=== PATIENT | male | born 1990 | race Caucasian/White ===

== ENCOUNTER 2024-07-28 18:49 | Inpatient (IN) | payer MEDICARE, MEDICAID, SELFPAY ==
--- NOTE | ~2024-07-28 | CT_ITS ---
EXAMINATION: CT HEAD WITHOUT IV CONTRAST HISTORY: AMS. TECHNIQUE: Unenhanced helical CT of the head was performed per standard departmental protocol. Coronal and sagittal reformats of the head were also evaluated. One or more of the following techniques was used for dose reduction: Automated exposure control, adjustment of the mA and/or kV according to patient size, use of iterative reconstruction technique. DLP: 1436 mGy-cm COMPARISON: There are no prior studies for comparison. FINDINGS: BRAIN: The brain parenchyma is unremarkable. There is normal méndez/white differentiation. The ventricular system is normal in size and configuration. There is no mass effect or midline shift. No intra- or extra-axial fluid collections are identified. SINUSES: There are polyps versus mucous retention cysts in the left sphenoid and ethmoid sinuses. The mastoid air cells and middle ear cavities are well pneumatized. ORBITS: The visualized orbits are unremarkable. BONES/SOFT TISSUES: The extracranial soft tissues are unremarkable. The calvarium is intact. No suspicious lytic or sclerotic lesions. CT/CT head/brain wo IV con IMPRESSION: Unremarkable unenhanced head CT. Electronically signed by: Davide Chen MD 09/01/2024 03:41 PM [facility]
[2024-07-28 19:40] VITALS: BMI 33.0
--- NOTE | 2024-07-28 19:59 | PC.ADMIT ---
Joel arrived on M5 via stretcher from [facility]. He arrived on a 12b after going through [facility] ED. He was brought immediately to his room. He was cooperative with skin/safety check. He required assistance with change control analyst. Skin assessment significant only for abraded side of bridge of nose from eyeglass pad on left and from the lack of eyeglass pad on right. He also has many flakes on his face and alot of dryness around his mouth. He was oriented to his room, introduced to staff and given food/water. He is visibly anxious and required much reassurance that he is safe and is doing good . Report given to Antony Ordaz RN.
[2024-07-28] MEDS: clonazePAM 0.5 MG TABLET PO (22:52)
[2024-07-28] MEDS: Docusate Sodium 100 MG CAPSULE PO (22:53)
[2024-07-28] MEDS: OLANZapine 10 MG TABLET PO (22:53)
[2024-07-29] MEDS: hydrOXYzine HCL 25 MG TABLET PO (00:28)
[2024-07-29] MEDS: traZODone HCL 50 MG TABLET PO ×3 (00:28→23:17)
--- NOTE | 2024-07-29 01:03 | PC.ADMIT ---
Patient admitted to at 1905 with diagnosis of Schizoaffective Disorder, Autism Spectrum Disorder and Moderate Intellectual Disabilities. Patient transferred to [facility] from [facility] ED. He resides at a [facility] residential facility. division operations manager of residential facility reported patient had been decompensating following discharge from [facility] 3-4 weeks ago exhibiting increase in anxiety, paranoia and visual hallucinations. Patient also had exhibited aggession reported to be related to increase in paranoia and hallucinations resulting in physical restraint. Joel is seen by outpatient psychiatrist bi-weekly. His parents are legal guardians. Joel is calm and cooperative with flat affect. He is able to answer simple, direct questions.He denies suicidal or homicidal ideation as well as thoughts of self harm. Patient states he feels safe on unit. Following arrival to unit Joel requested and was given snack of sandwich, chips and ice cream all of which he finished. He was observed in the kitchen briefly where he waited for administration of clonazepam which was administered upon completion of med rec. Patient has been unable to sleep and is observed sitting in kitchen at this time. [facility] is unverified. No acute medical issues at this time.
[2024-07-29] MEDS: Lurasidone HCl 40 MG TABLET PO (09:03)
[2024-07-29] MEDS: Cariprazine HCl 3 MG CAPSULE PO (09:03)
[2024-07-29] MEDS: Ezetimibe 10 MG TABLET PO (09:03)
[2024-07-29] MEDS: Escitalopram Oxalate 10 MG TABLET PO (09:03)
[2024-07-29] MEDS: gemfibroziL 600 MG TABLET PO ×2 (09:03→20:52)
[2024-07-29] MEDS: Loratadine 10 MG TABLET PO (09:04)
[2024-07-29] MEDS: Sennosides 8.6 MG TABLET PO (09:04)
[2024-07-29] MEDS: carBAMazepine ER 200 MG TAB.ER.12H 400 MG PO ×2 (09:04→20:52)
[2024-07-29] MEDS: Docusate Sodium 100 MG CAPSULE PO ×2 (09:04→20:53)
[2024-07-29] MEDS: clonazePAM 0.5 MG TABLET PO ×3 (11:02→20:53)
--- NOTE | 2024-07-29 11:34 | HO.PSYADMNOT ---
HPI Date of Service: 07/29/24 Chief Complaint: Schioafective disorder bipolar type Sources of Information: patient interviewed, chart reviewed and crisis/core team assessment reviewed HPI Subjective Notes: Amor Warning and Conditional Voluntary Narrative: Patient is a 34-year-old male with severe ASD, intellectual disability, schizoaffective disorder with, history of behavioral outbursts, who resides at a [facility] residential facility and who presents from external ED for what numerical control programmer reports is decompensation following discharge from [facility] admission about 4 weeks ago. specification manager reports patient has increased anxiety, paranoia and visual hallucinations as well as increased agitation related to AVH, which has resulted in the need for physical restraints. Patient with limited ability to participate in interview. Patient cooperative and calm. He says he misses his mother. He said I am feeling better... And then that he was going to lay down. He said he wanted to be in the hospital until he feels better... But could not discuss his feelings or what that would mean. Denies any SI or HI and says he is feeling safe. Patient does endorse auditory hallucinations which he he says bothers him, however when asked to discuss them further or what they say, he says I do not know and regarding medication that there is nothing to help... For the remainder of the day, patient sometimes in his room, sometimes in the hallway saying he wanted to call his mother or father, saying he misses them and wants to go home. Past Psychiatric History: Recent psychiatric admissions for decompensation Lives in [facility] detention facility outpatient psychiatrist bi-weekly. His parents are legal guardians. Possible community [facility] but this is not verified Medical Evaluation Reviewed: Hospitalist Conchita Pending [facility] Medical History (Updated 07/30/24 @ 13:03 by Mannie Vidal MD) Intellectual disability Autism spectrum disorder Schizoaffective disorder Family History: Deferred at this time Social History: Lives in [facility] detention facility His parents are legal guardians. Substance History: Deferred Trauma History: Deferred Diagnostics Vital Signs (24Hr): BMI result Body Mass Index 33.0 Meds/Allergies Meds Home Medications ?Medication ?Instructions ?Recorded ?Confirmed ?Type atenolol 25 mg tablet 25 mg PO DAILY 07/28/24 07/28/24 History carbamazepine 400 mg 400 mg PO BID 07/28/24 07/28/24 History tablet,extended release,12 hr cariprazine 3 mg capsule (Vraylar) 3 mg PO DAILY 07/28/24 07/28/24 History citalopram 20 mg tablet 20 mg PO DAILY 07/28/24 07/28/24 History clonazepam 0.5 mg tablet 0.5 mg PO TID PRN anxiety 07/28/24 07/28/24 History docusate sodium 100 mg capsule 100 mg PO TID 07/28/24 07/28/24 History (Colace) ezetimibe 10 mg tablet 10 mg PO DAILY 07/28/24 07/28/24 History fluticasone propionate 50 1 spray intranasal DAILY 07/28/24 07/28/24 History mcg/actuation nasal spray,suspension gemfibrozil 600 mg tablet 600 mg PO BID 07/28/24 07/28/24 History loratadine 10 mg capsule 10 mg PO DAILY 07/28/24 07/28/24 History lurasidone 40 mg tablet 40 mg PO DAILY 07/28/24 07/28/24 History montelukast 10 mg tablet 10 mg PO DAILY 07/28/24 07/28/24 History olanzapine 10 mg tablet 10 mg PO BEDTIME 07/28/24 07/28/24 History omeprazole 40 mg capsule,delayed 40 mg PO DAILY 07/28/24 07/28/24 History release rosuvastatin 10 mg tablet 10 mg PO BEDTIME 07/28/24 07/28/24 History sennosides 8.6 mg capsule (senna) 8.6 mg PO BID 07/28/24 07/28/24 History Allergies Allergies Allergy/AdvReac Type Severity Reaction Status Date / Time ondansetron [From Zofran] Allergy Unknown Verified 07/28/24 22:30 Penicillins Allergy Unknown Verified 07/28/24 22:30 potassium Allergy Unknown Verified 07/28/24 22:30 prochlorperazine Allergy Unknown Verified 07/28/24 22:30 Mental Status Exam Mental Status Exam Narrative: Pt is alert and oriented; behavior is guarded, cautious but cooperative, calm, friendly; patient is not in distress; dressed in casual attire, unkempt, excessively dry skin on face, drooling, marginal hygiene; mood is described as better though affect anxious; eye contact appropriate; Speech is a little garbled but likely at baseline; normal rate, volume; uses few words; not pressured; no psychomotor agitation/retardation present; thought process is concrete, goal directed, asks for needs; Thought content is on AH, missing parents, tx; otherwise pertinent to relevant topics; no overt delusional content expressed; denies any SI/HI. +AH and internally preoccupied. Patients insight and judgment impaired. Assessment & Plan Assessment & Plan (1) Schizoaffective disorder: Status: Acute Code(s): F25.9 - Schizoaffective disorder, unspecified (2) Autism spectrum disorder: Status: Acute Code(s): F84.0 - Autistic disorder (3) Intellectual disability: Status: Acute Code(s): F79 - Unspecified intellectual disabilities Plan Patient is a 34-year-old male with severe ASD, intellectual disability, schizoaffective disorder with, history of behavioral outbursts, who resides at a [facility] residential facility and who presents from external ED for what numerical control programmer reports is decompensation following discharge from [facility] admission about 4 weeks ago. specification manager reports patient has increased anxiety, paranoia and visual hallucinations as well as increased agitation related to AVH, which has resulted in the need for physical restraints. Patient with limited ability to participate in interview. Patient cooperative and calm. He says he misses his mother. He said I am feeling better... And then that he was going to lay down. He said he wanted to be in the hospital until he feels better... But could not discuss his feelings or what that would mean. Denies any SI or HI and says he is feeling safe. Patient does endorse auditory hallucinations which he he says bothers him, however when asked to discuss them further or what they say, he says I do not know and regarding medication that there is nothing to help... For the remainder of the day, patient sometimes in his room, sometimes in the hallway saying he wanted to call his mother or father, saying he misses them and wants to go home. Formulation/clinical reasoning: hx of psychotic illness with mood component; difficult to assess due to patients baseline limitations. So far patient calm, mostly cooperative though also guarded and cautious. So far in good behavioral control. -Will need collateral -Guardian paperwork in chart; parents are guardians -No HCP - [place] PLAN: Section 12 B -patient said he would like to sign into the hospital to get better and understands criteria, but hesitant to sign Continue home medications for now Need collateral Patient educated on: diagnosis and medication risk/benefits Informed Consent: understands, does not understand and further education needed Reason for continued inpatient stay Substantial Risk for: rapid decompensation Statement Statement: I have reviewed the history and physical and performed a pertinent examination on my patient. No changes have occurred unless specified. If the History and Physical was not performed prior to admission, the Hospitalist's service will be consulted for completing the admission physical. Time Spent With Patient Time: Total time managing care of this patient today ____ minutes.
--- NOTE | 2024-07-29 15:28 | PM.EVENT ---
Event Note Date of Service: 07/29/24 Event Note: Pt refused to be seen. Time Spent With Patient Time: Total time managing care of this patient today ____ minutes.
[2024-07-29 19:59] VITALS: BP 142/81; PULSE 96; TEMP 37.2; O2SAT 104
[2024-07-29] MEDS: OLANZapine 10 MG TABLET PO (20:52)
[2024-07-29] MEDS: Atorvastatin Calcium 40 MG TABLET 10 MG PO (20:52)
[2024-07-30 08:00] VITALS: BP 145/85; PULSE 101; RESP 18; TEMP 36.9; O2SAT 98
[2024-07-30] MEDS: Cariprazine HCl 3 MG CAPSULE PO (08:38)
[2024-07-30] MEDS: Omeprazole 40 MG CAPSULE.DR PO (08:38)
[2024-07-30] MEDS: Escitalopram Oxalate 10 MG TABLET PO (08:38)
[2024-07-30] MEDS: carBAMazepine ER 200 MG TAB.ER.12H 400 MG PO (08:40)
[2024-07-30] MEDS: Fluticasone Propionate Nasal 16 GM SPRAY 1 SPRAY NOSTRIL-B (09:06)
[2024-07-30] MEDS: Lurasidone HCl 40 MG TABLET PO (09:07)
[2024-07-30] MEDS: clonazePAM 0.5 MG TABLET PO ×3 (09:29→23:43)
--- NOTE | 2024-07-30 12:19 | P.PNPSI_ITS ---
Subjective Subjective Date of Service: 07/30/24 Reason For Visit: Schioafective disorder bipolar type Interim History: Met with patient; discussed with team Patient remains fearful; can be friendly and cooperative but seems very anxious and cautious. Visual hallucinations patient saying he can see his mother in the room and talking to her Still not going into bathroom, with recent history of being afraid of bathroom; thus patient Incontinent of urine, sitting in wet clothes and refusing to change today, willing to sign CV reiterating he wants to be here for treatment ( to feel better ) left for outpatient provider Nat Lee to discuss tx hx Mental Status Exam Mental Status Exam Narrative: Pt is alert and oriented; behavior is guarded, cautious but cooperative, calm, can be friendly; patient is not in distress; dressed in casual attire, poor hygiene, urine soaked clothes, excessively dry skin on face, drooling; mood is described as better though affect anxious; eye contact appropriate; Speech is a little garbled but likely at baseline; normal rate, volume; uses few words; not pressured; no psychomotor agitation/retardation present; thought process is concrete, goal directed, asks for needs; Thought content is on AH, missing parents, tx; otherwise pertinent to relevant topics; no overt delusional content expressed; denies any SI/HI. +AH and internally preoccupied. Patients insight and judgment impaired. Diagnostics Vital Signs (24Hr): Vital Signs - 24 hr 07/29/24 19:59 07/30/24 08:00 Temperature 98.9 F 98.4 F Pulse Rate 96 101 H Respiratory Rate 18 Blood Pressure 142/81 H 145/85 H Pulse Oximetry 104 H 98 Oxygen Delivery Method Room Air Room Air BMI result Body Mass Index 33.0 Medications Medications Current Medications Acetaminophen (Acetaminophen 325 Mg Tablet) 650 mg PO Q6H PRN PRN Reason: Headache/Pain Mild Scale (1-3) Al Hydroxide/Mg Hydroxide (Magnesium Hydrox/Alum Hydrox 30 Ml Oral.Susp) 30 ml PO Q6H PRN PRN Reason: Heartburn/Nausea Atenolol (Atenolol 25 Mg Tablet) 25 mg PO DAILY ADRIANO; Protocol Last Admin: 07/30/24 09:17 Dose: Not Given Atorvastatin Calcium (Atorvastatin Calcium 40 Mg Tablet) 10 mg PO BEDTIME ADRIANO Last Admin: 07/29/24 20:52 Dose: 10 mg Carbamazepine (Carbamazepine Er 200 Mg Tab.Er.12h) 400 mg PO BID [facility] Last Admin: 07/30/24 08:40 Dose: 400 mg Cariprazine (Cariprazine Hcl 3 Mg Capsule) 3 mg PO DAILY [facility] Last Admin: 07/30/24 08:38 Dose: 3 mg Clonazepam (Clonazepam 0.5 Mg Tablet) 0.5 mg PO TID PRN PRN Reason: anxiety Last Admin: 07/30/24 09:29 Dose: 0.5 mg Docusate Sodium (Docusate Sodium 100 Mg Capsule) 100 mg PO TID [facility] Last Admin: 07/30/24 09:17 Dose: Not Given Ezetimibe (Ezetimibe 10 Mg Tablet) 10 mg PO DAILY [facility] Last Admin: 07/30/24 09:27 Dose: Not Given Escitalopram Oxalate (Escitalopram Oxalate 10 Mg Tablet) 10 mg PO DAILY [facility] Last Admin: 07/30/24 08:38 Dose: 10 mg Fluticasone Propionate (Fluticasone Propionate Nasal 16 Gm [place]) 1 spray NOSTRIL-B DAILY [facility] Last Admin: 07/30/24 09:06 Dose: 1 spray Gemfibrozil (Gemfibrozil 600 Mg Tablet) 600 mg PO BID [facility] Last Admin: 07/30/24 09:17 Dose: Not Given Hydroxyzine HCl (Hydroxyzine Hcl 25 Mg Tablet) 25 mg PO Q6H PRN PRN Reason: Anxiety Last Admin: 07/29/24 00:28 Dose: 25 mg Loratadine (Loratadine 10 Mg Tablet) 10 mg PO DAILY [facility] Last Admin: 07/30/24 09:35 Dose: Not Given Lurasidone HCl (Lurasidone Hcl 40 Mg Tablet) 40 mg PO DAILY [facility] Last Admin: 07/30/24 09:07 Dose: 40 mg Magnesium Hydroxide (Milk Of Magnesia 30 Ml Oral.Susp) 30 ml PO DAILY PRN PRN Reason: Constipation Nicotine Polacrilex (Nicotine Polacrilex 2 Mg Gum) 4 mg BUCCAL Q2H PRN PRN Reason: Nicotine Cravings Olanzapine (Olanzapine 10 Mg Tablet) 10 mg PO BEDTIME [facility] Last Admin: 07/29/24 20:52 Dose: 10 mg Omeprazole (Omeprazole 40 Mg Capsule.Dr) 40 mg PO DAILY@0630 [facility] Last Admin: 07/30/24 08:38 Dose: 40 mg Senna (Sennosides 8.6 Mg Tablet) 8.6 mg PO BID ADRIANO Last Admin: 07/30/24 08:40 Dose: Not Given Trazodone HCl (Trazodone Hcl 50 Mg Tablet) 50 mg PO BEDTIME MRX1 PRN PRN Reason: Insomnia Last Admin: 07/29/24 23:17 Dose: 50 mg Allergies Allergies Allergy/AdvReac Type Severity Reaction Status Date / Time ondansetron [From Zofran] Allergy Unknown Verified 07/28/24 22:30 Penicillins Allergy Unknown Verified 07/28/24 22:30 potassium Allergy Unknown Verified 07/28/24 22:30 prochlorperazine Allergy Unknown Verified 07/28/24 22:30 Assessment & Plan Assessment & Plan (1) Schizoaffective disorder, bipolar type: Status: Acute Code(s): F25.0 - Schizoaffective disorder, bipolar type (2) Autism spectrum disorder: Status: Acute Code(s): F84.0 - Autistic disorder (3) Intellectual disability: Status: Acute Code(s): F79 - Unspecified intellectual disabilities Plan Patient is a 34-year-old male with severe ASD, intellectual disability, schizoaffective disorder with, history of behavioral outbursts, who resides at a [facility] residential facility and who presents from external ED for what medical assisting program director reports is decompensation following discharge from [facility] admission about 4 weeks ago. customer services manager reports patient has increased anxiety, paranoia and visual hallucinations as well as increased agitation related to AVH, which has resulted in the need for physical restraints. Patient with limited ability to participate in interview. Patient cooperative and calm. He says he misses his mother. He said I am feeling better... And then that he was going to lay down. He said he wanted to be in the hospital until he feels better... But could not discuss his feelings or what that would mean. Denies any SI or HI and says he is feeling safe. Patient does endorse auditory hallucinations which he he says bothers him, how ever when asked to discuss them further or what they say, he says I do not know and regarding medication that there is nothing to help... For the remainder of the day, patient sometimes in his room, sometimes in the hallway saying he wanted to call his mother or father, saying he misses them and wants to go home. Formulation/clinical reasoning: hx of psychotic illness with mood component; difficult to assess due to patients baseline limitations. So far patient calm, mostly cooperative though also guarded and cautious. So far in good behavioral control. -Will need collateral -Guardian paperwork in chart; parents are guardians -No HCP - [facility] course: 07/30 Patient remains fearful; can be friendly and cooperative but seems very anxious and cautious. Visual hallucinations patient saying he can see his mother in the room and talking to her Still not going into bathroom, with recent history of being afraid of bathroom; thus patient Incontinent of urine, sitting in wet clothes and refusing to change today, willing to sign CV reiterating he wants to be here for treatment ( to feel better ) left VM for outpatient provider Nat Lee to discuss tx hx PLAN: CV q15 min checks -patient said he would like to sign into the hospital to get better and understands criteria, but hesitant to sign Continue home medications for now Need collateral Patient educated on: diagnosis and medication risk/benefits Informed Consent: understands, does not understand and further education needed Reason for continued inpatient stay Substantial Risk for: inability to function Time Spent With Patient Time: Total time managing care of this patient today ____ minutes.
[2024-07-30 20:00] VITALS: PULSE 86; TEMP 37.3; O2SAT 99
[2024-07-30] MEDS: OLANZapine 10 MG TABLET PO (20:44)
[2024-07-30] MEDS: Docusate Sodium 100 MG CAPSULE PO (20:45)
[2024-07-30] MEDS: Sennosides 8.6 MG TABLET PO (20:45)
--- NOTE | 2024-07-31 07:11 | PC.NURSE ---
Patient assisted to his bathroom at 0600. Staff kept reassuring patient You are safe . Patient declined to void and also declined a brief.
[2024-07-31 08:18] VITALS: BP 134/74; PULSE 89; TEMP 36.4; O2SAT 100
[2024-07-31] MEDS: clonazePAM 0.5 MG TABLET PO ×2 (10:08→17:39)
[2024-07-31] MEDS: Sennosides 8.6 MG TABLET PO (10:09)
[2024-07-31] MEDS: carBAMazepine ER 200 MG TAB.ER.12H 400 MG PO ×2 (10:09→21:54)
[2024-07-31] MEDS: Docusate Sodium 100 MG CAPSULE PO (10:10)
[2024-07-31] MEDS: Lurasidone HCl 40 MG TABLET PO (10:10)
[2024-07-31] MEDS: gemfibroziL 600 MG TABLET PO ×2 (10:10→21:54)
[2024-07-31] MEDS: Omeprazole 40 MG CAPSULE.DR PO (10:10)
[2024-07-31] MEDS: Ezetimibe 10 MG TABLET PO (10:10)
[2024-07-31 10:11] VITALS: BP 126/72; PULSE 88
[2024-07-31] MEDS: atenoloL 25 MG TABLET PO (10:11)
[2024-07-31] MEDS: Escitalopram Oxalate 10 MG TABLET PO (10:11)
[2024-07-31] MEDS: Cariprazine HCl 3 MG CAPSULE PO (10:12)
[2024-07-31] MEDS: Fluticasone Propionate Nasal 16 GM SPRAY 1 SPRAY NOSTRIL-B (10:14)
--- NOTE | 2024-07-31 19:07 | HO.PSYCHPN ---
Subjective Subjective Date of Service: 07/31/24 Reason For Visit: Schioafective disorder bipolar type Interim History: Met with patient; discussed with team patient remains cautious and intermittently fearful but is also warming up a bit to some staff, primarily female staff. He says he is feeling better but behaviors remain decompensated. Willing to change out of clothes today with staff encouragement and have them washed; also talked to his mother on the phone today which he said made him happy. Food Service Driver discussed case with patient's mother who reports that behaviors decompensated this April after he returned from vacation with his father. At that time he started packing up his stuff, saying he wanted to move out of the shelter; was taking lots of showers, self dialogue Ng, saying he could see his mother in the room, saying he thought his mother was and refusing to talk to her on the phone. For those reasons This past May he went to [facility] where he was started on Vraylar (and refused to take Latuda). He returned to the shelter but remained confused, disorganized, paranoid. At 1 point he would not leave the living room at all, incontinent, afraid to go into the bathroom or to shower which resulted in this hospitalization. Some history of aggression for which he was hospitalized a year ago; only mild aggression in shelter this time around. Mental Status Exam Mental Status Exam Narrative: Pt is alert and oriented; behavior is guarded, cautious but cooperative, calm, can be friendly; patient is not in distress; dressed in hospital attire, mildly improved hygiene, dry skin on face, drooling; mood is described as better though affect anxious; eye contact appropriate; Speech is a little garbled but likely at baseline; normal rate, volume; uses few words; not pressured; no psychomotor agitation/retardation present; thought process is concrete, goal directed, asks for needs; Thought content is on AH, missing parents, tx; otherwise pertinent to relevant topics; no overt delusional content expressed; denies any SI/HI. +AH and internally preoccupied. Patients insight and judgment impaired. Diagnostics Vital Signs (24Hr): Vital Signs - 24 hr 07/30/24 20:00 07/31/24 08:18 07/31/24 10:11 Temperature 99.1 F 97.5 F Pulse Rate 86 89 88 Blood Pressure 134/74 126/72 Pulse Oximetry 99 100 Oxygen Delivery Method Room Air Room Air BMI result Body Mass Index 33.0 Medications Medications Current Medications Acetaminophen (Acetaminophen 325 Mg Tablet) 650 mg PO Q6H PRN PRN Reason: Headache/Pain Mild Scale (1-3) Al Hydroxide/Mg Hydroxide (Magnesium Hydrox/Alum Hydrox 30 Ml Oral.Susp) 30 ml PO Q6H PRN PRN Reason: Heartburn/Nausea Atenolol (Atenolol 25 Mg Tablet) 25 mg PO DAILY [facility]; Protocol Last Admin: 07/31/24 10:11 Dose: 25 mg Atorvastatin Calcium (Atorvastatin Calcium 40 Mg Tablet) 10 mg PO BEDTIME [facility] Last Admin: 07/30/24 20:58 Dose: Not Given Carbamazepine (Carbamazepine Er 200 Mg Tab.Er.12h) 400 mg PO BID [facility] Last Admin: 07/31/24 10:09 Dose: 400 mg Cariprazine (Cariprazine Hcl 3 Mg Capsule) 3 mg PO DAILY [facility] Last Admin: 07/31/24 10:12 Dose: 3 mg Clonazepam (Clonazepam 0.5 Mg Tablet) 0.5 mg PO TID PRN PRN Reason: anxiety Last Admin: 07/31/24 17:39 Dose: 0.5 mg Docusate Sodium (Docusate Sodium 100 Mg Capsule) 100 mg PO TID [facility] Last Admin: 07/31/24 14:30 Dose: Not Given Ezetimibe (Ezetimibe 10 Mg Tablet) 10 mg PO DAILY [facility] Last Admin: 07/31/24 10:10 Dose: 10 mg Escitalopram Oxalate (Escitalopram Oxalate 10 Mg Tablet) 10 mg PO DAILY [facility] Last Admin: 07/31/24 10:11 Dose: 10 mg Fluticasone Propionate (Fluticasone Propionate Nasal 16 Gm Murphy) 1 spray NOSTRIL-B DAILY [facility] Last Admin: 07/31/24 10:14 Dose: 1 spray Gemfibrozil (Gemfibrozil 600 Mg Tablet) 600 mg PO BID [facility] Last Admin: 07/31/24 10:10 Dose: 600 mg Hydroxyzine HCl (Hydroxyzine Hcl 25 Mg Tablet) 25 mg PO Q6H PRN PRN Reason: Anxiety Last Admin: 07/29/24 00:28 Dose: 25 mg Loratadine (Loratadine 10 Mg Tablet) 10 mg PO DAILY [facility] Last Admin: 07/31/24 10:28 Dose: Not Given Lurasidone HCl (Lurasidone Hcl 40 Mg Tablet) 40 mg PO DAILY [facility] Last Admin: 07/31/24 10:10 Dose: 40 mg Magnesium Hydroxide (Milk Of Magnesia 30 Ml Oral.Susp) 30 ml PO DAILY PRN PRN Reason: Constipation Multi-Ingred Cream/Lotion/Oil/Oint (Mineral Oil/Petrolatum,White 106 Gm Tube) 1 appl TOPICAL TID PRN; Protocol PRN Reason: dry skin Nicotine Polacrilex (Nicotine Polacrilex 2 Mg Gum) 4 mg BUCCAL Q2H PRN PRN Reason: Nicotine Cravings Olanzapine (Olanzapine 10 Mg Tablet) 10 mg PO BEDTIME [facility] Last Admin: 07/30/24 20:44 Dose: 10 mg Omeprazole (Omeprazole 40 Mg Capsule.Dr) 40 mg PO DAILY@0630 [facility] Last Admin: 07/31/24 10:10 Dose: 40 mg Senna (Sennosides 8.6 Mg Tablet) 8.6 mg PO BID [facility] Last Admin: 07/31/24 10:09 Dose: 8.6 mg Trazodone HCl (Trazodone Hcl 50 Mg Tablet) 50 mg PO BEDTIME MRX1 PRN PRN Reason: Insomnia Last Admin: 07/29/24 23:17 Dose: 50 mg Allergies Allergies Allergy/AdvReac Type Severity Reaction Status Date / Time ondansetron [From Zofran] Allergy Unknown Verified 07/28/24 22:30 Penicillins Allergy Unknown Verified 07/28/24 22:30 potassium Allergy Unknown Verified 07/28/24 22:30 prochlorperazine Allergy Unknown Verified 07/28/24 22:30 Assessment & Plan Assessment & Plan (1) Schizoaffective disorder, bipolar type: Status: Acute Code(s): F25.0 - Schizoaffective disorder, bipolar type (2) Autism spectrum disorder: Status: Acute Code(s): F84.0 - Autistic disorder (3) Intellectual disability: Status: Acute Code(s): F79 - Unspecified intellectual disabilities Plan Patient is a 34-year-old male with severe ASD, intellectual disability, schizoaffective disorder with, history of behavioral outbursts, who resides at a [facility] residential facility and who presents from external ED for what community health program representative reports is decompensation following discharge from [facility] psych admission about 4 weeks ago. recreation facility manager reports patient has increased anxiety, paranoia and visual hallucinations as well as increased agitation related to AVH, which has resulted in the need for physical restraints. Patient with limited ability to participate in interview. Patient cooperative and calm. He says he misses his mother. He said I am feeling better... And then that he was going to lay down. He said he wanted to be in the hospital until he feels better... But could not discuss his feelings or what that would mean. Denies any SI or HI and says he is feeling safe. Patient does endorse auditory hallucinations which he he says bothers him, however when asked to discuss them further or what they say, he says I do not know and regarding medication that there is nothing to help... For the remainder of the day, patient sometimes in his room, sometimes in the hallway saying he wanted to call his mother or father, saying he misses them and wants to go home. Formulation/clinical reasoning: hx of psychotic illness with mood component; difficult to assess due to patients baseline limitations. So far patient calm, mostly cooperative though also guarded and cautious. So far in good behavioral control. -Will need collateral -Guardian paperwork in chart; parents are guardians -No HCP - [facility] course: 07/30 Patient remains fearful; can be friendly and cooperative but seems very anxious and cautious. Visual hallucinations patient saying he can see his mother in the room and talking to her Still not going into bathroom, with recent history of being afraid of bathroom; thus patient Incontinent of urine, sitting in wet clothes and refusing to change today, willing to sign CV reiterating he wants to be here for treatment ( to feel better ) -left for outpatient provider Nat Lee to discuss tx hx 07/31 patient remains cautious and intermittently fearful but is also warming up a bit to some staff, primarily female staff. He says he is feeling better but behaviors remain decompensated. Willing to change out of clothes today with staff encouragement and have them washed; also talked to his mother on the phone today which he said made him happy. Patient willing to use lotion for try facial skin Collateral:Food Service Driver discussed case with patient's mother who reports that behaviors decompensated this April after he returned from vacation with his father. At that time he started packing up his stuff, saying he wanted to move out of the shelter; was taking lots of showers, self dialogue Ng, saying he could see his mother in the room, saying he thought his mother was and refusing to talk to her on the phone. For those reasons This past May he went to [facility] where he was started on Vraylar (and refused to take Latuda). He returned to the shelter but remained confused, disorganized, paranoid. At 1 point he would not leave the living room at all, incontinent, afraid to go into the bathroom or to shower which resulted in this hospitalization. Some history of aggression for which he was hospitalized a year ago; only mild aggression in shelter this time around. -left another message with hospice patient care secretary for Nat Lee PLAN: CV q15 min checks -patient said he would like to sign into the hospital to get better and understands criteria, but hesitant to sign Continue home medications for now -need more history on medication trials before making adjustments Need collateral Patient educated on: diagnosis Informed Consent: understands, does not understand and further education needed Reason for continued inpatient stay Substantial Risk for: inability to function Time Spent With Patient Time: Total time managing care of this patient today ____ minutes.
[2024-07-31 20:00] VITALS: BP 190/83; PULSE 93; TEMP 36.9; O2SAT 100
[2024-07-31] MEDS: OLANZapine 10 MG TABLET PO (21:53)
[2024-08-01] MEDS: Omeprazole 40 MG CAPSULE.DR PO (07:09)
[2024-08-01 08:42] VITALS: BP 153/87; PULSE 89; RESP 18; TEMP 36.8; O2SAT 100
[2024-08-01] MEDS: Escitalopram Oxalate 10 MG TABLET PO (09:40)
[2024-08-01] MEDS: Loratadine 10 MG TABLET PO (09:40)
[2024-08-01] MEDS: carBAMazepine ER 200 MG TAB.ER.12H 400 MG PO ×2 (09:41→21:53)
[2024-08-01] MEDS: Docusate Sodium 100 MG CAPSULE PO ×3 (09:41→21:53)
[2024-08-01] MEDS: Cariprazine HCl 3 MG CAPSULE PO (09:41)
[2024-08-01] MEDS: Lurasidone HCl 40 MG TABLET PO (09:41)
[2024-08-01] MEDS: Fluticasone Propionate Nasal 16 GM SPRAY 1 SPRAY NOSTRIL-B (09:50)
[2024-08-01 09:51] VITALS: BP 115/60; PULSE 80
[2024-08-01] MEDS: Sennosides 8.6 MG TABLET PO ×2 (09:51→21:53)
[2024-08-01] MEDS: atenoloL 25 MG TABLET PO (09:51)
--- NOTE | 2024-08-01 09:54 | HO.PSYCHPN ---
Subjective Subjective Date of Service: 08/01/24 Reason For Visit: Schioafective disorder bipolar type Interim History: Met with patient; discussed with team Patient says I feel better... But then says the medications are not working because they are making him sleepy during the day. Patient tells screenplay writer that AH remain and are bothersome and he would like medications changed. Patient seems a little more comfortable with staff and is willing to address ADLs with staff's help. Still having visual hallucinations and today said he saw his mother in his room and wanted a picture taken with her. Did sleep last night Mental Status Exam Mental Status Exam Narrative: Pt is alert and oriented; behavior is guarded, cautious but cooperative, calm, can be friendly; patient is not in distress; dressed in hospital attire, mildly improved hygiene, dry skin on face, drooling; mood is described as i feel better though affect anxious; eye contact appropriate; Speech is a little garbled but likely at baseline; normal rate, volume; uses few words; not pressured; no psychomotor agitation/retardation present; thought process is concrete, goal directed, asks for needs; Thought content is on AH, missing parents, tx; otherwise pertinent to relevant topics; no overt delusional content expressed; denies any SI/HI. +AH and internally preoccupied. Patients insight and judgment impaired. Diagnostics Vital Signs (24Hr): Vital Signs - 24 hr 07/31/24 10:11 07/31/24 20:00 08/01/24 08:42 Temperature 98.5 F 98.3 F Pulse Rate 88 93 89 Respiratory Rate 18 Blood Pressure 126/72 190/83 H 153/87 H Pulse Oximetry 100 100 Oxygen Delivery Method Room Air Room Air 08/01/24 09:51 Temperature Pulse Rate 80 Respiratory Rate Blood Pressure 115/60 Pulse Oximetry Oxygen Delivery Method BMI result Body Mass Index 33.0 Medications Medications Current Medications Acetaminophen (Acetaminophen 325 Mg Tablet) 650 mg PO Q6H PRN PRN Reason: Headache/Pain Mild Scale (1-3) Al Hydroxide/Mg Hydroxide (Magnesium Hydrox/Alum Hydrox 30 Ml Oral.Susp) 30 ml PO Q6H PRN PRN Reason: Heartburn/Nausea Atenolol (Atenolol 25 Mg Tablet) 25 mg PO DAILY [facility]; Protocol Last Admin: 08/01/24 09:51 Dose: 25 mg Atorvastatin Calcium (Atorvastatin Calcium 40 Mg Tablet) 40 mg PO BEDTIME [facility] Carbamazepine (Carbamazepine Er 200 Mg Tab.Er.12h) 400 mg PO BID [facility] Last Admin: 08/01/24 09:41 Dose: 400 mg Cariprazine (Cariprazine Hcl 3 Mg Capsule) 3 mg PO DAILY [facility] Last Admin: 08/01/24 09:41 Dose: 3 mg Clonazepam (Clonazepam 0.5 Mg Tablet) 0.5 mg PO TID PRN PRN Reason: anxiety Last Admin: 07/31/24 17:39 Dose: 0.5 mg Docusate Sodium (Docusate Sodium 100 Mg Capsule) 100 mg PO TID [facility] Last Admin: 08/01/24 09:41 Dose: 100 mg Ezetimibe (Ezetimibe 10 Mg Tablet) 10 mg PO DAILY [facility] Last Admin: 08/01/24 09:47 Dose: Not Given Escitalopram Oxalate (Escitalopram Oxalate 10 Mg Tablet) 10 mg PO DAILY [facility] Last Admin: 08/01/24 09:40 Dose: 10 mg Fluticasone Propionate (Fluticasone Propionate Nasal 16 Gm Section) 1 spray NOSTRIL-B DAILY [facility] Last Admin: 08/01/24 09:50 Dose: 1 spray Gemfibrozil (Gemfibrozil 600 Mg Tablet) 600 mg PO BID [facility] Last Admin: 08/01/24 09:46 Dose: Not Given Hydroxyzine HCl (Hydroxyzine Hcl 25 Mg Tablet) 25 mg PO Q6H PRN PRN Reason: Anxiety Last Admin: 07/29/24 00:28 Dose: 25 mg Loratadine (Loratadine 10 Mg Tablet) 10 mg PO DAILY [facility] Last Admin: 08/01/24 09:40 Dose: 10 mg Lurasidone HCl (Lurasidone Hcl 40 Mg Tablet) 40 mg PO DAILY [facility] Last Admin: 08/01/24 09:41 Dose: 40 mg Magnesium Hydroxide (Milk Of Magnesia 30 Ml Oral.Susp) 30 ml PO DAILY PRN PRN Reason: Constipation Multi-Ingred Cream/Lotion/Oil/Oint (Mineral Oil/Petrolatum,White 106 Gm Tube) 1 appl TOPICAL TID PRN; Protocol PRN Reason: dry skin Nicotine Polacrilex (Nicotine Polacrilex 2 Mg Gum) 4 mg BUCCAL Q2H PRN PRN Reason: Nicotine Cravings Olanzapine (Olanzapine 10 Mg Tablet) 10 mg PO BEDTIME [facility] Last Admin: 07/31/24 21:53 Dose: 10 mg Omeprazole (Omeprazole 40 Mg Capsule.) 40 mg PO DAILY@0630 [facility] Last Admin: 08/01/24 07:09 Dose: 40 mg Senna (Sennosides 8.6 Mg Tablet) 8.6 mg PO BID [facility] Last Admin: 08/01/24 09:51 Dose: 8.6 mg Trazodone HCl (Trazodone Hcl 50 Mg Tablet) 50 mg PO BEDTIME MRX1 PRN PRN Reason: Insomnia Last Admin: 07/29/24 23:17 Dose: 50 mg Allergies Allergies Allergy/AdvReac Type Severity Reaction Status Date / Time ondansetron [From Zofran] Allergy Unknown Verified 07/28/24 22:30 Penicillins Allergy Unknown Verified 07/28/24 22:30 potassium Allergy Unknown Verified 07/28/24 22:30 prochlorperazine Allergy Unknown Verified 07/28/24 22:30 Assessment & Plan Assessment & Plan (1) Schizoaffective disorder, bipolar type: Status: Acute Code(s): F25.0 - Schizoaffective disorder, bipolar type (2) Autism spectrum disorder: Status: Acute Code(s): F84.0 - Autistic disorder (3) Intellectual disability: Status: Acute Code(s): F79 - Unspecified intellectual disabilities Plan Patient is a 34-year-old male with severe ASD, intellectual disability, schizoaffective disorder with, history of behavioral outbursts, who resides at a [facility] residential facility and who presents from external ED for what program manager transportation reports is decompensation following discharge from [facility] admission about 4 weeks ago. shopper marketing manager reports patient has increased anxiety, paranoia and visual hallucinations as well as increased agitation related to AVH, which has resulted in the need for physical restraints. Patient with limited ability to participate in interview. Patient cooperative and calm. He says he misses his mother. He said I am feeling better... And then that he was going to lay down. He said he wanted to be in the hospital until he feels better... But could not discuss his feelings or what that would mean. Denies any SI or HI and says he is feeling safe. Patient does endorse auditory hallucinations which he he says bothers him, however when asked to discuss them further or what they say, he says I do not know and regarding medication that there is nothing to help... For the remainder of the day, patient sometimes in his room, sometimes in the hallway saying he wanted to call his mother or father, saying he misses them and wants to go home. Formulation/clinical reasoning: hx of psychotic illness with mood component; difficult to assess due to patients baseline limitations. So far patient calm, mostly cooperative though also guarded and cautious. So far in good behavioral control. -Will need collateral -Guardian paperwork in chart; parents are guardians -No HCP - [facility] course: 07/30 Patient remains fearful; can be friendly and cooperative but seems very anxious and cautious. Visual hallucinations patient saying he can see his mother in the room and talking to her Still not going into bathroom, with recent history of being afraid of bathroom; thus patient Incontinent of urine, sitting in wet clothes and refusing to change today, willing to sign CV reiterating he wants to be here for treatment ( to feel better ) -left VM for outpatient provider Nat Lee to discuss tx hx 07/31 patient remains cautious and intermittently fearful but is also warming up a bit to some staff, primarily female staff. He says he is feeling better but behaviors remain decompensated. Willing to change out of clothes today with staff encouragement and have them washed; also talked to his mother on the phone today which he said made him happy. Patient willing to use lotion for try facial skin Collateral:Super[employer] discussed case with patient's mother who reports that behaviors decompensated this April after he returned from vacation with his father. At that time he started packing up his stuff, saying he wanted to move out of the [facility]pc; was taking lots of showers, self dialogue Ng, saying he could see his mother in the room, saying he thought his mother was and refusing to talk to her on the phone. For those reasons This past May he went to [facility] where he was started on Vraylar (and refused to take Latuda). He returned to the [facility] but remained confused, disorganized, paranoid. At 1 point he would not leave the living room at all, incontinent, afraid to go into the bathroom or to shower which resulted in this hospitalization. Some history of aggression for which he was hospitalized a year ago; only mild aggression in [facility]pc this time around. -left another message with litigation secretary for Nat Lee 08/01 mostly same presentation, continued AH which are bothersome; more comfortable with staff and allowing them to help him attending ADLs including bathing. -screenplay writer did get a call back from Nat Lee; screenplay writer return call and left message PLAN: CV q15 min checks -patient said he would like to sign into the hospital to get better and understands criteria, but hesitant to sign Continue home medications for now -need more history on medication trials before making adjustments Need collateral Patient educated on: diagnosis and medication risk/benefits Informed Consent: understands, does not understand and further education needed Reason for continued inpatient stay Substantial Risk for: inability to function and rapid decompensation Time Spent With Patient Time: Total time managing care of this patient today ____ minutes.
[2024-08-01] MEDS: hydrOXYzine HCL 25 MG TABLET PO (16:24)
[2024-08-01] MEDS: clonazePAM 0.5 MG TABLET PO (16:24)
[2024-08-01] MEDS: OLANZapine 10 MG TABLET PO (21:53)
[2024-08-01] MEDS: gemfibroziL 600 MG TABLET PO (21:53)
[2024-08-01] MEDS: Atorvastatin Calcium 40 MG TABLET PO (21:53)
[2024-08-02 04:30] VITALS: BP 100/60; PULSE 84; O2SAT 94
[2024-08-02] MEDS: Escitalopram Oxalate 10 MG TABLET PO (10:29)
[2024-08-02] MEDS: Ezetimibe 10 MG TABLET PO (10:29)
[2024-08-02] MEDS: carBAMazepine ER 200 MG TAB.ER.12H 400 MG PO ×2 (10:29→20:48)
[2024-08-02] MEDS: Omeprazole 40 MG CAPSULE.DR PO (10:29)
[2024-08-02] MEDS: Cariprazine HCl 3 MG CAPSULE PO (10:29)
[2024-08-02] MEDS: Docusate Sodium 100 MG CAPSULE PO ×2 (10:30→20:48)
[2024-08-02] MEDS: clonazePAM 0.5 MG TABLET PO ×3 (10:30→20:49)
[2024-08-02] MEDS: Sennosides 8.6 MG TABLET PO ×2 (10:30→20:48)
[2024-08-02] MEDS: Loratadine 10 MG TABLET PO (10:31)
[2024-08-02] MEDS: gemfibroziL 600 MG TABLET PO ×2 (10:31→20:48)
[2024-08-02 10:33] VITALS: BP 139/93; PULSE 80
[2024-08-02] MEDS: atenoloL 25 MG TABLET PO (10:33)
[2024-08-02] MEDS: Fluticasone Propionate Nasal 16 GM SPRAY 1 SPRAY NOSTRIL-B (10:33)
[2024-08-02 10:39] VITALS: BP 139/93; PULSE 77; RESP 20; TEMP 37.1; O2SAT 98
--- NOTE | 2024-08-02 10:42 | P.PNPSI_ITS ---
Subjective Subjective Date of Service: 08/02/24 Reason For Visit: Schioafective disorder bipolar type Interim History: Met with patient; discussed with team; discussed case with patient's mother Patient continues to say I am feeling much better however this does not seem to correlate with any improvement in symptoms as he continues to have AH, is afraid of his room, incontinent of urine because afraid of going to the bathroom and continually saying that he sees his mother in his room. Patient does not respond much to reality testing. He does say he would like other medications to help make the voices go away. Again discussed case with patient's mother. -She reports he was doing great this past summer; not sure what his medication regimen was at that time -says was on Tegretol for years; for some reason [facility] took him off of it (was restarted at this hospitalization) -says was on clomipramine for OCD since 7 years old and did well on it; not sure why he was taken off a year ago -to her knowledge Latuda was supposed to be discontinued since he was never really taking it; Vraylar was also started at [facility] which has not seemed to help. Has been on Zyprexa for a while -drools consistently at baseline; she said she has asked in the past for medication for this Diagnosis: -Says diagnosis is schizoaffective, bipolar type however she has no knowledge of any discrete manic episodes; he has some history of depressive episodes -Does not blink: Supposed to be on Restasis/cyclosporine ophthalmic; not sure dose; discussed with pharmacist who reports typically this is 0.05% solution 1 drop b.i.d. (other places say 0.1%) -Aarkskog syndrome -ASD -OCD -has chronic extremely dry skin (eczema?) for which he has some medicated cream; mother not sure the name Said there was a plan to get MRI of the brain since change seemed somewhat sudden Mental Status Exam Mental Status Exam Narrative: Pt is alert and oriented; behavior is guarded, cautious but cooperative, calm, can be friendly; patient is not in distress; dressed in hospital attire, mildly improved hygiene, dry skin on face, drooling; mood is described as i feel better though affect anxious; eye contact appropriate; Speech is a little garbled but likely at baseline; normal rate, volume; uses few words; not pressured; no psychomotor agitation/retardation present; thought process is concrete, goal directed, asks for needs; Thought content is on AH, missing parents, tx; otherwise pertinent to relevant topics; no overt delusional content expressed; denies any SI/HI. +AH and internally preoccupied. Patients insight and judgment impaired. Diagnostics Vital Signs (24Hr): Vital Signs - 24 hr 08/02/24 04:30 08/02/24 10:33 08/02/24 10:39 Temperature 98.8 F Pulse Rate 84 80 77 Respiratory Rate 20 Blood Pressure 100/60 139/93 H 139/93 H Pulse Oximetry 94 98 Oxygen Delivery Method Room Air Room Air BMI result Body Mass Index 33.0 Medications Medications Current Medications Acetaminophen (Acetaminophen 325 Mg Tablet) 650 mg PO Q6H PRN PRN Reason: Headache/Pain Mild Scale (1-3) Al Hydroxide/Mg Hydroxide (Magnesium Hydrox/Alum Hydrox 30 Ml Oral.Susp) 30 ml PO Q6H PRN PRN Reason: Heartburn/Nausea Atenolol (Atenolol 25 Mg Tablet) 25 mg PO DAILY [facility]; Protocol Last Admin: 08/02/24 10:33 Dose: 25 mg Atorvastatin Calcium (Atorvastatin Calcium 40 Mg Tablet) 40 mg PO BEDTIME [facility] Last Admin: 08/01/24 21:53 Dose: 40 mg Carbamazepine (Carbamazepine Er 200 Mg Tab.Er.12h) 400 mg PO BID [facility] Last Admin: 08/02/24 10:29 Dose: 400 mg Cariprazine (Cariprazine Hcl 3 Mg Capsule) 3 mg PO DAILY [facility] Last Admin: 08/02/24 10:29 Dose: 3 mg Clonazepam (Clonazepam 0.5 Mg Tablet) 0.5 mg PO TID PRN PRN Reason: anxiety Last Admin: 08/02/24 10:30 Dose: 0.5 mg Docusate Sodium (Docusate Sodium 100 Mg Capsule) 100 mg PO TID [facility] Last Admin: 08/02/24 10:30 Dose: 100 mg Ezetimibe (Ezetimibe 10 Mg Tablet) 10 mg PO DAILY [facility] Last Admin: 08/02/24 10:29 Dose: 10 mg Escitalopram Oxalate (Escitalopram Oxalate 10 Mg Tablet) 10 mg PO DAILY [facility] Last Admin: 08/02/24 10:29 Dose: 10 mg Fluticasone Propionate (Fluticasone Propionate Nasal 16 Gm [place]) 1 spray NOSTRIL-B DAILY [facility] Last Admin: 08/02/24 10:33 Dose: 1 spray Gemfibrozil (Gemfibrozil 600 Mg Tablet) 600 mg PO BID [facility] Last Admin: 08/02/24 10:31 Dose: 600 mg Hydroxyzine HCl (Hydroxyzine Hcl 25 Mg Tablet) 25 mg PO Q6H PRN PRN Reason: Anxiety Last Admin: 08/01/24 16:24 Dose: 25 mg Loratadine (Loratadine 10 Mg Tablet) 10 mg PO DAILY [facility] Last Admin: 08/02/24 10:31 Dose: 10 mg Lurasidone HCl (Lurasidone Hcl 40 Mg Tablet) 40 mg PO DAILY@1700 [facility] Magnesium Hydroxide (Milk Of Magnesia 30 Ml Oral.Susp) 30 ml PO DAILY PRN PRN Reason: Constipation Multi-Ingred Cream/Lotion/Oil/Oint (Mineral Oil/Petrolatum,White 106 Gm Tube) 1 appl TOPICAL TID PRN; Protocol PRN Reason: dry skin Nicotine Polacrilex (Nicotine Polacrilex 2 Mg Gum) 4 mg BUCCAL Q2H PRN PRN Reason: Nicotine Cravings Olanzapine (Olanzapine 10 Mg Tablet) 10 mg PO BEDTIME [facility] Last Admin: 08/01/24 21:53 Dose: 10 mg Omeprazole (Omeprazole 40 Mg Capsule.Dr) 40 mg PO DAILY@0630 [facility] Last Admin: 08/02/24 10:29 Dose: 40 mg Senna (Sennosides 8.6 Mg Tablet) 8.6 mg PO BID [facility] Last Admin: 08/02/24 10:30 Dose: 8.6 mg Trazodone HCl (Trazodone Hcl 50 Mg Tablet) 50 mg PO BEDTIME MRX1 PRN PRN Reason: Insomnia Last Admin: 07/29/24 23:17 Dose: 50 mg Allergies Allergies Allergy/AdvReac Type Severity Reaction Status Date / Time ondansetron [From Zofran] Allergy Unknown Verified 07/28/24 22:30 Penicillins Allergy Unknown Verified 07/28/24 22:30 potassium Allergy Unknown Verified 07/28/24 22:30 prochlorperazine Allergy Unknown Verified 07/28/24 22:30 Assessment & Plan Assessment & Plan (1) Schizoaffective disorder, bipolar type: Status: Acute Code(s): F25.0 - Schizoaffective disorder, bipolar type (2) Autism spectrum disorder: Status: Acute Code(s): F84.0 - Autistic disorder (3) Intellectual disability: Status: Acute Code(s): F79 - Unspecified intellectual disabilities (4) Aarskog syndrome: Status: Acute Code(s): Q87.19 - Other congenital malformation syndromes predominantly associated with short stature Plan Patient is a 34-year-old male with severe ASD, intellectual disability, schizoaffective disorder with, history of behavioral outbursts, who resides at a [facility] residential facility and who presents from external ED for what program arranger reports is decompensation following discharge from [facility] admission about 4 weeks ago. service delivery manager reports patient has increased anxiety, paranoia and visual hallucinations as well as increased agitation related to AVH, which has resulted in the need for physical restraints. Patient with limited ability to participate in interview. Patient cooperative and calm. He says he misses his mother. He said I am feeling better... And then that he was going to lay down. He said he wanted to be in the hospital until he feels better... But could not discuss his feelings or what that would mean. Denies any SI or HI and says he is feeling safe. Patient does endorse auditory hallucinations which he he says bothers him, however when asked to discuss them further or what they say, he says I do not know and regarding medication that there is nothing to help... For the remainder of the day, patient sometimes in his room, sometimes in the hallway saying he wanted to call his mother or father, saying he misses them and wants to go home. Formulation/clinical reasoning: hx of psychotic illness with mood component; difficult to assess due to patients baseline limitations. So far patient calm, mostly cooperative though also guarded and cautious. So far in good behavioral control. -Will need collateral -Guardian paperwork in chart; parents are guardians -No HCP - [facility] course: 07/30 Patient remains fearful; can be friendly and cooperative but seems very anxious and cautious. Visual hallucinations patient saying he can see his mother in the room and talking to her Still not going into bathroom, with recent history of being afraid of bathroom; thus patient Incontinent of urine, sitting in wet clothes and refusing to change today, willing to sign CV reiterating he wants to be here for treatment ( to feel better ) -left VM for outpatient provider [facility] to discuss tx hx 07/31 patient remains cautious and intermittently fearful but is also warming up a bit to some staff, primarily female staff. He says he is feeling better but behaviors remain decompensated. Willing to change out of clothes today with staff encouragement and have them washed; also talked to his mother on the phone today which he said made him happy. Patient willing to use lotion for try facial skin Collateral:Dry Can Tender discussed case with patient's mother who reports that behaviors decompensated this April after he returned from vacation with his father. At that time he started packing up his stuff, saying he wanted to move out of the skilled nursing; was taking lots of showers, self dialogue Ng, saying he could see his mother in the room, saying he thought his mother was and refusing to talk to her on the phone. For those reasons This past May he went to [facility] where he was started on Vraylar (and refused to take Latuda). He returned to the skilled nursing but remained confused, disorganized, paranoid. At 1 point he would not leave the living room at all, incontinent, afraid to go into the bathroom or to shower which resulted in this hospitalization. Some history of aggression for which he was hospitalized a year ago; only mild aggression in skilled nursing this time around. -left another message with dental secretary for Nat Lee 08/01 mostly same presentation, continued AH which are bothersome; more comfortable with staff and allowing them to help him attending ADLs including bathing. -sba underwriter did get a call back from Nat Lee; sba underwriter return call and left message 08/02 Patient continues to say I am feeling much better however this does not seem to correlate with any improvement in symptoms as he continues to have AH, is afraid of his room, incontinent of urine because afraid of going to the bathroom and continually saying that he sees his mother in his room. Patient does not respond much to reality testing. He does say he would like other medications to help make the voices go away. -given discussion below, will DC Vraylar since no clear indication of bipolar depression; already on 3 antipsychotics and does not seem effective. Instead will try Risperdal. -will start to try to eliminate pharmacy; need to find out what medication regimen patient was on this past summer during which time he was doing well Collateral: Again discussed case with patient's mother. -She reports he was doing great this past summer; not sure what his medication regimen was at that time -says was on Tegretol for years; for some reason [facility] took him off of it (was restarted at this hospitalization) -says was on clomipramine for OCD since 7 years old and did well on it; not sure why he was taken off a year ago -to her knowledge Latuda was supposed to be discontinued since he was never really taking it; Vraylar was also started at [facility] which has not seemed to help. -Has been on Zyprexa for a while; not sure efficacy --drools consistently at baseline; she said she has asked in the past for medication for this Diagnosis: -Says diagnosis is schizoaffective, bipolar type however she has no knowledge of any discrete manic episodes; he has some history of depressive episodes -Does not blink: Supposed to be on Restasis/cyclosporine ophthalmic; not sure dose; discussed with pharmacist who reports typically this is 0.05% solution 1 drop b.i.d. (other places say 0.1%) -Aarkskog syndrome -ASD -OCD -has chronic extremely dry skin (eczema?) for which he has some medicated cream; mother not sure the name -Said there was a plan to get MRI of the brain since change seemed somewhat sudden Impression: Patient has diagnosis of schizoaffective disorder, not sure if he actually has manic episodes. Mother says MRI was scheduled since change was somewhat sudden, the summer, however symptoms are congruent with diagnosis. Will continue to get collateral from skilled nursing ([facility]?) And outpatient provider. PLAN: CV q15 min checks -Start Risperdal 1 mg b.i.d. -Add Risperdal 0.5 mg t.i.d. p.r.n. for breakthrough AVH -DC Vraylar 3 mg; this was started it [facility]; does not seem to help much and no clear indication for bipolar depression (also patient already on 3 antipsychotics) -for now, Continue Zyprexa 10 mg at bedtime; however not sure how long he has been on this or how effective -for now, Continue Latuda 120 mg daily at dinnertime for now; will very likely taper and discontinue as this seems to have been started at [facility] and he did not take it there. -temporarily Start artificial tears -Will get prescription for Restasis/cyclosporin -strongly consider restarting clomipramine for OCD -consider glycopyrrolate for excessive drooling -will consider getting MRI, however patient's symptoms are congruent with diagnosis Patient educated on: diagnosis and medication risk/benefits Guardian/Caregiver educated on: diagnosis, medication risk/benefits, therapeutic strategies and medical condition Informed Consent: understands, does not understand and further education needed Reason for continued inpatient stay Substantial Risk for: inability to function Time Spent With Patient Time: Total time managing care of this patient today ____ minutes.
[2024-08-02] MEDS: hydrOXYzine HCL 25 MG TABLET PO (13:30)
[2024-08-02] MEDS: Lurasidone HCl 40 MG TABLET PO (16:08)
[2024-08-02] MEDS: risperiDONE 1 MG TABLET PO ×2 (16:08→20:48)
[2024-08-02] MEDS: Artificial Tears 15 ML DROPS 1 DROP EYE-BOTH (16:09)
[2024-08-02 19:35] VITALS: BP 150/67; PULSE 83; TEMP 36.8; O2SAT 99
[2024-08-02] MEDS: traZODone HCL 50 MG TABLET PO (20:47)
[2024-08-02] MEDS: OLANZapine 10 MG TABLET PO (20:48)
[2024-08-02] MEDS: Atorvastatin Calcium 40 MG TABLET PO (20:48)
[2024-08-03 08:00] VITALS: BP 122/60; PULSE 72; RESP 16; TEMP 36.3; O2SAT 97
[2024-08-03] MEDS: Fluticasone Propionate Nasal 16 GM SPRAY 1 SPRAY NOSTRIL-B (09:12)
[2024-08-03 09:14] VITALS: BP 122/60; PULSE 72
[2024-08-03] MEDS: atenoloL 25 MG TABLET PO (09:14)
--- NOTE | 2024-08-03 17:02 | HO.PSYCHPN ---
Subjective Subjective Date of Service: 08/03/24 Reason For Visit: Schioafective disorder bipolar type Interim History: Met with patient; discussed with team Patient reports that he is feeling a lot better which is what he says to repairer typewriter every day. He denies any AH. Also says he has not been seeing his mother. Difficult to tell if this is the case or not so will continue to monitor. Patient did ask for a stuffed animal or something about a stuffed animal but it was not clear. Patient's mother reported that he was on clomipramine 100 mg b.i.d. for OCD in the past around 2014; for some reason it was discontinued at some point restarted 2022 but not continued after that. Mental Status Exam Mental Status Exam Narrative: Pt is alert and oriented; behavior is guarded, cautious but cooperative, calm, can be friendly; patient is not in distress; dressed in hospital attire, mildly improved hygiene, dry skin on face, drooling; mood is described as i feel better though affect anxious; eye contact appropriate; Speech is a little garbled but likely at baseline; normal rate, volume; uses few words; not pressured; no psychomotor agitation/retardation present; thought process is concrete, goal directed, asks for needs; Thought content is on AH, missing parents, tx; otherwise pertinent to relevant topics; no overt delusional content expressed; denies any SI/HI. +AH and internally preoccupied. Patients insight and judgment impaired. Diagnostics Vital Signs (24Hr): Vital Signs - 24 hr 08/02/24 19:35 08/03/24 08:00 08/03/24 09:14 Temperature 98.2 F 97.4 F Pulse Rate 83 72 72 Respiratory Rate 16 Blood Pressure 150/67 H 122/60 122/60 Pulse Oximetry 99 97 Oxygen Delivery Method Room Air Room Air BMI result Body Mass Index 33.0 Medications Medications Current Medications Acetaminophen (Acetaminophen 325 Mg Tablet) 650 mg PO Q6H PRN PRN Reason: Headache/Pain Mild Scale (1-3) Al Hydroxide/Mg Hydroxide (Magnesium Hydrox/Alum Hydrox 30 Ml Oral.Susp) 30 ml PO Q6H PRN PRN Reason: Heartburn/Nausea Artificial Tears (Artificial Tears 15 Ml Drops) 1 drop EYE-BOTH TID ADRIANO Last Admin: 08/03/24 09:16 Dose: Not Given Artificial Tears (Artificial Tears 15 Ml Drops) 1 drop EYE-BOTH Q4H PRN PRN Reason: Dry Eyes Last Admin: 08/02/24 16:09 Dose: 1 drop Atenolol (Atenolol 25 Mg Tablet) 25 mg PO DAILY [facility]; Protocol Last Admin: 08/03/24 09:14 Dose: 25 mg Atorvastatin Calcium (Atorvastatin Calcium 40 Mg Tablet) 40 mg PO BEDTIME [facility] Last Admin: 08/02/24 20:48 Dose: 40 mg Carbamazepine (Carbamazepine Er 200 Mg Tab.Er.12h) 400 mg PO BID [facility] Last Admin: 08/03/24 09:16 Dose: Not Given Clonazepam (Clonazepam 0.5 Mg Tablet) 0.5 mg PO TID PRN PRN Reason: anxiety Last Admin: 08/02/24 20:49 Dose: 0.5 mg Docusate Sodium (Docusate Sodium 100 Mg Capsule) 100 mg PO TID [facility] Last Admin: 08/03/24 09:16 Dose: Not Given Ezetimibe (Ezetimibe 10 Mg Tablet) 10 mg PO DAILY [facility] Last Admin: 08/03/24 09:17 Dose: Not Given Escitalopram Oxalate (Escitalopram Oxalate 10 Mg Tablet) 10 mg PO DAILY [facility] Last Admin: 08/03/24 09:16 Dose: Not Given Fluticasone Propionate (Fluticasone Propionate Nasal 16 Gm [place]) 1 spray NOSTRIL-B DAILY [facility] Last Admin: 08/03/24 09:12 Dose: 1 spray Gemfibrozil (Gemfibrozil 600 Mg Tablet) 600 mg PO BID [facility] Last Admin: 08/03/24 09:17 Dose: Not Given Hydroxyzine HCl (Hydroxyzine Hcl 25 Mg Tablet) 25 mg PO Q6H PRN PRN Reason: Anxiety Last Admin: 08/02/24 13:30 Dose: 25 mg Loratadine (Loratadine 10 Mg Tablet) 10 mg PO DAILY [facility] Last Admin: 08/03/24 09:17 Dose: Not Given Lurasidone HCl (Lurasidone Hcl 40 Mg Tablet) 40 mg PO DAILY@1700 [facility] Last Admin: 08/02/24 16:08 Dose: 40 mg Magnesium Hydroxide (Milk Of Magnesia 30 Ml Oral.Susp) 30 ml PO DAILY PRN PRN Reason: Constipation Multi-Ingred Cream/Lotion/Oil/Oint (Mineral Oil/Petrolatum,White 106 Gm Tube) 1 appl TOPICAL TID PRN; Protocol PRN Reason: dry skin Nicotine Polacrilex (Nicotine Polacrilex 2 Mg Gum) 4 mg BUCCAL Q2H PRN PRN Reason: Nicotine Cravings Olanzapine (Olanzapine 10 Mg Tablet) 10 mg PO BEDTIME [facility] Last Admin: 08/02/24 20:48 Dose: 10 mg Omeprazole (Omeprazole 40 Mg Capsule.Dr) 40 mg PO DAILY@0630 [facility] Last Admin: 08/03/24 09:16 Dose: Not Given Risperidone (Risperidone 1 Mg Tablet) 1 mg PO BID [facility] Last Admin: 08/03/24 09:17 Dose: Not Given Risperidone (Risperidone 0.5 Mg Tablet) 0.5 mg PO TID PRN PRN Reason: Hallucinations Senna (Sennosides 8.6 Mg Tablet) 8.6 mg PO BID [facility] Last Admin: 08/03/24 09:17 Dose: Not Given Trazodone HCl (Trazodone Hcl 50 Mg Tablet) 50 mg PO BEDTIME [facility]X1 PRN PRN Reason: Insomnia Last Admin: 08/02/24 20:47 Dose: 50 mg Allergies Allergies Allergy/AdvReac Type Severity Reaction Status Date / Time ondansetron [From Zofran] Allergy Unknown Verified 07/28/24 22:30 Penicillins Allergy Unknown Verified 07/28/24 22:30 potassium Allergy Unknown Verified 07/28/24 22:30 prochlorperazine Allergy Unknown Verified 07/28/24 22:30 Assessment & Plan Assessment & Plan (1) Schizoaffective disorder, bipolar type: Status: Acute Code(s): F25.0 - Schizoaffective disorder, bipolar type (2) Autism spectrum disorder: Status: Acute Code(s): F84.0 - Autistic disorder (3) Intellectual disability: Status: Acute Code(s): F79 - Unspecified intellectual disabilities (4) Aarskog syndrome: Status: Acute Code(s): Q87.19 - Other congenital malformation syndromes predominantly associated with short stature Plan Patient is a 34-year-old male with severe ASD, intellectual disability, schizoaffective disorder with, history of behavioral outbursts, who resides at a [facility] residential facility and who presents from external ED for what software program manager reports is decompensation following discharge from [facility] admission about 4 weeks ago. therapeutic case manager reports patient has increased anxiety, paranoia and visual hallucinations as well as increased agitation related to AVH, which has resulted in the need for physical restraints. Patient with limited ability to participate in interview. Patient cooperative and calm. He says he misses his mother. He said I am feeling better... And then that he was going to lay down. He said he wanted to be in the hospital until he feels better... But could not discuss his feelings or what that would mean. Denies any SI or HI and says he is feeling safe. Patient does endorse auditory hallucinations which he he says bothers him, however when asked to discuss them further or what they say, he says I do not know and regarding medication that there is nothing to help... For the remainder of the day, patient sometimes in his room, sometimes in the hallway saying he wanted to call his mother or father, saying he misses them and wants to go home. Formulation/clinical reasoning: hx of psychotic illness with mood component; difficult to assess due to patients baseline limitations. So far patient calm, mostly cooperative though also guarded and cautious. So far in good behavioral control. -Will need collateral -Guardian paperwork in chart; parents are guardians -No HCP - [facility] course: 07/30 Patient remains fearful; can be friendly and cooperative but seems very anxious and cautious. Visual hallucinations patient saying he can see his mother in the room and talking to her Still not going into bathroom, with recent history of being afraid of bathroom; thus patient Incontinent of urine, sitting in wet clothes and refusing to change today, willing to sign CV reiterating he wants to be here for treatment ( to feel better ) -left for outpatient provider [facility] to discuss tx hx 07/31 patient remains cautious and intermittently fearful but is also warming up a bit to some staff, primarily female staff. He says he is feeling better but behaviors remain decompensated. Willing to change out of clothes today with staff encouragement and have them washed; also talked to his mother on the phone today which he said made him happy. Patient willing to use lotion for try facial skin Collateral:[employer] Worker discussed case with patient's mother who reports that behaviors decompensated this April after he returned from vacation with his father. At that time he started packing up his stuff, saying he wanted to move out of the residential; was taking lots of showers, self dialogue Ng, saying he could see his mother in the room, saying he thought his mother was and refusing to talk to her on the phone. For those reasons This past May he went to [facility] where he was started on Vraylar (and refused to take Latuda). He returned to the residential but remained confused, disorganized, paranoid. At 1 point he would not leave the living room at all, incontinent, afraid to go into the bathroom or to shower which resulted in this hospitalization. Some history of aggression for which he was hospitalized a year ago; only mild aggression in residential this time around. -left another message with technical sourcing recruiter for [facility] 08/01 mostly same presentation, continued AH which are bothersome; more comfortable with staff and allowing them to help him attending ADLs including bathing. -repairer typewriter did get a call back from [facility] Lee; repairer typewriter return call and left message 08/02 Patient continues to say I am feeling much better however this does not seem to correlate with any improvement in symptoms as he continues to have AH, is afraid of his room, incontinent of urine because afraid of going to the bathroom and continually saying that he sees his mother in his room. Patient does not respond much to reality testing. He does say he would like other medications to help make the voices go away. -given discussion below, will DC Vraylar since no clear indication of bipolar depression; already on 3 antipsychotics and does not seem effective. Instead will try Risperdal. -will start to try to eliminate pharmacy; need to find out what medication regimen patient was on this past summer during which time he was doing well Collateral: Again discussed case with patient's mother. -She reports he was doing great this past summer; not sure what his medication regimen was at that time -says was on Tegretol for years; for some reason [facility] took him off of it (was restarted at this hospitalization) -says was on clomipramine for OCD since 7 years old and did well on it; not sure why he was taken off a year ago -to her knowledge Latuda was supposed to be discontinued since he was never really taking it; Vraylar was also started at [facility] which has not seemed to help. -Has been on Zyprexa for a while; not sure efficacy --drools consistently at baseline; she said she has asked in the past for medication for this Diagnosis: -Says diagnosis is schizoaffective, bipolar type however she has no knowledge of any discrete manic episodes; he has some history of depressive episodes -Does not blink: Supposed to be on Restasis/cyclosporine ophthalmic; not sure dose; discussed with pharmacist who reports typically this is 0.05% solution 1 drop b.i.d. (other places say 0.1%) -Aarkskog syndrome -ASD -OCD -has chronic extremely dry skin (eczema?) for which he has some medicated cream; mother not sure the name -Said there was a plan to get MRI of the brain since change seemed somewhat sudden 08/03 Patient reports that he is feeling a lot better which is what he says to repairer typewriter every day. He denies any AH. Also says he has not been seeing his mother. Difficult to tell if this is the case or not so will continue to monitor. Patient did ask for a stuffed animal or something about a stuffed animal but it was not clear. -briefly spoke with outpatient provider Huma who said she was 1 who started him on Vraylar -continue with Risperdal; perhaps it is helping Impression: Patient has diagnosis of schizoaffective disorder, not sure if he actually has manic episodes. Mother says MRI was scheduled since change was somewhat sudden, the summer, however symptoms are congruent with diagnosis. Will continue to get collateral from residential ([facility]?) And outpatient provider. PLAN: CV q15 min checks -Started Risperdal 1 mg b.i.d. -Add Risperdal 0.5 mg t.i.d. p.r.n. for breakthrough AVH -DC Vraylar 3 mg; this was started by outpatient provider; does not seem to have helped much and no clear indication for bipolar depression (also patient already on 3 antipsychotics) -for now, Continue Zyprexa 10 mg at bedtime; however not sure how long he has been on this or how effective -for now, Continue Latuda 120 mg daily at dinnertime for now; patient had been on this for a while -temporarily Start artificial tears -Will get prescription for Restasis/cyclosporin -consider restarting clomipramine for OCD ( clomipramine 100 mg b.i.d. for OCD in the past around 2014; for some reason it was dc'd at some point; restarted 2022 but not continued after that). -consider glycopyrrolate for excessive drooling -will consider getting MRI, however patient's symptoms are congruent with diagnosis Patient educated on: diagnosis and medication risk/benefits Informed Consent: does not understand Reason for continued inpatient stay Substantial Risk for: inability to function Time Spent With Patient Time: Total time managing care of this patient today ____ minutes.
[2024-08-03 20:00] VITALS: BP 149/89; PULSE 96; RESP 18; TEMP 36.6; O2SAT 98
[2024-08-03] MEDS: Docusate Sodium 100 MG CAPSULE PO (21:20)
[2024-08-03] MEDS: clonazePAM 0.5 MG TABLET PO (23:48)
[2024-08-04 08:00] VITALS: BP 137/80; PULSE 100; RESP 18; TEMP 36.8; O2SAT 98
[2024-08-04] MEDS: Sennosides 8.6 MG TABLET PO ×2 (08:26→23:50)
[2024-08-04] MEDS: Escitalopram Oxalate 10 MG TABLET PO (08:26)
[2024-08-04] MEDS: Omeprazole 40 MG CAPSULE.DR PO (08:26)
[2024-08-04] MEDS: Ezetimibe 10 MG TABLET PO (08:26)
[2024-08-04] MEDS: Docusate Sodium 100 MG CAPSULE PO ×3 (08:26→23:50)
[2024-08-04] MEDS: Loratadine 10 MG TABLET PO (08:26)
[2024-08-04] MEDS: carBAMazepine ER 200 MG TAB.ER.12H 400 MG PO ×2 (08:26→23:49)
[2024-08-04] MEDS: gemfibroziL 600 MG TABLET PO ×2 (08:26→23:50)
[2024-08-04] MEDS: risperiDONE 1 MG TABLET PO (08:28)
[2024-08-04] MEDS: risperiDONE 0.5 MG TABLET PO (08:28)
[2024-08-04] MEDS: Fluticasone Propionate Nasal 16 GM SPRAY 1 SPRAY NOSTRIL-B (08:56)
--- OUTSIDE RECORDS SUMMARY | 2024-08-04 15:58 | XMS_ITS | Clinical Summary ---
Author Organization [facility] Address [address] [place] [address] Phone Care Team Providers Care Wind Up Operator Name Role Phone Subhash [facility], Lakshmi Rosa [phone] Conditions or Problems Problem Name Problem Code Onset Date Status Entry Date Provider Comment Standard Description Annotate INTERMITTEN T EXPLOSIVE DISORDER (A1) F63.81 (ICD-10-CM ) 09/05 Active 09/05 Lakshmi Tom Subhash [facility] Intermittent explosive disorder MAJOR DEPRESSIVE DISORDER, RECUR, PARTIAL REMIS (A1) F33.41 (ICD-10-CM ) 10/02 Active 10/02 Lakshmi Cullen [facility] Major depressive disorder, recurrent, in partial remission BMI >= 95 PERCENTILE E66.9 (ICD-10-CM ) 09/01 Active 09/01 Lakshmi Santos Subhash [facility] Obesity, unspecified DIABETES MELLITUS, TYPE II E10.9 (ICD-10-CM ) 09/05 Active 09/[address] [facility] Type 1 diabetes mellitus without complications AUTISM 988983616 (SNOMED CT) 09/05 Correction 09/06 Oliverio Zhou [facility]- Autistic disorder Question of AUTISTIC DISORDER (A1) F84.0 (ICD-10-CM ) 09/07 Active 09/07 Oliverio Zhou [facility]- Autistic disorder MILD MENTAL RETARDATION (A1) F70 (ICD-10-CM ) 09/05 Correction 09/06 Oliverio Zhou [facility]- Mild intellectual disabilities ANXIETY DISORDER DUE TO...(GENER AL MEDICAL COND) (A1) F06.8 (ICD-10-CM ) 09/05 Correction 09/05 Oliverio Zhou [facility] Other specified mental disorders due to known physiological condition Panic Disorder/ Agoraphobia , OCD, Rule out Bi-Polar with psychotic features DIAGNOSIS DEFERRED ON A2 (A2) R69 (ICD-10-CM ) 09/07 Active 09/07 Oliverio Zhou [facility]- Illness, unspecified AUTISM [id number] (SNOMED CT) 09/05 Removed 09/06 [facility] Autistic disorder GERD 428008363 (SNOMED CT) 09/05 Active 09/[address] 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 SAS ADMINISTRATOR Aarskog syndrome DIABETES MELLITUS, TYPE I 06087491 (SNOMED CT) 09/05 Correction 09/[address] [facility] SAS ADMINISTRATOR Type 1 diabetes mellitus PANIC DISORDER WITH AGORAPHOBIA (A1) F40.01 (ICD-10-CM ) 09/05 Active 09/06 [facility] ADMINISTR[facility] Agoraphobia with panic disorder OBSESSIVE-C OMPULSIVE DISORDER (A1) F42 (ICD-10-CM ) 09/05 Active 09/[address] [facility] [employer] ADMINISTRATOR Obsessive-comp ulsive disorder ANXIETY DISORDER NOS (A1) F41.9 (ICD-10-CM ) 09/05 Active 09/06 [facility] ADMINISTRATOR Anxiety disorder, unspecified MILD MENTAL RETARDATION (A1) F70 (ICD-10-CM ) 09/05 Removed 09/06 [facility] ADMINISTRATOR Mild intellectual disabilities MENTAL RETARDATION , MODERATE 32739665 (SNOMED CT) 09/05 Active 09/[address] [facility] [employer] ADMINISTRATOR Moderate intellectual disability IQ-46, High functioning autism ANXIETY DISORDER DUE TO...(GENER AL MEDICAL COND) (A1) F06.8 (ICD-10-CM ) 09/05 Removed 09/[address] [facility] [employer] ADMINISTRATOR Other specified mental disorders due to known physiological condition Panic Disorder/ Agoraphobia , OCD, Rule out Bi-Polar with psychotic features Medications Medication Instructions Start Date Stop Date Generic Name INC Provider ZYPREXA 2.5 MG TABS 1 po qam as directed OLANZAPINE [id number] Lakshmi Cullen [facility] ZYPREXA 2.5 MG TABS 1 po qam as directed with food OLANZAPINE [id number] Lakshmi Cullen [facility] FISH OIL CONCENTRATE 1000 MG CAPS 2 caps po BID OMEGA-3 FATTY ACIDS [id number] Lakshmi Cullen [facility] ANAFRANIL 50 MG CAPS 2 po BID am and hs CLOMIPRAMINE HCL [id number] Lakshmi Cullen [facility] CELEXA 20 MG TABS 1 po qday as directed in the AM CITALOPRAM HYDROBROMIDE [id number] Lakshmi Cullen [facility] CELEXA 10 MG TABS 1 po qday x 7 days then increase to 1.5 po qday x 10 days then increase to 2 po qday as tolerated/direc shavonne with food in the AM. CITALOPRAM HYDROBROMIDE [id number] Lakshmi Santos Subhash [facility] ATENOLOL 25 MG TABS 1 tab po qam ATENOLOL [id number] Lakshmi Cullen [facility] KLONOPIN 0.5 MG TABS Take 1 tab po TIQ 8am ,4pm and HS CLONAZEPAM [id number] Lakshmi Cullen [facility] TEGRETOL 200 MG TABS 1 marcos qam and 2 tabs po qhs CARBAMAZEPINE [id number] Lakshmi Cullen [facility] PROTONIX 40 MG TBEC 1 tab po qam PANTOPRAZOLE SODIUM 07241847287 Lakshmi Cullen [facility] ATENOLOL 25 MG TABS 1 tab po qam ATENOLOL [id number] Lakshmi Cullen [facility] ZYPREXA 2.5 MG TABS 1 po qam as directed with food OLANZAPINE [id number] Lakshmi Cullen [facility] ANAFRANIL 50 MG CAPS 2 po BID am and hs CLOMIPRAMINE HCL [id number] Lakshmi Cullen [facility] CLOMIPRAMINE HCL 50 MG CAPS 1 tab po q am and 2 tabs po q hs CLOMIPRAMINE HCL [id number] Lakshmi Cullen [facility] KLONOPIN 0.5 MG TABS Take 1 tab po TIQ 8am ,4pm and HS CLONAZEPAM [id number] Lakshmi Cullen [facility] TEGRETOL 200 MG TABS 2 po BID CARBAMAZEPINE [id number] Lakshmi Cullen [facility]N-[facility] TEGRETOL 200 MG TABS 1 marcos qam and 2 tabs po qhs CARBAMAZEPINE [id number] Lakshmi Cullen [facility] TEGRETOL 200 MG TABS 1.5 po qam and 2 po qhs x 2weeks then increase to 2 po BID as tolerated CARBAMAZEPINE [id number] Lakshmi Cullen APRN-[facility] TEGRETOL 200 MG TABS 2 tabspo qam and 2 tabs po qhs CARBAMAZEPINE [id number] Lakshmi Cullen APRN-[facility] CLOMIPRAMINE HCL 50 MG CAPS 1 tab po q am and 2 tabs po q hs CLOMIPRAMINE HCL 28796251846 Lakshmi Cullen APRN-[facility] ZYPREXA 7.5 MG TABS 1po qhs as directed OLANZAPINE [id number] Lakshmi Cullen APRN-[facility] TEGRETOL 200 MG TABS Take 1 tab po qam and 2 tabs po qhs CARBAMAZEPINE [id number] Lakshmi Cullen APRN-[facility] PROTONIX 40 MG TBEC 1 tab po qam PANTOPRAZOLE SODIUM [id number] Lakshmi Cullen [facility] ZYPREXA 5 MG TABS 1 tab po qhs OLANZAPINE [id number] Lakshmi Cullen [facility] CLOMIPRAMINE HCL 50 MG CAPS 1 tab po q am and 2 tabs po q hs CLOMIPRAMINE HCL [id number] Lakshmi Cullen [facility] ZYPREXA 2.5 MG TABS 1 po qam as directed with food OLANZAPINE [id number] Lakshmi Cullen [facility] ATENOLOL 25 MG TABS 1 tab po qam ATENOLOL 22888151882 Lakshmi Cullen [facility]- GLUCOPHAGE 500 MG ORAL TABLET 1 tab po at bedtime METFORMIN HCL 40592929153 Lakshmi Cullen [facility] TEGRETOL 200 MG TABS Take 1 tab po qam and 2 tabs po qhs CARBAMAZEPINE [id number] Lakshmi Cullen [facility]- TEGRETOL 200 MG TABS Take 1 tab po BID CARBAMAZEPINE [id number] Oliverio Zhou [facility] TEGRETOL 200 MG TABS Take 2 tabs po BID CARBAMAZEPINE [id number] Oliverio Zhou [facility] KLONOPIN 0.5 MG TABS Take 1 tab po BID CLONAZEPAM [id number] Lakshmi Cullen [facility] APLENZIN 174 MG [id number] BUPROPION HBR [id number] Oliverio Zhou [facility]-BC Medication excluded from report: FISH OIL CONCENTRATE 1000 MG CAPS 2 caps po BID OMEGA-3 FATTY ACIDS [id number] Lakshmi Cullen [facility] ATENOLOL 25 MG TABS 1 tab po qam ATENOLOL [id number] Oliverio Zhou [facility] PROTONIX 40 MG TBEC 1 tab po qam PANTOPRAZOLE SODIUM 16155421527 Lakshmi Cullen [facility] APLENZIN 174 MG [id number] BUPROPION HBR [id number] Nell Lane LPN GLUCOPHAGE 500 MG ORAL TABLET 1 tab po at bedtime METFORMIN HCL 03323586377 Oliverio Zhou [facility] ZYPREXA 5 MG TABS 1 tab po qhs OLANZAPINE [id number] Lakshmi Cullen [facility] KLONOPIN 1 MG TABS 1 tab po BID CLONAZEPAM [id number] Oliverio Zhou [facility]- CLOMIPRAMINE HCL 50 MG CAPS 1 tab po q am and 2 tabs po q hs CLOMIPRAMINE HCL [id number] Lakshmi Cullen [facility] TEGRETOL 200 MG TABS 1 tab po BID CARBAMAZEPINE [id number] Oliverio Zhou [facility]- Medications Administered No information available. Allergies, Adverse Reactions, Alerts Allergy Name Reaction Description Start Date Severity Statu s Provider PENICILLIN V POTASSIUM Critical Nell [facility] [employer] ADMINISTRATOR COMPAZINE Critical Nell L [facility] [employer] ADMINISTRATOR ZOFRAN Critical Nell L [facility] [employer] ADMINISTRATOR Results No information available. Plan of Care Type Date Detail Pending order CBC With Differe ntial Pending order Lipid Panel Pending order Hemoglobin A1C ( Glycohemoglobin) Pending order Hepatic Function Panel Pending order TSH (w/reflex) Pending order Free T4 Pending order Carbamazepine (T egretol ) Pending order Lipid Panel Pending order Free T3 Pending order Hemoglobin A1C ( Glycohemoglobin) Pending order Hepatic Function Panel Pending order TSH (w/reflex) Pending order CBC With Differe ntial Pending order Electrolyte Pane l Pending order COMPLETE BLOOD C OUNT WITH DIFF Pending order Carbamazepine (T egretol ) Pending order Lipid Panel Pending order Hemoglobin A1C ( Glycohemoglobin) Pending order Hepatic Function Panel Pending order COMPLETE BLOOD C OUNT WITH DIFF Pending order Carbamazepine (T egretol ) Pending order Lipid Panel Pending order Hemoglobin A1C ( Glycohemoglobin) Pending order Hepatic Function Panel Pending order TSH (w/reflex) Pending order Carbamazepine (T egretol ) Pending order Thyroxine, Free (T4) Pending order Carbamazepine (T egretol ) Pending order Lipid Panel Pending order Free T3 Pending order Hepatic Function Panel Pending order TSH (w/reflex) Pending order COMPLETE BLOOD C OUNT WITH DIFF Pending order HEMOGLOBIN A1c Pending order Complete Blood C ount (CBC) Pending order Carbamazepine (T egretol ) Pending order Lipid Panel Pending order Hepatic Function Panel Pending order HEMOGLOBIN A1c Pending order Glucose Pending order Carbamazepine (T egretol ) Pending order Lipid Panel Pending order Hepatic Function Panel Pending order Complete Blood C ount (CBC) Pending order Hepatic Function Panel Pending order Hemoglobin A1C ( Glycohemoglobin) Pending order Comprehensive Me tabolic Panel Pending order Comprehensive Me tabolic Panel Pending order Lipid Panel Pending order Carbamazepine (T egretol ) Pending order Carbamazepine (T egretol ) Procedures Code Procedure Name Date Entry Date [id number] Patient encounter procedure [facility] Hemoglobin A1C (Glycohemoglobin) CARB Carbamazepine (Tegretol ) 20 08/01/11 TSH TSH (w/reflex) LFT Hepatic Function Panel 01/03 LIPID Lipid Panel CBCD COMPLETE BLOOD COUNT WITH DIFF [id number] Patient encounter procedure [id number] Patient encounter procedure [id number] Patient encounter procedure CARB Carbamazepine (Tegretol ) 20 10/05/16 CBCD COMPLETE BLOOD COUNT WITH DIFF LAB-[facility] HEMOGLOBIN A1c LIPID Lipid Panel T4F Thyroxine, Free (T4) T3F Free T3 TSH TSH (w/reflex) CARB Carbamazepine (Tegretol ) 20 08/02/24 LFT Hepatic Function Panel 02/16 CBC Complete Blood Count (CBC) 2 LAB-[facility] HEMOGLOBIN A1c CARB Carbamazepine (Tegretol ) 20 10/10/03 LFT Hepatic Function Panel 09/29 LIPID Lipid Panel CBC Complete Blood Count (CBC) 2 CPT-61583 Glucose CARB Carbamazepine (Tegretol ) 20 08/06/15 LIPID Lipid Panel LFT Hepatic Function Panel 06/09 [id number] Psych Diagnostic Evaluation (medical) 201 11/27/01 COMMP Comprehensive Metabolic Panel CARB Carbamazepine (Tegretol ) 20 07/12/01 [facility] Hemoglobin A1C (Glycohemoglobin) CARB Carbamazepine (Tegretol ) 20 07/12/01 LIPID Lipid Panel LFT Hepatic Function Panel 11/25 COMMP Comprehensive Metabolic Panel [id number] Psych Diagnostic Evaluation (medical) 201 11/03/12 Vital Signs Date Name Value Unit Description BP Diastolic 80 mm[Hg] blood pressu re, diastolic BP Systolic 140 mm[Hg] blood pressur e, systolic Heart Rate 76 /min pulse rate Height 69 [in_us] height E&M Height 175.3 cm height in cent imeters E&M Weight Measured 214 [lb_av] weight E& M Weight Measured 97.27 kg weight in kilograms E&M BMI (Body Mass Index) 31.54 kg/m2 Bod y Mass Index (Ratio) BSA (Body Surface Area) 2.12 b vanessa surface area Immunizations No information available. Advance Directives No information available.
[2024-08-04] MEDS: Lurasidone HCl 40 MG TABLET PO (16:55)
--- NOTE | 2024-08-04 17:41 | P.PNPSI_ITS ---
Subjective Subjective Date of Service: 08/04/24 Reason For Visit: Schioafective disorder bipolar type Interim History: Met with patient; discussed with team No change in presentation; still disorganized, fearful, incontinent, hardly moving from room. Not sleeping at night but will tell chief writer I slept very good... . Continues to say the same refrain I feel a lot better... -explained medication and plan to increase Risperdal to which he is amenable Mental Status Exam Mental Status Exam Narrative: Pt is alert and oriented; behavior is guarded, cautious but cooperative, calm, can be friendly; patient is not in distress; dressed in hospital attire, mildly improved hygiene, dry skin on face, drooling; mood is described as i feel a lot better though affect anxious; eye contact appropriate; Speech is a little garbled but likely at baseline; normal rate, volume; uses few words; not pressured; no psychomotor agitation/retardation present; thought process is concrete, goal directed, asks for needs; Thought content is on AH, missing parents, tx; otherwise pertinent to relevant topics; no overt delusional content expressed; denies any SI/HI. +AH and internally preoccupied. Patients insight and judgment impaired. Diagnostics Vital Signs (24Hr): Vital Signs - 24 hr 08/03/24 20:00 08/04/24 08:00 Temperature 98 F 98.2 F Pulse Rate 96 100 Respiratory Rate 18 18 Blood Pressure 149/89 H 137/80 Pulse Oximetry 98 98 Oxygen Delivery Method Room Air Room Air BMI result Body Mass Index 33.0 Labs 08/13/24 08:17 08/13/24 08:17 Medications Medications Current Medications Acetaminophen (Acetaminophen 325 Mg Tablet) 650 mg PO Q6H PRN PRN Reason: Headache/Pain Mild Scale (1-3) Al Hydroxide/Mg Hydroxide (Magnesium Hydrox/Alum Hydrox 30 Ml Oral.Susp) 30 ml PO Q6H PRN PRN Reason: Heartburn/Nausea Artificial Tears (Artificial Tears 15 Ml Drops) 1 drop EYE-BOTH TID [facility] Last Admin: 08/04/24 15:43 Dose: Not Given Artificial Tears (Artificial Tears 15 Ml Drops) 1 drop EYE-BOTH Q4H PRN PRN Reason: Dry Eyes Last Admin: 08/02/24 16:09 Dose: 1 drop Atenolol (Atenolol 25 Mg Tablet) 25 mg PO DAILY [facility]; Protocol Last Admin: 08/04/24 10:12 Dose: Not Given Atorvastatin Calcium (Atorvastatin Calcium 40 Mg Tablet) 40 mg PO BEDTIME [facility] Last Admin: 08/03/24 21:33 Dose: Not Given Carbamazepine (Carbamazepine Er 200 Mg Tab.Er.12h) 400 mg PO BID [facility] Last Admin: 08/04/24 08:26 Dose: 400 mg Clonazepam (Clonazepam 0.5 Mg Tablet) 0.5 mg PO TID PRN PRN Reason: anxiety Last Admin: 08/03/24 23:48 Dose: 0.5 mg Docusate Sodium (Docusate Sodium 100 Mg Capsule) 100 mg PO TID [facility] Last Admin: 08/04/24 15:42 Dose: 100 mg Ezetimibe (Ezetimibe 10 Mg Tablet) 10 mg PO DAILY [facility] Last Admin: 08/04/24 08:26 Dose: 10 mg Escitalopram Oxalate (Escitalopram Oxalate 10 Mg Tablet) 10 mg PO DAILY [facility] Last Admin: 08/04/24 08:26 Dose: 10 mg Fluticasone Propionate (Fluticasone Propionate Nasal 16 Gm [place]) 1 spray NOSTRIL-B DAILY [facility] Last Admin: 08/04/24 08:56 Dose: 1 spray Gemfibrozil (Gemfibrozil 600 Mg Tablet) 600 mg PO BID [facility] Last Admin: 08/04/24 08:26 Dose: 600 mg Hydroxyzine HCl (Hydroxyzine Hcl 25 Mg Tablet) 25 mg PO Q6H PRN PRN Reason: Anxiety Last Admin: 08/02/24 13:30 Dose: 25 mg Loratadine (Loratadine 10 Mg Tablet) 10 mg PO DAILY [facility] Last Admin: 08/04/24 08:26 Dose: 10 mg Lurasidone HCl (Lurasidone Hcl 40 Mg Tablet) 40 mg PO DAILY@1700 [facility] Last Admin: 08/04/24 16:55 Dose: 40 mg Magnesium Hydroxide (Milk Of Magnesia 30 Ml Oral.Susp) 30 ml PO DAILY PRN PRN Reason: Constipation Multi-Ingred Cream/Lotion/Oil/Oint (Mineral Oil/Petrolatum,White 106 Gm Tube) 1 appl TOPICAL TID PRN; Protocol PRN Reason: dry skin Nicotine Polacrilex (Nicotine Polacrilex 2 Mg Gum) 4 mg BUCCAL Q2H PRN PRN Reason: Nicotine Cravings Olanzapine (Olanzapine 10 Mg Tablet) 10 mg PO BEDTIME [facility] Last Admin: 08/03/24 21:32 Dose: Not Given Omeprazole (Omeprazole 40 Mg Capsule.Dr) 40 mg PO DAILY@0630 [facility] Last Admin: 08/04/24 08:26 Dose: 40 mg Risperidone (Risperidone 0.5 Mg Tablet) 0.5 mg PO TID PRN PRN Reason: Hallucinations Last Admin: 08/04/24 08:28 Dose: 0.5 mg Risperidone (Risperidone 2 Mg Tablet) 2 mg PO BID [facility] Senna (Sennosides 8.6 Mg Tablet) 8.6 mg PO BID [facility] Last Admin: 08/04/24 08:26 Dose: 8.6 mg Trazodone HCl (Trazodone Hcl 50 Mg Tablet) 50 mg PO BEDTIME [facility]X1 PRN PRN Reason: Insomnia Last Admin: 08/02/24 20:47 Dose: 50 mg Allergies Allergies Allergy/AdvReac Type Severity Reaction Status Date / Time ondansetron [From Zofran] Allergy Unknown Verified 07/28/24 22:30 Penicillins Allergy Unknown Verified 07/28/24 22:30 potassium Allergy Unknown Verified 07/28/24 22:30 prochlorperazine Allergy Unknown Verified 07/28/24 22:30 Assessment & Plan Assessment & Plan (1) Schizoaffective disorder, bipolar type: Status: Acute Code(s): F25.0 - Schizoaffective disorder, bipolar type (2) Autism spectrum disorder: Status: Acute Code(s): F84.0 - Autistic disorder (3) Intellectual disability: Status: Acute Code(s): F79 - Unspecified intellectual disabilities (4) Aarskog syndrome: Status: Acute Code(s): Q87.19 - Other congenital malformation syndromes predominantly associated with short stature Plan Patient is a 34-year-old male with severe ASD, intellectual disability, schizoaffective disorder with, history of behavioral outbursts, who resides at a [facility] residential facility and who presents from external ED for what group work program director reports is decompensation following discharge from [facility] admission about 4 weeks ago. investor relations manager reports patient has increased anxiety, paranoia and visual hallucinations as well as increased agitation related to AVH, which has resulted in the need for physical restraints. Patient with limited ability to participate in interview. Patient cooperative and calm. He says he misses his mother. He said I am feeling better... And then that he was going to lay down. He said he wanted to be in the hospital until he feels better... But could not discuss his feelings or what that would mean. Denies any SI or HI and says he is feeling safe. Patient does endorse auditory hallucinations which he he says bothers him, however when asked to discuss them further or what they say, he says I do not know and regarding medication that there is nothing to help... For the remainder of the day, patient sometimes in his room, sometimes in the hallway saying he wanted to call his mother or father, saying he misses them and wants to go home. Formulation/clinical reasoning: hx of psychotic illness with mood component; difficult to assess due to patients baseline limitations. So far patient calm, mostly cooperative though also guarded and cautious. So far in good behavioral control. -Will need collateral -Guardian paperwork in chart; parents are guardians -No HCP - [facility] course: 07/30 Patient remains fearful; can be friendly and cooperative but seems very anxious and cautious. Visual hallucinations patient saying he can see his mother in the room and talking to her Still not going into bathroom, with recent history of being afraid of bathroom; thus patient Incontinent of urine, sitting in wet clothes and refusing to change today, willing to sign CV reiterating he wants to be here for treatment ( to feel better ) -left for outpatient provider Nat Lee to discuss tx hx 07/31 patient remains cautious and intermittently fearful but is also warming up a bit to some staff, primarily female staff. He says he is feeling better but behaviors remain decompensated. Willing to change out of clothes today with staff encouragement and have them washed; also talked to his mother on the phone today which he said made him happy. Patient willing to use lotion for try facial skin Collateral:Denitrator Operator discussed case with patient's mother who reports that behaviors decompensated this April after he returned from vacation with his father. At that time he started packing up his stuff, saying he wanted to move out of the [facility]; was taking lots of showers, self dialogue Ng, saying he could see his mother in the room, saying he thought his mother was and refusing to talk to her on the phone. For those reasons This past May he went to [facility] where he was started on Vraylar (and refused to take Latuda). He returned to the [facility] but remained confused, disorganized, paranoid. At 1 point he would not leave the living room at all, incontinent, afraid to go into the bathroom or to shower which resulted in this hospitalization. Some history of aggression for which he was hospitalized a year ago; only mild aggression in [facility]dc this time around. -left another message with credit compliance officer for Nat Lee 08/01 mostly same presentation, continued AH which are bothersome; more comfortable with staff and allowing them to help him attending ADLs including bathing. -chief writer did get a call back from Nat Lee; chief writer return call and left message 08/02 Patient continues to say I am feeling much better however this does not seem to correlate with any improvement in symptoms as he continues to have AH, is afraid of his room, incontinent of urine because afraid of going to the bathroom and continually saying that he sees his mother in his room. Patient does not respond much to reality testing. He does say he would like other medications to help make the voices go away. -given discussion below, will DC Vraylar since no clear indication of bipolar depression; already on 3 antipsychotics and does not seem effective. Instead will try Risperdal. -will start to try to eliminate pharmacy; need to find out what medication regimen patient was on this past summer during which time he was doing well Collateral: Again discussed case with patient's mother. -She reports he was doing great this past summer; not sure what his medication regimen was at that time -says was on Tegretol for years; for some reason [facility] took him off of it (was restarted at this hospitalization) -says was on clomipramine for OCD since 7 years old and did well on it; not sure why he was taken off a year ago -to her knowledge Latuda was supposed to be discontinued since he was never really taking it; Vraylar was also started at [facility] which has not seemed to help. -Has been on Zyprexa for a while; not sure efficacy --drools consistently at baseline; she said she has asked in the past for medication for this Diagnosis: -Says diagnosis is schizoaffective, bipolar type however she has no knowledge of any discrete manic episodes; he has some history of depressive episodes -Does not blink: Supposed to be on Restasis/cyclosporine ophthalmic; not sure dose; discussed with pharmacist who reports typically this is 0.05% solution 1 drop b.i.d. (other places say 0.1%) -Aarkskog syndrome -ASD -OCD -has chronic extremely dry skin (eczema?) for which he has some medicated cream; mother not sure the name -Said there was a plan to get MRI of the brain since change seemed somewhat sudden 08/03 Patient reports that he is feeling a lot better which is what he says to chief writer every day. He denies any AH. Also says he has not been seeing his mother. Difficult to tell if this is the case or not so will continue to monitor. Patient did ask for a stuffed animal or something about a stuffed animal but it was not clear. -briefly spoke with outpatient provider Huma who said she was 1 who started him on Vraylar -continue with Risperdal; perhaps it is helping 08/04 No change in presentation; still disorganized, fearful, incontinent, hardly moving from room. Not sleeping at night but will tell chief writer I slept very good... . Continues to say the same refrain I feel a lot better... -explained medication and plan to increase Risperdal to which he is amenable Impression: Patient has diagnosis of schizoaffective disorder, not sure if he actually has manic episodes. Mother says MRI was scheduled since change was somewhat sudden, the summer, however symptoms are congruent with diagnosis. Will continue to get collateral from [facility] ([facility]?) And outpatient provider. PLAN: CV q15 min checks -Increase Risperdal -Add Risperdal 0.5 mg t.i.d. p.r.n. for breakthrough AVH -DC Vraylar 3 mg; this was started by outpatient provider; does not seem to have helped much and no clear indication for bipolar depression (also patient already on 3 antipsychotics) -for now, Continue Zyprexa 10 mg at bedtime; however not sure how long he has been on this or how effective -for now, Continue Latuda 120 mg daily at dinnertime for now; patient had been on this for a while -temporarily Start artificial tears -Will get prescription for Restasis/cyclosporin -consider restarting clomipramine for OCD ( clomipramine 100 mg b.i.d. for OCD in the past around 2014; for some reason it was dc'd at some point; restarted 2022 but not continued after that). -consider glycopyrrolate for excessive drooling -will consider getting MRI, however patient's symptoms are congruent with diagnosis Patient educated on: diagnosis and medication risk/benefits Informed Consent: does not understand Reason for continued inpatient stay Substantial Risk for: inability to function Time Spent With Patient Time: Total time managing care of this patient today ____ minutes.
[2024-08-04] MEDS: clonazePAM 0.5 MG TABLET PO (18:55)
[2024-08-04 20:00] VITALS: BP 130/79; PULSE 102; TEMP 36.6; O2SAT 96
[2024-08-04] MEDS: OLANZapine 10 MG TABLET PO (23:50)
[2024-08-04] MEDS: risperiDONE 2 MG TABLET PO (23:50)
[2024-08-04] MEDS: Atorvastatin Calcium 40 MG TABLET PO (23:50)
[2024-08-04] MEDS: traZODone HCL 50 MG TABLET PO (23:50)
[2024-08-05] MEDS: clonazePAM 0.5 MG TABLET PO (02:38)
[2024-08-05] MEDS: Fluticasone Propionate Nasal 16 GM SPRAY 1 SPRAY NOSTRIL-B (09:22)
[2024-08-05] MEDS: Docusate Sodium 100 MG CAPSULE PO ×2 (09:23→21:53)
[2024-08-05] MEDS: Sennosides 8.6 MG TABLET PO (09:24)
[2024-08-05] MEDS: Loratadine 10 MG TABLET PO (09:24)
[2024-08-05 20:00] VITALS: BP 155/84; PULSE 104; TEMP 36.9; O2SAT 96
--- NOTE | 2024-08-05 22:08 | PC.NURSE ---
Patient declined all his nighttime medications except for his colace. This procedure writer will reattempt later this evening.
--- NOTE | 2024-08-06 00:13 | HO.PSYCHPN ---
Subjective Subjective Date of Service: 08/05/24 Reason For Visit: Schioafective disorder bipolar type Interim History: late entry note for pt seen 08/05 Patient with same presentation and hardly slept. Reviewed med list from. Meeting with outpatient team and again got history History that patient was stable on Tegretol and Latuda for at least a year; Latuda was lowered in the springtime to 40 mg, down from 60 since patient said was making him tired. He remained stable until this fall when he suddenly decompensated, unable to accept reality, incontinent, afraid of multiple things, thinking his mom's , forgetting people are Mental Status Exam Mental Status Exam Narrative: Pt is alert and oriented; behavior is guarded, cautious but cooperative, calm, can be friendly; patient is not in distress; dressed in hospital attire, mildly improved hygiene, dry skin on face, drooling; mood is described as i feel a lot better though affect anxious; eye contact appropriate; Speech is a little garbled but likely at baseline; normal rate, volume; uses few words; not pressured; no psychomotor agitation/retardation present; thought process is concrete, goal directed, asks for needs; Thought content is on AH, missing parents, tx; otherwise pertinent to relevant topics; no overt delusional content expressed; denies any SI/HI. +AH and internally preoccupied. Patients insight and judgment impaired. Diagnostics Vital Signs (24Hr): Vital Signs - 24 hr 08/05/24 20:00 Temperature 98.4 F Pulse Rate 104 H Blood Pressure 155/84 H Pulse Oximetry 96 Oxygen Delivery Method Room Air BMI result Body Mass Index 33.0 Labs 08/13/24 08:17 08/13/24 08:17 Medications Medications Current Medications Acetaminophen (Acetaminophen 325 Mg Tablet) 650 mg PO Q6H PRN PRN Reason: Headache/Pain Mild Scale (1-3) Al Hydroxide/Mg Hydroxide (Magnesium Hydrox/Alum Hydrox 30 Ml Oral.Susp) 30 ml PO Q6H PRN PRN Reason: Heartburn/Nausea Artificial Tears (Artificial Tears 15 Ml Drops) 1 drop EYE-BOTH TID ADRIANO Last Admin: 08/05/24 19:09 Dose: Not Given Artificial Tears (Artificial Tears 15 Ml Drops) 1 drop EYE-BOTH Q4H PRN PRN Reason: Dry Eyes Last Admin: 12/08/24 16:09 Dose: 1 drop Atenolol (Atenolol 25 Mg Tablet) 25 mg PO DAILY [facility]; Protocol Last Admin: 08/05/24 09:31 Dose: Not Given Atorvastatin Calcium (Atorvastatin Calcium 40 Mg Tablet) 40 mg PO BEDTIME [facility] Last Admin: 08/04/24 23:50 Dose: 40 mg Carbamazepine (Carbamazepine Er 200 Mg Tab.Er.12h) 400 mg PO BID [facility] Last Admin: 08/05/24 09:31 Dose: Not Given Clonazepam (Clonazepam 0.5 Mg Tablet) 0.5 mg PO TID PRN PRN Reason: anxiety Last Admin: 08/05/24 02:38 Dose: 0.5 mg Docusate Sodium (Docusate Sodium 100 Mg Capsule) 100 mg PO TID [facility] Last Admin: 08/05/24 21:53 Dose: 100 mg Ezetimibe (Ezetimibe 10 Mg Tablet) 10 mg PO DAILY [facility] Last Admin: 08/05/24 09:32 Dose: Not Given Escitalopram Oxalate (Escitalopram Oxalate 10 Mg Tablet) 10 mg PO DAILY [facility] Last Admin: 08/05/24 10:32 Dose: Not Given Fluticasone Propionate (Fluticasone Propionate Nasal 16 Gm [place]) 1 spray NOSTRIL-B DAILY [facility] Last Admin: 08/05/24 09:22 Dose: 1 spray Gemfibrozil (Gemfibrozil 600 Mg Tablet) 600 mg PO BID [facility] Last Admin: 08/05/24 09:32 Dose: Not Given Hydroxyzine HCl (Hydroxyzine Hcl 25 Mg Tablet) 25 mg PO Q6H PRN PRN Reason: Anxiety Last Admin: 08/02/24 13:30 Dose: 25 mg Loratadine (Loratadine 10 Mg Tablet) 10 mg PO DAILY [facility] Last Admin: 08/05/24 09:24 Dose: 10 mg Lurasidone HCl (Lurasidone Hcl 40 Mg Tablet) 40 mg PO DAILY@1700 [facility] Last Admin: 08/05/24 09:32 Dose: Not Given Magnesium Hydroxide (Milk Of Magnesia 30 Ml Oral.Susp) 30 ml PO DAILY PRN PRN Reason: Constipation Multi-Ingred Cream/Lotion/Oil/Oint (Mineral Oil/Petrolatum,White 106 Gm Tube) 1 appl TOPICAL TID PRN; Protocol PRN Reason: dry skin Neomycin/Polymyxin/Bacitracin (Neomy/Polymyx/Bacit/Ointment 14 Gm Tube) 1 gm TOPICAL TID [facility]; Protocol Last Admin: 08/05/24 19:09 Dose: Not Given Nicotine Polacrilex (Nicotine Polacrilex 2 Mg Gum) 4 mg BUCCAL Q2H PRN PRN Reason: Nicotine Cravings Omeprazole (Omeprazole 40 Mg Capsule.Dr) 40 mg PO DAILY@0630 [facility] Last Admin: 08/05/24 09:31 Dose: Not Given Risperidone (Risperidone 0.5 Mg Tablet) 0.5 mg PO TID PRN PRN Reason: Hallucinations Last Admin: 08/04/24 08:28 Dose: 0.5 mg Risperidone (Risperidone 2 Mg Tablet) 2 mg PO BID [facility] Last Admin: 08/05/24 09:32 Dose: Not Given Senna (Sennosides 8.6 Mg Tablet) 8.6 mg PO BID [facility] Last Admin: 08/05/24 09:24 Dose: 8.6 mg Trazodone HCl (Trazodone Hcl 50 Mg Tablet) 50 mg PO BEDTIME MRX1 PRN PRN Reason: Insomnia Last Admin: 08/04/24 23:50 Dose: 50 mg Trazodone HCl (Trazodone Hcl 100 Mg Tablet) 100 mg PO BEDTIME [facility] Allergies Allergies Allergy/AdvReac Type Severity Reaction Status Date / Time ondansetron [From Zofran] Allergy Unknown Verified 07/28/24 22:30 Penicillins Allergy Unknown Verified 07/28/24 22:30 potassium Allergy Unknown Verified 07/28/24 22:30 prochlorperazine Allergy Unknown Verified 07/28/24 22:30 Assessment & Plan Assessment & Plan (1) Schizoaffective disorder, bipolar type: Status: Acute Code(s): F25.0 - Schizoaffective disorder, bipolar type (2) Autism spectrum disorder: Status: Acute Code(s): F84.0 - Autistic disorder (3) Intellectual disability: Status: Acute Code(s): F79 - Unspecified intellectual disabilities (4) Aarskog syndrome: Status: Acute Code(s): Q87.19 - Other congenital malformation syndromes predominantly associated with short stature Plan Patient is a 34-year-old male with severe ASD, intellectual disability, schizoaffective disorder with, history of behavioral outbursts, who resides at a [facility] residential facility and who presents from external ED for what program schedule clerk reports is decompensation following discharge from [facility] admission about 4 weeks ago. clinical statistics manager reports patient has increased anxiety, paranoia and visual hallucinations as well as increased agitation related to AVH, which has resulted in the need for physical restraints. Patient with limited ability to participate in interview. Patient cooperative and calm. He says he misses his mother. He said I am feeling better... And then that he was going to lay down. He said he wanted to be in the hospital until he feels better... But could not discuss his feelings or what that would mean. Denies any SI or HI and says he is feeling safe. Patient does endorse auditory hallucinations which he he says bothers him, however when asked to discuss them further or what they say, he says I do not know and regarding medication that there is nothing to help... For the remainder of the day, patient sometimes in his room, sometimes in the hallway saying he wanted to call his mother or father, saying he misses them and wants to go home. Formulation/clinical reasoning: hx of psychotic illness with mood component; difficult to assess due to patients baseline limitations. So far patient calm, mostly cooperative though also guarded and cautious. So far in good behavioral control. -Will need collateral -Guardian paperwork in chart; parents are guardians -No HCP - [facility] course: 07/30 Patient remains fearful; can be friendly and cooperative but seems very anxious and cautious. Visual hallucinations patient saying he can see his mother in the room and talking to her Still not going into bathroom, with recent history of being afraid of bathroom; thus patient Incontinent of urine, sitting in wet clothes and refusing to change today, willing to sign CV reiterating he wants to be here for treatment ( to feel better ) -left VM for outpatient provider Nat Lee to discuss tx hx 07/31 patient remains cautious and intermittently fearful but is also warming up a bit to some staff, primarily female staff. He says he is feeling better but behaviors remain decompensated. Willing to change out of clothes today with staff encouragement and have them washed; also talked to his mother on the phone today which he said made him happy. Patient willing to use lotion for try facial skin Collateral:Manager Utilization discussed case with patient's mother who reports that behaviors decompensated this April after he returned from vacation with his father. At that time he started packing up his stuff, saying he wanted to move out of the senior living; was taking lots of showers, self dialogue Ng, saying he could see his mother in the room, saying he thought his mother was and refusing to talk to her on the phone. For those reasons This past May he went to [facility] where he was started on Vraylar (and refused to take Latuda). He returned to the senior living but remained confused, disorganized, paranoid. At 1 point he would not leave the living room at all, incontinent, afraid to go into the bathroom or to shower which resulted in this hospitalization. Some history of aggression for which he was hospitalized a year ago; only mild aggression in senior living this time around. -left another message with secretary of police for Nat Lee 08/01 mostly same presentation, continued AH which are bothersome; more comfortable with staff and allowing them to help him attending ADLs including bathing. -commercial real estate underwriter did get a call back from Nat Lee; commercial real estate underwriter return call and left message 08/02 Patient continues to say I am feeling much better however this does not seem to correlate with any improvement in symptoms as he continues to have AH, is afraid of his room, incontinent of urine because afraid of going to the bathroom and continually saying that he sees his mother in his room. Patient does not respond much to reality testing. He does say he would like other medications to help make the voices go away. -given discussion below, will DC Vraylar since no clear indication of bipolar depression; already on 3 antipsychotics and does not seem effective. Instead will try Risperdal. -will start to try to eliminate pharmacy; need to find out what medication regimen patient was on this past summer during which time he was doing well Collateral: Again discussed case with patient's mother. -She reports he was doing great this past summer; not sure what his medication regimen was at that time -says was on Tegretol for years; for some reason [facility] took him off of it (was restarted at this hospitalization) -says was on clomipramine for OCD since 7 years old and did well on it; not sure why he was taken off a year ago -to her knowledge Latuda was supposed to be discontinued since he was never really taking it; Vraylar was also started at [facility] which has not seemed to help. -Has been on Zyprexa for a while; not sure efficacy --drools consistently at baseline; she said she has asked in the past for medication for this Diagnosis: -Says diagnosis is schizoaffective, bipolar type however she has no knowledge of any discrete manic episodes; he has some history of depressive episodes -Does not blink: Supposed to be on Restasis/cyclosporine ophthalmic; not sure dose; discussed with pharmacist who reports typically this is 0.05% solution 1 drop b.i.d. (other places say 0.1%) -Aarkskog syndrome -ASD -OCD -has chronic extremely dry skin (eczema?) for which he has some medicated cream; mother not sure the name -Said there was a plan to get MRI of the brain since change seemed somewhat sudden 08/03 Patient reports that he is feeling a lot better which is what he says to commercial real estate underwriter every day. He denies any AH. Also says he has not been seeing his mother. Difficult to tell if this is the case or not so will continue to monitor. Patient did ask for a stuffed animal or something about a stuffed animal but it was not clear. -briefly spoke with outpatient provider Huma who said she was 1 who started him on Vraylar -continue with Risperdal; perhaps it is helping 08/04 No change in presentation; still disorganized, fearful, incontinent, hardly moving from room. Not sleeping at night but will tell commercial real estate underwriter I slept very good... . Continues to say the same refrain I feel a lot better... -explained medication and plan to increase Risperdal to which he is amenable 08/05 Patient with same presentation and hardly slept. Reviewed med list from. Meeting with outpatient team and again got history: History that patient was stable on Tegretol and Latuda for at least a year; Latuda was lowered in the springtime to 40 mg, down from 60 since patient said was making him tired. He remained stable until this fall when he suddenly decompensated, unable to accept reality, incontinent, afraid of multiple things, thinking his mom's , forgetting people are Impression: Patient has diagnosis of schizoaffective disorder, not sure if he actually has manic episodes. Mother says MRI was scheduled since change was somewhat sudden, the summer, however symptoms are congruent with diagnosis. Will continue to get collateral from senior living ([facility]?) And outpatient provider. PLAN: CV q15 min checks -Started Risperdal 1 mg b.i.d. -Add Risperdal 0.5 mg t.i.d. p.r.n. for breakthrough AVH -DC Vraylar 3 mg; this was started by outpatient provider; does not seem to have helped much and no clear indication for bipolar depression (also patient already on 3 antipsychotics) -for now, Continue Zyprexa 10 mg at bedtime; however not sure how long he has been on this or how effective -for now, Continue Latuda 120 mg daily at dinnertime for now; patient had been on this for a while -temporarily Start artificial tears -Will get prescription for Restasis/cyclosporin -consider restarting clomipramine for OCD ( clomipramine 100 mg b.i.d. for OCD in the past around 2014; for some reason it was dc'd at some point; restarted 2022 but not continued after that). -consider glycopyrrolate for excessive drooling -will consider getting MRI, however patient's symptoms are congruent with diagnosis Patient educated on: diagnosis and medication risk/benefits Informed Consent: does not understand Reason for continued inpatient stay Substantial Risk for: inability to function Time Spent With Patient Time: Total time managing care of this patient today ____ minutes.
[2024-08-06] MEDS: Escitalopram Oxalate 10 MG TABLET PO (08:55)
[2024-08-06] MEDS: carBAMazepine ER 200 MG TAB.ER.12H 400 MG PO ×2 (08:55→21:03)
[2024-08-06] MEDS: clonazePAM 0.5 MG TABLET PO ×2 (08:56→15:23)
[2024-08-06] MEDS: Docusate Sodium 100 MG CAPSULE PO (08:56)
[2024-08-06] MEDS: Loratadine 10 MG TABLET PO (08:56)
[2024-08-06] MEDS: gemfibroziL 600 MG TABLET PO ×2 (08:57→21:02)
[2024-08-06] MEDS: Sennosides 8.6 MG TABLET PO ×2 (08:57→21:04)
[2024-08-06] MEDS: risperiDONE 2 MG TABLET PO (08:57)
[2024-08-06] MEDS: Ezetimibe 10 MG TABLET PO (08:57)
[2024-08-06] MEDS: Fluticasone Propionate Nasal 16 GM SPRAY 1 SPRAY NOSTRIL-B (08:59)
[2024-08-06] MEDS: Omeprazole 40 MG CAPSULE.DR PO (09:02)
[2024-08-06] MEDS: NeoMY/Polymyx/Bacit/Ointment 14 GM Tube TOPICAL (15:22)
[2024-08-06] MEDS: Lurasidone HCl 40 MG TABLET PO (16:30)
[2024-08-06 20:00] VITALS: BP 144/74; PULSE 91; TEMP 36.7; O2SAT 97
--- NOTE | 2024-08-06 20:35 | P.EN_ITS ---
Event Note Date of Service: 08/06/24 Event Note: Patient is a 34-year-old male with a [facility] significant Aarskog syndrome, autism spectrum disorder and schizoaffective bipolar type who was [facility] with hospitalist consult bilateral feet swelling. Patient seen and evaluated with his nurse, as patient is often reluctant to interact with unknown people. Pt does have non-pitting bilateral lower leg and feet swelling, though pt is unable to state how long this has occurred or if this is new or different than baseline. Nurse is also unable to state whether swelling is worse than at time of admission. Pt himself offers no acute complaints about his legs or feet other than socks irritate his feet. Is noted to be barefoot and refusing to wear socks or footwear. Denies foot or leg pain. Plan: Suggestion would be for conservative treatment: have patient wear compression stockings and elevate legs while sitting or laying in bed. However, given pt's adversion to footwear, it is true pt will likely be non-compliant with treatment. If swelling becomes worse and/or bothersome to pt, can trial a 3-5 day course of Lasix 20mg p.o. Time Spent With Patient Time: Total time managing care of this patient today ____ minutes.
[2024-08-06] MEDS: risperiDONE 2 MG TABLET 4 MG PO (21:02)
[2024-08-06] MEDS: traZODone HCL 100 MG TABLET PO (21:03)
[2024-08-06] MEDS: Atorvastatin Calcium 40 MG TABLET PO (21:04)
--- NOTE | 2024-08-06 23:05 | HO.PSYCHPN ---
Subjective Subjective Date of Service: 08/06/24 Reason For Visit: Schioafective disorder bipolar type Interim History: met with pt; discussed with team no change in presentation and pt remains disorganized, sitting in own defecate; has AH. Hardly sleeping at night. sitting in one spot for most of the day. Mental Status Exam Mental Status Exam Narrative: Pt is alert and oriented; behavior is guarded, cautious but cooperative, calm, can be friendly; patient is not in distress; dressed in hospital attire, mildly improved hygiene, dry skin on face, drooling; mood is described as i feel better though affect anxious; eye contact appropriate; Speech is a little garbled but likely at baseline; normal rate, volume; uses few words; not pressured; no psychomotor agitation/retardation present; thought process is concrete, goal directed, asks for needs; Thought content is on AH, missing parents, tx; otherwise pertinent to relevant topics; no overt delusional content expressed; denies any SI/HI. +AH and internally preoccupied. Patients insight and judgment impaired. Diagnostics Vital Signs (24Hr): Vital Signs - 24 hr 08/06/24 20:00 Temperature 98.1 F Pulse Rate 91 Blood Pressure 144/74 H Pulse Oximetry 97 Oxygen Delivery Method Room Air BMI result Body Mass Index 33.0 Medications Medications Current Medications Acetaminophen (Acetaminophen 325 Mg Tablet) 650 mg PO Q6H PRN PRN Reason: Headache/Pain Mild Scale (1-3) Al Hydroxide/Mg Hydroxide (Magnesium Hydrox/Alum Hydrox 30 Ml Oral.Susp) 30 ml PO Q6H PRN PRN Reason: Heartburn/Nausea Artificial Tears (Artificial Tears 15 Ml Drops) 1 drop EYE-BOTH TID ON LICENSE OF [facility] Last Admin: 08/06/24 21:29 Dose: Not Given Artificial Tears (Artificial Tears 15 Ml Drops) 1 drop EYE-BOTH Q4H PRN PRN Reason: Dry Eyes Last Admin: 08/02/24 16:09 Dose: 1 drop Atenolol (Atenolol 25 Mg Tablet) 25 mg PO DAILY ON LICENSE OF [facility]; Protocol Last Admin: 08/06/24 11:24 Dose: Not Given Atorvastatin Calcium (Atorvastatin Calcium 40 Mg Tablet) 40 mg PO BEDTIME ON LICENSE OF [facility] Last Admin: 08/06/24 21:04 Dose: 40 mg Carbamazepine (Carbamazepine Er 200 Mg Tab.Er.12h) 400 mg PO BID ON LICENSE OF [facility] Last Admin: 08/06/24 21:03 Dose: 400 mg Clonazepam (Clonazepam 0.5 Mg Tablet) 0.5 mg PO TID PRN PRN Reason: anxiety Last Admin: 08/06/24 15:23 Dose: 0.5 mg Docusate Sodium (Docusate Sodium 100 Mg Capsule) 100 mg PO TID ON LICENSE OF [facility] Last Admin: 08/06/24 21:29 Dose: Not Given Ezetimibe (Ezetimibe 10 Mg Tablet) 10 mg PO DAILY ON LICENSE OF [facility] Last Admin: 08/06/24 08:57 Dose: 10 mg Escitalopram Oxalate (Escitalopram Oxalate 10 Mg Tablet) 10 mg PO DAILY ON LICENSE OF [facility] Last Admin: 08/06/24 08:55 Dose: 10 mg Fluticasone Propionate (Fluticasone Propionate Nasal 16 Gm [place]) 1 spray NOSTRIL-B DAILY ON LICENSE OF [facility] Last Admin: 08/06/24 08:59 Dose: 1 spray Gemfibrozil (Gemfibrozil 600 Mg Tablet) 600 mg PO BID ON LICENSE OF [facility] Last Admin: 08/06/24 21:02 Dose: 600 mg Hydroxyzine HCl (Hydroxyzine Hcl 25 Mg Tablet) 25 mg PO Q6H PRN PRN Reason: Anxiety Last Admin: 08/02/24 13:30 Dose: 25 mg Loratadine (Loratadine 10 Mg Tablet) 10 mg PO DAILY ON LICENSE OF [facility] Last Admin: 08/06/24 08:56 Dose: 10 mg Lurasidone HCl (Lurasidone Hcl 40 Mg Tablet) 40 mg PO DAILY@1700 ON LICENSE OF [facility] Last Admin: 08/06/24 16:30 Dose: 40 mg Magnesium Hydroxide (Milk Of Magnesia 30 Ml Oral.Susp) 30 ml PO DAILY PRN PRN Reason: Constipation Multi-Ingred Cream/Lotion/Oil/Oint (Mineral Oil/Petrolatum,White 106 Gm Tube) 1 appl TOPICAL TID PRN; Protocol PRN Reason: dry skin Neomycin/Polymyxin/Bacitracin (Neomy/Polymyx/Bacit/Ointment 14 Gm Tube) 1 gm TOPICAL TID ON LICENSE OF [facility]; Protocol Last Admin: 08/06/24 21:30 Dose: Not Given Nicotine Polacrilex (Nicotine Polacrilex 2 Mg Gum) 4 mg BUCCAL Q2H PRN PRN Reason: Nicotine Cravings Omeprazole (Omeprazole 40 Mg Capsule.Dr) 40 mg PO DAILY@0630 ON LICENSE OF [facility] Last Admin: 08/06/24 09:02 Dose: 40 mg Risperidone (Risperidone 0.5 Mg Tablet) 0.5 mg PO TID PRN PRN Reason: Hallucinations Last Admin: 08/04/24 08:28 Dose: 0.5 mg Risperidone (Risperidone 2 Mg Tablet) 4 mg PO BEDTIME ADRIANO Last Admin: 08/06/24 21:02 Dose: 4 mg Senna (Sennosides 8.6 Mg Tablet) 8.6 mg PO BID ADRIANO Last Admin: 08/06/24 21:04 Dose: 8.6 mg Trazodone HCl (Trazodone Hcl 50 Mg Tablet) 50 mg PO BEDTIME MRX1 PRN PRN Reason: Insomnia Last Admin: 08/04/24 23:50 Dose: 50 mg Trazodone HCl (Trazodone Hcl 100 Mg Tablet) 100 mg PO BEDTIME ADRIANO Last Admin: 08/06/24 21:03 Dose: 100 mg Allergies Allergies Allergy/AdvReac Type Severity Reaction Status Date / Time ondansetron [From Zofran] Allergy Unknown Verified 07/28/24 22:30 Penicillins Allergy Unknown Verified 07/28/24 22:30 potassium Allergy Unknown Verified 07/28/24 22:30 prochlorperazine Allergy Unknown Verified 07/28/24 22:30 Assessment & Plan Assessment & Plan (1) Schizoaffective disorder, bipolar type: Status: Acute Code(s): F25.0 - Schizoaffective disorder, bipolar type (2) Autism spectrum disorder: Status: Acute Code(s): F84.0 - Autistic disorder (3) Intellectual disability: Status: Acute Code(s): F79 - Unspecified intellectual disabilities (4) Aarskog syndrome: Status: Acute Code(s): 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 community manager reports patient has increased anxiety, paranoia and visual hallucinations as well as increased agitation related to AVH, which has resulted in the need for physical restraints. Patient with limited ability to participate in interview. Patient cooperative and calm. He says he misses his mother. He said I am feeling better... And then that he was going to lay down. He said he wanted to be in the hospital until he feels better... But could not discuss his feelings or what that would mean. Denies any SI or HI and says he is feeling safe. Patient does endorse auditory hallucinations which he he says bothers him, however when asked to discuss them further or what they say, he says I do not know and regarding medication that there is nothing to help... For the remainder of the day, patient sometimes in his room, sometimes in the hallway saying he wanted to call his mother or father, saying he misses them and wants to go home. Formulation/clinical reasoning: hx of psychotic illness with mood component; difficult to assess due to patients baseline limitations. So far patient calm, mostly cooperative though also guarded and cautious. So far in good behavioral control. -Will need collateral -Guardian paperwork in chart; parents are guardians -No HCP - [facility] course: 07/30 Patient remains fearful; can be friendly and cooperative but seems very anxious and cautious. Visual hallucinations patient saying he can see his mother in the room and talking to her Still not going into bathroom, with recent history of being afraid of bathroom; thus patient Incontinent of urine, sitting in wet clothes and refusing to change today, willing to sign CV reiterating he wants to be here for treatment ( to feel better ) -left for outpatient provider Nat Lee to discuss tx hx 07/31 patient remains cautious and intermittently fearful but is also warming up a bit to some staff, primarily female staff. He says he is feeling better but behaviors remain decompensated. Willing to change out of clothes today with staff encouragement and have them washed; also talked to his mother on the phone today which he said made him happy. Patient willing to use lotion for try facial skin Collateral:Boat Dispatcher discussed case with patient's mother who reports that behaviors decompensated this April after he returned from vacation with his father. At that time he started packing up his stuff, saying he wanted to move out of the [facility]; was taking lots of showers, self dialogue Ng, saying he could see his mother in the room, saying he thought his mother was and refusing to talk to her on the phone. For those reasons This past May he went to [facility] where he was started on Vraylar (and refused to take Latuda). He returned to the [facility] but remained confused, disorganized, paranoid. At 1 point he would not leave the living room at all, incontinent, afraid to go into the bathroom or to shower which resulted in this hospitalization. Some history of aggression for which he was hospitalized a year ago; only mild aggression in [facility] this time around. -left another message with corporation secretary for [facility] 08/01 mostly same presentation, continued AH which are bothersome; more comfortable with staff and allowing them to help him attending ADLs including bathing. -com writer did get a call back from Nat Lee; com writer return call and left message 08/02 Patient continues to say I am feeling much better however this does not seem to correlate with any improvement in symptoms as he continues to have AH, is afraid of his room, incontinent of urine because afraid of going to the bathroom and continually saying that he sees his mother in his room. Patient does not respond much to reality testing. He does say he would like other medications to help make the voices go away. -given discussion below, will DC Vraylar since no clear indication of bipolar depression; already on 3 antipsychotics and does not seem effective. Instead will try Risperdal. -will start to try to eliminate pharmacy; need to find out what medication regimen patient was on this past summer during which time he was doing well Collateral: Again discussed case with patient's mother. -She reports he was doing great this past summer; not sure what his medication regimen was at that time -says was on Tegretol for years; for some reason [facility] took him off of it (was restarted at this hospitalization) -says was on clomipramine for OCD since 7 years old and did well on it; not sure why he was taken off a year ago -to her knowledge Latuda was supposed to be discontinued since he was never really taking it; Vraylar was also started at [facility] which has not seemed to help. -Has been on Zyprexa for a while; not sure efficacy --drools consistently at baseline; she said she has asked in the past for medication for this Diagnosis: -Says diagnosis is schizoaffective, bipolar type however she has no knowledge of any discrete manic episodes; he has some history of depressive episodes -Does not blink: Supposed to be on Restasis/cyclosporine ophthalmic; not sure dose; discussed with pharmacist who reports typically this is 0.05% solution 1 drop b.i.d. (other places say 0.1%) -Aarkskog syndrome -ASD -OCD -has chronic extremely dry skin (eczema?) for which he has some medicated cream; mother not sure the name -Said there was a plan to get MRI of the brain since change seemed somewhat sudden 08/03 Patient reports that he is feeling a lot better which is what he says to com writer every day. He denies any AH. Also says he has not been seeing his mother. Difficult to tell if this is the case or not so will continue to monitor. Patient did ask for a stuffed animal or something about a stuffed animal but it was not clear. -briefly spoke with outpatient provider Huma who said she was 1 who started him on Vraylar -continue with Risperdal 08/05 meeting with outpt team stable on Tegretol and latuda for years until sudden decompensation this fall at which time pt presented with same symptoms he has currently. Prior to this stable and functional in many ways, all ADL's, organized and quite capable; no psychosis; read/write/send emails 08/06 no change in presentation and pt remains disorganized, sitting in own defecate; has AH. Hardly sleeping at night. sitting in one spot for most of the day. -intermittently refusing medications -pt refusing labs -feet are both swollen; hospitalist examined -infection on both side of bridge of nose where glasses sit on nose; pt allowed antibiotic ointment to be applied *guardians have rights to authorize any/all medical treatments even if against patients will Medication: pt was stable on Tegretol and Latuda for years until this fall -for now, will continue on Tegretol and Latuda -dc'd vraylar -started risperdal and increased to 4mg, scheduled it at bedtime to help w/ sleep consider CT scan brain given sudden onset of symptoms Impression: Patient has diagnosis of schizoaffective disorder, not sure if he actually has manic episodes. Mother says MRI was scheduled since change was somewhat sudden, the summer, however symptoms are congruent with diagnosis. Will continue to get collateral from [facility] ([facility]?) And outpatient provider. PLAN: CV q15 min checks -Risperdal 4 mg qhs -Add Risperdal 0.5 mg t.i.d. p.r.n. for breakthrough AVH -for now, Continue Latuda 40 mg daily at dinnertime (used to be on 60mg) -Continue Tegretol 400mg BID (was stable on this in past) -DC Vraylar 3 mg; this was started by outpatient provider; does not seem to have helped much and no clear indication for bipolar depression (also patient already on 3 antipsychotics) -DC'd Zyprexa: has caused DM/elevated Cholesterol/wt gain -temporarily Start artificial tears -Will get prescription for Restasis/cyclosporin -consider restarting clomipramine for OCD ( clomipramine 100 mg b.i.d. for OCD in the past around 2014; for some reason it was dc'd at some point; restarted 2022 but not continued after that). -consider glycopyrrolate for excessive drooling -will consider getting MRI, however patient's symptoms are congruent with diagnosis Patient educated on: diagnosis and medication risk/benefits Informed Consent: does not understand Reason for continued inpatient stay Substantial Risk for: inability to function Time Spent With Patient Time: Total time managing care of this patient today ____ minutes.
[2024-08-07 08:33] VITALS: BP 180/95; PULSE 90; RESP 18; TEMP 36.5; O2SAT 100
[2024-08-07] MEDS: carBAMazepine ER 200 MG TAB.ER.12H 400 MG PO (08:37)
[2024-08-07] MEDS: gemfibroziL 600 MG TABLET PO (08:37)
[2024-08-07] MEDS: Ezetimibe 10 MG TABLET PO (08:37)
[2024-08-07] MEDS: Omeprazole 40 MG CAPSULE.DR PO (08:37)
[2024-08-07] MEDS: Escitalopram Oxalate 10 MG TABLET PO (08:38)
[2024-08-07] MEDS: Loratadine 10 MG TABLET PO (08:38)
[2024-08-07] MEDS: Fluticasone Propionate Nasal 16 GM SPRAY 1 SPRAY NOSTRIL-B (09:25)
--- NOTE | 2024-08-07 14:47 | P.PNPSI_ITS ---
Subjective Subjective Date of Service: 08/07/24 Reason For Visit: Schioafective disorder bipolar type Interim History: Sitting in chair in room. pt declining to change despite being incontinent of feces; encouraged to shower and change clothing. Patient reports he is having a good day but declined to elaborate. Medication Compliance: Yes Attending Groups: No Mental Status Exam Mental Status Exam Narrative: Pt behavior is guarded, calm; dressed in hospital attire, drooling, malodorous, sitting in feces, declining to change despite encouragement; mood is described as good ; eye contact appropriate; Speech is a garbled; normal rate, volume; thought process is concrete; no overt delusional content expressed; did not express any SI/HI/VH/AH Diagnostics Vital Signs (24Hr): Vital Signs - 24 hr 08/06/24 20:00 08/07/24 08:33 Temperature 98.1 F 97.7 F Pulse Rate 91 90 Respiratory Rate 18 Blood Pressure 144/74 H 180/95 H Pulse Oximetry 97 100 Oxygen Delivery Method Room Air Room Air BMI result Body Mass Index 33.0 Medications Medications Current Medications Acetaminophen (Acetaminophen 325 Mg Tablet) 650 mg PO Q6H PRN PRN Reason: Headache/Pain Mild Scale (1-3) Al Hydroxide/Mg Hydroxide (Magnesium Hydrox/Alum Hydrox 30 Ml Oral.Susp) 30 ml PO Q6H PRN PRN Reason: Heartburn/Nausea Artificial Tears (Artificial Tears 15 Ml Drops) 1 drop EYE-BOTH TID [facility] Last Admin: 08/07/24 14:35 Dose: Not Given Artificial Tears (Artificial Tears 15 Ml Drops) 1 drop EYE-BOTH Q4H PRN PRN Reason: Dry Eyes Last Admin: 08/02/24 16:09 Dose: 1 drop Atenolol (Atenolol 25 Mg Tablet) 25 mg PO DAILY [facility]; Protocol Last Admin: 08/07/24 08:38 Dose: 25 mg Atorvastatin Calcium (Atorvastatin Calcium 40 Mg Tablet) 40 mg PO BEDTIME [facility] Last Admin: 08/06/24 21:04 Dose: 40 mg Carbamazepine (Carbamazepine Er 200 Mg Tab.Er.12h) 400 mg PO BID [facility] Last Admin: 08/07/24 08:37 Dose: 400 mg Clonazepam (Clonazepam 0.5 Mg Tablet) 0.5 mg PO TID PRN PRN Reason: anxiety Last Admin: 08/06/24 15:23 Dose: 0.5 mg Docusate Sodium (Docusate Sodium 100 Mg Capsule) 100 mg PO TID [facility] Last Admin: 08/07/24 14:35 Dose: Not Given Ezetimibe (Ezetimibe 10 Mg Tablet) 10 mg PO DAILY [facility] Last Admin: 08/07/24 08:37 Dose: 10 mg Escitalopram Oxalate (Escitalopram Oxalate 10 Mg Tablet) 10 mg PO DAILY [facility] Last Admin: 08/07/24 08:38 Dose: 10 mg Fluticasone Propionate (Fluticasone Propionate Nasal 16 Gm [place]) 1 spray NOSTRIL-B DAILY [facility] Last Admin: 08/07/24 09:25 Dose: 1 spray Gemfibrozil (Gemfibrozil 600 Mg Tablet) 600 mg PO BID [facility] Last Admin: 08/07/24 08:37 Dose: 600 mg Hydroxyzine HCl (Hydroxyzine Hcl 25 Mg Tablet) 25 mg PO Q6H PRN PRN Reason: Anxiety Last Admin: 08/02/24 13:30 Dose: 25 mg Loratadine (Loratadine 10 Mg Tablet) 10 mg PO DAILY [facility] Last Admin: 08/07/24 08:38 Dose: 10 mg Lurasidone HCl (Lurasidone Hcl 40 Mg Tablet) 40 mg PO DAILY@1700 [facility] Last Admin: 08/06/24 16:30 Dose: 40 mg Magnesium Hydroxide (Milk Of Magnesia 30 Ml Oral.Susp) 30 ml PO DAILY PRN PRN Reason: Constipation Multi-Ingred Cream/Lotion/Oil/Oint (Mineral Oil/Petrolatum,White 106 Gm Tube) 1 appl TOPICAL TID PRN; Protocol PRN Reason: dry skin Neomycin/Polymyxin/Bacitracin (Neomy/Polymyx/Bacit/Ointment 14 Gm Tube) 1 gm TOPICAL TID [facility]; Protocol Last Admin: 08/07/24 14:35 Dose: Not Given Nicotine Polacrilex (Nicotine Polacrilex 2 Mg Gum) 4 mg BUCCAL Q2H PRN PRN Reason: Nicotine Cravings Omeprazole (Omeprazole 40 Mg Capsule.Dr) 40 mg PO DAILY@0630 [facility] Last Admin: 08/07/24 08:37 Dose: 40 mg Risperidone (Risperidone 0.5 Mg Tablet) 0.5 mg PO TID PRN PRN Reason: Hallucinations Last Admin: 08/04/24 08:28 Dose: 0.5 mg Risperidone (Risperidone 2 Mg Tablet) 4 mg PO BEDTIME [facility] Last Admin: 08/06/24 21:02 Dose: 4 mg Senna (Sennosides 8.6 Mg Tablet) 8.6 mg PO BID [facility] Last Admin: 08/07/24 08:41 Dose: Not Given Trazodone HCl (Trazodone Hcl 50 Mg Tablet) 50 mg PO BEDTIME MRX1 PRN PRN Reason: Insomnia Last Admin: 08/04/24 23:50 Dose: 50 mg Trazodone HCl (Trazodone Hcl 100 Mg Tablet) 100 mg PO BEDTIME [facility] Last Admin: 08/06/24 21:03 Dose: 100 mg Allergies Allergies Allergy/AdvReac Type Severity Reaction Status Date / Time ondansetron [From Zofran] Allergy Unknown Verified 07/28/24 22:30 Penicillins Allergy Unknown Verified 07/28/24 22:30 potassium Allergy Unknown Verified 07/28/24 22:30 prochlorperazine Allergy Unknown Verified 07/28/24 22:30 Assessment & Plan Assessment & Plan (1) Schizoaffective disorder, bipolar type: Status: Acute Code(s): F25.0 - Schizoaffective disorder, bipolar type (2) Autism spectrum disorder: Status: Acute Code(s): F84.0 - Autistic disorder (3) Intellectual disability: Status: Acute Code(s): F79 - Unspecified intellectual disabilities (4) Aarskog syndrome: Status: Acute Code(s): Q87.19 - Other congenital malformation syndromes predominantly associated with short stature Plan Patient is a 34-year-old male with severe ASD, intellectual disability, schizoaffective disorder with, history of behavioral outbursts, who resides at a S residential facility and who presents from external ED for what family program specialist reports is decompensation following discharge from [facility] admission about 4 weeks ago. relationship manager reports patient has increased anxiety, paranoia and visual hallucinations as well as increased agitation related to AVH, which has resulted in the need for physical restraints. Patient with limited ability to participate in interview. Patient cooperative and calm. He says he misses his mother. He said I am feeling better... And then that he was going to lay down. He said he wanted to be in the hospital until he feels better... But could not discuss his feelings or what that would mean. Denies any SI or HI and says he is feeling safe. Patient does endorse auditory hallucinations which he he says bothers him, however when asked to discuss them further or what they say, he says I do not know and regarding medication that there is nothing to help... For the remainder of the day, patient sometimes in his room, sometimes in the hallway saying he wanted to call his mother or father, saying he misses them and wants to go home. Formulation/clinical reasoning: hx of psychotic illness with mood component; difficult to assess due to patients baseline limitations. So far patient calm, mostly cooperative though also guarded and cautious. So far in good behavioral control. -Will need collateral -Guardian paperwork in chart; parents are guardians -No HCP - [facility] course: 07/30 Patient remains fearful; can be friendly and cooperative but seems very anxious and cautious. Visual hallucinations patient saying he can see his mother in the room and talking to her Still not going into bathroom, with recent history of being afraid of bathroom; thus patient Incontinent of urine, sitting in wet clothes and refusing to change today, willing to sign CV reiterating he wants to be here for treatment ( to feel better ) -left VM for outpatient provider [facility] to discuss tx hx 07/31 patient remains cautious and intermittently fearful but is also warming up a bit to some staff, primarily female staff. He says he is feeling better but behaviors remain decompensated. Willing to change out of clothes today with staff encouragement and have them washed; also talked to his mother on the phone today which he said made him happy. Patient willing to use lotion for try facial skin Collateral:Regional Branch Manager discussed case with patient's mother who reports that behaviors decompensated this April after he returned from vacation with his father. At that time he started packing up his stuff, saying he wanted to move out of the halfway; was taking lots of showers, self dialogue Ng, saying he could see his mother in the room, saying he thought his mother was and refusing to talk to her on the phone. For those reasons This past May he went to [facility] where he was started on Vraylar (and refused to take Latuda). He returned to the halfway but remained confused, disorganized, paranoid. At 1 point he would not leave the living room at all, incontinent, afraid to go into the bathroom or to shower which resulted in this hospitalization. Some history of aggression for which he was hospitalized a year ago; only mild aggression in halfway this time around. -left another message with special education secretary for [facility] Lee 08/01 mostly same presentation, continued AH which are bothersome; more comfortable with staff and allowing them to help him attending ADLs including bathing. -check writer did get a call back from Nat Lee; check writer return call and left message 08/02 Patient continues to say I am feeling much better however this does not seem to correlate with any improvement in symptoms as he continues to have AH, is afraid of his room, incontinent of urine because afraid of going to the bathroom and continually saying that he sees his mother in his room. Patient does not respond much to reality testing. He does say he would like other medications to help make the voices go away. -given discussion below, will DC Vraylar since no clear indication of bipolar depression; already on 3 antipsychotics and does not seem effective. Instead will try Risperdal. -will start to try to eliminate pharmacy; need to find out what medication regimen patient was on this past summer during which time he was doing well Collateral: Again discussed case with patient's mother. -She reports he was doing great this past summer; not sure what his medication regimen was at that time -says was on Tegretol for years; for some reason [facility] took him off of it (was restarted at this hospitalization) -says was on clomipramine for OCD since 7 years old and did well on it; not sure why he was taken off a year ago -to her knowledge Latuda was supposed to be discontinued since he was never really taking it; Vraylar was also started at [facility] which has not seemed to help. -Has been on Zyprexa for a while; not sure efficacy --drools consistently at baseline; she said she has asked in the past for medication for this Diagnosis: -Says diagnosis is schizoaffective, bipolar type however she has no knowledge of any discrete manic episodes; he has some history of depressive episodes -Does not blink: Supposed to be on Restasis/cyclosporine ophthalmic; not sure dose; discussed with pharmacist who reports typically this is 0.05% solution 1 drop b.i.d. (other places say 0.1%) -A[place]kog syndrome -ASD -OCD -has chronic extremely dry skin (eczema?) for which he has some medicated cream; mother not sure the name -Said there was a plan to get MRI of the brain since change seemed somewhat sudden 08/03 Patient reports that he is feeling a lot better which is what he says to check writer every day. He denies any AH. Also says he has not been seeing his mother. Difficult to tell if this is the case or not so will continue to monitor. Patient did ask for a stuffed animal or something about a stuffed animal but it was not clear. -briefly spoke with outpatient provider Huma who said she was 1 who started him on Vraylar -continue with Risperdal 08/05 meeting with outpt team stable on Tegretol and latuda for years until sudden decompensation this fall at which time pt presented with same symptoms he has currently. Prior to this stable and functional in many ways, all ADL's, organized and quite capable; no psychosis; read/write/send emails 08/06 no change in presentation and pt remains disorganized, sitting in own defecate; has AH. Hardly sleeping at night. sitting in one spot for most of the day. -intermittently refusing medications -pt refusing labs -feet are both swollen; hospitalist examined -infection on both side of bridge of nose where glasses sit on nose; pt allowed antibiotic ointment to be applied 08/07:continue current tx plan. *guardians have rights to authorize any/all medical treatments even if against patients will Medication: pt was stable on Tegretol and Latuda for years until this fall -for now, will continue on Tegretol and Latuda -dc'd vraylar -started risperdal and increased to 4mg, scheduled it at bedtime to help w/ sleep consider CT scan brain given sudden onset of symptoms Impression: Patient has diagnosis of schizoaffective disorder, not sure if he actually has manic episodes. Mother says MRI was scheduled since change was somewhat sudden, the summer, however symptoms are congruent with diagnosis. Will continue to get collateral from halfway ([facility]?) And outpatient provider. PLAN: CV q15 min checks -Risperdal 4 mg qhs -Add Risperdal 0.5 mg t.i.d. p.r.n. for breakthrough AVH -for now, Continue Latuda 40 mg daily at dinnertime (used to be on 60mg) -Continue Tegretol 400mg BID (was stable on this in past) -DC Vraylar 3 mg; this was started by outpatient provider; does not seem to have helped much and no clear indication for bipolar depression (also patient already on 3 antipsychotics) -DC'd Zyprexa: has caused DM/elevated Cholesterol/wt gain -temporarily Start artificial tears -Will get prescription for Restasis/cyclosporin -consider restarting clomipramine for OCD ( clomipramine 100 mg b.i.d. for OCD in the past around 2014; for some reason it was dc'd at some point; restarted 2022 but not continued after that). -consider glycopyrrolate for excessive drooling -will consider getting MRI, however patient's symptoms are congruent with diagnosis Reason for continued inpatient stay Substantial Risk for: med/psych decompensation Time Spent With Patient Time: Total time managing care of this patient today _20___ minutes.
[2024-08-07 20:00] VITALS: BP 154/81; PULSE 80; TEMP 36.5; O2SAT 100
[2024-08-07] MEDS: risperiDONE 2 MG TABLET 4 MG PO (21:30)
[2024-08-08 08:00] VITALS: BP 146/84; PULSE 81; TEMP 36.8; O2SAT 100
[2024-08-08 09:54] VITALS: BP 146/84
[2024-08-08] MEDS: atenoloL 25 MG TABLET PO (09:54)
[2024-08-08] MEDS: Docusate Sodium 100 MG CAPSULE PO ×2 (09:56→20:56)
[2024-08-08] MEDS: Sennosides 8.6 MG TABLET PO ×2 (09:57→20:56)
[2024-08-08] MEDS: Escitalopram Oxalate 10 MG TABLET PO (09:57)
[2024-08-08] MEDS: Loratadine 10 MG TABLET PO (09:57)
[2024-08-08] MEDS: carBAMazepine ER 200 MG TAB.ER.12H 400 MG PO ×2 (09:57→20:56)
[2024-08-08] MEDS: Ezetimibe 10 MG TABLET PO (09:57)
[2024-08-08] MEDS: gemfibroziL 600 MG TABLET PO ×2 (09:58→20:56)
[2024-08-08] MEDS: Omeprazole 40 MG CAPSULE.DR PO (10:10)
[2024-08-08] MEDS: clonazePAM 0.5 MG TABLET PO ×2 (10:11→20:55)
--- NOTE | 2024-08-08 10:23 | HO.PSYCHPN ---
Subjective Subjective Date of Service: 08/08/24 Reason For Visit: Schioafective disorder bipolar type Interim History: Sitting in chair in room. needing lots of help with ADLs. Reports feeling better today. Is unable to explain what that means and have a compared to other days. Denied SI when asked directly. Denied hearing voices. Reported feeling safe Medication Compliance: Yes Side effects from medications: No Attending Groups: No Review of Systems Acute medical concerns: No Review of Systems Review of Systems nothing of note Mental Status Exam Mental Status Exam Narrative: Pt behavior is guarded, calm; appropriately dressed, malodorous, mood is described as good ; eye contact appropriate; Speech is a garbled; normal rate, volume; thought process is concrete; no overt delusional content expressed; did not express any SI/HI/VH/AH. cognition consistent with established intellectual disability Diagnostics Vital Signs (24Hr): Vital Signs - 24 hr 08/07/24 20:00 08/08/24 08:00 08/08/24 09:54 Temperature 97.7 F 98.3 F Pulse Rate 80 81 Blood Pressure 154/81 H 146/84 H 146/84 H Pulse Oximetry 100 100 Oxygen Delivery Method Room Air Room Air BMI result Body Mass Index 33.0 Medications Medications Current Medications Acetaminophen (Acetaminophen 325 Mg Tablet) 650 mg PO Q6H PRN PRN Reason: Headache/Pain Mild Scale (1-3) Al Hydroxide/Mg Hydroxide (Magnesium Hydrox/Alum Hydrox 30 Ml Oral.Susp) 30 ml PO Q6H PRN PRN Reason: Heartburn/Nausea Artificial Tears (Artificial Tears 15 Ml Drops) 1 drop EYE-BOTH TID [facility] Last Admin: 08/08/24 10:08 Dose: Not Given Artificial Tears (Artificial Tears 15 Ml Drops) 1 drop EYE-BOTH Q4H PRN PRN Reason: Dry Eyes Last Admin: 08/02/24 16:09 Dose: 1 drop Atenolol (Atenolol 25 Mg Tablet) 25 mg PO DAILY [facility]; Protocol Last Admin: 08/08/24 09:54 Dose: 25 mg Atorvastatin Calcium (Atorvastatin Calcium 40 Mg Tablet) 40 mg PO BEDTIME [facility] Last Admin: 08/07/24 22:11 Dose: Not Given Carbamazepine (Carbamazepine Er 200 Mg Tab.Er.12h) 400 mg PO BID [facility] Last Admin: 08/08/24 09:57 Dose: 400 mg Clonazepam (Clonazepam 0.5 Mg Tablet) 0.5 mg PO TID PRN PRN Reason: anxiety Last Admin: 08/08/24 10:11 Dose: 0.5 mg Docusate Sodium (Docusate Sodium 100 Mg Capsule) 100 mg PO TID [facility] Last Admin: 08/08/24 09:56 Dose: 100 mg Ezetimibe (Ezetimibe 10 Mg Tablet) 10 mg PO DAILY [facility] Last Admin: 08/08/24 09:57 Dose: 10 mg Escitalopram Oxalate (Escitalopram Oxalate 10 Mg Tablet) 10 mg PO DAILY [facility] Last Admin: 08/08/24 09:57 Dose: 10 mg Fluticasone Propionate (Fluticasone Propionate Nasal 16 Gm Morris) 1 spray NOSTRIL-B DAILY [facility] Last Admin: 08/08/24 10:16 Dose: Not Given Gemfibrozil (Gemfibrozil 600 Mg Tablet) 600 mg PO BID [facility] Last Admin: 08/08/24 09:58 Dose: 600 mg Hydroxyzine HCl (Hydroxyzine Hcl 25 Mg Tablet) 25 mg PO Q6H PRN PRN Reason: Anxiety Last Admin: 08/02/24 13:30 Dose: 25 mg Loratadine (Loratadine 10 Mg Tablet) 10 mg PO DAILY [facility] Last Admin: 08/08/24 09:57 Dose: 10 mg Lurasidone HCl (Lurasidone Hcl 40 Mg Tablet) 40 mg PO DAILY@1700 [facility] Last Admin: 08/07/24 17:57 Dose: Not Given Magnesium Hydroxide (Milk Of Magnesia 30 Ml Oral.Susp) 30 ml PO DAILY PRN PRN Reason: Constipation Multi-Ingred Cream/Lotion/Oil/Oint (Mineral Oil/Petrolatum,White 106 Gm Tube) 1 appl TOPICAL TID PRN; Protocol PRN Reason: dry skin Neomycin/Polymyxin/Bacitracin (Neomy/Polymyx/Bacit/Ointment 14 Gm Tube) 1 gm TOPICAL TID [facility]; Protocol Last Admin: 08/08/24 10:16 Dose: Not Given Nicotine Polacrilex (Nicotine Polacrilex 2 Mg Gum) 4 mg BUCCAL Q2H PRN PRN Reason: Nicotine Cravings Omeprazole (Omeprazole 40 Mg Capsule.Dr) 40 mg PO DAILY@0630 [facility] Last Admin: 08/08/24 10:10 Dose: 40 mg Risperidone (Risperidone 0.5 Mg Tablet) 0.5 mg PO TID PRN PRN Reason: Hallucinations Last Admin: 08/04/24 08:28 Dose: 0.5 mg Risperidone (Risperidone 2 Mg Tablet) 4 mg PO BEDTIME [facility] Last Admin: 08/07/24 21:30 Dose: 4 mg Senna (Sennosides 8.6 Mg Tablet) 8.6 mg PO BID [facility] Last Admin: 08/08/24 09:57 Dose: 8.6 mg Trazodone HCl (Trazodone Hcl 50 Mg Tablet) 50 mg PO BEDTIME MRX1 PRN PRN Reason: Insomnia Last Admin: 08/04/24 23:50 Dose: 50 mg Trazodone HCl (Trazodone Hcl 100 Mg Tablet) 100 mg PO BEDTIME [facility] Last Admin: 08/07/24 22:12 Dose: Not Given Allergies Allergies Allergy/AdvReac Type Severity Reaction Status Date / Time ondansetron [From Zofran] Allergy Unknown Verified 07/28/24 22:30 Penicillins Allergy Unknown Verified 07/28/24 22:30 potassium Allergy Unknown Verified 07/28/24 22:30 prochlorperazine Allergy Unknown Verified 07/28/24 22:30 Assessment & Plan Assessment & Plan (1) Schizoaffective disorder, bipolar type: Status: Acute Code(s): F25.0 - Schizoaffective disorder, bipolar type (2) Autism spectrum disorder: Status: Acute Code(s): F84.0 - Autistic disorder (3) Intellectual disability: Status: Acute Code(s): F79 - Unspecified intellectual disabilities (4) Aarskog syndrome: Status: Acute Code(s): Q87.19 - Other congenital malformation syndromes predominantly associated with short stature Plan Patient is a 34-year-old male with severe ASD, intellectual disability, schizoaffective disorder with, history of behavioral outbursts, who resides at a [facility] residential facility and who presents from external ED for what director inpatient headache program reports is decompensation following discharge from [facility] admission about 4 weeks ago. partnership development manager reports patient has increased anxiety, paranoia and visual hallucinations as well as increased agitation related to AVH, which has resulted in the need for physical restraints. Patient with limited ability to participate in interview. Patient cooperative and calm. He says he misses his mother. He said I am feeling better... And then that he was going to lay down. He said he wanted to be in the hospital until he feels better... But could not discuss his feelings or what that would mean. Denies any SI or HI and says he is feeling safe. Patient does endorse auditory hallucinations which he he says bothers him, however when asked to discuss them further or what they say, he says I do not know and regarding medication that there is nothing to help... For the remainder of the day, patient sometimes in his room, sometimes in the hallway saying he wanted to call his mother or father, saying he misses them and wants to go home. Formulation/clinical reasoning: hx of psychotic illness with mood component; difficult to assess due to patients baseline limitations. So far patient calm, mostly cooperative though also guarded and cautious. So far in good behavioral control. -Will need collateral -Guardian paperwork in chart; parents are guardians -No HCP - [facility] course: 07/30 Patient remains fearful; can be friendly and cooperative but seems very anxious and cautious. Visual hallucinations patient saying he can see his mother in the room and talking to her Still not going into bathroom, with recent history of being afraid of bathroom; thus patient Incontinent of urine, sitting in wet clothes and refusing to change today, willing to sign CV reiterating he wants to be here for treatment ( to feel better ) -left for outpatient provider Nat Lee to discuss tx hx 07/31 patient remains cautious and intermittently fearful but is also warming up a bit to some staff, primarily female staff. He says he is feeling better but behaviors remain decompensated. Willing to change out of clothes today with staff encouragement and have them washed; also talked to his mother on the phone today which he said made him happy. Patient willing to use lotion for try facial skin Collateral:Plastic Design Applier discussed case with patient's mother who reports that behaviors decompensated this April after he returned from vacation with his father. At that time he started packing up his stuff, saying he wanted to move out of the care home; was taking lots of showers, self dialogue Ng, saying he could see his mother in the room, saying he thought his mother was and refusing to talk to her on the phone. For those reasons This past May he went to [facility] where he was started on Vraylar (and refused to take Latuda). He returned to the care home but remained confused, disorganized, paranoid. At 1 point he would not leave the living room at all, incontinent, afraid to go into the bathroom or to shower which resulted in this hospitalization. Some history of aggression for which he was hospitalized a year ago; only mild aggression in care home this time around. -left another message with secretary board of commissioners for Nat Lee 08/01 mostly same presentation, continued AH which are bothersome; more comfortable with staff and allowing them to help him attending ADLs including bathing. -magnetic tape typewriter operator did get a call back from Nat Lee; magnetic tape typewriter operator return call and left message 08/02 Patient continues to say I am feeling much better however this does not seem to correlate with any improvement in symptoms as he continues to have AH, is afraid of his room, incontinent of urine because afraid of going to the bathroom and continually saying that he sees his mother in his room. Patient does not respond much to reality testing. He does say he would like other medications to help make the voices go away. -given discussion below, will DC Vraylar since no clear indication of bipolar depression; already on 3 antipsychotics and does not seem effective. Instead will try Risperdal. -will start to try to eliminate pharmacy; need to find out what medication regimen patient was on this past summer during which time he was doing well Collateral: Again discussed case with patient's mother. -She reports he was doing great this past summer; not sure what his medication regimen was at that time -says was on Tegretol for years; for some reason [facility] took him off of it (was restarted at this hospitalization) -says was on clomipramine for OCD since 7 years old and did well on it; not sure why he was taken off a year ago -to her knowledge Latuda was supposed to be discontinued since he was never really taking it; Vraylar was also started at [facility] which has not seemed to help. -Has been on Zyprexa for a while; not sure efficacy --drools consistently at baseline; she said she has asked in the past for medication for this Diagnosis: -Says diagnosis is schizoaffective, bipolar type however she has no knowledge of any discrete manic episodes; he has some history of depressive episodes -Does not blink: Supposed to be on Restasis/cyclosporine ophthalmic; not sure dose; discussed with pharmacist who reports typically this is 0.05% solution 1 drop b.i.d. (other places say 0.1%) -Aarkskog syndrome -ASD -OCD -has chronic extremely dry skin (eczema?) for which he has some medicated cream; mother not sure the name -Said there was a plan to get MRI of the brain since change seemed somewhat sudden 08/03 Patient reports that he is feeling a lot better which is what he says to magnetic tape typewriter operator every day. He denies any AH. Also says he has not been seeing his mother. Difficult to tell if this is the case or not so will continue to monitor. Patient did ask for a stuffed animal or something about a stuffed animal but it was not clear. -briefly spoke with outpatient provider Huma who said she was 1 who started him on Vraylar -continue with Risperdal 08/05 meeting with outpt team stable on Tegretol and latuda for years until sudden decompensation this fall at which time pt presented with same symptoms he has currently. Prior to this stable and functional in many ways, all ADL's, organized and quite capable; no psychosis; read/write/send emails 08/06 no change in presentation and pt remains disorganized, sitting in own defecate; has AH. Hardly sleeping at night. sitting in one spot for most of the day. -intermittently refusing medications -pt refusing labs -feet are both swollen; hospitalist examined -infection on both side of bridge of nose where glasses sit on nose; pt allowed antibiotic ointment to be applied 08/07:continue current tx plan. 08/08/2024: No changes *guardians have rights to authorize any/all medical treatments even if against patients will Medication: pt was stable on Tegretol and Latuda for years until this fall -for now, will continue on Tegretol and Latuda -dc'd vraylar -started risperdal and increased to 4mg, scheduled it at bedtime to help w/ sleep consider CT scan brain given sudden onset of symptoms Impression: Patient has diagnosis of schizoaffective disorder, not sure if he actually has manic episodes. Mother says MRI was scheduled since change was somewhat sudden, the summer, however symptoms are congruent with diagnosis. Will continue to get collateral from care home ([facility]?) And outpatient provider. PLAN: CV q15 min checks -Risperdal 4 mg qhs -Add Risperdal 0.5 mg t.i.d. p.r.n. for breakthrough AVH -for now, Continue Latuda 40 mg daily at dinnertime (used to be on 60mg) -Continue Tegretol 400mg BID (was stable on this in past) -DC Vraylar 3 mg; this was started by outpatient provider; does not seem to have helped much and no clear indication for bipolar depression (also patient already on 3 antipsychotics) -DC'd Zyprexa: has caused DM/elevated Cholesterol/wt gain -temporarily Start artificial tears -Will get prescription for Restasis/cyclosporin -consider restarting clomipramine for OCD ( clomipramine 100 mg b.i.d. for OCD in the past around 2014; for some reason it was dc'd at some point; restarted 2022 but not continued after that). -consider glycopyrrolate for excessive drooling -will consider getting MRI, however patient's symptoms are congruent with diagnosis Reason for continued inpatient stay Substantial Risk for: inability to function Time Spent With Patient Time: Total time managing care of this patient today ____ minutes.
[2024-08-08] MEDS: Lurasidone HCl 40 MG TABLET PO (17:11)
--- NOTE | 2024-08-08 18:59 | PC.NURSE ---
Joel's glasses were found in his room this morning broken.
[2024-08-08 19:52] VITALS: BP 158/90; PULSE 84; TEMP 36.6; O2SAT 100
[2024-08-08] MEDS: traZODone HCL 100 MG TABLET PO (20:55)
[2024-08-08] MEDS: risperiDONE 2 MG TABLET 4 MG PO (20:55)
[2024-08-08] MEDS: Atorvastatin Calcium 40 MG TABLET PO (20:56)
[2024-08-09 08:00] VITALS: BP 130/74; PULSE 89; RESP 18; TEMP 36.8; O2SAT 100
--- NOTE | 2024-08-09 10:30 | HO.PSYCHPN ---
Subjective Subjective Date of Service: 08/09/24 Reason For Visit: Schioafective disorder bipolar type Interim History: No significant change from yesterday and reports feeling OK. Good . Ongoing assiatnce around self care needed. No SI. Denied hearing voices. Reported feeling safe Medication Compliance: Yes Side effects from medications: No Attending Groups: No Review of Systems Review of Systems nothing of note Mental Status Exam Mental Status Exam Narrative: Pt behavior is guarded, calm; appropriately dressed, malodorous, mood is described as good ; eye contact appropriate; Speech is a garbled; normal rate, volume; thought process is concrete; no overt delusional content expressed; did not express any SI/HI/VH/AH. cognition consistent with established intellectual disability Diagnostics Vital Signs (24Hr): Vital Signs - 24 hr 08/08/24 19:52 08/09/24 08:00 Temperature 97.9 F 98.2 F Pulse Rate 84 89 Respiratory Rate 18 Blood Pressure 158/90 H 130/74 Pulse Oximetry 100 100 Oxygen Delivery Method Room Air Room Air BMI result Body Mass Index 33.0 Medications Medications Current Medications Acetaminophen (Acetaminophen 325 Mg Tablet) 650 mg PO Q6H PRN PRN Reason: Headache/Pain Mild Scale (1-3) Al Hydroxide/Mg Hydroxide (Magnesium Hydrox/Alum Hydrox 30 Ml Oral.Susp) 30 ml PO Q6H PRN PRN Reason: Heartburn/Nausea Artificial Tears (Artificial Tears 15 Ml Drops) 1 drop EYE-BOTH TID [facility] Last Admin: 08/08/24 20:56 Dose: Not Given Artificial Tears (Artificial Tears 15 Ml Drops) 1 drop EYE-BOTH Q4H PRN PRN Reason: Dry Eyes Last Admin: 08/02/24 16:09 Dose: 1 drop Atenolol (Atenolol 25 Mg Tablet) 25 mg PO DAILY [facility]; Protocol Last Admin: 08/08/24 09:54 Dose: 25 mg Atorvastatin Calcium (Atorvastatin Calcium 40 Mg Tablet) 40 mg PO BEDTIME ADRIANO Last Admin: 08/08/24 20:56 Dose: 40 mg Carbamazepine (Carbamazepine Er 200 Mg Tab.Er.12h) 400 mg PO BID ADRIANO Last Admin: 08/08/24 20:56 Dose: 400 mg Clonazepam (Clonazepam 0.5 Mg Tablet) 0.5 mg PO TID PRN PRN Reason: anxiety Last Admin: 08/08/24 20:55 Dose: 0.5 mg Docusate Sodium (Docusate Sodium 100 Mg Capsule) 100 mg PO TID [facility] Last Admin: 08/08/24 20:56 Dose: 100 mg Ezetimibe (Ezetimibe 10 Mg Tablet) 10 mg PO DAILY [facility] Last Admin: 08/08/24 09:57 Dose: 10 mg Escitalopram Oxalate (Escitalopram Oxalate 10 Mg Tablet) 10 mg PO DAILY [facility] Last Admin: 08/08/24 09:57 Dose: 10 mg Fluticasone Propionate (Fluticasone Propionate Nasal 16 Gm [place]) 1 spray NOSTRIL-B DAILY [facility] Last Admin: 08/08/24 10:16 Dose: Not Given Gemfibrozil (Gemfibrozil 600 Mg Tablet) 600 mg PO BID [facility] Last Admin: 08/08/24 20:56 Dose: 600 mg Hydroxyzine HCl (Hydroxyzine Hcl 25 Mg Tablet) 25 mg PO Q6H PRN PRN Reason: Anxiety Last Admin: 08/02/24 13:30 Dose: 25 mg Loratadine (Loratadine 10 Mg Tablet) 10 mg PO DAILY [facility] Last Admin: 08/08/24 09:57 Dose: 10 mg Lurasidone HCl (Lurasidone Hcl 40 Mg Tablet) 40 mg PO DAILY@1700 [facility] Last Admin: 08/08/24 17:11 Dose: 40 mg Magnesium Hydroxide (Milk Of Magnesia 30 Ml Oral.Susp) 30 ml PO DAILY PRN PRN Reason: Constipation Multi-Ingred Cream/Lotion/Oil/Oint (Mineral Oil/Petrolatum,White 106 Gm Tube) 1 appl TOPICAL TID PRN; Protocol PRN Reason: dry skin Neomycin/Polymyxin/Bacitracin (Neomy/Polymyx/Bacit/Ointment 14 Gm Tube) 1 gm TOPICAL TID [facility]; Protocol Last Admin: 08/08/24 21:02 Dose: Not Given Nicotine Polacrilex (Nicotine Polacrilex 2 Mg Gum) 4 mg BUCCAL Q2H PRN PRN Reason: Nicotine Cravings Omeprazole (Omeprazole 40 Mg Capsule.Dr) 40 mg PO DAILY@0630 [facility] Last Admin: 08/08/24 10:10 Dose: 40 mg Risperidone (Risperidone 0.5 Mg Tablet) 0.5 mg PO TID PRN PRN Reason: Hallucinations Last Admin: 08/04/24 08:28 Dose: 0.5 mg Risperidone (Risperidone 2 Mg Tablet) 4 mg PO BEDTIME [facility] Last Admin: 08/08/24 20:55 Dose: 4 mg Senna (Sennosides 8.6 Mg Tablet) 8.6 mg PO BID [facility] Last Admin: 08/08/24 20:56 Dose: 8.6 mg Trazodone HCl (Trazodone Hcl 50 Mg Tablet) 50 mg PO BEDTIME MRX1 PRN PRN Reason: Insomnia Last Admin: 08/04/24 23:50 Dose: 50 mg Trazodone HCl (Trazodone Hcl 100 Mg Tablet) 100 mg PO BEDTIME [facility] Last Admin: 08/08/24 20:55 Dose: 100 mg Allergies Allergies Allergy/AdvReac Type Severity Reaction Status Date / Time ondansetron [From Zofran] Allergy Unknown Verified 07/28/24 22:30 Penicillins Allergy Unknown Verified 07/28/24 22:30 potassium Allergy Unknown Verified 07/28/24 22:30 prochlorperazine Allergy Unknown Verified 07/28/24 22:30 Assessment & Plan Assessment & Plan (1) Schizoaffective disorder, bipolar type: Status: Acute Code(s): F25.0 - Schizoaffective disorder, bipolar type (2) Autism spectrum disorder: Status: Acute Code(s): F84.0 - Autistic disorder (3) Intellectual disability: Status: Acute Code(s): F79 - Unspecified intellectual disabilities (4) Aarskog syndrome: Status: Acute Code(s): 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 site operations manager reports patient has increased anxiety, paranoia and visual hallucinations as well as increased agitation related to AVH, which has resulted in the need for physical restraints. Patient with limited ability to participate in interview. Patient cooperative and calm. He says he misses his mother. He said I am feeling better... And then that he was going to lay down. He said he wanted to be in the hospital until he feels better... But could not discuss his feelings or what that would mean. Denies any SI or HI and says he is feeling safe. Patient does endorse auditory hallucinations which he he says bothers him, however when asked to discuss them further or what they say, he says I do not know and regarding medication that there is nothing to help... For the remainder of the day, patient sometimes in his room, sometimes in the hallway saying he wanted to call his mother or father, saying he misses them and wants to go home. Formulation/clinical reasoning: hx of psychotic illness with mood component; difficult to assess due to patients baseline limitations. So far patient calm, mostly cooperative though also guarded and cautious. So far in good behavioral control. -Will need collateral -Guardian paperwork in chart; parents are guardians -No HCP - [facility] course: 07/30 Patient remains fearful; can be friendly and cooperative but seems very anxious and cautious. Visual hallucinations patient saying he can see his mother in the room and talking to her Still not going into bathroom, with recent history of being afraid of bathroom; thus patient Incontinent of urine, sitting in wet clothes and refusing to change today, willing to sign CV reiterating he wants to be here for treatment ( to feel better ) -left VM for outpatient provider Nat Lee to discuss tx hx 07/31 patient remains cautious and intermittently fearful but is also warming up a bit to some staff, primarily female staff. He says he is feeling better but behaviors remain decompensated. Willing to change out of clothes today with staff encouragement and have them washed; also talked to his mother on the phone today which he said made him happy. Patient willing to use lotion for try facial skin Collateral:Wafer Machine Operator discussed case with patient's mother who reports that behaviors decompensated this April after he returned from vacation with his father. At that time he started packing up his stuff, saying he wanted to move out of the [facility]; was taking lots of showers, self dialogue Ng, saying he could see his mother in the room, saying he thought his mother was and refusing to talk to her on the phone. For those reasons This past May he went to [facility] where he was started on Vraylar (and refused to take Latuda). He returned to the [facility] but remained confused, disorganized, paranoid. At 1 point he would not leave the living room at all, incontinent, afraid to go into the bathroom or to shower which resulted in this hospitalization. Some history of aggression for which he was hospitalized a year ago; only mild aggression in [facility] this time around. -left another message with alumni secretary for Nat Lee 08/01 mostly same presentation, continued AH which are bothersome; more comfortable with staff and allowing them to help him attending ADLs including bathing. -singer songwriter did get a call back from Nat Lee; singer songwriter return call and left message 08/02 Patient continues to say I am feeling much better however this does not seem to correlate with any improvement in symptoms as he continues to have AH, is afraid of his room, incontinent of urine because afraid of going to the bathroom and continually saying that he sees his mother in his room. Patient does not respond much to reality testing. He does say he would like other medications to help make the voices go away. -given discussion below, will DC Vraylar since no clear indication of bipolar depression; already on 3 antipsychotics and does not seem effective. Instead will try Risperdal. -will start to try to eliminate pharmacy; need to find out what medication regimen patient was on this past summer during which time he was doing well Collateral: Again discussed case with patient's mother. -She reports he was doing great this past summer; not sure what his medication regimen was at that time -says was on Tegretol for years; for some reason [facility] took him off of it (was restarted at this hospitalization) -says was on clomipramine for OCD since 7 years old and did well on it; not sure why he was taken off a year ago -to her knowledge Latuda was supposed to be discontinued since he was never really taking it; Vraylar was also started at [facility] which has not seemed to help. -Has been on Zyprexa for a while; not sure efficacy --drools consistently at baseline; she said she has asked in the past for medication for this Diagnosis: -Says diagnosis is schizoaffective, bipolar type however she has no knowledge of any discrete manic episodes; he has some history of depressive episodes -Does not blink: Supposed to be on Restasis/cyclosporine ophthalmic; not sure dose; discussed with pharmacist who reports typically this is 0.05% solution 1 drop b.i.d. (other places say 0.1%) -Aarkskog syndrome -ASD -OCD -has chronic extremely dry skin (eczema?) for which he has some medicated cream; mother not sure the name -Said there was a plan to get MRI of the brain since change seemed somewhat sudden 08/03 Patient reports that he is feeling a lot better which is what he says to singer songwriter every day. He denies any AH. Also says he has not been seeing his mother. Difficult to tell if this is the case or not so will continue to monitor. Patient did ask for a stuffed animal or something about a stuffed animal but it was not clear. -briefly spoke with outpatient provider Huma who said she was 1 who started him on Vraylar -continue with Risperdal 08/05 meeting with outpt team stable on Tegretol and latuda for years until sudden decompensation this fall at which time pt presented with same symptoms he has currently. Prior to this stable and functional in many ways, all ADL's, organized and quite capable; no psychosis; read/write/send emails 08/06 no change in presentation and pt remains disorganized, sitting in own defecate; has AH. Hardly sleeping at night. sitting in one spot for most of the day. -intermittently refusing medications -pt refusing labs -feet are both swollen; hospitalist examined -infection on both side of bridge of nose where glasses sit on nose; pt allowed antibiotic ointment to be applied 08/07:continue current tx plan. 08/09/2024: No changes *guardians have rights to authorize any/all medical treatments even if against patients will Medication: pt was stable on Tegretol and Latuda for years until this fall -for now, will continue on Tegretol and Latuda -dc'd vraylar -started risperdal and increased to 4mg, scheduled it at bedtime to help w/ sleep consider CT scan brain given sudden onset of symptoms Impression: Patient has diagnosis of schizoaffective disorder, not sure if he actually has manic episodes. Mother says MRI was scheduled since change was somewhat sudden, the summer, however symptoms are congruent with diagnosis. Will continue to get collateral from [facility] ([facility]?) And outpatient provider. PLAN: CV q15 min checks -Risperdal 4 mg qhs -Add Risperdal 0.5 mg t.i.d. p.r.n. for breakthrough AVH -for now, Continue Latuda 40 mg daily at dinnertime (used to be on 60mg) -Continue Tegretol 400mg BID (was stable on this in past) -DC Vraylar 3 mg; this was started by outpatient provider; does not seem to have helped much and no clear indication for bipolar depression (also patient already on 3 antipsychotics) -DC'd Zyprexa: has caused DM/elevated Cholesterol/wt gain -temporarily Start artificial tears -Will get prescription for Restasis/cyclosporin -consider restarting clomipramine for OCD ( clomipramine 100 mg b.i.d. for OCD in the past around 2014; for some reason it was dc'd at some point; restarted 2022 but not continued after that). -consider glycopyrrolate for excessive drooling -will consider getting MRI, however patient's symptoms are congruent with diagnosis Reason for continued inpatient stay Substantial Risk for: inability to function Time Spent With Patient Time: Total time managing care of this patient today ____ minutes.
[2024-08-09] MEDS: Ezetimibe 10 MG TABLET PO (10:51)
[2024-08-09] MEDS: atenoloL 25 MG TABLET PO (10:51)
[2024-08-09] MEDS: carBAMazepine ER 200 MG TAB.ER.12H 400 MG PO ×2 (10:51→20:40)
[2024-08-09] MEDS: clonazePAM 0.5 MG TABLET PO ×2 (10:51→20:40)
[2024-08-09] MEDS: Omeprazole 40 MG CAPSULE.DR PO (10:51)
[2024-08-09] MEDS: gemfibroziL 600 MG TABLET PO ×2 (10:51→20:40)
[2024-08-09] MEDS: Escitalopram Oxalate 10 MG TABLET PO (10:52)
[2024-08-09] MEDS: Sennosides 8.6 MG TABLET PO ×2 (10:52→20:41)
[2024-08-09] MEDS: Docusate Sodium 100 MG CAPSULE PO ×2 (10:52→17:28)
[2024-08-09] MEDS: Loratadine 10 MG TABLET PO (10:53)
[2024-08-09] MEDS: Fluticasone Propionate Nasal 16 GM SPRAY 1 SPRAY NOSTRIL-B (11:05)
--- NOTE | 2024-08-09 14:50 | PC.NURSE ---
Joel's glasses were found with the frame broken in his room on yesterday. Called and left a message for Lisseth at [facility] to inquire about a replacement or spare pair-asked her to call the unit.
[2024-08-09] MEDS: Lurasidone HCl 40 MG TABLET PO (17:28)
--- NOTE | 2024-08-09 19:58 | PC.NURSE ---
Spoke to Joel's mom Nicolasa. Joel had no incontinence at baseline, no issues showering, would shower daily. She feels that scheduled clonazepam may improve his fears. Message was left for Lisseth at [facility] earlier in the shift regarding Kirk glasses. Mom says that new pairs are in that were ordered and to check with Lisseth. Joel spoke to his mom for 10 minutes this evening on staff cell phone because he is afraid to go to the patient phones. Portable phone would be good for Joel to be able to speak with his family.
[2024-08-09 20:00] VITALS: BP 132/80; PULSE 82; RESP 15; TEMP 36.6; O2SAT 82
[2024-08-09] MEDS: risperiDONE 2 MG TABLET 4 MG PO (20:40)
[2024-08-09] MEDS: Atorvastatin Calcium 40 MG TABLET PO (20:40)
[2024-08-09] MEDS: traZODone HCL 50 MG TABLET PO (20:40)
[2024-08-09] MEDS: traZODone HCL 100 MG TABLET PO (20:41)
[2024-08-10] MEDS: Omeprazole 40 MG CAPSULE.DR PO (06:47)
[2024-08-10 08:00] VITALS: BP 156/92; PULSE 65; RESP 16; TEMP 36.4; O2SAT 100
[2024-08-10] MEDS: carBAMazepine ER 200 MG TAB.ER.12H 400 MG PO ×2 (08:13→21:37)
[2024-08-10] MEDS: Ezetimibe 10 MG TABLET PO (08:13)
[2024-08-10 08:14] VITALS: BP 156/92; PULSE 77
[2024-08-10] MEDS: atenoloL 25 MG TABLET PO (08:14)
[2024-08-10] MEDS: Docusate Sodium 100 MG CAPSULE PO ×3 (08:15→21:35)
[2024-08-10] MEDS: gemfibroziL 600 MG TABLET PO ×2 (08:15→21:40)
[2024-08-10] MEDS: Sennosides 8.6 MG TABLET PO ×2 (08:16→21:35)
[2024-08-10] MEDS: Loratadine 10 MG TABLET PO (08:16)
[2024-08-10] MEDS: Escitalopram Oxalate 10 MG TABLET PO (08:16)
[2024-08-10] MEDS: Lurasidone HCl 40 MG TABLET PO (17:46)
[2024-08-10] MEDS: clonazePAM 0.5 MG TABLET PO (17:53)
--- NOTE | 2024-08-10 18:03 | P.PNPSI_ITS ---
Subjective Subjective Date of Service: 08/10/24 Reason For Visit: Schioafective disorder bipolar type Interim History: Met with patient; discussed with team Still no change in presentation; refusing eyedrops. Remains scared to go out of his room. Did allow for bacitracin and sores on bilateral bridge of his nose are better. Mental Status Exam Mental Status Exam Narrative: Pt is alert and oriented; behavior is guarded, cautious but can be cooperative, calm, can be friendly; patient is not in distress; dressed in hospital attire, mildly improved hygiene, dry skin on face, drooling; mood is described as i feel better though affect anxious; eye contact appropriate; Speech is a little garbled but likely at baseline; normal rate, volume; uses few words; not pressured; no psychomotor agitation/retardation present; thought process is concrete, goal directed, asks for needs; Thought content is on AH, missing parents, tx; otherwise pertinent to relevant topics; no overt delusional content expressed; denies any SI/HI. +AH and internally preoccupied. Patients insight and judgment impaired. Diagnostics Vital Signs (24Hr): Vital Signs - 24 hr 08/09/24 20:00 08/10/24 08:00 08/10/24 08:14 Temperature 97.9 F 97.5 F Pulse Rate 82 65 77 Respiratory Rate 15 16 Blood Pressure 132/80 156/92 H 156/92 H Pulse Oximetry 82 L 100 Oxygen Delivery Method Room Air BMI result Body Mass Index 33.0 Labs 08/13/24 08:17 08/13/24 08:17 Medications Medications Current Medications Acetaminophen (Acetaminophen 325 Mg Tablet) 650 mg PO Q6H PRN PRN Reason: Headache/Pain Mild Scale (1-3) Al Hydroxide/Mg Hydroxide (Magnesium Hydrox/Alum Hydrox 30 Ml Oral.Susp) 30 ml PO Q6H PRN PRN Reason: Heartburn/Nausea Artificial Tears (Artificial Tears 15 Ml Drops) 1 drop EYE-BOTH TID [facility] Last Admin: 08/10/24 14:55 Dose: Not Given Artificial Tears (Artificial Tears 15 Ml Drops) 1 drop EYE-BOTH Q4H PRN PRN Reason: Dry Eyes Last Admin: 08/02/24 16:09 Dose: 1 drop Atenolol (Atenolol 25 Mg Tablet) 25 mg PO DAILY [facility]; Protocol Last Admin: 08/10/24 08:14 Dose: 25 mg Atorvastatin Calcium (Atorvastatin Calcium 40 Mg Tablet) 40 mg PO BEDTIME [facility] Last Admin: 08/09/24 20:40 Dose: 40 mg Carbamazepine (Carbamazepine Er 200 Mg Tab.Er.12h) 400 mg PO BID [facility] Last Admin: 08/10/24 08:13 Dose: 400 mg Clonazepam (Clonazepam 0.5 Mg Tablet) 0.5 mg PO TID PRN PRN Reason: anxiety Last Admin: 08/10/24 17:53 Dose: 0.5 mg Docusate Sodium (Docusate Sodium 100 Mg Capsule) 100 mg PO TID [facility] Last Admin: 08/10/24 14:55 Dose: 100 mg Ezetimibe (Ezetimibe 10 Mg Tablet) 10 mg PO DAILY [facility] Last Admin: 08/10/24 08:13 Dose: 10 mg Escitalopram Oxalate (Escitalopram Oxalate 10 Mg Tablet) 10 mg PO DAILY [facility] Last Admin: 08/10/24 08:16 Dose: 10 mg Fluticasone Propionate (Fluticasone Propionate Nasal 16 Gm [place]) 1 spray NOSTRIL-B DAILY [facility] Last Admin: 08/10/24 08:57 Dose: Not Given Gemfibrozil (Gemfibrozil 600 Mg Tablet) 600 mg PO BID [facility] Last Admin: 08/10/24 08:15 Dose: 600 mg Hydroxyzine HCl (Hydroxyzine Hcl 25 Mg Tablet) 25 mg PO Q6H PRN PRN Reason: Anxiety Last Admin: 08/02/24 13:30 Dose: 25 mg Loratadine (Loratadine 10 Mg Tablet) 10 mg PO DAILY [facility] Last Admin: 08/10/24 08:16 Dose: 10 mg Lurasidone HCl (Lurasidone Hcl 40 Mg Tablet) 40 mg PO DAILY@1700 [facility] Last Admin: 08/10/24 17:46 Dose: 40 mg Magnesium Hydroxide (Milk Of Magnesia 30 Ml Oral.Susp) 30 ml PO DAILY PRN PRN Reason: Constipation Multi-Ingred Cream/Lotion/Oil/Oint (Mineral Oil/Petrolatum,White 106 Gm Tube) 1 appl TOPICAL TID PRN; Protocol PRN Reason: dry skin Neomycin/Polymyxin/Bacitracin (Neomy/Polymyx/Bacit/Ointment 14 Gm Tube) 1 gm TOPICAL TID [facility]; Protocol Last Admin: 08/10/24 14:55 Dose: Not Given Nicotine Polacrilex (Nicotine Polacrilex 2 Mg Gum) 4 mg BUCCAL Q2H PRN PRN Reason: Nicotine Cravings Omeprazole (Omeprazole 40 Mg Capsule.Dr) 40 mg PO DAILY@0630 [facility] Last Admin: 08/10/24 06:47 Dose: 40 mg Risperidone (Risperidone 0.5 Mg Tablet) 0.5 mg PO TID PRN PRN Reason: Hallucinations Last Admin: 08/04/24 08:28 Dose: 0.5 mg Risperidone (Risperidone 2 Mg Tablet) 4 mg PO BEDTIME [facility] Last Admin: 08/09/24 20:40 Dose: 4 mg Senna (Sennosides 8.6 Mg Tablet) 8.6 mg PO BID [facility] Last Admin: 08/10/24 08:16 Dose: 8.6 mg Trazodone HCl (Trazodone Hcl 50 Mg Tablet) 50 mg PO BEDTIME MRX1 PRN PRN Reason: Insomnia Last Admin: 08/09/24 20:40 Dose: 50 mg Trazodone HCl (Trazodone Hcl 100 Mg Tablet) 100 mg PO BEDTIME [facility] Last Admin: 08/09/24 20:41 Dose: 100 mg Allergies Allergies Allergy/AdvReac Type Severity Reaction Status Date / Time ondansetron [From Zofran] Allergy Unknown Verified 07/28/24 22:30 Penicillins Allergy Unknown Verified 07/28/24 22:30 potassium Allergy Unknown Verified 07/28/24 22:30 prochlorperazine Allergy Unknown Verified 07/28/24 22:30 Assessment & Plan Assessment & Plan (1) Schizoaffective disorder, bipolar type: Status: Acute Code(s): F25.0 - Schizoaffective disorder, bipolar type (2) Autism spectrum disorder: Status: Acute Code(s): F84.0 - Autistic disorder (3) Intellectual disability: Status: Acute Code(s): F79 - Unspecified intellectual disabilities (4) Aarskog syndrome: Status: Acute Code(s): Q87.19 - Other congenital malformation syndromes predominantly associated with short stature Plan Patient is a 34-year-old male with severe ASD, intellectual disability, schizoaffective disorder with, history of behavioral outbursts, who resides at a [facility] residential facility and who presents from external ED for what instructor programmable controllers reports is decompensation following discharge from [facility] psych admission about 4 weeks ago. manager public reports patient has increased anxiety, paranoia and visual hallucinations as well as increased agitation related to AVH, which has resulted in the need for physical restraints. Patient with limited ability to participate in interview. Patient cooperative and calm. He says he misses his mother. He said I am feeling better... And then that he was going to lay down. He said he wanted to be in the hospital until he feels better... But could not discuss his feelings or what that would mean. Denies any SI or HI and says he is feeling safe. Patient does endorse auditory hallucinations which he he says bothers him, however when asked to discuss them further or what they say, he says I do not know and regarding medication that there is nothing to help... For the remainder of the day, patient sometimes in his room, sometimes in the hallway saying he wanted to call his mother or father, saying he misses them and wants to go home. Formulation/clinical reasoning: hx of psychotic illness with mood component; difficult to assess due to patients baseline limitations. So far patient calm, mostly cooperative though also guarded and cautious. So far in good behavioral control. -Will need collateral -Guardian paperwork in chart; parents are guardians -No HCP - [facility] course: 07/30 Patient remains fearful; can be friendly and cooperative but seems very anxious and cautious. Visual hallucinations patient saying he can see his mother in the room and talking to her Still not going into bathroom, with recent history of being afraid of bathroom; thus patient Incontinent of urine, sitting in wet clothes and refusing to change today, willing to sign CV reiterating he wants to be here for treatment ( to feel better ) -left for outpatient provider Nat Lee to discuss tx hx 07/31 patient remains cautious and intermittently fearful but is also warming up a bit to some staff, primarily female staff. He says he is feeling better but behaviors remain decompensated. Willing to change out of clothes today with staff encouragement and have them washed; also talked to his mother on the phone today which he said made him happy. Patient willing to use lotion for try facial skin Collateral:[employer] discussed case with patient's mother who reports that behaviors decompensated this April after he returned from vacation with his father. At that time he started packing up his stuff, saying he wanted to move out of the retirement; was taking lots of showers, self dialogue Ng, saying he could see his mother in the room, saying he thought his mother was and refusing to talk to her on the phone. For those reasons This past May he went to [facility] where he was started on Vraylar (and refused to take Latuda). He returned to the retirement but remained confused, disorganized, paranoid. At 1 point he would not leave the living room at all, incontinent, afraid to go into the bathroom or to shower which resulted in this hospitalization. Some history of aggression for which he was hospitalized a year ago; only mild aggression in retirement this time around. -left another message with paralegal secretary for [facility] Lee 08/01 mostly same presentation, continued AH which are bothersome; more comfortable with staff and allowing them to help him attending ADLs including bathing. -marine underwriter did get a call back from Nat Lee; marine underwriter return call and left message 08/02 Patient continues to say I am feeling much better however this does not seem to correlate with any improvement in symptoms as he continues to have AH, is afraid of his room, incontinent of urine because afraid of going to the bathroom and continually saying that he sees his mother in his room. Patient does not respond much to reality testing. He does say he would like other medications to help make the voices go away. -given discussion below, will DC Vraylar since no clear indication of bipolar depression; already on 3 antipsychotics and does not seem effective. Instead will try Risperdal. -will start to try to eliminate pharmacy; need to find out what medication regimen patient was on this past summer during which time he was doing well Collateral: Again discussed case with patient's mother. -She reports he was doing great this past summer; not sure what his medication regimen was at that time -says was on Tegretol for years; for some reason [facility] took him off of it (was restarted at this hospitalization) -says was on clomipramine for OCD since 7 years old and did well on it; not sure why he was taken off a year ago -to her knowledge Latuda was supposed to be discontinued since he was never really taking it; Vraylar was also started at [facility] which has not seemed to help. -Has been on Zyprexa for a while; not sure efficacy --drools consistently at baseline; she said she has asked in the past for medication for this Diagnosis: -Says diagnosis is schizoaffective, bipolar type however she has no knowledge of any discrete manic episodes; he has some history of depressive episodes -Does not blink: Supposed to be on Restasis/cyclosporine ophthalmic; not sure dose; discussed with pharmacist who reports typically this is 0.05% solution 1 drop b.i.d. (other places say 0.1%) -Aarkskog syndrome -ASD -OCD -has chronic extremely dry skin (eczema?) for which he has some medicated cream; mother not sure the name -Said there was a plan to get MRI of the brain since change seemed somewhat sudden 08/03 Patient reports that he is feeling a lot better which is what he says to marine underwriter every day. He denies any AH. Also says he has not been seeing his mother. Difficult to tell if this is the case or not so will continue to monitor. Patient did ask for a stuffed animal or something about a stuffed animal but it was not clear. -briefly spoke with outpatient provider Huma who said she was 1 who started him on Vraylar -continue with Risperdal 08/04 No change in presentation; still disorganized, fearful, incontinent, hardly moving from room. Not sleeping at night but will tell marine underwriter I slept very good... . Continues to say the same refrain I feel a lot better... 08/05 meeting with outpt team stable on Tegretol and latuda for years until sudden decompensation this fall at which time pt presented with same symptoms he has currently. Prior to this stable and functional in many ways, all ADL's, organized and quite capable; no psychosis; read/write/send emails 08/06 no change in presentation and pt remains disorganized, sitting in own defecate; has AH. Hardly sleeping at night. sitting in one spot for most of the day. -intermittently refusing medications -pt refusing labs -feet are both swollen; hospitalist examined -infection on both side of bridge of nose where glasses sit on nose; pt allowed antibiotic ointment to be applied History that patient was stable on Tegretol and Latuda for at least a year; Latuda was lowered in the springtime to 40 mg, down from 60 since patient said was making him tired. He remained stable until this fall when he suddenly decompensated, unable to accept reality, incontinent, afraid of multiple things, thinking his mom's , forgetting people are Medication: pt was stable on Tegretol and Latuda for years until this fall -for now, will continue on Tegretol and Latuda -dc'd vraylar -started risperdal and increased to 4mg, scheduled it at bedtime to help w/ sleep -consider CT scan brain given sudden onset of symptoms 08/10 Still no change in presentation; refusing eyedrops. Remains scared to go out of his room. Did allow for bacitracin and sores on bilateral bridge of his nose are better. Impression: Patient has diagnosis of schizoaffective disorder, not sure if he actually has manic episodes. Mother says MRI was scheduled since change was somewhat sudden, the summer, however symptoms are congruent with diagnosis. Will continue to get collateral from retirement ([employer]?) And outpatient provider. PLAN: CV *guardians have authorized marine underwriter, staff to administer any/all medical treatments even if against patients will q15 min checks -Risperdal 4 mg qhs -Add Risperdal 0.5 mg t.i.d. p.r.n. for breakthrough AVH -for now, Continue Latuda 40 mg daily at dinnertime (used to be on 60mg) -Continue Tegretol 400mg BID (was stable on this in past) -DC Vraylar 3 mg; this was started by outpatient provider; does not seem to have helped much and no clear indication for bipolar depression (also patient already on 3 antipsychotics) -DC'd Zyprexa: has caused DM/elevated Cholesterol/wt gain -temporarily Start artificial tears -Will get prescription for Restasis/cyclosporin -consider restarting clomipramine for OCD ( clomipramine 100 mg b.i.d. for OCD in the past around 2014; for some reason it was dc'd at some point; restarted 2022 but not continued after that). -consider glycopyrrolate for excessive drooling -will consider getting MRI, however patient's symptoms are congruent with diagnosis Patient educated on: diagnosis, medication risk/benefits and medical condition Informed Consent: does not understand Reason for continued inpatient stay Substantial Risk for: inability to function Time Spent With Patient Time: Total time managing care of this patient today ____ minutes.
[2024-08-10] MEDS: Atorvastatin Calcium 40 MG TABLET PO (21:35)
[2024-08-10] MEDS: risperiDONE 2 MG TABLET 4 MG PO (21:35)
[2024-08-10] MEDS: traZODone HCL 100 MG TABLET PO (21:36)
[2024-08-11] MEDS: Omeprazole 40 MG CAPSULE.DR PO (06:34)
--- NOTE | 2024-08-11 06:57 | PC.NURSE ---
Patient puts clothing, a basin, and his hygiene products outside his door repeatedly, and this curriculum writer has attempted to put these items back in his room. He then puts them back at the doorway. When this curriculum writer enquired as to why, the patient stated they're stinky, evidently referring to his clothing. Clothing was put in the washer and rest of the items returned to his room. This curriculum writer encouraged the patient to have a shower, but he stated I'll do it later, in spite of repeated encouragement.
[2024-08-11 08:00] VITALS: BP 129/70; PULSE 75; RESP 18; TEMP 36.2; O2SAT 100
[2024-08-11 08:20] VITALS: BP 129/70; PULSE 75
[2024-08-11] MEDS: Docusate Sodium 100 MG CAPSULE PO ×3 (08:20→23:02)
[2024-08-11] MEDS: atenoloL 25 MG TABLET PO (08:20)
[2024-08-11] MEDS: carBAMazepine ER 200 MG TAB.ER.12H 400 MG PO ×2 (08:20→23:01)
[2024-08-11] MEDS: Escitalopram Oxalate 10 MG TABLET PO (08:21)
[2024-08-11] MEDS: Ezetimibe 10 MG TABLET PO (08:21)
[2024-08-11] MEDS: gemfibroziL 600 MG TABLET PO ×2 (08:21→23:02)
[2024-08-11] MEDS: Sennosides 8.6 MG TABLET PO ×2 (08:21→23:02)
[2024-08-11] MEDS: NeoMY/Polymyx/Bacit/Ointment 14 GM Tube TOPICAL (08:24)
[2024-08-11] MEDS: Fluticasone Propionate Nasal 16 GM SPRAY 1 SPRAY NOSTRIL-B (08:24)
[2024-08-11] MEDS: Lurasidone HCl 40 MG TABLET PO (16:51)
[2024-08-11] MEDS: clonazePAM 0.5 MG TABLET PO (17:42)
[2024-08-11] MEDS: risperiDONE 0.5 MG TABLET PO (17:42)
[2024-08-11 20:00] VITALS: BP 139/90; PULSE 86; O2SAT 96
[2024-08-11] MEDS: Atorvastatin Calcium 40 MG TABLET PO (23:02)
[2024-08-11] MEDS: traZODone HCL 100 MG TABLET PO (23:02)
[2024-08-11] MEDS: risperiDONE 2 MG TABLET 4 MG PO (23:02)
--- NOTE | 2024-08-11 23:32 | HO.PSYCHPN ---
Subjective Subjective Date of Service: 08/11/24 Reason For Visit: Schioafective disorder bipolar type Interim History: Met with patient; discussed with team Again no change in presentation; refusing labs. Will continue to retry before forcing them. Will try to get head CT. Continues to refuse eyedrops. Mental Status Exam Mental Status Exam Narrative: Pt is alert and oriented; behavior is guarded, cautious but can be cooperative, calm, can be friendly; patient is not in distress; dressed in hospital attire, marginal hygiene, dry skin on face, drooling; mood is described as i feel a lot better though affect anxious; eye contact appropriate; Speech is a little garbled but likely at baseline; normal rate, volume; uses few words; not pressured; no psychomotor agitation/retardation present; thought process is concrete, goal directed, asks for needs; Thought content is on AH, missing parents, tx; otherwise pertinent to relevant topics; no overt delusional content expressed; denies any SI/HI. +AH and internally preoccupied. Patients insight and judgment impaired. Diagnostics Vital Signs (24Hr): Vital Signs - 24 hr 08/11/24 08:00 08/11/24 08:20 08/11/24 20:00 Temperature 97.2 F Pulse Rate 75 75 86 Respiratory Rate 18 Blood Pressure 129/70 129/70 139/90 H Pulse Oximetry 100 96 Oxygen Delivery Method Room Air Room Air BMI result Body Mass Index 33.0 Labs 08/13/24 08:17 08/13/24 08:17 Medications Medications Current Medications Acetaminophen (Acetaminophen 325 Mg Tablet) 650 mg PO Q6H PRN PRN Reason: Headache/Pain Mild Scale (1-3) Al Hydroxide/Mg Hydroxide (Magnesium Hydrox/Alum Hydrox 30 Ml Oral.Susp) 30 ml PO Q6H PRN PRN Reason: Heartburn/Nausea Artificial Tears (Artificial Tears 15 Ml Drops) 1 drop EYE-BOTH TID ADRIANO Last Admin: 08/11/24 23:17 Dose: Not Given Artificial Tears (Artificial Tears 15 Ml Drops) 1 drop EYE-BOTH Q4H PRN PRN Reason: Dry Eyes Last Admin: 08/02/24 16:09 Dose: 1 drop Atenolol (Atenolol 25 Mg Tablet) 25 mg PO DAILY ADRIANO; Protocol Last Admin: 08/11/24 08:20 Dose: 25 mg Atorvastatin Calcium (Atorvastatin Calcium 40 Mg Tablet) 40 mg PO BEDTIME [facility] Last Admin: 08/11/24 23:02 Dose: 40 mg Carbamazepine (Carbamazepine Er 200 Mg Tab.Er.12h) 400 mg PO BID [facility] Last Admin: 08/11/24 23:01 Dose: 400 mg Clonazepam (Clonazepam 0.5 Mg Tablet) 0.5 mg PO TID PRN PRN Reason: anxiety Last Admin: 08/11/24 17:42 Dose: 0.5 mg Docusate Sodium (Docusate Sodium 100 Mg Capsule) 100 mg PO TID [facility] Last Admin: 08/11/24 23:02 Dose: 100 mg Ezetimibe (Ezetimibe 10 Mg Tablet) 10 mg PO DAILY [facility] Last Admin: 08/11/24 08:21 Dose: 10 mg Escitalopram Oxalate (Escitalopram Oxalate 10 Mg Tablet) 10 mg PO DAILY [facility] Last Admin: 08/11/24 08:21 Dose: 10 mg Fluticasone Propionate (Fluticasone Propionate Nasal 16 Gm [place]) 1 spray NOSTRIL-B DAILY [facility] Last Admin: 08/11/24 08:24 Dose: 1 spray Gemfibrozil (Gemfibrozil 600 Mg Tablet) 600 mg PO BID [facility] Last Admin: 08/11/24 23:02 Dose: 600 mg Hydroxyzine HCl (Hydroxyzine Hcl 25 Mg Tablet) 25 mg PO Q6H PRN PRN Reason: Anxiety Last Admin: 08/02/24 13:30 Dose: 25 mg Loratadine (Loratadine 10 Mg Tablet) 10 mg PO DAILY [facility] Last Admin: 08/11/24 11:52 Dose: Not Given Lurasidone HCl (Lurasidone Hcl 40 Mg Tablet) 40 mg PO DAILY@1700 [facility] Last Admin: 08/11/24 16:51 Dose: 40 mg Magnesium Hydroxide (Milk Of Magnesia 30 Ml Oral.Susp) 30 ml PO DAILY PRN PRN Reason: Constipation Multi-Ingred Cream/Lotion/Oil/Oint (Mineral Oil/Petrolatum,White 106 Gm Tube) 1 appl TOPICAL TID PRN; Protocol PRN Reason: dry skin Nicotine Polacrilex (Nicotine Polacrilex 2 Mg Gum) 4 mg BUCCAL Q2H PRN PRN Reason: Nicotine Cravings Omeprazole (Omeprazole 40 Mg Capsule.Dr) 40 mg PO DAILY@0630 [facility] Last Admin: 08/11/24 06:34 Dose: 40 mg Risperidone (Risperidone 0.5 Mg Tablet) 0.5 mg PO TID PRN PRN Reason: Hallucinations Last Admin: 08/11/24 17:42 Dose: 0.5 mg Risperidone (Risperidone 2 Mg Tablet) 4 mg PO BEDTIME ADRIANO Last Admin: 08/11/24 23:02 Dose: 4 mg Senna (Sennosides 8.6 Mg Tablet) 8.6 mg PO BID [facility] Last Admin: 08/11/24 23:02 Dose: 8.6 mg Trazodone HCl (Trazodone Hcl 50 Mg Tablet) 50 mg PO BEDTIME MRX1 PRN PRN Reason: Insomnia Last Admin: 08/09/24 20:40 Dose: 50 mg Trazodone HCl (Trazodone Hcl 100 Mg Tablet) 100 mg PO BEDTIME [facility] Last Admin: 08/11/24 23:02 Dose: 100 mg Allergies Allergies Allergy/AdvReac Type Severity Reaction Status Date / Time ondansetron [From Zofran] Allergy Unknown Verified 07/28/24 22:30 Penicillins Allergy Unknown Verified 07/28/24 22:30 potassium Allergy Unknown Verified 07/28/24 22:30 prochlorperazine Allergy Unknown Verified 07/28/24 22:30 Assessment & Plan Assessment & Plan (1) Schizoaffective disorder, bipolar type: Status: Acute Code(s): F25.0 - Schizoaffective disorder, bipolar type (2) Autism spectrum disorder: Status: Acute Code(s): F84.0 - Autistic disorder (3) Intellectual disability: Status: Acute Code(s): F79 - Unspecified intellectual disabilities (4) Aarskog syndrome: Status: Acute Code(s): Q87.19 - Other congenital malformation syndromes predominantly associated with short stature Plan Patient is a 34-year-old male with severe ASD, intellectual disability, schizoaffective disorder with, history of behavioral outbursts, who resides at a [facility] residential facility and who presents from external ED for what research program assistant reports is decompensation following discharge from [facility] admission about 4 weeks ago. medical staff services manager reports patient has increased anxiety, paranoia and visual hallucinations as well as increased agitation related to AVH, which has resulted in the need for physical restraints. Patient with limited ability to participate in interview. Patient cooperative and calm. He says he misses his mother. He said I am feeling better... And then that he was going to lay down. He said he wanted to be in the hospital until he feels better... But could not discuss his feelings or what that would mean. Denies any SI or HI and says he is feeling safe. Patient does endorse auditory hallucinations which he he says bothers him, however when asked to discuss them further or what they say, he says I do not know and regarding medication that there is nothing to help... For the remainder of the day, patient sometimes in his room, sometimes in the hallway saying he wanted to call his mother or father, saying he misses them and wants to go home. Formulation/clinical reasoning: hx of psychotic illness with mood component; difficult to assess due to patients baseline limitations. So far patient calm, mostly cooperative though also guarded and cautious. So far in good behavioral control. -Will need collateral -Guardian paperwork in chart; parents are guardians -No HCP - [facility] course: 07/30 Patient remains fearful; can be friendly and cooperative but seems very anxious and cautious. Visual hallucinations patient saying he can see his mother in the room and talking to her Still not going into bathroom, with recent history of being afraid of bathroom; thus patient Incontinent of urine, sitting in wet clothes and refusing to change today, willing to sign CV reiterating he wants to be here for treatment ( to feel better ) -left for outpatient provider Nat Lee to discuss tx hx 07/31 patient remains cautious and intermittently fearful but is also warming up a bit to some staff, primarily female staff. He says he is feeling better but behaviors remain decompensated. Willing to change out of clothes today with staff encouragement and have them washed; also talked to his mother on the phone today which he said made him happy. Patient willing to use lotion for try facial skin Collateral:Specialist Managers discussed case with patient's mother who reports that behaviors decompensated this April after he returned from vacation with his father. At that time he started packing up his stuff, saying he wanted to move out of the [facility]; was taking lots of showers, self dialogue Ng, saying he could see his mother in the room, saying he thought his mother was and refusing to talk to her on the phone. For those reasons This past May he went to [facility] where he was started on Vraylar (and refused to take Latuda). He returned to the [facility] but remained confused, disorganized, paranoid. At 1 point he would not leave the living room at all, incontinent, afraid to go into the bathroom or to shower which resulted in this hospitalization. Some history of aggression for which he was hospitalized a year ago; only mild aggression in [facility] this time around. -left another message with secretary specialist for Nat Lee 08/01 mostly same presentation, continued AH which are bothersome; more comfortable with staff and allowing them to help him attending ADLs including bathing. -sba underwriter did get a call back from Nat Lee; sba underwriter return call and left message 08/02 Patient continues to say I am feeling much better however this does not seem to correlate with any improvement in symptoms as he continues to have AH, is afraid of his room, incontinent of urine because afraid of going to the bathroom and continually saying that he sees his mother in his room. Patient does not respond much to reality testing. He does say he would like other medications to help make the voices go away. -given discussion below, will DC Vraylar since no clear indication of bipolar depression; already on 3 antipsychotics and does not seem effective. Instead will try Risperdal. -will start to try to eliminate pharmacy; need to find out what medication regimen patient was on this past summer during which time he was doing well Collateral: Again discussed case with patient's mother. -She reports he was doing great this past summer; not sure what his medication regimen was at that time -says was on Tegretol for years; for some reason [facility] took him off of it (was restarted at this hospitalization) -says was on clomipramine for OCD since 7 years old and did well on it; not sure why he was taken off a year ago -to her knowledge Latuda was supposed to be discontinued since he was never really taking it; Vraylar was also started at [facility] which has not seemed to help. -Has been on Zyprexa for a while; not sure efficacy --drools consistently at baseline; she said she has asked in the past for medication for this Diagnosis: -Says diagnosis is schizoaffective, bipolar type however she has no knowledge of any discrete manic episodes; he has some history of depressive episodes -Does not blink: Supposed to be on Restasis/cyclosporine ophthalmic; not sure dose; discussed with pharmacist who reports typically this is 0.05% solution 1 drop b.i.d. (other places say 0.1%) -Aarkskog syndrome -ASD -OCD -has chronic extremely dry skin (eczema?) for which he has some medicated cream; mother not sure the name -Said there was a plan to get MRI of the brain since change seemed somewhat sudden 08/03 Patient reports that he is feeling a lot better which is what he says to sba underwriter every day. He denies any AH. Also says he has not been seeing his mother. Difficult to tell if this is the case or not so will continue to monitor. Patient did ask for a stuffed animal or something about a stuffed animal but it was not clear. -briefly spoke with outpatient provider Huma who said she was 1 who started him on Vraylar -continue with Risperdal 08/05 meeting with outpt team stable on Tegretol and latuda for years until sudden decompensation this fall at which time pt presented with same symptoms he has currently. Prior to this stable and functional in many ways, all ADL's, organized and quite capable; no psychosis; read/write/send emails 08/06 no change in presentation and pt remains disorganized, sitting in own defecate; has AH. Hardly sleeping at night. sitting in one spot for most of the day. -intermittently refusing medications -pt refusing labs -feet are both swollen; hospitalist examined -infection on both side of bridge of nose where glasses sit on nose; pt allowed antibiotic ointment to be applied 08/07:continue current tx plan. 08/09/2024: No changes *guardians have rights to authorize any/all medical treatments even if against patients will Medication: pt was stable on Tegretol and Latuda for years until this fall -for now, will continue on Tegretol and Latuda -dc'd vraylar -started risperdal and increased to 4mg, scheduled it at bedtime to help w/ sleep consider CT scan brain given sudden onset of symptoms 08/10 Still no change in presentation; refusing eyedrops. Remains scared to go out of his room. Did allow for bacitracin and sores on bilateral bridge of his nose are better. 08/11 Again no change in presentation; refusing labs. Will continue to retry before forcing them. Will try to get head CT. Continues to refuse eyedrops. Will give a little longer on Risperdal 4 mg Impression: Patient has diagnosis of schizoaffective disorder, not sure if he actually has manic episodes. Mother says MRI was scheduled since change was somewhat sudden, the summer, however symptoms are congruent with diagnosis. Will continue to get collateral from [facility] ([facility]?) And outpatient provider. PLAN: CV q15 min checks -Risperdal 4 mg qhs -Add Risperdal 0.5 mg t.i.d. p.r.n. for breakthrough AVH -for now, Continue Latuda 40 mg daily at dinnertime (used to be on 60mg) -Continue Tegretol 400mg BID (was stable on this in past) -DC Vraylar 3 mg; this was started by outpatient provider; does not seem to have helped much and no clear indication for bipolar depression (also patient already on 3 antipsychotics) -DC'd Zyprexa: has caused DM/elevated Cholesterol/wt gain -temporarily Start artificial tears -Will get prescription for Restasis/cyclosporin -consider restarting clomipramine for OCD ( clomipramine 100 mg b.i.d. for OCD in the past around 2014; for some reason it was dc'd at some point; restarted 2022 but not continued after that). -consider glycopyrrolate for excessive drooling -will consider getting MRI, however patient's symptoms are congruent with diagnosis Patient educated on: diagnosis Informed Consent: does not understand Reason for continued inpatient stay Substantial Risk for: inability to function Time Spent With Patient Time: Total time managing care of this patient today ____ minutes.
[2024-08-12] MEDS: Omeprazole 40 MG CAPSULE.DR PO (07:04)
[2024-08-12 08:59] VITALS: BP 167/112; PULSE 73; TEMP -13.6; TEMP 7.6; O2SAT 100
[2024-08-12] MEDS: Ezetimibe 10 MG TABLET PO (09:02)
[2024-08-12] MEDS: carBAMazepine ER 200 MG TAB.ER.12H 400 MG PO ×2 (09:02→20:33)
[2024-08-12] MEDS: gemfibroziL 600 MG TABLET PO ×2 (09:03→20:35)
[2024-08-12] MEDS: atenoloL 25 MG TABLET PO (09:03)
[2024-08-12] MEDS: Loratadine 10 MG TABLET PO (09:04)
[2024-08-12] MEDS: Escitalopram Oxalate 10 MG TABLET PO (09:04)
[2024-08-12] MEDS: Docusate Sodium 100 MG CAPSULE PO ×2 (09:04→20:34)
[2024-08-12] MEDS: Fluticasone Propionate Nasal 16 GM SPRAY 1 SPRAY NOSTRIL-B (09:05)
[2024-08-12] MEDS: Sennosides 8.6 MG TABLET PO ×2 (09:05→20:34)
[2024-08-12] MEDS: Lurasidone HCl 40 MG TABLET PO (16:49)
--- NOTE | 2024-08-12 19:07 | P.PNPSI_ITS ---
Subjective Subjective Date of Service: 08/12/24 Reason For Visit: Schioafective disorder bipolar type Interim History: Met with patient; discussed with team No change in presentation; Decided to increase Risperdal to 6 mg. Mental Status Exam Mental Status Exam Narrative: Pt is alert and oriented; behavior is guarded, cautious but can be cooperative, calm, can be friendly; patient is not in distress; dressed in hospital attire, marginal hygiene, dry skin on face, drooling; mood is described as i feel a lot better though affect anxious; eye contact appropriate; Speech is a little garbled but likely at baseline; normal rate, volume; uses few words; not pressured; no psychomotor agitation/retardation present; thought process is concrete, goal directed, asks for needs; Thought content is on AH, missing parents, tx; otherwise pertinent to relevant topics; no overt delusional content expressed; denies any SI/HI. +AH and internally preoccupied. Patients insight and judgment impaired. Diagnostics Vital Signs (24Hr): Vital Signs - 24 hr 08/11/24 20:00 08/12/24 08:59 Temperature 7.6 F L Pulse Rate 86 73 Blood Pressure 139/90 H 167/112 H Pulse Oximetry 96 100 Oxygen Delivery Method Room Air Room Air BMI result Body Mass Index 33.0 Labs 08/13/24 08:17 08/13/24 08:17 Medications Medications Current Medications Acetaminophen (Acetaminophen 325 Mg Tablet) 650 mg PO Q6H PRN PRN Reason: Headache/Pain Mild Scale (1-3) Al Hydroxide/Mg Hydroxide (Magnesium Hydrox/Alum Hydrox 30 Ml Oral.Susp) 30 ml PO Q6H PRN PRN Reason: Heartburn/Nausea Artificial Tears (Artificial Tears 15 Ml Drops) 1 drop EYE-BOTH TID [facility] Last Admin: 08/12/24 15:18 Dose: Not Given Artificial Tears (Artificial Tears 15 Ml Drops) 1 drop EYE-BOTH Q4H PRN PRN Reason: Dry Eyes Last Admin: 08/02/24 16:09 Dose: 1 drop Atenolol (Atenolol 25 Mg Tablet) 25 mg PO DAILY [facility]; Protocol Last Admin: 08/12/24 09:03 Dose: 25 mg Atorvastatin Calcium (Atorvastatin Calcium 40 Mg Tablet) 40 mg PO BEDTIME [facility] Last Admin: 08/11/24 23:02 Dose: 40 mg Carbamazepine (Carbamazepine Er 200 Mg Tab.Er.12h) 400 mg PO BID [facility] Last Admin: 08/12/24 09:02 Dose: 400 mg Clonazepam (Clonazepam 0.5 Mg Tablet) 0.5 mg PO TID [facility] Docusate Sodium (Docusate Sodium 100 Mg Capsule) 100 mg PO TID [facility] Last Admin: 08/12/24 15:18 Dose: Not Given Ezetimibe (Ezetimibe 10 Mg Tablet) 10 mg PO DAILY [facility] Last Admin: 08/12/24 09:02 Dose: 10 mg Escitalopram Oxalate (Escitalopram Oxalate 10 Mg Tablet) 10 mg PO DAILY [facility] Last Admin: 08/12/24 09:04 Dose: 10 mg Fluticasone Propionate (Fluticasone Propionate Nasal 16 Gm [place]) 1 spray NOSTRIL-B DAILY [facility] Last Admin: 08/12/24 09:05 Dose: 1 spray Gemfibrozil (Gemfibrozil 600 Mg Tablet) 600 mg PO BID [facility] Last Admin: 08/12/24 09:03 Dose: 600 mg Hydroxyzine HCl (Hydroxyzine Hcl 25 Mg Tablet) 25 mg PO Q6H PRN PRN Reason: Anxiety Last Admin: 08/02/24 13:30 Dose: 25 mg Loratadine (Loratadine 10 Mg Tablet) 10 mg PO DAILY [facility] Last Admin: 08/12/24 09:04 Dose: 10 mg Lurasidone HCl (Lurasidone Hcl 40 Mg Tablet) 40 mg PO DAILY@1700 [facility] Last Admin: 08/12/24 16:49 Dose: 40 mg Magnesium Hydroxide (Milk Of Magnesia 30 Ml Oral.Susp) 30 ml PO DAILY PRN PRN Reason: Constipation Multi-Ingred Cream/Lotion/Oil/Oint (Mineral Oil/Petrolatum,White 106 Gm Tube) 1 appl TOPICAL TID PRN; Protocol PRN Reason: dry skin Nicotine Polacrilex (Nicotine Polacrilex 2 Mg Gum) 4 mg BUCCAL Q2H PRN PRN Reason: Nicotine Cravings Omeprazole (Omeprazole 40 Mg Capsule.Dr) 40 mg PO DAILY@0630 [facility] Last Admin: 08/12/24 07:04 Dose: 40 mg Risperidone (Risperidone 0.5 Mg Tablet) 0.5 mg PO TID PRN PRN Reason: Hallucinations Last Admin: 08/11/24 17:42 Dose: 0.5 mg Risperidone (Risperidone 3 Mg Tablet) 6 mg PO BEDTIME [facility] Senna (Sennosides 8.6 Mg Tablet) 8.6 mg PO BID [facility] Last Admin: 08/12/24 09:05 Dose: 8.6 mg Trazodone HCl (Trazodone Hcl 50 Mg Tablet) 50 mg PO BEDTIME MRX1 PRN PRN Reason: Insomnia Last Admin: 08/09/24 20:40 Dose: 50 mg Trazodone HCl (Trazodone Hcl 100 Mg Tablet) 100 mg PO BEDTIME [facility]RI[facility] Last Admin: 08/11/24 23:02 Dose: 100 mg Allergies Allergies Allergy/AdvReac Type Severity Reaction Status Date / Time ondansetron [From Zofran] Allergy Unknown Verified 07/28/24 22:30 Penicillins Allergy Unknown Verified 07/28/24 22:30 potassium Allergy Unknown Verified 07/28/24 22:30 prochlorperazine Allergy Unknown Verified 07/28/24 22:30 Assessment & Plan Assessment & Plan (1) Schizoaffective disorder, bipolar type: Status: Acute Code(s): F25.0 - Schizoaffective disorder, bipolar type (2) Autism spectrum disorder: Status: Acute Code(s): F84.0 - Autistic disorder (3) Intellectual disability: Status: Acute Code(s): F79 - Unspecified intellectual disabilities (4) Aarskog syndrome: Status: Acute Code(s): Q87.19 - Other congenital malformation syndromes predominantly associated with short stature Plan Patient is a 34-year-old male with severe ASD, intellectual disability, schizoaffective disorder with, history of behavioral outbursts, who resides at a [facility] residential facility and who presents from external ED for what government program manager reports is decompensation following discharge from [facility] psych admission about 4 weeks ago. public affairs manager reports patient has increased anxiety, paranoia and visual hallucinations as well as increased agitation related to AVH, which has resulted in the need for physical restraints. Patient with limited ability to participate in interview. Patient cooperative and calm. He says he misses his mother. He said I am feeling better... And then that he was going to lay down. He said he wanted to be in the hospital until he feels better... But could not discuss his feelings or what that would mean. Denies any SI or HI and says he is feeling safe. Patient does endorse auditory hallucinations which he he says bothers him, however when asked to discuss them further or what they say, he says I do not know and regarding medication that there is nothing to help... For the remainder of the day, patient sometimes in his room, sometimes in the hallway saying he wanted to call his mother or father, saying he misses them and wants to go home. Formulation/clinical reasoning: hx of psychotic illness with mood component; difficult to assess due to patients baseline limitations. So far patient calm, mostly cooperative though also guarded and cautious. So far in good behavioral control. -Will need collateral -Guardian paperwork in chart; parents are guardians -No HCP - [facility] course: 07/30 Patient remains fearful; can be friendly and cooperative but seems very anxious and cautious. Visual hallucinations patient saying he can see his mother in the room and talking to her Still not going into bathroom, with recent history of being afraid of bathroom; thus patient Incontinent of urine, sitting in wet clothes and refusing to change today, willing to sign CV reiterating he wants to be here for treatment ( to feel better ) -left for outpatient provider Nat Lee to discuss tx hx 07/31 patient remains cautious and intermittently fearful but is also warming up a bit to some staff, primarily female staff. He says he is feeling better but behaviors remain decompensated. Willing to change out of clothes today with staff encouragement and have them washed; also talked to his mother on the phone today which he said made him happy. Patient willing to use lotion for try facial skin Collateral:Rehabilitation Counsellor discussed case with patient's mother who reports that behaviors decompensated this April after he returned from vacation with his father. At that time he started packing up his stuff, saying he wanted to move out of the correction; was taking lots of showers, self dialogue Ng, saying he could see his mother in the room, saying he thought his mother was and refusing to talk to her on the phone. For those reasons This past May he went to [facility] where he was started on Vraylar (and refused to take Latuda). He returned to the correction but remained confused, disorganized, paranoid. At 1 point he would not leave the living room at all, incontinent, afraid to go into the bathroom or to shower which resulted in this hospitalization. Some history of aggression for which he was hospitalized a year ago; only mild aggression in correction this time around. -left another message with typing secretary for Nat Lee 08/01 mostly same presentation, continued AH which are bothersome; more comfortable with staff and allowing them to help him attending ADLs including bathing. -lead technical writer did get a call back from Nat Lee; lead technical writer return call and left message 08/02 Patient continues to say I am feeling much better however this does not seem to correlate with any improvement in symptoms as he continues to have AH, is afraid of his room, incontinent of urine because afraid of going to the bathroom and continually saying that he sees his mother in his room. Patient does not respond much to reality testing. He does say he would like other medications to help make the voices go away. -given discussion below, will DC Vraylar since no clear indication of bipolar depression; already on 3 antipsychotics and does not seem effective. Instead will try Risperdal. -will start to try to eliminate pharmacy; need to find out what medication regimen patient was on this past summer during which time he was doing well Collateral: Again discussed case with patient's mother. -She reports he was doing great this past summer; not sure what his medication regimen was at that time -says was on Tegretol for years; for some reason [facility] took him off of it (was restarted at this hospitalization) -says was on clomipramine for OCD since 7 years old and did well on it; not sure why he was taken off a year ago -to her knowledge Latuda was supposed to be discontinued since he was never really taking it; Vraylar was also started at [facility] which has not seemed to help. -Has been on Zyprexa for a while; not sure efficacy --drools consistently at baseline; she said she has asked in the past for medication for this 08/03 Patient reports that he is feeling a lot better which is what he says to lead technical writer every day. He denies any AH. Also says he has not been seeing his mother. Difficult to tell if this is the case or not so will continue to monitor. Patient did ask for a stuffed animal or something about a stuffed animal but it was not clear. -briefly spoke with outpatient provider Huma who said she was 1 who started him on Vraylar -continue with Risperdal 08/04 No change in presentation; still disorganized, fearful, incontinent, hardly moving from room. Not sleeping at night but will tell lead technical writer I slept very good... . Continues to say the same refrain I feel a lot better... 08/05 meeting with outpt team stable on Tegretol and latuda for years until sudden decompensation this fall at which time pt presented with same symptoms he has currently. Prior to this stable and functional in many ways, all ADL's, organized and quite capable; no psychosis; read/write/send emails 08/06 no change in presentation and pt remains disorganized, sitting in own defecate; has AH. Hardly sleeping at night. sitting in one spot for most of the day. -intermittently refusing medications -pt refusing labs -feet are both swollen; hospitalist examined -infection on both side of bridge of nose where glasses sit on nose; pt allowed antibiotic ointment to be applied History that patient was stable on Tegretol and Latuda for at least a year; Latuda was lowered in the springtime to 40 mg, down from 60 since patient said was making him tired. He remained stable until this fall when he suddenly decompensated, unable to accept reality, incontinent, afraid of multiple things, thinking his mom's , forgetting people are Medication: pt was stable on Tegretol and Latuda for years until this fall -for now, will continue on Tegretol and Latuda -dc'd vraylar -started risperdal and increased to 4mg, scheduled it at bedtime to help w/ sleep -consider CT scan brain given sudden onset of symptoms 08/10 Still no change in presentation; refusing eyedrops. Remains scared to go out of his room. Did allow for bacitracin and sores on bilateral bridge of his nose are better.08/10 Still no change in presentation; refusing eyedrops. Remains scared to go out of his room. Did allow for bacitracin and sores on bilateral bridge of his nose are better. 08/11 Again no change in presentation; refusing labs. Will continue to retry before forcing them. Will try to get head CT. Continues to refuse eyedrops. Will give a little longer on Risperdal 4 mg 08/12 increased Risperdal 6 mg Impression: Patient has diagnosis of schizoaffective disorder, not sure if he actually has manic episodes. Mother says MRI was scheduled since change was somewhat sudden, the summer, however symptoms are congruent with diagnosis. Will continue to get collateral from correction (Lisseth?) And outpatient provider. PLAN: CV *guardians have authorized lead technical writer, staff to administer any/all medical treatments even if against patients will q15 min checks -increase to Risperdal 6 mg qhs -Add Risperdal 0.5 mg t.i.d. p.r.n. for breakthrough AVH -for now, Continue Latuda 40 mg daily at dinnertime (used to be on 60mg) -Continue Tegretol 400mg BID (was stable on this in past) -DC Vraylar 3 mg; this was started by outpatient provider; does not seem to have helped much and no clear indication for bipolar depression (also patient already on 3 antipsychotics) -DC'd Zyprexa: has caused DM/elevated Cholesterol/wt gain -temporarily Start artificial tears -Will get prescription for Restasis/cyclosporin -consider restarting clomipramine for OCD ( clomipramine 100 mg b.i.d. for OCD in the past around 2014; for some reason it was dc'd at some point; restarted 2022 but not continued after that). -consider glycopyrrolate for excessive drooling -will consider getting MRI, however patient's symptoms are congruent with diagnosis Patient educated on: diagnosis and medication risk/benefits Informed Consent: understands Reason for continued inpatient stay Substantial Risk for: inability to function Time Spent With Patient Time: Total time managing care of this patient today ____ minutes.
[2024-08-12 20:00] VITALS: BP 124/77; PULSE 74; TEMP 36.8; O2SAT 99
[2024-08-12] MEDS: Atorvastatin Calcium 40 MG TABLET PO (20:35)
[2024-08-12] MEDS: traZODone HCL 100 MG TABLET PO (20:36)
[2024-08-12] MEDS: clonazePAM 0.5 MG TABLET PO (20:36)
[2024-08-12] MEDS: risperiDONE 3 MG TABLET 6 MG PO (20:36)
[2024-08-13] MEDS: Omeprazole 40 MG CAPSULE.DR PO (07:34)
[2024-08-13 08:00] VITALS: BP 155/90; PULSE 68; RESP 18; TEMP 36.3; O2SAT 100
[2024-08-13] MEDS: Escitalopram Oxalate 10 MG TABLET PO (08:23)
[2024-08-13] MEDS: atenoloL 25 MG TABLET PO (08:23)
[2024-08-13] MEDS: Loratadine 10 MG TABLET PO (08:23)
[2024-08-13] MEDS: Sennosides 8.6 MG TABLET PO (08:23)
[2024-08-13] MEDS: gemfibroziL 600 MG TABLET PO ×2 (08:23→20:51)
[2024-08-13] MEDS: Ezetimibe 10 MG TABLET PO (08:23)
[2024-08-13] MEDS: clonazePAM 0.5 MG TABLET PO ×3 (08:24→20:52)
[2024-08-13] MEDS: Docusate Sodium 100 MG CAPSULE PO ×3 (08:24→20:50)
[2024-08-13] MEDS: risperiDONE 0.5 MG TABLET PO ×2 (08:31→14:06)
[2024-08-13] MEDS: Fluticasone Propionate Nasal 16 GM SPRAY 1 SPRAY NOSTRIL-B (08:31)
[2024-08-13 08:46] LABS: Baso%MD 0.5 %; Eos%MD 3.4 %; Hematocrit 45.2 % (42.0-52.0); Hemoglobin 15.7 g/dl (14.0-18.0); IG%MD 0.5 %; Mean Corpuscular HGB Conc 34.7 g/dl (31.0-36.0); Mean Corpuscular Hemoglobin 29.4 pg (27.0-33.0); Mean Corpuscular Volume 84.6 fL (80.0-98.0); Mean Platelet Volume 8.8 fL (9.4-12.4); Mono%MD 9.9 %; Neut%MD 54.7 %; Platelet Count 245 X10*3/uL (160-400); Red Blood Count 5.34 X10*6/uL (4.60-5.80); Red Cell Distribution Width 11.9 % (11.0-16.0); White Blood Count 6.5 X10*3/uL (4.8-10.8)
[2024-08-13 08:55] LABS: Estimated Average Glucose 134 mg/dL; Hemoglobin A1C 178.7213 umol/L; Hemoglobin A1c % 6.3 % (<6.0); Total Hemoglobin (HGBA1C) 3960.2321 umol/L
[2024-08-13 09:04] LABS: Alanine Aminotransferase 28 U/L (0-40); Albumin Level 4.5 g/dL (3.5-5.0); Alkaline Phosphatase 66 U/L (39-117); Anion Gap 9 (12-20); Aspartate Amino Transferase 19 U/L (5-37); Bilirubin Total 0.3 mg/dL (0.0-1.0); Blood Urea Nitrogen 12 mg/dL (9-16); Carbon Dioxide 26 mmol/L (22-29); Chloride 106 mmol/L (96-108); Cholesterol 118 mg/dL (<200); Creatinine Clr Calc Pharmacy 117.3; Estimated Glomerular Filt Rate > 60; Glucose Random 113 mg/dL (60-115); HDL Cholesterol 36 mg/dL (>40); LDL Cholesterol Calculated 58 mg/dL (<100); Potassium 4.3 mmol/L (3.3-5.1); Sodium 137 mmol/L (135-145); Total Protein 7.4 g/dL (6.5-8.0); Triglycerides 123 mg/dL (<150)
[2024-08-13 09:10] LABS: Reflex LDLD? No
[2024-08-13 09:47] LABS: Atypical Lymph Absolute Manual 0.1 x10*3/uL; Atypical Lymphs Percent Manual 1 % (0-6); Band Neutrophils Percent 0 % (3-5); Basophils Abs Manual 0.1 X10*3/uL (0.0-0.2); Basophils Percent Manual 1 % (0-2); Eosinophils Absolute Manual 0.3 X10*3/uL (0.0-0.4); Eosinophils Percent Manual 4 % (0-4); Giant Platelet PRESENT; Lymphocytes Absolute Manual 2.3 X10*3/uL (1.2-4.9); Lymphocytes Percent Manual 35 % (20-40); Monocytes Absolute Manual 0.6 X10*3/uL (0.1-1.2); Monocytes Percent Manual 9 % (2-11); Neutrophils Absolute Manual 3.3 X10*3/uL (2.0-8.3); Neutrophils Percent Manual 50 % (45-73); Platelet Estimate NORMAL (NORMAL); Platelet Morphology Comment NOTED; RBC Morphology NORMAL
[2024-08-13] MEDS: clonazePAM 1 MG TABLET PO (11:42)
--- NOTE | 2024-08-13 13:46 | PC.NURSE ---
Pt refused to go down for head CT scan despite several attempts to encourage.
[2024-08-13] MEDS: Lurasidone HCl 40 MG TABLET PO (18:36)
--- NOTE | 2024-08-13 19:10 | PC.NURSE ---
Joel refused to go down for a CT/Xray this evening. He was able to go out into the hallway with staff and say hello to some of his peers and staff, overcoming some of his fear.
[2024-08-13 20:00] VITALS: BP 129/70; PULSE 91; TEMP 36.4; O2SAT 99
[2024-08-13] MEDS: risperiDONE 3 MG TABLET 6 MG PO (20:49)
[2024-08-13] MEDS: carBAMazepine ER 200 MG TAB.ER.12H 400 MG PO (20:49)
[2024-08-13] MEDS: Atorvastatin Calcium 40 MG TABLET PO (20:51)
[2024-08-13] MEDS: traZODone HCL 100 MG TABLET PO (20:51)
--- NOTE | 2024-08-13 23:48 | HO.PSYCHPN ---
Subjective Subjective Date of Service: 08/13/24 Reason For Visit: Schioafective disorder bipolar type Interim History: Met with patient; discussed with team 1st day of actual improvement in that patient allowed lab work. That said, he also threw his mattress and other stuff out into the hallway, talking about a 90-year-old neighbor that he wants approval from, or wants to Mental Status Exam Mental Status Exam Narrative: Pt is alert and oriented; behavior is guarded and disorganized, cautious but can also be cooperative, calm, can be friendly; patient is not in distress; dressed in hospital attire, marginal hygiene, dry skin on face, drooling; mood is described as i feel a lot better though affect anxious; eye contact appropriate; Speech is a little garbled but likely at baseline; normal rate, volume; uses few words; not pressured; no psychomotor agitation/retardation present; thought process is concrete, goal directed, asks for needs; Thought content is on AH, missing parents, tx; otherwise pertinent to relevant topics; no overt delusional content expressed; denies any SI/HI. +AH and internally preoccupied. Patients insight and judgment impaired. Diagnostics Vital Signs (24Hr): Vital Signs - 24 hr 08/13/24 08:00 08/13/24 20:00 Temperature 97.4 F 97.6 F Pulse Rate 68 91 Respiratory Rate 18 Blood Pressure 155/90 H 129/70 Pulse Oximetry 100 99 Oxygen Delivery Method Room Air Room Air BMI result Body Mass Index 33.0 Labs 08/13/24 08:17 08/13/24 08:17 Labs: Laboratory Results - last 48 hr 08/13/24 08:17 WBC 6.5 RBC 5.34 Hgb 15.7 Hct 45.2 MCV 84.6 MCH 29.4 MCHC 34.7 RDW 11.9 Plt Count 245 MPV 8.8 L Absolute Nucleated RBC 0.000 Nucleated RBC % (auto) 0.0 Neutrophils % (Manual) 50 Band Neutrophils % 0 L Lymphocytes % (Manual) 35 Atypical Lymphs % (Man) 1 Monocytes % (Manual) 9 Eosinophils % (Manual) 4 Basophils % (Manual) 1 Abs Neuts (Manual) 3.3 Lymphocytes # (Manual) 2.3 Atyp Lymphs # (Manual) 0.1 Monocytes # (Manual) 0.6 Eosinophils # (Manual) 0.3 Basophils # (Manual) 0.1 Platelet Estimate NORMAL Giant Platelets PRESENT Plt Morphology Comment NOTED RBC Morphology NORMAL Sodium 137 Potassium 4.3 Chloride 106 Carbon Dioxide 26 Anion Gap 9 L BUN 12 Creatinine 0.99 Estim Creat Clear Calc 117.3 Estimated GFR > 60 Random Glucose 113 Estimat Average Glucose 134 Hemoglobin A1c % 6.3 H Calcium 9.0 Total Bilirubin 0.3 AST 19 ALT 28 Alkaline Phosphatase 66 Total Protein 7.4 Albumin 4.5 Triglycerides 123 Cholesterol 118 LDL Cholesterol, Calc 58 HDL Cholesterol 36 L Medications Medications Current Medications Acetaminophen (Acetaminophen 325 Mg Tablet) 650 mg PO Q6H PRN PRN Reason: Headache/Pain Mild Scale (1-3) Al Hydroxide/Mg Hydroxide (Magnesium Hydrox/Alum Hydrox 30 Ml Oral.Susp) 30 ml PO Q6H PRN PRN Reason: Heartburn/Nausea Artificial Tears (Artificial Tears 15 Ml Drops) 1 drop EYE-BOTH TID [facility] Last Admin: 08/13/24 22:05 Dose: Not Given Artificial Tears (Artificial Tears 15 Ml Drops) 1 drop EYE-BOTH Q4H PRN PRN Reason: Dry Eyes Last Admin: 08/02/24 16:09 Dose: 1 drop Atenolol (Atenolol 25 Mg Tablet) 25 mg PO DAILY [facility]; Protocol Last Admin: 08/13/24 08:23 Dose: 25 mg Atorvastatin Calcium (Atorvastatin Calcium 40 Mg Tablet) 40 mg PO BEDTIME [facility] Last Admin: 08/13/24 20:51 Dose: 40 mg Carbamazepine (Carbamazepine Er 200 Mg Tab.Er.12h) 400 mg PO BID [facility] Last Admin: 08/13/24 20:49 Dose: 400 mg Clonazepam (Clonazepam 0.5 Mg Tablet) 0.5 mg PO TID [facility] Last Admin: 08/13/24 20:52 Dose: 0.5 mg Docusate Sodium (Docusate Sodium 100 Mg Capsule) 100 mg PO TID [facility] Last Admin: 08/13/24 20:50 Dose: 100 mg Ezetimibe (Ezetimibe 10 Mg Tablet) 10 mg PO DAILY [facility] Last Admin: 08/13/24 08:23 Dose: 10 mg Escitalopram Oxalate (Escitalopram Oxalate 10 Mg Tablet) 10 mg PO DAILY [facility] Last Admin: 08/13/24 08:23 Dose: 10 mg Fluticasone Propionate (Fluticasone Propionate Nasal 16 Gm Black) 1 spray NOSTRIL-B DAILY [facility] Last Admin: 08/13/24 08:31 Dose: 1 spray Gemfibrozil (Gemfibrozil 600 Mg Tablet) 600 mg PO BID [facility] Last Admin: 08/13/24 20:51 Dose: 600 mg Hydroxyzine HCl (Hydroxyzine Hcl 25 Mg Tablet) 25 mg PO Q6H PRN PRN Reason: Anxiety Last Admin: 08/02/24 13:30 Dose: 25 mg Loratadine (Loratadine 10 Mg Tablet) 10 mg PO DAILY [facility] Last Admin: 08/13/24 08:23 Dose: 10 mg Lurasidone HCl (Lurasidone Hcl 40 Mg Tablet) 40 mg PO DAILY@1700 [facility] Last Admin: 08/13/24 18:36 Dose: 40 mg Magnesium Hydroxide (Milk Of Magnesia 30 Ml Oral.Susp) 30 ml PO DAILY PRN PRN Reason: Constipation Multi-Ingred Cream/Lotion/Oil/Oint (Mineral Oil/Petrolatum,White 106 Gm Tube) 1 appl TOPICAL TID PRN; Protocol PRN Reason: dry skin Nicotine Polacrilex (Nicotine Polacrilex 2 Mg Gum) 4 mg BUCCAL Q2H PRN PRN Reason: Nicotine Cravings Omeprazole (Omeprazole 40 Mg Capsule.Dr) 40 mg PO DAILY@0630 [facility] Last Admin: 08/13/24 07:34 Dose: 40 mg Risperidone (Risperidone 0.5 Mg Tablet) 0.5 mg PO TID PRN PRN Reason: Hallucinations Last Admin: 08/13/24 14:06 Dose: 0.5 mg Risperidone (Risperidone 3 Mg Tablet) 6 mg PO BEDTIME [facility] Last Admin: 08/13/24 20:49 Dose: 6 mg Senna (Sennosides 8.6 Mg Tablet) 8.6 mg PO BID [facility] Last Admin: 08/13/24 22:06 Dose: Not Given Trazodone HCl (Trazodone Hcl 50 Mg Tablet) 50 mg PO BEDTIME MRX1 PRN PRN Reason: Insomnia Last Admin: 08/09/24 20:40 Dose: 50 mg Trazodone HCl (Trazodone Hcl 100 Mg Tablet) 100 mg PO BEDTIME [facility] Last Admin: 08/13/24 20:51 Dose: 100 mg Allergies Allergies Allergy/AdvReac Type Severity Reaction Status Date / Time ondansetron [From Zofran] Allergy Unknown Verified 07/28/24 22:30 Penicillins Allergy Unknown Verified 07/28/24 22:30 potassium Allergy Unknown Verified 07/28/24 22:30 prochlorperazine Allergy Unknown Verified 07/28/24 22:30 Assessment & Plan Assessment & Plan (1) Schizoaffective disorder, bipolar type: Status: Acute Code(s): F25.0 - Schizoaffective disorder, bipolar type (2) Autism spectrum disorder: Status: Acute Code(s): F84.0 - Autistic disorder (3) Intellectual disability: Status: Acute Code(s): F79 - Unspecified intellectual disabilities (4) Aarskog syndrome: Status: Acute Code(s): Q87.19 - Other congenital malformation syndromes predominantly associated with short stature Plan Patient is a 34-year-old male with severe ASD, intellectual disability, schizoaffective disorder with, history of behavioral outbursts, who resides at a [facility] residential facility and who presents from external ED for what digital marketing program manager reports is decompensation following discharge from [facility] admission about 4 weeks ago. customer acquisition manager reports patient has increased anxiety, paranoia and visual hallucinations as well as increased agitation related to AVH, which has resulted in the need for physical restraints. Patient with limited ability to participate in interview. Patient cooperative and calm. He says he misses his mother. He said I am feeling better... And then that he was going to lay down. He said he wanted to be in the hospital until he feels better... But could not discuss his feelings or what that would mean. Denies any SI or HI and says he is feeling safe. Patient does endorse auditory hallucinations which he he says bothers him, however when asked to discuss them further or what they say, he says I do not know and regarding medication that there is nothing to help... For the remainder of the day, patient sometimes in his room, sometimes in the hallway saying he wanted to call his mother or father, saying he misses them and wants to go home. Formulation/clinical reasoning: hx of psychotic illness with mood component; difficult to assess due to patients baseline limitations. So far patient calm, mostly cooperative though also guarded and cautious. So far in good behavioral control. -Will need collateral -Guardian paperwork in chart; parents are guardians -No HCP - [facility] course: 07/30 Patient remains fearful; can be friendly and cooperative but seems very anxious and cautious. Visual hallucinations patient saying he can see his mother in the room and talking to her Still not going into bathroom, with recent history of being afraid of bathroom; thus patient Incontinent of urine, sitting in wet clothes and refusing to change today, willing to sign CV reiterating he wants to be here for treatment ( to feel better ) -left VM for outpatient provider [facility] to discuss tx hx 07/31 patient remains cautious and intermittently fearful but is also warming up a bit to some staff, primarily female staff. He says he is feeling better but behaviors remain decompensated. Willing to change out of clothes today with staff encouragement and have them washed; also talked to his mother on the phone today which he said made him happy. Patient willing to use lotion for try facial skin Collateral:[employer] discussed case with patient's mother who reports that behaviors decompensated this April after he returned from vacation with his father. At that time he started packing up his stuff, saying he wanted to move out of the assisted; was taking lots of showers, self dialogue Ng, saying he could see his mother in the room, saying he thought his mother was and refusing to talk to her on the phone. For those reasons This past May he went to [facility] where he was started on Vraylar (and refused to take Latuda). He returned to the assisted but remained confused, disorganized, paranoid. At 1 point he would not leave the living room at all, incontinent, afraid to go into the bathroom or to shower which resulted in this hospitalization. Some history of aggression for which he was hospitalized a year ago; only mild aggression in assisted this time around. -left another message with engineering and development director for [facility] 08/01 mostly same presentation, continued AH which are bothersome; more comfortable with staff and allowing them to help him attending ADLs including bathing. -health science writer did get a call back from [facility]; health science writer return call and left message 08/02 Patient continues to say I am feeling much better however this does not seem to correlate with any improvement in symptoms as he continues to have AH, is afraid of his room, incontinent of urine because afraid of going to the bathroom and continually saying that he sees his mother in his room. Patient does not respond much to reality testing. He does say he would like other medications to help make the voices go away. -given discussion below, will DC Vraylar since no clear indication of bipolar depression; already on 3 antipsychotics and does not seem effective. Instead will try Risperdal. -will start to try to eliminate pharmacy; need to find out what medication regimen patient was on this past summer during which time he was doing well Collateral: Again discussed case with patient's mother. -She reports he was doing great this past summer; not sure what his medication regimen was at that time -says was on Tegretol for years; for some reason [facility] took him off of it (was restarted at this hospitalization) -says was on clomipramine for OCD since 7 years old and did well on it; not sure why he was taken off a year ago -to her knowledge Latuda was supposed to be discontinued since he was never really taking it; Vraylar was also started at [facility] which has not seemed to help. -Has been on Zyprexa for a while; not sure efficacy --drools consistently at baseline; she said she has asked in the past for medication for this Diagnosis: -Says diagnosis is schizoaffective, bipolar type however she has no knowledge of any discrete manic episodes; he has some history of depressive episodes -Does not blink: Supposed to be on Restasis/cyclosporine ophthalmic; not sure dose; discussed with pharmacist who reports typically this is 0.05% solution 1 drop b.i.d. (other places say 0.1%) -Aarkskog syndrome -ASD -OCD -has chronic extremely dry skin (eczema?) for which he has some medicated cream; mother not sure the name -Said there was a plan to get MRI of the brain since change seemed somewhat sudden 08/03 Patient reports that he is feeling a lot better which is what he says to health science writer every day. He denies any AH. Also says he has not been seeing his mother. Difficult to tell if this is the case or not so will continue to monitor. Patient did ask for a stuffed animal or something about a stuffed animal but it was not clear. -briefly spoke with outpatient provider Huma who said she was 1 who started him on Vraylar -continue with Risperdal 08/04 No change in presentation; still disorganized, fearful, incontinent, hardly moving from room. Not sleeping at night but will tell health science writer I slept very good... . Continues to say the same refrain I feel a lot better... 08/05 meeting with outpt team stable on Tegretol and latuda for years until sudden decompensation this fall at which time pt presented with same symptoms he has currently. Prior to this stable and functional in many ways, all ADL's, organized and quite capable; no psychosis; read/write/send emails 08/06 no change in presentation and pt remains disorganized, sitting in own defecate; has AH. Hardly sleeping at night. sitting in one spot for most of the day. -intermittently refusing medications -pt refusing labs -feet are both swollen; hospitalist examined -infection on both side of bridge of nose where glasses sit on nose; pt allowed antibiotic ointment to be applied History that patient was stable on Tegretol and Latuda for at least a year; Latuda was lowered in the springtime to 40 mg, down from 60 since patient said was making him tired. He remained stable until this fall when he suddenly decompensated, unable to accept reality, incontinent, afraid of multiple things, thinking his mom's , forgetting people are Medication: pt was stable on Tegretol and Latuda for years until this fall -for now, will continue on Tegretol and Latuda -dc'd vraylar -started risperdal and increased to 4mg, scheduled it at bedtime to help w/ sleep -consider CT scan brain given sudden onset of symptoms 08/10 Still no change in presentation; refusing eyedrops. Remains scared to go out of his room. Did allow for bacitracin and sores on bilateral bridge of his nose are better.08/10 Still no change in presentation; refusing eyedrops. Remains scared to go out of his room. Did allow for bacitracin and sores on bilateral bridge of his nose are better. 08/11 Again no change in presentation; refusing labs. Will continue to retry before forcing them. Will try to get head CT. Continues to refuse eyedrops. Will give a little longer on Risperdal 4 mg 08/12 increased Risperdal to 6 mg 08/13 1st day of actual improvement in that patient allowed lab work. That said, he also threw mattress/belongings into the hallway, talking about a 90 yo neighbor he wants to -labs WNL -refused head CT; since he allowed labs, still will try to see if he will comply with head CT hoping to avoid the trauma of forcing him Impression: Patient has diagnosis of schizoaffective disorder, not sure if he actually has manic episodes. Mother says MRI was scheduled since change was somewhat sudden, the summer, however symptoms are congruent with diagnosis. Will continue to get collateral from assisted (Lisseth?) And outpatient provider. PLAN: CV *guardians have authorized health science writer, staff to administer any/all medical treatments even if against patients will q15 min checks Increased to 6 mg qhs -Add Risperdal 0.5 mg t.i.d. p.r.n. for breakthrough AVH -for now, Continue Latuda 40 mg daily at dinnertime (used to be on 60mg) -Continue Tegretol 400mg BID (was stable on this in past) -DC Vraylar 3 mg; this was started by outpatient provider; does not seem to have helped much and no clear indication for bipolar depression (also patient already on 3 antipsychotics) -DC'd Zyprexa: has caused DM/elevated Cholesterol/wt gain -temporarily Start artificial tears -Will get prescription for Restasis/cyclosporin -consider restarting clomipramine for OCD ( clomipramine 100 mg b.i.d. for OCD in the past around 2014; for some reason it was dc'd at some point; restarted 2022 but not continued after that). -consider glycopyrrolate for excessive drooling -will consider getting MRI, however patient's symptoms are congruent with diagnosis Patient educated on: diagnosis, medication risk/benefits and medical condition Informed Consent: does not understand Reason for continued inpatient stay Substantial Risk for: inability to function Time Spent With Patient Time: Total time managing care of this patient today ____ minutes.
[2024-08-14] MEDS: Omeprazole 40 MG CAPSULE.DR PO (07:23)
[2024-08-14 08:00] VITALS: BP 122/65; PULSE 86; TEMP 36.4; O2SAT 98
[2024-08-14] MEDS: Ezetimibe 10 MG TABLET PO (08:42)
[2024-08-14] MEDS: gemfibroziL 600 MG TABLET PO ×2 (08:43→20:18)
[2024-08-14] MEDS: atenoloL 25 MG TABLET PO (08:43)
[2024-08-14] MEDS: carBAMazepine ER 200 MG TAB.ER.12H 400 MG PO ×2 (08:43→20:18)
[2024-08-14] MEDS: Escitalopram Oxalate 10 MG TABLET PO (08:43)
[2024-08-14] MEDS: clonazePAM 0.5 MG TABLET PO ×3 (08:44→20:18)
[2024-08-14] MEDS: Loratadine 10 MG TABLET PO (09:05)
[2024-08-14] MEDS: Docusate Sodium 100 MG CAPSULE PO ×2 (15:39→20:18)
--- NOTE | 2024-08-14 15:46 | P.PNPSI_ITS ---
Subjective Subjective Date of Service: 08/14/24 Reason For Visit: Schioafective disorder bipolar type Interim History: Patient seen; discussed with team Patient out in the milieu today, 1st time in over a week. Furthermore Patient actually using the bathroom today on his own, with significant encouragement from staff and a verbal plan; throughout the day patient was able to get himself to the bathroom rather than remain incontinent and inside close, which he has continually done since admission. Patient also seems more cheerful. Again refused head CT but since getting better, will hold off from this for now Mental Status Exam Mental Status Exam Narrative: Pt is alert and oriented; behavior is a little more organized and cooperative, also more calm. Used toilet instead of remaining incontinent and in soiled clothing throughout the day; patient is not in distress; dressed in hospital attire, improved hygiene; drooling; mood is described as i feel a lot better though affect congruent, more calm and a little brighter; eye contact appropriate; Speech remains a little garbled which is baseline; normal rate, volume; uses few words; not pressured; no psychomotor agitation/retardation present; thought process is concrete, goal directed, asks for needs; Thought content remains with some paranoid delusions but seems to be less intense; AH, missing parents; otherwise pertinent to relevant topics; no overt delusional content expressed; denies any SI/HI. +AH and internally preoccupied. Patients insight and judgment impaired. Diagnostics Vital Signs (24Hr): Vital Signs - 24 hr 08/13/24 20:00 08/14/24 08:00 Temperature 97.6 F 97.6 F Pulse Rate 91 86 Blood Pressure 129/70 122/65 Pulse Oximetry 99 98 Oxygen Delivery Method Room Air Room Air BMI result Body Mass Index 33.0 Labs 08/13/24 08:17 08/13/24 08:17 Labs: Laboratory Results - last 48 hr 08/13/24 08:17 WBC 6.5 RBC 5.34 Hgb 15.7 Hct 45.2 MCV 84.6 MCH 29.4 MCHC 34.7 RDW 11.9 Plt Count 245 MPV 8.8 L Absolute Nucleated RBC 0.000 Nucleated RBC % (auto) 0.0 Neutrophils % (Manual) 50 Band Neutrophils % 0 L Lymphocytes % (Manual) 35 Atypical Lymphs % (Man) 1 Monocytes % (Manual) 9 Eosinophils % (Manual) 4 Basophils % (Manual) 1 Abs Neuts (Manual) 3.3 Lymphocytes # (Manual) 2.3 Atyp Lymphs # (Manual) 0.1 Monocytes # (Manual) 0.6 Eosinophils # (Manual) 0.3 Basophils # (Manual) 0.1 Platelet Estimate NORMAL Giant Platelets PRESENT Plt Morphology Comment NOTED RBC Morphology NORMAL Sodium 137 Potassium 4.3 Chloride 106 Carbon Dioxide 26 Anion Gap 9 L BUN 12 Creatinine 0.99 Estim Creat Clear Calc 117.3 Estimated GFR > 60 Random Glucose 113 Estimat Average Glucose 134 Hemoglobin A1c % 6.3 H Calcium 9.0 Total Bilirubin 0.3 AST 19 ALT 28 Alkaline Phosphatase 66 Total Protein 7.4 Albumin 4.5 Triglycerides 123 Cholesterol 118 LDL Cholesterol, Calc 58 HDL Cholesterol 36 L Medications Medications Current Medications Acetaminophen (Acetaminophen 325 Mg Tablet) 650 mg PO Q6H PRN PRN Reason: Headache/Pain Mild Scale (1-3) Al Hydroxide/Mg Hydroxide (Magnesium Hydrox/Alum Hydrox 30 Ml Oral.Susp) 30 ml PO Q6H PRN PRN Reason: Heartburn/Nausea Artificial Tears (Artificial Tears 15 Ml Drops) 1 drop EYE-BOTH Q4H PRN PRN Reason: Dry Eyes Last Admin: 08/02/24 16:09 Dose: 1 drop Atenolol (Atenolol 25 Mg Tablet) 25 mg PO DAILY [facility]; Protocol Last Admin: 08/14/24 08:43 Dose: 25 mg Atorvastatin Calcium (Atorvastatin Calcium 40 Mg Tablet) 40 mg PO BEDTIME [facility] Last Admin: 08/13/24 20:51 Dose: 40 mg Carbamazepine (Carbamazepine Er 200 Mg Tab.Er.12h) 400 mg PO BID [facility] Last Admin: 08/14/24 08:43 Dose: 400 mg Clonazepam (Clonazepam 0.5 Mg Tablet) 0.5 mg PO TID [facility] Last Admin: 08/14/24 15:39 Dose: 0.5 mg Docusate Sodium (Docusate Sodium 100 Mg Capsule) 100 mg PO TID [facility] Last Admin: 08/14/24 15:39 Dose: 100 mg Ezetimibe (Ezetimibe 10 Mg Tablet) 10 mg PO DAILY [facility] Last Admin: 08/14/24 08:42 Dose: 10 mg Escitalopram Oxalate (Escitalopram Oxalate 10 Mg Tablet) 10 mg PO DAILY [facility] Last Admin: 12/20/24 08:43 Dose: 10 mg Fluticasone Propionate (Fluticasone Propionate Nasal 16 Gm [place]) 1 spray NOSTRIL-B DAILY [facility] Last Admin: 08/14/24 08:49 Dose: Not Given Gemfibrozil (Gemfibrozil 600 Mg Tablet) 600 mg PO BID [facility] Last Admin: 08/14/24 08:43 Dose: 600 mg Hydroxyzine HCl (Hydroxyzine Hcl 25 Mg Tablet) 25 mg PO Q6H PRN PRN Reason: Anxiety Last Admin: 08/02/24 13:30 Dose: 25 mg Loratadine (Loratadine 10 Mg Tablet) 10 mg PO DAILY [facility] Last Admin: 08/14/24 09:05 Dose: 10 mg Lurasidone HCl (Lurasidone Hcl 40 Mg Tablet) 40 mg PO DAILY@1700 [facility] Last Admin: 08/13/24 18:36 Dose: 40 mg Magnesium Hydroxide (Milk Of Magnesia 30 Ml Oral.Susp) 30 ml PO DAILY PRN PRN Reason: Constipation Multi-Ingred Cream/Lotion/Oil/Oint (Mineral Oil/Petrolatum,White 106 Gm Tube) 1 appl TOPICAL TID PRN; Protocol PRN Reason: dry skin Nicotine Polacrilex (Nicotine Polacrilex 2 Mg Gum) 4 mg BUCCAL Q2H PRN PRN Reason: Nicotine Cravings Omeprazole (Omeprazole 40 Mg Capsule.Dr) 40 mg PO DAILY@0630 [facility] Last Admin: 08/14/24 07:23 Dose: 40 mg Risperidone (Risperidone 0.5 Mg Tablet) 0.5 mg PO TID PRN PRN Reason: Hallucinations Last Admin: 08/13/24 14:06 Dose: 0.5 mg Risperidone (Risperidone 3 Mg Tablet) 6 mg PO BEDTIME [facility] Last Admin: 08/13/24 20:49 Dose: 6 mg Senna (Sennosides 8.6 Mg Tablet) 8.6 mg PO BID [facility] Last Admin: 08/14/24 08:43 Dose: Not Given Trazodone HCl (Trazodone Hcl 50 Mg Tablet) 50 mg PO BEDTIME MRX1 PRN PRN Reason: Insomnia Last Admin: 08/09/24 20:40 Dose: 50 mg Trazodone HCl (Trazodone Hcl 100 Mg Tablet) 100 mg PO BEDTIME [facility] Last Admin: 08/13/24 20:51 Dose: 100 mg Allergies Allergies Allergy/AdvReac Type Severity Reaction Status Date / Time ondansetron [From Zofran] Allergy Unknown Verified 07/28/24 22:30 Penicillins Allergy Unknown Verified 07/28/24 22:30 potassium Allergy Unknown Verified 07/28/24 22:30 prochlorperazine Allergy Unknown Verified 07/28/24 22:30 Assessment & Plan Assessment & Plan (1) Schizoaffective disorder, bipolar type: Status: Acute Code(s): F25.0 - Schizoaffective disorder, bipolar type (2) Autism spectrum disorder: Status: Acute Code(s): F84.0 - Autistic disorder (3) Intellectual disability: Status: Acute Code(s): F79 - Unspecified intellectual disabilities (4) Aarskog syndrome: Status: Acute Code(s): Q87.19 - Other congenital malformation syndromes predominantly associated with short stature Plan Patient is a 34-year-old male with severe ASD, intellectual disability, schizoaffective disorder with, history of behavioral outbursts, who resides at a [facility] residential facility and who presents from external ED for what recreation program coordinator reports is decompensation following discharge from [facility] admission about 4 weeks ago. hotel operation manager reports patient has increased anxiety, paranoia and visual hallucinations as well as increased agitation related to AVH, which has resulted in the need for physical restraints. Patient with limited ability to participate in interview. Patient cooperative and calm. He says he misses his mother. He said I am feeling better... And then that he was going to lay down. He said he wanted to be in the hospital until he feels better... But could not discuss his feelings or what that would mean. Denies any SI or HI and says he is feeling safe. Patient does endorse auditory hallucinations which he he says bothers him, however when asked to discuss them further or what they say, he says I do not know and regarding medication that there is nothing to help... For the remainder of the day, patient sometimes in his room, sometimes in the hallway saying he wanted to call his mother or father, saying he misses them and wants to go home. Formulation/clinical reasoning: Patient has diagnosis of schizoaffective disorder, not sure if he actually has manic episodes and according to collateral, patient has not demonstrated psychotic symptoms until this fall. Still he has been on antipsychotics for years. -Guardian paperwork in chart; parents are guardians -No HCP - [place] Diagnosis: -Says diagnosis is schizoaffective, bipolar type however she has no knowledge of any discrete manic episodes; he has some history of depressive episodes -Does not blink: Supposed to be on Restasis/cyclosporine ophthalmic; not sure dose; discussed with pharmacist who reports typically this is 0.05% solution 1 drop b.i.d. (other places say 0.1%) -Aarkskog syndrome -ASD -OCD -has chronic extremely dry skin (eczema?) for which he has some medicated cream; mother not sure the name -Said there was a plan to get MRI of the brain since change seemed somewhat sudden Hospital course: 07/30 Patient remains fearful; can be friendly and cooperative but seems very anxious and cautious. Visual hallucinations patient saying he can see his mother in the room and talking to her Still not going into bathroom, with recent history of being afraid of bathroom; thus patient Incontinent of urine, sitting in wet clothes and refusing to change today, willing to sign CV reiterating he wants to be here for treatment ( to feel better ) -left for outpatient provider Nat Lee to discuss tx hx 07/31 patient remains cautious and intermittently fearful but is also warming up a bit to some staff, primarily female staff. He says he is feeling better but behaviors remain decompensated. Willing to change out of clothes today with staff encouragement and have them washed; also talked to his mother on the phone today which he said made him happy. Patient willing to use lotion for try facial skin Collateral:Manager Medical discussed case with patient's mother who reports that behaviors decompensated this April after he returned from vacation with his father. At that time he started packing up his stuff, saying he wanted to move out of the [place] [facility]; was taking lots of showers, self dialogue Ng, saying he could see his mother in the room, saying he thought his mother was and refusing to talk to her on the phone. For those reasons This past May he went to [facility] where he was started on Vraylar (and refused to take Latuda). He returned to the [place] [facility] but remained confused, disorganized, paranoid. At 1 point he would not leave the living room at all, incontinent, afraid to go into the bathroom or to shower which resulted in this hospitalization. Some history of aggression for which he was hospitalized a year ago; only mild aggression in [place] [facility] this time around. -left another message with clean up worker for [facility] Lee 08/01 mostly same presentation, continued AH which are bothersome; more comfortable with staff and allowing them to help him attending ADLs including bathing. -magnetic tape typewriter operator did get a call back from Nat Lee; magnetic tape typewriter operator return call and left message 08/02 Patient continues to say I am feeling much better however this does not seem to correlate with any improvement in symptoms as he continues to have AH, is afraid of his room, incontinent of urine because afraid of going to the bathroom and continually saying that he sees his mother in his room. Patient does not respond much to reality testing. He does say he would like other medications to help make the voices go away. -given discussion below, will DC Vraylar since no clear indication of bipolar depression; already on 3 antipsychotics and does not seem effective. Instead will try Risperdal. -will start to try to eliminate pharmacy; need to find out what medication regimen patient was on this past summer during which time he was doing well Collateral: Again discussed case with patient's mother. -She reports he was doing great this past summer; not sure what his medication regimen was at that time -says was on Tegretol for years; for some reason [facility] took him off of it (was restarted at this hospitalization) -says was on clomipramine for OCD since 7 years old and did well on it; not sure why he was taken off a year ago -to her knowledge Latuda was supposed to be discontinued since he was never really taking it; Vraylar was also started at [facility] which has not seemed to help. -Has been on Zyprexa for a while; not sure efficacy --drools consistently at baseline; she said she has asked in the past for medication for this 08/03 Patient reports that he is feeling a lot better which is what he says to magnetic tape typewriter operator every day. He denies any AH. Also says he has not been seeing his mother. Difficult to tell if this is the case or not so will continue to monitor. Patient did ask for a stuffed animal or something about a stuffed animal but it was not clear. -briefly spoke with outpatient provider Huma who said she was 1 who started him on Vraylar -continue with Risperdal 08/04 No change in presentation; still disorganized, fearful, incontinent, hardly moving from room. Not sleeping at night but will tell magnetic tape typewriter operator I slept very good... . Continues to say the same refrain I feel a lot better... 08/05 meeting with outpt team stable on Tegretol and latuda for years until sudden decompensation this fall at which time pt presented with same symptoms he has currently. Prior to this stable and functional in many ways, all ADL's, organized and quite capable; no psychosis; read/write/send emails 08/06 no change in presentation and pt remains disorganized, sitting in own defecate; has AH. Hardly sleeping at night. sitting in one spot for most of the day. -intermittently refusing medications -pt refusing labs -feet are both swollen; hospitalist examined -infection on both side of bridge of nose where glasses sit on nose; pt allowed antibiotic ointment to be applied History that patient was stable on Tegretol and Latuda for at least a year; Latuda was lowered in the springtime to 40 mg, down from 60 since patient said was making him tired. He remained stable until this fall when he suddenly decompensated, unable to accept reality, incontinent, afraid of multiple things, thinking his mom's , forgetting people are Medication: pt was stable on Tegretol and Latuda for years until this fall -for now, will continue on Tegretol and Latuda -dc'd vraylar -started risperdal and increased to 4mg, scheduled it at bedtime to help w/ sleep -consider CT scan brain given sudden onset of symptoms, though was several months ago at this point 08/10 Still no change in presentation; refusing eyedrops. Remains scared to go out of his room. Did allow for bacitracin and sores on bilateral bridge of his nose are better.08/10 Still no change in presentation; refusing eyedrops. Remains scared to go out of his room. Did allow for bacitracin and sores on bilateral bridge of his nose are better. 08/11 Again no change in presentation; refusing labs. Will continue to retry before forcing them. Will try to get head CT. Continues to refuse eyedrops. Will give a little longer on Risperdal 4 mg 08/12 increased Risperdal to 6 mg 08/13 1st day of actual improvement in that patient allowed lab work. That said, he also threw mattress/belongings into the hallway, talking about a 90 yo neighbor he wants to -labs WNL -refused head CT; since he allowed labs, still will try to see if he will comply with head CT hoping to avoid the trauma of forcing him 08/14 Patient out in the milieu today, 1st time in over a week. Furthermore Patient actually using the bathroom today on his own, with significant encouragement from staff and a verbal plan; throughout the day patient was able to get himself to the bathroom rather than remain incontinent and inside close, which he has continually done since admission. Patient also seems more cheerful. -Again refused head CT but since getting better, will hold off from this for now -continue with increased Risperdal dose of 6 mg PLAN: CV *guardians have authorized magnetic tape typewriter operator, staff to administer any/all medical treatments even if against patients will q15 min checks Continue with Risperdal 6 mg qhs -Add Risperdal 0.5 mg t.i.d. p.r.n. for breakthrough AVH -for now, Continue Latuda 40 mg daily at dinnertime (used to be on 60mg) -Continue Tegretol 400mg BID (was stable on this in past) -DC Vraylar 3 mg; this was started by outpatient provider; does not seem to have helped much and no clear indication for bipolar depression (also patient already on 3 antipsychotics) -DC'd Zyprexa: has caused DM/elevated Cholesterol/wt gain -temporarily Start artificial tears; refusing -Will get prescription for Restasis/cyclosporin -consider restarting clomipramine for OCD ( clomipramine 100 mg b.i.d. for OCD in the past around 2014; for some reason it was dc'd at some point; restarted 2022 but not continued after that). -consider glycopyrrolate for excessive drooling -will consider getting MRI, however patient's symptoms are congruent with diagnosis Patient educated on: diagnosis, medication risk/benefits and therapeutic strategies Informed Consent: does not understand Reason for continued inpatient stay Substantial Risk for: inability to function Time Spent With Patient Time: Total time managing care of this patient today ____ minutes.
[2024-08-14] MEDS: Lurasidone HCl 40 MG TABLET PO (18:25)
[2024-08-14 19:48] VITALS: BP 138/65; PULSE 83; RESP 15; TEMP 36.9; O2SAT 100
[2024-08-14] MEDS: risperiDONE 3 MG TABLET 6 MG PO (20:17)
[2024-08-14] MEDS: Atorvastatin Calcium 40 MG TABLET PO (20:18)
[2024-08-14] MEDS: traZODone HCL 100 MG TABLET PO (20:18)
[2024-08-14] MEDS: Sennosides 8.6 MG TABLET PO (20:18)
[2024-08-15] MEDS: Omeprazole 40 MG CAPSULE.DR PO (06:30)
[2024-08-15 08:00] VITALS: BP 124/65; PULSE 81; RESP 18; TEMP 36.6; O2SAT 100
[2024-08-15] MEDS: Sennosides 8.6 MG TABLET PO ×2 (08:29→20:07)
[2024-08-15] MEDS: Ezetimibe 10 MG TABLET PO (08:30)
[2024-08-15] MEDS: carBAMazepine ER 200 MG TAB.ER.12H 400 MG PO ×2 (08:30→20:07)
[2024-08-15] MEDS: clonazePAM 0.5 MG TABLET PO ×3 (08:31→20:07)
[2024-08-15] MEDS: Docusate Sodium 100 MG CAPSULE PO ×3 (08:31→20:07)
[2024-08-15] MEDS: atenoloL 25 MG TABLET PO (08:31)
[2024-08-15] MEDS: Escitalopram Oxalate 10 MG TABLET PO (08:32)
[2024-08-15] MEDS: gemfibroziL 600 MG TABLET PO ×2 (08:32→20:07)
[2024-08-15] MEDS: Fluticasone Propionate Nasal 16 GM SPRAY 1 SPRAY NOSTRIL-B (08:34)
[2024-08-15] MEDS: Loratadine 10 MG TABLET PO (08:40)
--- NOTE | 2024-08-15 12:12 | P.PNPSI_ITS ---
Subjective Subjective Date of Service: 08/15/24 Reason For Visit: Schioafective disorder bipolar type Subjective Notes: Conditional Voluntary Interim History: Patient was seen and discussed in rounds today. Records and plans were reviewed. He has been doing better, eating and sleeping adequately. He is using the toilet more and did shower. Hygiene is improved. He is compliant with medications and denies any side effects. No SI. No changes Review of Systems Review of Systems Yes all other systems are reviewed and are negative Mental Status Exam Mental Status Exam Narrative: In today's visit he is alert, pleasant and interactive. Normal speech. Little eye contact. Affect is stable. No acute signs of psychosis. Able to move all limbs. No gait abnormalities. No SI. Judgment is intact Diagnostics Vital Signs (24Hr): Vital Signs - 24 hr 08/14/24 19:48 08/15/24 08:00 Temperature 98.4 F 97.9 F Pulse Rate 83 81 Respiratory Rate 15 18 Blood Pressure 138/65 124/65 Pulse Oximetry 100 100 Oxygen Delivery Method Room Air BMI result Body Mass Index 33.0 Labs 08/13/24 08:17 08/13/24 08:17 Medications Medications Current Medications Acetaminophen (Acetaminophen 325 Mg Tablet) 650 mg PO Q6H PRN PRN Reason: Headache/Pain Mild Scale (1-3) Al Hydroxide/Mg Hydroxide (Magnesium Hydrox/Alum Hydrox 30 Ml Oral.Susp) 30 ml PO Q6H PRN PRN Reason: Heartburn/Nausea Artificial Tears (Artificial Tears 15 Ml Drops) 1 drop EYE-BOTH Q4H PRN PRN Reason: Dry Eyes Last Admin: 08/02/24 16:09 Dose: 1 drop Atenolol (Atenolol 25 Mg Tablet) 25 mg PO DAILY [facility]; Protocol Last Admin: 08/15/24 08:31 Dose: 25 mg Atorvastatin Calcium (Atorvastatin Calcium 40 Mg Tablet) 40 mg PO BEDTIME [facility] Last Admin: 08/14/24 20:18 Dose: 40 mg Carbamazepine (Carbamazepine Er 200 Mg Tab.Er.12h) 400 mg PO BID [facility] Last Admin: 08/15/24 08:30 Dose: 400 mg Clonazepam (Clonazepam 0.5 Mg Tablet) 0.5 mg PO TID [facility] Last Admin: 08/15/24 08:31 Dose: 0.5 mg Docusate Sodium (Docusate Sodium 100 Mg Capsule) 100 mg PO TID [facility] Last Admin: 08/15/24 08:31 Dose: 100 mg Ezetimibe (Ezetimibe 10 Mg Tablet) 10 mg PO DAILY [facility] Last Admin: 08/15/24 08:30 Dose: 10 mg Escitalopram Oxalate (Escitalopram Oxalate 10 Mg Tablet) 10 mg PO DAILY [facility] Last Admin: 08/15/24 08:32 Dose: 10 mg Fluticasone Propionate (Fluticasone Propionate Nasal 16 Gm [place]) 1 spray NOSTRIL-B DAILY [facility] Last Admin: 08/15/24 08:34 Dose: 1 spray Gemfibrozil (Gemfibrozil 600 Mg Tablet) 600 mg PO BID [facility] Last Admin: 08/15/24 08:32 Dose: 600 mg Hydroxyzine HCl (Hydroxyzine Hcl 25 Mg Tablet) 25 mg PO Q6H PRN PRN Reason: Anxiety Last Admin: 08/02/24 13:30 Dose: 25 mg Loratadine (Loratadine 10 Mg Tablet) 10 mg PO DAILY [facility] Last Admin: 08/15/24 08:40 Dose: 10 mg Lurasidone HCl (Lurasidone Hcl 40 Mg Tablet) 40 mg PO DAILY@1700 [facility] Last Admin: 08/14/24 18:25 Dose: 40 mg Magnesium Hydroxide (Milk Of Magnesia 30 Ml Oral.Susp) 30 ml PO DAILY PRN PRN Reason: Constipation Multi-Ingred Cream/Lotion/Oil/Oint (Mineral Oil/Petrolatum,White 106 Gm Tube) 1 appl TOPICAL TID PRN; Protocol PRN Reason: dry skin Nicotine Polacrilex (Nicotine Polacrilex 2 Mg Gum) 4 mg BUCCAL Q2H PRN PRN Reason: Nicotine Cravings Omeprazole (Omeprazole 40 Mg Capsule.Dr) 40 mg PO DAILY@0630 [facility] Last Admin: 08/15/24 06:30 Dose: 40 mg Risperidone (Risperidone 0.5 Mg Tablet) 0.5 mg PO TID PRN PRN Reason: Hallucinations Last Admin: 08/13/24 14:06 Dose: 0.5 mg Risperidone (Risperidone 3 Mg Tablet) 6 mg PO BEDTIME [facility] Last Admin: 08/14/24 20:17 Dose: 6 mg Senna (Sennosides 8.6 Mg Tablet) 8.6 mg PO BID [facility] Last Admin: 08/15/24 08:29 Dose: 8.6 mg Trazodone HCl (Trazodone Hcl 50 Mg Tablet) 50 mg PO BEDTIME MRX1 PRN PRN Reason: Insomnia Last Admin: 08/09/24 20:40 Dose: 50 mg Trazodone HCl (Trazodone Hcl 100 Mg Tablet) 100 mg PO BEDTIME [facility] Last Admin: 08/14/24 20:18 Dose: 100 mg Allergies Allergies Allergy/AdvReac Type Severity Reaction Status Date / Time ondansetron [From Zofran] Allergy Unknown Verified 07/28/24 22:30 Penicillins Allergy Unknown Verified 07/28/24 22:30 potassium Allergy Unknown Verified 07/28/24 22:30 prochlorperazine Allergy Unknown Verified 07/28/24 22:30 Assessment & Plan Assessment & Plan (1) Schizoaffective disorder, bipolar type: Status: Acute Code(s): F25.0 - Schizoaffective disorder, bipolar type (2) Autism spectrum disorder: Status: Acute Code(s): F84.0 - Autistic disorder (3) Intellectual disability: Status: Acute Code(s): F79 - Unspecified intellectual disabilities (4) Aarskog syndrome: Status: Acute Code(s): 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 environmental sustainability manager reports patient has increased anxiety, paranoia and visual hallucinations as well as increased agitation related to AVH, which has resulted in the need for physical restraints. Patient with limited ability to participate in interview. Patient cooperative and calm. He says he misses his mother. He said I am feeling better... And then that he was going to lay down. He said he wanted to be in the hospital until he feels better... But could not discuss his feelings or what that would mean. Denies any SI or HI and says he is feeling safe. Patient does endorse auditory hallucinations which he he says bothers him, however when asked to discuss them further or what they say, he says I do not know and regarding medication that there is nothing to help... For the remainder of the day, patient sometimes in his room, sometimes in the hallway saying he wanted to call his mother or father, saying he misses them and wants to go home. Formulation/clinical reasoning: hx of psychotic illness with mood component; difficult to assess due to patients baseline limitations. So far patient calm, mostly cooperative though also guarded and cautious. So far in good behavioral control. -Will need collateral -Guardian paperwork in chart; parents are guardians -No HCP - [facility] course: 07/30 Patient remains fearful; can be friendly and cooperative but seems very anxious and cautious. Visual hallucinations patient saying he can see his mother in the room and talking to her Still not going into bathroom, with recent history of being afraid of bathroom; thus patient Incontinent of urine, sitting in wet clothes and refusing to change today, willing to sign CV reiterating he wants to be here for treatment ( to feel better ) -left VM for outpatient provider Nat Lee to discuss tx hx 07/31 patient remains cautious and intermittently fearful but is also warming up a bit to some staff, primarily female staff. He says he is feeling better but behaviors remain decompensated. Willing to change out of clothes today with staff encouragement and have them washed; also talked to his mother on the phone today which he said made him happy. Patient willing to use lotion for try facial skin Collateral:Shoe Cutter discussed case with patient's mother who reports that behaviors decompensated this April after he returned from vacation with his father. At that time he started packing up his stuff, saying he wanted to move out of the shelter; was taking lots of showers, self dialogue Ng, saying he could see his mother in the room, saying he thought his mother was and refusing to talk to her on the phone. For those reasons This past May he went to [facility] where he was started on Vraylar (and refused to take Latuda). He returned to the shelter but remained confused, disorganized, paranoid. At 1 point he would not leave the living room at all, incontinent, afraid to go into the bathroom or to shower which resulted in this hospitalization. Some history of aggression for which he was hospitalized a year ago; only mild aggression in shelter this time around. -left another message with law secretary for Nat Lee 08/01 mostly same presentation, continued AH which are bothersome; more comfortable with staff and allowing them to help him attending ADLs including bathing. -copywriter did get a call back from Natosiris Lee; copywriter return call and left message 08/02 Patient continues to say I am feeling much better however this does not seem to correlate with any improvement in symptoms as he continues to have AH, is afraid of his room, incontinent of urine because afraid of going to the bathroom and continually saying that he sees his mother in his room. Patient does not respond much to reality testing. He does say he would like other medications to help make the voices go away. -given discussion below, will DC Vraylar since no clear indication of bipolar depression; already on 3 antipsychotics and does not seem effective. Instead will try Risperdal. -will start to try to eliminate pharmacy; need to find out what medication regimen patient was on this past summer during which time he was doing well Collateral: Again discussed case with patient's mother. -She reports he was doing great this past summer; not sure what his medication regimen was at that time -says was on Tegretol for years; for some reason [facility] took him off of it (was restarted at this hospitalization) -says was on clomipramine for OCD since 7 years old and did well on it; not sure why he was taken off a year ago -to her knowledge Latuda was supposed to be discontinued since he was never really taking it; Vraylar was also started at [facility] which has not seemed to help. -Has been on Zyprexa for a while; not sure efficacy --drools consistently at baseline; she said she has asked in the past for medication for this Diagnosis: -Says diagnosis is schizoaffective, bipolar type however she has no knowledge of any discrete manic episodes; he has some history of depressive episodes -Does not blink: Supposed to be on Restasis/cyclosporine ophthalmic; not sure dose; discussed with pharmacist who reports typically this is 0.05% solution 1 drop b.i.d. (other places say 0.1%) -Aarkskog syndrome -ASD -OCD -has chronic extremely dry skin (eczema?) for which he has some medicated cream; mother not sure the name -Said there was a plan to get MRI of the brain since change seemed somewhat sudden 08/03 Patient reports that he is feeling a lot better which is what he says to copywriter every day. He denies any AH. Also says he has not been seeing his mother. Difficult to tell if this is the case or not so will continue to monitor. Patient did ask for a stuffed animal or something about a stuffed animal but it was not clear. -briefly spoke with outpatient provider Huma who said she was 1 who started him on Vraylar -continue with Risperdal 08/05 meeting with outpt team stable on Tegretol and latuda for years until sudden decompensation this fall at which time pt presented with same symptoms he has currently. Prior to this stable and functional in many ways, all ADL's, organized and quite capable; no psychosis; read/write/send emails 08/06 no change in presentation and pt remains disorganized, sitting in own defecate; has AH. Hardly sleeping at night. sitting in one spot for most of the day. -intermittently refusing medications -pt refusing labs -feet are both swollen; hospitalist examined -infection on both side of bridge of nose where glasses sit on nose; pt allowed antibiotic ointment to be applied 08/07:continue current tx plan. 08/09/2024: No changes 08/15:Continue current regimen and plans. *guardians have rights to authorize any/all medical treatments even if against patients will Medication: pt was stable on Tegretol and Latuda for years until this fall -for now, will continue on Tegretol and Latuda -dc'd vraylar -started risperdal and increased to 4mg, scheduled it at bedtime to help w/ sleep consider CT scan brain given sudden onset of symptoms Impression: Patient has diagnosis of schizoaffective disorder, not sure if he actually has manic episodes. Mother says MRI was scheduled since change was somewhat sudden, the summer, however symptoms are congruent with diagnosis. Will continue to get collateral from shelter ([facility]?) And outpatient provider. PLAN: CV q15 min checks -Risperdal 4 mg qhs -Add Risperdal 0.5 mg t.i.d. p.r.n. for breakthrough AVH -for now, Continue Latuda 40 mg daily at dinnertime (used to be on 60mg) -Continue Tegretol 400mg BID (was stable on this in past) -DC Vraylar 3 mg; this was started by outpatient provider; does not seem to have helped much and no clear indication for bipolar depression (also patient already on 3 antipsychotics) -DC'd Zyprexa: has caused DM/elevated Cholesterol/wt gain -temporarily Start artificial tears -Will get prescription for Restasis/cyclosporin -consider restarting clomipramine for OCD ( clomipramine 100 mg b.i.d. for OCD in the past around 2014; for some reason it was dc'd at some point; restarted 2022 but not continued after that). -consider glycopyrrolate for excessive drooling -will consider getting MRI, however patient's symptoms are congruent with diagnosis Reason for continued inpatient stay Substantial Risk for: med/psych decompensation Time Spent With Patient Time: Total time managing care of this patient today ____ minutes.
[2024-08-15] MEDS: Lurasidone HCl 40 MG TABLET PO (16:20)
[2024-08-15 20:00] VITALS: RESP 14
[2024-08-15] MEDS: risperiDONE 3 MG TABLET 6 MG PO (20:07)
[2024-08-15] MEDS: traZODone HCL 100 MG TABLET PO (20:07)
[2024-08-15] MEDS: Atorvastatin Calcium 40 MG TABLET PO (20:07)
[2024-08-16] MEDS: Omeprazole 40 MG CAPSULE.DR PO (07:06)
[2024-08-16 08:00] VITALS: BP 124/60; PULSE 80; RESP 18; TEMP 36.5; O2SAT 96
[2024-08-16] MEDS: Sennosides 8.6 MG TABLET PO ×2 (08:12→21:40)
[2024-08-16] MEDS: clonazePAM 0.5 MG TABLET PO ×3 (08:12→21:40)
[2024-08-16] MEDS: Ezetimibe 10 MG TABLET PO (08:12)
[2024-08-16] MEDS: atenoloL 25 MG TABLET PO (08:12)
[2024-08-16] MEDS: Loratadine 10 MG TABLET PO (08:12)
[2024-08-16] MEDS: Escitalopram Oxalate 10 MG TABLET PO (08:12)
[2024-08-16] MEDS: gemfibroziL 600 MG TABLET PO ×2 (08:12→21:39)
[2024-08-16] MEDS: carBAMazepine ER 200 MG TAB.ER.12H 400 MG PO ×2 (08:12→21:38)
[2024-08-16] MEDS: Fluticasone Propionate Nasal 16 GM SPRAY 1 SPRAY NOSTRIL-B (08:14)
[2024-08-16] MEDS: Docusate Sodium 100 MG CAPSULE PO ×3 (08:14→21:38)
--- NOTE | 2024-08-16 09:49 | HO.PSYCHPN ---
Subjective Subjective Date of Service: 08/16/24 Reason For Visit: Schioafective disorder bipolar type Subjective Notes: Conditional Voluntary Interim History: Patient was seen and discussed in rounds today. Records and plans were reviewed. He is brighter and is doing better with his hygiene. No complaints or side effects. He talked about [place]. Eating and sleeping well. No changes were made today. No behavioral issues reported Review of Systems Review of Systems Yes Unobtainable due to mental status Mental Status Exam Mental Status Exam Narrative: In today's visit he is alert, pleasant and interactive. Normal speech. Little eye contact. Affect is stable. No acute signs of psychosis. Able to move all limbs. No gait abnormalities. Cognitively is at baseline with impairments. No SI. Judgment is intact Diagnostics Vital Signs (24Hr): Vital Signs - 24 hr 08/15/24 20:00 08/16/24 08:00 Temperature 97.7 F Pulse Rate 80 Respiratory Rate 14 18 Blood Pressure 124/60 Pulse Oximetry 96 Oxygen Delivery Method Room Air BMI result Body Mass Index 33.0 Labs 08/13/24 08:17 08/13/24 08:17 Medications Medications Current Medications Acetaminophen (Acetaminophen 325 Mg Tablet) 650 mg PO Q6H PRN PRN Reason: Headache/Pain Mild Scale (1-3) Al Hydroxide/Mg Hydroxide (Magnesium Hydrox/Alum Hydrox 30 Ml Oral.Susp) 30 ml PO Q6H PRN PRN Reason: Heartburn/Nausea Artificial Tears (Artificial Tears 15 Ml Drops) 1 drop EYE-BOTH Q4H PRN PRN Reason: Dry Eyes Last Admin: 08/02/24 16:09 Dose: 1 drop Atenolol (Atenolol 25 Mg Tablet) 25 mg PO DAILY [facility]; Protocol Last Admin: 08/16/24 08:12 Dose: 25 mg Atorvastatin Calcium (Atorvastatin Calcium 40 Mg Tablet) 40 mg PO BEDTIME [facility] Last Admin: 08/15/24 20:07 Dose: 40 mg Carbamazepine (Carbamazepine Er 200 Mg Tab.Er.12h) 400 mg PO BID [facility] Last Admin: 08/16/24 08:12 Dose: 400 mg Clonazepam (Clonazepam 0.5 Mg Tablet) 0.5 mg PO TID [facility] Last Admin: 08/16/24 08:12 Dose: 0.5 mg Docusate Sodium (Docusate Sodium 100 Mg Capsule) 100 mg PO TID [facility] Last Admin: 08/16/24 08:14 Dose: 100 mg Ezetimibe (Ezetimibe 10 Mg Tablet) 10 mg PO DAILY [facility] Last Admin: 08/16/24 08:12 Dose: 10 mg Escitalopram Oxalate (Escitalopram Oxalate 10 Mg Tablet) 10 mg PO DAILY [facility] Last Admin: 08/16/24 08:12 Dose: 10 mg Fluticasone Propionate (Fluticasone Propionate Nasal 16 Gm [place]) 1 spray NOSTRIL-B DAILY [facility] Last Admin: 08/16/24 08:14 Dose: 1 spray Gemfibrozil (Gemfibrozil 600 Mg Tablet) 600 mg PO BID [facility] Last Admin: 08/16/24 08:12 Dose: 600 mg Hydroxyzine HCl (Hydroxyzine Hcl 25 Mg Tablet) 25 mg PO Q6H PRN PRN Reason: Anxiety Last Admin: 08/02/24 13:30 Dose: 25 mg Loratadine (Loratadine 10 Mg Tablet) 10 mg PO DAILY [facility] Last Admin: 08/16/24 08:12 Dose: 10 mg Lurasidone HCl (Lurasidone Hcl 40 Mg Tablet) 40 mg PO DAILY@1700 [facility] Last Admin: 08/15/24 16:20 Dose: 40 mg Magnesium Hydroxide (Milk Of Magnesia 30 Ml Oral.Susp) 30 ml PO DAILY PRN PRN Reason: Constipation Multi-Ingred Cream/Lotion/Oil/Oint (Mineral Oil/Petrolatum,White 106 Gm Tube) 1 appl TOPICAL TID PRN; Protocol PRN Reason: dry skin Nicotine Polacrilex (Nicotine Polacrilex 2 Mg Gum) 4 mg BUCCAL Q2H PRN PRN Reason: Nicotine Cravings Omeprazole (Omeprazole 40 Mg Capsule.Dr) 40 mg PO DAILY@0630 [facility] Last Admin: 08/16/24 07:06 Dose: 40 mg Risperidone (Risperidone 0.5 Mg Tablet) 0.5 mg PO TID PRN PRN Reason: Hallucinations Last Admin: 08/13/24 14:06 Dose: 0.5 mg Risperidone (Risperidone 3 Mg Tablet) 6 mg PO BEDTIME [facility] Last Admin: 08/15/24 20:07 Dose: 6 mg Senna (Sennosides 8.6 Mg Tablet) 8.6 mg PO BID [facility] Last Admin: 08/16/24 08:12 Dose: 8.6 mg Trazodone HCl (Trazodone Hcl 50 Mg Tablet) 50 mg PO BEDTIME MRX1 PRN PRN Reason: Insomnia Last Admin: 08/09/24 20:40 Dose: 50 mg Trazodone HCl (Trazodone Hcl 100 Mg Tablet) 100 mg PO BEDTIME [facility] Last Admin: 08/15/24 20:07 Dose: 100 mg Allergies Allergies Allergy/AdvReac Type Severity Reaction Status Date / Time ondansetron [From Zofran] Allergy Unknown Verified 07/28/24 22:30 Penicillins Allergy Unknown Verified 07/28/24 22:30 potassium Allergy Unknown Verified 07/28/24 22:30 prochlorperazine Allergy Unknown Verified 07/28/24 22:30 Assessment & Plan Assessment & Plan (1) Schizoaffective disorder, bipolar type: Status: Acute Code(s): F25.0 - Schizoaffective disorder, bipolar type (2) Autism spectrum disorder: Status: Acute Code(s): F84.0 - Autistic disorder (3) Intellectual disability: Status: Acute Code(s): F79 - Unspecified intellectual disabilities (4) Aarskog syndrome: Status: Acute Code(s): 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 information systems security manager reports patient has increased anxiety, paranoia and visual hallucinations as well as increased agitation related to AVH, which has resulted in the need for physical restraints. Patient with limited ability to participate in interview. Patient cooperative and calm. He says he misses his mother. He said I am feeling better... And then that he was going to lay down. He said he wanted to be in the hospital until he feels better... But could not discuss his feelings or what that would mean. Denies any SI or HI and says he is feeling safe. Patient does endorse auditory hallucinations which he he says bothers him, however when asked to discuss them further or what they say, he says I do not know and regarding medication that there is nothing to help... For the remainder of the day, patient sometimes in his room, sometimes in the hallway saying he wanted to call his mother or father, saying he misses them and wants to go home. Formulation/clinical reasoning: hx of psychotic illness with mood component; difficult to assess due to patients baseline limitations. So far patient calm, mostly cooperative though also guarded and cautious. So far in good behavioral control. -Will need collateral -Guardian paperwork in chart; parents are guardians -No HCP - [facility] course: 07/30 Patient remains fearful; can be friendly and cooperative but seems very anxious and cautious. Visual hallucinations patient saying he can see his mother in the room and talking to her Still not going into bathroom, with recent history of being afraid of bathroom; thus patient Incontinent of urine, sitting in wet clothes and refusing to change today, willing to sign CV reiterating he wants to be here for treatment ( to feel better ) -left VM for outpatient provider Nat Lee to discuss tx hx 07/31 patient remains cautious and intermittently fearful but is also warming up a bit to some staff, primarily female staff. He says he is feeling better but behaviors remain decompensated. Willing to change out of clothes today with staff encouragement and have them washed; also talked to his mother on the phone today which he said made him happy. Patient willing to use lotion for try facial skin Collateral:Crew Clerk discussed case with patient's mother who reports that behaviors decompensated this April after he returned from vacation with his father. At that time he started packing up his stuff, saying he wanted to move out of the half-way; was taking lots of showers, self dialogue Ng, saying he could see his mother in the room, saying he thought his mother was and refusing to talk to her on the phone. For those reasons This past May he went to [facility] where he was started on Vraylar (and refused to take Latuda). He returned to the half-way but remained confused, disorganized, paranoid. At 1 point he would not leave the living room at all, incontinent, afraid to go into the bathroom or to shower which resulted in this hospitalization. Some history of aggression for which he was hospitalized a year ago; only mild aggression in half-way this time around. -left another message with medical unit secretary for [facility] 08/01 mostly same presentation, continued AH which are bothersome; more comfortable with staff and allowing them to help him attending ADLs including bathing. -policy writer did get a call back from Nat Lee; policy writer return call and left message 08/02 Patient continues to say I am feeling much better however this does not seem to correlate with any improvement in symptoms as he continues to have AH, is afraid of his room, incontinent of urine because afraid of going to the bathroom and continually saying that he sees his mother in his room. Patient does not respond much to reality testing. He does say he would like other medications to help make the voices go away. -given discussion below, will DC Vraylar since no clear indication of bipolar depression; already on 3 antipsychotics and does not seem effective. Instead will try Risperdal. -will start to try to eliminate pharmacy; need to find out what medication regimen patient was on this past summer during which time he was doing well 08/16: Continue current regimen and plans Collateral: Again discussed case with patient's mother. -She reports he was doing great this past summer; not sure what his medication regimen was at that time -says was on Tegretol for years; for some reason [facility] took him off of it (was restarted at this hospitalization) -says was on clomipramine for OCD since 7 years old and did well on it; not sure why he was taken off a year ago -to her knowledge Latuda was supposed to be discontinued since he was never really taking it; Vraylar was also started at [facility] which has not seemed to help. -Has been on Zyprexa for a while; not sure efficacy --drools consistently at baseline; she said she has asked in the past for medication for this Diagnosis: -Says diagnosis is schizoaffective, bipolar type however she has no knowledge of any discrete manic episodes; he has some history of depressive episodes -Does not blink: Supposed to be on Restasis/cyclosporine ophthalmic; not sure dose; discussed with pharmacist who reports typically this is 0.05% solution 1 drop b.i.d. (other places say 0.1%) -Aarkskog syndrome -ASD -OCD -has chronic extremely dry skin (eczema?) for which he has some medicated cream; mother not sure the name -Said there was a plan to get MRI of the brain since change seemed somewhat sudden 08/03 Patient reports that he is feeling a lot better which is what he says to policy writer every day. He denies any AH. Also says he has not been seeing his mother. Difficult to tell if this is the case or not so will continue to monitor. Patient did ask for a stuffed animal or something about a stuffed animal but it was not clear. -briefly spoke with outpatient provider Huma who said she was 1 who started him on Vraylar -continue with Risperdal 08/05 meeting with outpt team stable on Tegretol and latuda for years until sudden decompensation this fall at which time pt presented with same symptoms he has currently. Prior to this stable and functional in many ways, all ADL's, organized and quite capable; no psychosis; read/write/send emails 08/06 no change in presentation and pt remains disorganized, sitting in own defecate; has AH. Hardly sleeping at night. sitting in one spot for most of the day. -intermittently refusing medications -pt refusing labs -feet are both swollen; hospitalist examined -infection on both side of bridge of nose where glasses sit on nose; pt allowed antibiotic ointment to be applied 08/07:continue current tx plan. 08/09/2024: No changes 08/15:Continue current regimen and plans. *guardians have rights to authorize any/all medical treatments even if against patients will Medication: pt was stable on Tegretol and Latuda for years until this fall -for now, will continue on Tegretol and Latuda -dc'd vraylar -started risperdal and increased to 4mg, scheduled it at bedtime to help w/ sleep consider CT scan brain given sudden onset of symptoms Impression: Patient has diagnosis of schizoaffective disorder, not sure if he actually has manic episodes. Mother says MRI was scheduled since change was somewhat sudden, the summer, however symptoms are congruent with diagnosis. Will continue to get collateral from half-way ([facility]?) And outpatient provider. PLAN: CV q15 min checks -Risperdal 4 mg qhs -Add Risperdal 0.5 mg t.i.d. p.r.n. for breakthrough AVH -for now, Continue Latuda 40 mg daily at dinnertime (used to be on 60mg) -Continue Tegretol 400mg BID (was stable on this in past) -DC Vraylar 3 mg; this was started by outpatient provider; does not seem to have helped much and no clear indication for bipolar depression (also patient already on 3 antipsychotics) -DC'd Zyprexa: has caused DM/elevated Cholesterol/wt gain -temporarily Start artificial tears -Will get prescription for Restasis/cyclosporin -consider restarting clomipramine for OCD ( clomipramine 100 mg b.i.d. for OCD in the past around 2014; for some reason it was dc'd at some point; restarted 2022 but not continued after that). -consider glycopyrrolate for excessive drooling -will consider getting MRI, however patient's symptoms are congruent with diagnosis Reason for continued inpatient stay Substantial Risk for: med/psych decompensation Time Spent With Patient Time: Total time managing care of this patient today ____ minutes.
[2024-08-16] MEDS: Lurasidone HCl 40 MG TABLET PO (17:03)
[2024-08-16] MEDS: risperiDONE 3 MG TABLET 6 MG PO (21:38)
[2024-08-16] MEDS: traZODone HCL 100 MG TABLET PO (21:39)
[2024-08-16] MEDS: Atorvastatin Calcium 40 MG TABLET PO (21:39)
[2024-08-17] MEDS: Omeprazole 40 MG CAPSULE.DR PO (07:11)
[2024-08-17 08:00] VITALS: BP 106/60; PULSE 65; RESP 18; TEMP 36.6; O2SAT 99
[2024-08-17 08:29] VITALS: BP 106/60; PULSE 65
[2024-08-17] MEDS: carBAMazepine ER 200 MG TAB.ER.12H 400 MG PO ×2 (08:29→21:20)
[2024-08-17] MEDS: Sennosides 8.6 MG TABLET PO ×2 (08:29→21:20)
[2024-08-17] MEDS: atenoloL 25 MG TABLET PO (08:29)
[2024-08-17] MEDS: Ezetimibe 10 MG TABLET PO (08:30)
[2024-08-17] MEDS: clonazePAM 0.5 MG TABLET PO ×3 (08:30→21:21)
[2024-08-17] MEDS: Escitalopram Oxalate 10 MG TABLET PO (08:30)
[2024-08-17] MEDS: gemfibroziL 600 MG TABLET PO ×2 (08:30→21:20)
[2024-08-17] MEDS: Loratadine 10 MG TABLET PO (08:30)
[2024-08-17] MEDS: Docusate Sodium 100 MG CAPSULE PO ×3 (08:30→21:20)
[2024-08-17] MEDS: Lurasidone HCl 40 MG TABLET PO (16:12)
--- NOTE | 2024-08-17 18:26 | HO.PSYCHPN ---
Subjective Subjective Date of Service: 08/17/24 Reason For Visit: Schioafective disorder bipolar type Interim History: Met with patient; discussed with team Patient pleasant and out in the milieu. Throughout the weekend he has been using the bathroom and not been incontinent which christie consistent improvement since admission. Also allowing staff to help him brush his teeth. Patient is normally, when at baseline, able to do all these things on his own, maybe with some prompting but independently. Mental Status Exam Mental Status Exam Narrative: Pt is alert and oriented; behavior is a little more organized and cooperative, also more calm. Used toilet instead of remaining incontinent and in soiled clothing throughout the day; patient is not in distress; dressed in hospital attire, improved hygiene; drooling; mood is described as i feel a lot better though affect congruent, more calm and a little brighter; eye contact appropriate; Speech remains a little garbled which is baseline; normal rate, volume; uses few words; not pressured; no psychomotor agitation/retardation present; thought process is concrete, goal directed, asks for needs; Thought content remains with some paranoid delusions but seems to be less intense; AH, missing parents; otherwise pertinent to relevant topics; no overt delusional content expressed; denies any SI/HI. +AH and internally preoccupied. Patients insight and judgment impaired. Diagnostics Vital Signs (24Hr): Vital Signs - 24 hr 08/17/24 08:00 08/17/24 08:29 Temperature 98 F Pulse Rate 65 65 Respiratory Rate 18 Blood Pressure 106/60 106/60 Pulse Oximetry 99 Oxygen Delivery Method Room Air BMI result Body Mass Index 33.0 Labs 08/13/24 08:17 08/13/24 08:17 Medications Medications Current Medications Acetaminophen (Acetaminophen 325 Mg Tablet) 650 mg PO Q6H PRN PRN Reason: Headache/Pain Mild Scale (1-3) Al Hydroxide/Mg Hydroxide (Magnesium Hydrox/Alum Hydrox 30 Ml Oral.Susp) 30 ml PO Q6H PRN PRN Reason: Heartburn/Nausea Artificial Tears (Artificial Tears 15 Ml Drops) 1 drop EYE-BOTH Q4H PRN PRN Reason: Dry Eyes Last Admin: 08/02/24 16:09 Dose: 1 drop Atenolol (Atenolol 25 Mg Tablet) 25 mg PO DAILY [facility]; Protocol Last Admin: 08/17/24 08:29 Dose: 25 mg Atorvastatin Calcium (Atorvastatin Calcium 40 Mg Tablet) 40 mg PO BEDTIME [facility] Last Admin: 08/16/24 21:39 Dose: 40 mg Carbamazepine (Carbamazepine Er 200 Mg Tab.Er.12h) 400 mg PO BID [facility] Last Admin: 08/17/24 08:29 Dose: 400 mg Clonazepam (Clonazepam 0.5 Mg Tablet) 0.5 mg PO TID [facility] Last Admin: 08/17/24 16:12 Dose: 0.5 mg Docusate Sodium (Docusate Sodium 100 Mg Capsule) 100 mg PO TID [facility] Last Admin: 08/17/24 16:13 Dose: 100 mg Ezetimibe (Ezetimibe 10 Mg Tablet) 10 mg PO DAILY [facility] Last Admin: 08/17/24 08:30 Dose: 10 mg Escitalopram Oxalate (Escitalopram Oxalate 10 Mg Tablet) 10 mg PO DAILY [facility] Last Admin: 08/17/24 08:30 Dose: 10 mg Fluticasone Propionate (Fluticasone Propionate Nasal 16 Gm [place]) 1 spray NOSTRIL-B DAILY [facility] Last Admin: 08/17/24 12:23 Dose: Not Given Gemfibrozil (Gemfibrozil 600 Mg Tablet) 600 mg PO BID [facility] Last Admin: 08/17/24 08:30 Dose: 600 mg Hydroxyzine HCl (Hydroxyzine Hcl 25 Mg Tablet) 25 mg PO Q6H PRN PRN Reason: Anxiety Last Admin: 08/02/24 13:30 Dose: 25 mg Loratadine (Loratadine 10 Mg Tablet) 10 mg PO DAILY [facility] Last Admin: 08/17/24 08:30 Dose: 10 mg Lurasidone HCl (Lurasidone Hcl 40 Mg Tablet) 40 mg PO DAILY@1700 [facility] Last Admin: 08/17/24 16:12 Dose: 40 mg Magnesium Hydroxide (Milk Of Magnesia 30 Ml Oral.Susp) 30 ml PO DAILY PRN PRN Reason: Constipation Multi-Ingred Cream/Lotion/Oil/Oint (Mineral Oil/Petrolatum,White 106 Gm Tube) 1 appl TOPICAL TID PRN; Protocol PRN Reason: dry skin Nicotine Polacrilex (Nicotine Polacrilex 2 Mg Gum) 4 mg BUCCAL Q2H PRN PRN Reason: Nicotine Cravings Omeprazole (Omeprazole 40 Mg Capsule.Dr) 40 mg PO DAILY@0630 [facility] Last Admin: 08/17/24 07:11 Dose: 40 mg Risperidone (Risperidone 0.5 Mg Tablet) 0.5 mg PO TID PRN PRN Reason: Hallucinations Last Admin: 08/13/24 14:06 Dose: 0.5 mg Risperidone (Risperidone 3 Mg Tablet) 6 mg PO BEDTIME [facility] Last Admin: 08/16/24 21:38 Dose: 6 mg Senna (Sennosides 8.6 Mg Tablet) 8.6 mg PO BID [facility] Last Admin: 08/17/24 08:29 Dose: 8.6 mg Trazodone HCl (Trazodone Hcl 50 Mg Tablet) 50 mg PO BEDTIME MRX1 PRN PRN Reason: Insomnia Last Admin: 08/09/24 20:40 Dose: 50 mg Trazodone HCl (Trazodone Hcl 100 Mg Tablet) 100 mg PO BEDTIME [facility] Last Admin: 08/16/24 21:39 Dose: 100 mg Allergies Allergies Allergy/AdvReac Type Severity Reaction Status Date / Time ondansetron [From Zofran] Allergy Unknown Verified 07/28/24 22:30 Penicillins Allergy Unknown Verified 07/28/24 22:30 potassium Allergy Unknown Verified 07/28/24 22:30 prochlorperazine Allergy Unknown Verified 07/28/24 22:30 Assessment & Plan Assessment & Plan (1) Schizoaffective disorder, bipolar type: Status: Acute Code(s): F25.0 - Schizoaffective disorder, bipolar type (2) Autism spectrum disorder: Status: Acute Code(s): F84.0 - Autistic disorder (3) Intellectual disability: Status: Acute Code(s): F79 - Unspecified intellectual disabilities (4) Aarskog syndrome: Status: Acute Code(s): Q87.19 - Other congenital malformation syndromes predominantly associated with short stature Plan Patient is a 34-year-old male with severe ASD, intellectual disability, schizoaffective disorder with, history of behavioral outbursts, who resides at a [facility] residential facility and who presents from external ED for what recreation program specialist reports is decompensation following discharge from [facility] admission about 4 weeks ago. hardware manager reports patient has increased anxiety, paranoia and visual hallucinations as well as increased agitation related to AVH, which has resulted in the need for physical restraints. Patient with limited ability to participate in interview. Patient cooperative and calm. He says he misses his mother. He said I am feeling better... And then that he was going to lay down. He said he wanted to be in the hospital until he feels better... But could not discuss his feelings or what that would mean. Denies any SI or HI and says he is feeling safe. Patient does endorse auditory hallucinations which he he says bothers him, however when asked to discuss them further or what they say, he says I do not know and regarding medication that there is nothing to help... For the remainder of the day, patient sometimes in his room, sometimes in the hallway saying he wanted to call his mother or father, saying he misses them and wants to go home. Formulation/clinical reasoning: Patient has diagnosis of schizoaffective disorder, not sure if he actually has manic episodes and according to collateral, patient has not demonstrated psychotic symptoms until this fall. Still he has been on antipsychotics for years. -Guardian paperwork in chart; parents are guardians -No HCP - [place] Diagnosis: -Says diagnosis is schizoaffective, bipolar type however she has no knowledge of any discrete manic episodes; he has some history of depressive episodes -Does not blink: Supposed to be on Restasis/cyclosporine ophthalmic; not sure dose; discussed with pharmacist who reports typically this is 0.05% solution 1 drop b.i.d. (other places say 0.1%) -Aarkskog syndrome -ASD -OCD -has chronic extremely dry skin (eczema?) for which he has some medicated cream; mother not sure the name -Said there was a plan to get MRI of the brain since change seemed somewhat sudden Hospital course: 07/30 Patient remains fearful; can be friendly and cooperative but seems very anxious and cautious. Visual hallucinations patient saying he can see his mother in the room and talking to her Still not going into bathroom, with recent history of being afraid of bathroom; thus patient Incontinent of urine, sitting in wet clothes and refusing to change today, willing to sign CV reiterating he wants to be here for treatment ( to feel better ) -left VM for outpatient provider Nat Lee to discuss tx hx 07/31 patient remains cautious and intermittently fearful but is also warming up a bit to some staff, primarily female staff. He says he is feeling better but behaviors remain decompensated. Willing to change out of clothes today with staff encouragement and have them washed; also talked to his mother on the phone today which he said made him happy. Patient willing to use lotion for try facial skin Collateral:Physical Education Instructor discussed case with patient's mother who reports that behaviors decompensated this April after he returned from vacation with his father. At that time he started packing up his stuff, saying he wanted to move out of the halfway; was taking lots of showers, self dialogue Ng, saying he could see his mother in the room, saying he thought his mother was and refusing to talk to her on the phone. For those reasons This past May he went to [facility] where he was started on Vraylar (and refused to take Latuda). He returned to the halfway but remained confused, disorganized, paranoid. At 1 point he would not leave the living room at all, incontinent, afraid to go into the bathroom or to shower which resulted in this hospitalization. Some history of aggression for which he was hospitalized a year ago; only mild aggression in halfway this time around. -left another message with waxer floor for Nat Lee 08/01 mostly same presentation, continued AH which are bothersome; more comfortable with staff and allowing them to help him attending ADLs including bathing. -card writer hand did get a call back from Nat Lee; card writer hand return call and left message 08/02 Patient continues to say I am feeling much better however this does not seem to correlate with any improvement in symptoms as he continues to have AH, is afraid of his room, incontinent of urine because afraid of going to the bathroom and continually saying that he sees his mother in his room. Patient does not respond much to reality testing. He does say he would like other medications to help make the voices go away. -given discussion below, will DC Vraylar since no clear indication of bipolar depression; already on 3 antipsychotics and does not seem effective. Instead will try Risperdal. -will start to try to eliminate pharmacy; need to find out what medication regimen patient was on this past summer during which time he was doing well Collateral: Again discussed case with patient's mother. -She reports he was doing great this past summer; not sure what his medication regimen was at that time -says was on Tegretol for years; for some reason [facility] took him off of it (was restarted at this hospitalization) -says was on clomipramine for OCD since 7 years old and did well on it; not sure why he was taken off a year ago -to her knowledge Latuda was supposed to be discontinued since he was never really taking it; Vraylar was also started at [facility] which has not seemed to help. -Has been on Zyprexa for a while; not sure efficacy --drools consistently at baseline; she said she has asked in the past for medication for this 08/03 Patient reports that he is feeling a lot better which is what he says to card writer hand every day. He denies any AH. Also says he has not been seeing his mother. Difficult to tell if this is the case or not so will continue to monitor. Patient did ask for a stuffed animal or something about a stuffed animal but it was not clear. -briefly spoke with outpatient provider Huma who said she was 1 who started him on Vraylar -continue with Risperdal 08/04 No change in presentation; still disorganized, fearful, incontinent, hardly moving from room. Not sleeping at night but will tell card writer hand I slept very good... . Continues to say the same refrain I feel a lot better... 08/05 meeting with outpt team stable on Tegretol and latuda for years until sudden decompensation this fall at which time pt presented with same symptoms he has currently. Prior to this stable and functional in many ways, all ADL's, organized and quite capable; no psychosis; read/write/send emails 08/06 no change in presentation and pt remains disorganized, sitting in own defecate; has AH. Hardly sleeping at night. sitting in one spot for most of the day. -intermittently refusing medications -pt refusing labs -feet are both swollen; hospitalist examined -infection on both side of bridge of nose where glasses sit on nose; pt allowed antibiotic ointment to be applied History that patient was stable on Tegretol and Latuda for at least a year; Latuda was lowered in the springtime to 40 mg, down from 60 since patient said was making him tired. He remained stable until this fall when he suddenly decompensated, unable to accept reality, incontinent, afraid of multiple things, thinking his mom's , forgetting people are Medication: pt was stable on Tegretol and Latuda for years until this fall -for now, will continue on Tegretol and Latuda -dc'd alexander -started risperdal and increased to 4mg, scheduled it at bedtime to help w/ sleep -consider CT scan brain given sudden onset of symptoms, though was several months ago at this point 08/10 Still no change in presentation; refusing eyedrops. Remains scared to go out of his room. Did allow for bacitracin and sores on bilateral bridge of his nose are better.08/10 Still no change in presentation; refusing eyedrops. Remains scared to go out of his room. Did allow for bacitracin and sores on bilateral bridge of his nose are better. 08/11 Again no change in presentation; refusing labs. Will continue to retry before forcing them. Will try to get head CT. Continues to refuse eyedrops. Will give a little longer on Risperdal 4 mg 08/12 increased Risperdal to 6 mg 08/13 1st day of actual improvement in that patient allowed lab work. That said, he also threw mattress/belongings into the hallway, talking about a 90 yo neighbor he wants to -labs WN -refused head CT; since he allowed labs, still will try to see if he will comply with head CT hoping to avoid the trauma of forcing him 08/14 Patient out in the milieu today, 1st time in over a week. Furthermore Patient actually using the bathroom today on his own, with significant encouragement from staff and a verbal plan; throughout the day patient was able to get himself to the bathroom rather than remain incontinent and inside close, which he has continually done since admission. Patient also seems more cheerful. -Again refused head CT but since getting better, will hold off from this for now -continue with increased Risperdal dose of 6 mg 08/17 remains somewhat improved. Patient pleasant and out in the milieu. Throughout the weekend he has been using the bathroom and not been incontinent which christie consistent improvement since admission. Also allowing staff to help him brush his teeth. Patient is normally, when at baseline, able to do all these things on his own, maybe with some prompting but independently. -will continue with current regimen for now as patient continues to improve -will continue to keep in mind that patient has a history of OCD and that he may benefit and improve from restarting clomipramine; however as psychosis and disorganized behavior is the main concern will continue to focus treatment in this area now PLAN: CV *guardians have authorized card writer hand, staff to administer any/all medical treatments even if against patients will q15 min checks Continue with Risperdal 6 mg qhs -Add Risperdal 0.5 mg t.i.d. p.r.n. for breakthrough AVH -for now, Continue Latuda 40 mg daily at dinnertime (used to be on 60mg) -Continue Tegretol 400mg BID (was stable on this in past) -DC Vraylar 3 mg; this was started by outpatient provider; does not seem to have helped much and no clear indication for bipolar depression (also patient already on 3 antipsychotics) -DC'd Zyprexa: has caused DM/elevated Cholesterol/wt gain -temporarily Start artificial tears; refusing -Will get prescription for Restasis/cyclosporin -consider restarting clomipramine for OCD ( clomipramine 100 mg b.i.d. for OCD in the past around 2014; for some reason it was dc'd at some point; restarted 2022 but not continued after that). -consider glycopyrrolate for excessive drooling -will consider getting MRI, however patient's symptoms are congruent with diagnosis Patient educated on: diagnosis and medication risk/benefits Informed Consent: does not understand Reason for continued inpatient stay Substantial Risk for: inability to function Time Spent With Patient Time: Total time managing care of this patient today ____ minutes.
[2024-08-17 20:00] VITALS: BP 142/90; PULSE 80; TEMP 36.9; O2SAT 99
[2024-08-17] MEDS: risperiDONE 3 MG TABLET 6 MG PO (21:20)
[2024-08-17] MEDS: Atorvastatin Calcium 40 MG TABLET PO (21:20)
[2024-08-17] MEDS: traZODone HCL 100 MG TABLET PO (21:20)
[2024-08-17] MEDS: Acetaminophen 325 MG TABLET 650 MG PO (22:03)
[2024-08-18] MEDS: Omeprazole 40 MG CAPSULE.DR PO (07:08)
[2024-08-18 08:00] VITALS: BP 125/71; PULSE 82; RESP 18; TEMP 36.8; O2SAT 99
[2024-08-18] MEDS: clonazePAM 0.5 MG TABLET PO ×2 (08:04→20:43)
[2024-08-18] MEDS: gemfibroziL 600 MG TABLET PO ×2 (08:04→20:43)
[2024-08-18] MEDS: Escitalopram Oxalate 10 MG TABLET PO (08:04)
[2024-08-18] MEDS: Loratadine 10 MG TABLET PO (08:05)
[2024-08-18] MEDS: Docusate Sodium 100 MG CAPSULE PO ×2 (08:05→20:43)
[2024-08-18] MEDS: carBAMazepine ER 200 MG TAB.ER.12H 400 MG PO ×2 (08:05→20:43)
[2024-08-18] MEDS: Ezetimibe 10 MG TABLET PO (08:06)
[2024-08-18] MEDS: atenoloL 25 MG TABLET PO (08:06)
[2024-08-18] MEDS: Sennosides 8.6 MG TABLET PO ×2 (08:07→20:43)
[2024-08-18] MEDS: Acetaminophen 325 MG TABLET 650 MG PO ×2 (08:57→17:42)
--- NOTE | 2024-08-18 10:03 | P.PNPSI_ITS ---
Subjective Subjective Date of Service: 08/18/24 Reason For Visit: Schioafective disorder bipolar type Interim History: met with patient; discussed with team remains doing better; using bathroom on his own. Brighter and is more calm, less anxious. Still says can see his mom in his rooom. Mental Status Exam Mental Status Exam Narrative: Pt is alert and oriented; behavior is a little more organized and cooperative, also more calm. Used toilet instead of remaining incontinent and in soiled clothing throughout the day; patient is not in distress; dressed in hospital attire, improved hygiene; drooling; mood is described as i feel a lot better though affect congruent, more calm and a little brighter; eye contact appropriate; Speech remains a little garbled which is baseline; normal rate, volume; uses few words; not pressured; no psychomotor agitation/retardation present; thought process is concrete, goal directed, asks for needs; Thought content remains with some paranoid delusions but seems to be less intense; AH, missing parents; otherwise pertinent to relevant topics; no overt delusional content expressed; denies any SI/HI. +AH and internally preoccupied. Patients insight and judgment impaired. Diagnostics Vital Signs (24Hr): Vital Signs - 24 hr 08/17/24 20:00 08/18/24 08:00 Temperature 98.5 F 98.2 F Pulse Rate 80 82 Respiratory Rate 18 Blood Pressure 142/90 H 125/71 Pulse Oximetry 99 99 Oxygen Delivery Method Room Air Room Air BMI result Body Mass Index 33.0 Labs 08/13/24 08:17 08/13/24 08:17 Medications Medications Current Medications Acetaminophen (Acetaminophen 325 Mg Tablet) 650 mg PO Q6H PRN PRN Reason: Headache/Pain Mild Scale (1-3) Last Admin: 08/18/24 08:57 Dose: 650 mg Al Hydroxide/Mg Hydroxide (Magnesium Hydrox/Alum Hydrox 30 Ml Oral.Susp) 30 ml PO Q6H PRN PRN Reason: Heartburn/Nausea Artificial Tears (Artificial Tears 15 Ml Drops) 1 drop EYE-BOTH Q4H PRN PRN Reason: Dry Eyes Last Admin: 08/02/24 16:09 Dose: 1 drop Atenolol (Atenolol 25 Mg Tablet) 25 mg PO DAILY ADRIANO; Protocol Last Admin: 08/18/24 08:06 Dose: 25 mg Atorvastatin Calcium (Atorvastatin Calcium 40 Mg Tablet) 40 mg PO BEDTIME [facility] Last Admin: 08/17/24 21:20 Dose: 40 mg Carbamazepine (Carbamazepine Er 200 Mg Tab.Er.12h) 400 mg PO BID [facility] Last Admin: 08/18/24 08:05 Dose: 400 mg Clonazepam (Clonazepam 0.5 Mg Tablet) 0.5 mg PO TID [facility] Last Admin: 08/18/24 08:04 Dose: 0.5 mg Docusate Sodium (Docusate Sodium 100 Mg Capsule) 100 mg PO TID [facility] Last Admin: 08/18/24 08:05 Dose: 100 mg Ezetimibe (Ezetimibe 10 Mg Tablet) 10 mg PO DAILY [facility] Last Admin: 08/18/24 08:06 Dose: 10 mg Escitalopram Oxalate (Escitalopram Oxalate 10 Mg Tablet) 10 mg PO DAILY [facility] Last Admin: 08/18/24 08:04 Dose: 10 mg Fluticasone Propionate (Fluticasone Propionate Nasal 16 Gm [place]) 1 spray NOSTRIL-B DAILY [facility] Last Admin: 08/17/24 12:23 Dose: Not Given Gemfibrozil (Gemfibrozil 600 Mg Tablet) 600 mg PO BID [facility] Last Admin: 08/18/24 08:04 Dose: 600 mg Hydroxyzine HCl (Hydroxyzine Hcl 25 Mg Tablet) 25 mg PO Q6H PRN PRN Reason: Anxiety Last Admin: 08/02/24 13:30 Dose: 25 mg Loratadine (Loratadine 10 Mg Tablet) 10 mg PO DAILY [facility] Last Admin: 08/18/24 08:05 Dose: 10 mg Lurasidone HCl (Lurasidone Hcl 40 Mg Tablet) 40 mg PO DAILY@1700 [facility] Last Admin: 08/17/24 16:12 Dose: 40 mg Magnesium Hydroxide (Milk Of Magnesia 30 Ml Oral.Susp) 30 ml PO DAILY PRN PRN Reason: Constipation Multi-Ingred Cream/Lotion/Oil/Oint (Mineral Oil/Petrolatum,White 106 Gm Tube) 1 appl TOPICAL TID PRN; Protocol PRN Reason: dry skin Nicotine Polacrilex (Nicotine Polacrilex 2 Mg Gum) 4 mg BUCCAL Q2H PRN PRN Reason: Nicotine Cravings Omeprazole (Omeprazole 40 Mg Capsule.Dr) 40 mg PO DAILY@0630 [facility] Last Admin: 08/18/24 07:08 Dose: 40 mg Risperidone (Risperidone 0.5 Mg Tablet) 0.5 mg PO TID PRN PRN Reason: Hallucinations Last Admin: 08/13/24 14:06 Dose: 0.5 mg Risperidone (Risperidone 3 Mg Tablet) 6 mg PO BEDTIME ADRIANO Last Admin: 08/17/24 21:20 Dose: 6 mg Senna (Sennosides 8.6 Mg Tablet) 8.6 mg PO BID ADRIANO Last Admin: 08/18/24 08:07 Dose: 8.6 mg Trazodone HCl (Trazodone Hcl 50 Mg Tablet) 50 mg PO BEDTIME MRX1 PRN PRN Reason: Insomnia Last Admin: 08/09/24 20:40 Dose: 50 mg Trazodone HCl (Trazodone Hcl 100 Mg Tablet) 100 mg PO BEDTIME ADRIANO Last Admin: 08/17/24 21:20 Dose: 100 mg Allergies Allergies Allergy/AdvReac Type Severity Reaction Status Date / Time ondansetron [From Zofran] Allergy Unknown Verified 07/28/24 22:30 Penicillins Allergy Unknown Verified 07/28/24 22:30 potassium Allergy Unknown Verified 07/28/24 22:30 prochlorperazine Allergy Unknown Verified 07/28/24 22:30 Assessment & Plan Assessment & Plan (1) Schizoaffective disorder, bipolar type: Status: Acute Code(s): F25.0 - Schizoaffective disorder, bipolar type (2) Autism spectrum disorder: Status: Acute Code(s): F84.0 - Autistic disorder (3) Intellectual disability: Status: Acute Code(s): F79 - Unspecified intellectual disabilities (4) Aarskog syndrome: Status: Acute Code(s): Q87.19 - Other congenital malformation syndromes predominantly associated with short stature Plan Patient is a 34-year-old male with severe ASD, intellectual disability, schizoaffective disorder with, history of behavioral outbursts, who resides at a [facility] residential facility and who presents from external ED for what environmental science program director reports is decompensation following discharge from [facility] admission about 4 weeks ago. plant hr manager reports patient has increased anxiety, paranoia and visual hallucinations as well as increased agitation related to AVH, which has resulted in the need for physical restraints. Patient with limited ability to participate in interview. Patient cooperative and calm. He says he misses his mother. He said I am feeling better... And then that he was going to lay down. He said he wanted to be in the hospital until he feels better... But could not discuss his feelings or what that would mean. Denies any SI or HI and says he is feeling safe. Patient does endorse auditory hallucinations which he he says bothers him, however when asked to discuss them further or what they say, he says I do not know and regarding medication that there is nothing to help... For the remainder of the day, patient sometimes in his room, sometimes in the hallway saying he wanted to call his mother or father, saying he misses them and wants to go home. Formulation/clinical reasoning: Patient has diagnosis of schizoaffective disorder, not sure if he actually has manic episodes and according to collateral, patient has not demonstrated psychotic symptoms until this fall. Still he has been on antipsychotics for years. -Guardian paperwork in chart; parents are guardians -No HCP - [place] Diagnosis: -Says diagnosis is schizoaffective, bipolar type however she has no knowledge of any discrete manic episodes; he has some history of depressive episodes -Does not blink: Supposed to be on Restasis/cyclosporine ophthalmic; not sure dose; discussed with pharmacist who reports typically this is 0.05% solution 1 drop b.i.d. (other places say 0.1%) -Aarkskog syndrome -ASD -OCD -has chronic extremely dry skin (eczema?) for which he has some medicated cream; mother not sure the name -Said there was a plan to get MRI of the brain since change seemed somewhat sudden Hospital course: 07/30 Patient remains fearful; can be friendly and cooperative but seems very anxious and cautious. Visual hallucinations patient saying he can see his mother in the room and talking to her Still not going into bathroom, with recent history of being afraid of bathroom; thus patient Incontinent of urine, sitting in wet clothes and refusing to change today, willing to sign CV reiterating he wants to be here for treatment ( to feel better ) -left VM for outpatient provider Nat Lee to discuss tx hx 07/31 patient remains cautious and intermittently fearful but is also warming up a bit to some staff, primarily female staff. He says he is feeling better but behaviors remain decompensated. Willing to change out of clothes today with staff encouragement and have them washed; also talked to his mother on the phone today which he said made him happy. Patient willing to use lotion for try facial skin Collateral:Systems Qa Analyst discussed case with patient's mother who reports that behaviors decompensated this April after he returned from vacation with his father. At that time he started packing up his stuff, saying he wanted to move out of the [place] [facility]; was taking lots of showers, self dialogue Ng, saying he could see his mother in the room, saying he thought his mother was and refusing to talk to her on the phone. For those reasons This past May he went to [facility] where he was started on Vraylar (and refused to take Latuda). He returned to the [place] [facility] but remained confused, disorganized, paranoid. At 1 point he would not leave the living room at all, incontinent, afraid to go into the bathroom or to shower which resulted in this hospitalization. Some history of aggression for which he was hospitalized a year ago; only mild aggression in [facility] [facility] this time around. -left another message with secretary bookkeeper for Nat Lee 08/01 mostly same presentation, continued AH which are bothersome; more comfortable with staff and allowing them to help him attending ADLs including bathing. -senior underwriter did get a call back from Nat Lee; senior underwriter return call and left message 08/02 Patient continues to say I am feeling much better however this does not seem to correlate with any improvement in symptoms as he continues to have AH, is afraid of his room, incontinent of urine because afraid of going to the bathroom and continually saying that he sees his mother in his room. Patient does not respond much to reality testing. He does say he would like other medications to help make the voices go away. -given discussion below, will DC Vraylar since no clear indication of bipolar depression; already on 3 antipsychotics and does not seem effective. Instead will try Risperdal. -will start to try to eliminate pharmacy; need to find out what medication regimen patient was on this past summer during which time he was doing well Collateral: Again discussed case with patient's mother. -She reports he was doing great this past summer; not sure what his medication regimen was at that time -says was on Tegretol for years; for some reason [facility] took him off of it (was restarted at this hospitalization) -says was on clomipramine for OCD since 7 years old and did well on it; not sure why he was taken off a year ago -to her knowledge Latuda was supposed to be discontinued since he was never really taking it; Vraylar was also started at [facility] which has not seemed to help. -Has been on Zyprexa for a while; not sure efficacy --drools consistently at baseline; she said she has asked in the past for medication for this 08/03 Patient reports that he is feeling a lot better which is what he says to senior underwriter every day. He denies any AH. Also says he has not been seeing his mother. Difficult to tell if this is the case or not so will continue to monitor. Patient did ask for a stuffed animal or something about a stuffed animal but it was not clear. -briefly spoke with outpatient provider Huma who said she was 1 who started him on Vraylar -continue with Risperdal 08/04 No change in presentation; still disorganized, fearful, incontinent, hardly moving from room. Not sleeping at night but will tell senior underwriter I slept very good... . Continues to say the same refrain I feel a lot better... 08/05 meeting with outpt team stable on Tegretol and latuda for years until sudden decompensation this fall at which time pt presented with same symptoms he has currently. Prior to this stable and functional in many ways, all ADL's, organized and quite capable; no psychosis; read/write/send emails 08/06 no change in presentation and pt remains disorganized, sitting in own defecate; has AH. Hardly sleeping at night. sitting in one spot for most of the day. -intermittently refusing medications -pt refusing labs -feet are both swollen; hospitalist examined -infection on both side of bridge of nose where glasses sit on nose; pt allowed antibiotic ointment to be applied History that patient was stable on Tegretol and Latuda for at least a year; Latuda was lowered in the springtime to 40 mg, down from 60 since patient said was making him tired. He remained stable until this fall when he suddenly decompensated, unable to accept reality, incontinent, afraid of multiple things, thinking his mom's , forgetting people are Medication: pt was stable on Tegretol and Latuda for years until this fall -for now, will continue on Tegretol and Latuda -dc'd alexanedr -started risperdal and increased to 4mg, scheduled it at bedtime to help w/ sleep -consider CT scan brain given sudden onset of symptoms, though was several months ago at this point 08/10 Still no change in presentation; refusing eyedrops. Remains scared to go out of his room. Did allow for bacitracin and sores on bilateral bridge of his nose are better.08/10 Still no change in presentation; refusing eyedrops. Remains scared to go out of his room. Did allow for bacitracin and sores on bilateral bridge of his nose are better. 08/11 Again no change in presentation; refusing labs. Will continue to retry before forcing them. Will try to get head CT. Continues to refuse eyedrops. Will give a little longer on Risperdal 4 mg 08/12 increased Risperdal to 6 mg 08/13 1st day of actual improvement in that patient allowed lab work. That said, he also threw mattress/belongings into the hallway, talking about a 90 yo neighbor he wants to -labs WN -refused head CT; since he allowed labs, still will try to see if he will comply with head CT hoping to avoid the trauma of forcing him 08/14 Patient out in the milieu today, 1st time in over a week. Furthermore Patient actually using the bathroom today on his own, with significant encouragement from staff and a verbal plan; throughout the day patient was able to get himself to the bathroom rather than remain incontinent and inside close, which he has continually done since admission. Patient also seems more cheerful. -Again refused head CT but since getting better, will hold off from this for now -continue with increased Risperdal dose of 6 mg 08/17 remains somewhat improved. Patient pleasant and out in the milieu. Throughout the weekend he has been using the bathroom and not been incontinent which christie consistent improvement since admission. Also allowing staff to help him brush his teeth. Patient is normally, when at baseline, able to do all these things on his own, maybe with some prompting but independently. -will continue with current regimen for now as patient continues to improve -will continue to keep in mind that patient has a history of OCD and that he may benefit and improve from restarting clomipramine; however as psychosis and disorganized behavior is the main concern will continue to focus treatment in this area now 08/18 continues current tx plan for now; will consider increasing Risperdal though already at 6mg. PLAN: CV *guardians have authorized senior underwriter, staff to administer any/all medical treatments even if against patients will q15 min checks Continue with Risperdal 6 mg qhs -Add Risperdal 0.5 mg t.i.d. p.r.n. for breakthrough AVH -for now, Continue Latuda 40 mg daily at dinnertime (used to be on 60mg) -Continue Tegretol 400mg BID (was stable on this in past) -DC Vraylar 3 mg; this was started by outpatient provider; does not seem to have helped much and no clear indication for bipolar depression (also patient already on 3 antipsychotics) -DC'd Zyprexa: has caused DM/elevated Cholesterol/wt gain -temporarily Start artificial tears; refusing -Will get prescription for Restasis/cyclosporin -consider restarting clomipramine for OCD ( clomipramine 100 mg b.i.d. for OCD in the past around 2014; for some reason it was dc'd at some point; restarted 2022 but not continued after that). -consider glycopyrrolate for excessive drooling -will consider getting MRI, however patient's symptoms are congruent with diagnosis Patient educated on: diagnosis Informed Consent: does not understand Reason for continued inpatient stay Substantial Risk for: inability to function Time Spent With Patient Time: Total time managing care of this patient today ____ minutes.
[2024-08-18] MEDS: Lurasidone HCl 40 MG TABLET PO (17:30)
[2024-08-18 20:00] VITALS: BP 132/64; PULSE 82; RESP 16; TEMP 36.6; O2SAT 99
[2024-08-18] MEDS: Atorvastatin Calcium 40 MG TABLET PO (20:43)
[2024-08-18] MEDS: traZODone HCL 100 MG TABLET PO (20:43)
[2024-08-18] MEDS: risperiDONE 3 MG TABLET 6 MG PO (20:43)
--- NOTE | 2024-08-19 08:55 | P.PNPSI_ITS ---
Subjective Subjective Date of Service: 08/19/24 Reason For Visit: Schioafective disorder bipolar type Interim History: Joel is talkative, positive and bright this a.m. He tells this script writer of the holiday and his plans. He is engaged in milieu and reports he is expecting a visitor Reviewed with team. No current concerns regarding behavioral sx. Medication Compliance: Yes Side effects from medications: No Attending Groups: Intermittent Review of Systems Acute medical concerns: No Review of Systems Review of Systems Denies Mental Status Exam Mental Status Exam Patient Appearance: Appropriate Patient Orientation: Person, Place and Time Level of Consciousness: Alert Patient Behavior: Talkative Mood Description: Calm Affect Description: Constricted Patient Cognition Impaired: Yes Ability to Follow Directions: Fair Speech Pattern: Spontaneous Speech and Delayed Thought Content: positive for Intact Judgement: Fair Diagnostics Vital Signs (24Hr): Vital Signs - 24 hr 08/18/24 20:00 Temperature 97.9 F Pulse Rate 82 Respiratory Rate 16 Blood Pressure 132/64 Pulse Oximetry 99 BMI result Body Mass Index 33.0 Labs 08/13/24 08:17 08/13/24 08:17 Medications Medications Current Medications Acetaminophen (Acetaminophen 325 Mg Tablet) 650 mg PO Q6H PRN PRN Reason: Headache/Pain Mild Scale (1-3) Last Admin: 08/18/24 17:42 Dose: 650 mg Al Hydroxide/Mg Hydroxide (Magnesium Hydrox/Alum Hydrox 30 Ml Oral.Susp) 30 ml PO Q6H PRN PRN Reason: Heartburn/Nausea Artificial Tears (Artificial Tears 15 Ml Drops) 1 drop EYE-BOTH Q4H PRN PRN Reason: Dry Eyes Last Admin: 08/02/24 16:09 Dose: 1 drop Atenolol (Atenolol 25 Mg Tablet) 25 mg PO DAILY [facility]; Protocol Last Admin: 08/18/24 08:06 Dose: 25 mg Atorvastatin Calcium (Atorvastatin Calcium 40 Mg Tablet) 40 mg PO BEDTIME ADRIANO Last Admin: 08/18/24 20:43 Dose: 40 mg Carbamazepine (Carbamazepine Er 200 Mg Tab.Er.12h) 400 mg PO BID ADRIANO Last Admin: 08/18/24 20:43 Dose: 400 mg Clonazepam (Clonazepam 0.5 Mg Tablet) 0.5 mg PO TID [facility] Last Admin: 08/18/24 20:43 Dose: 0.5 mg Docusate Sodium (Docusate Sodium 100 Mg Capsule) 100 mg PO TID [facility] Last Admin: 08/18/24 20:43 Dose: 100 mg Ezetimibe (Ezetimibe 10 Mg Tablet) 10 mg PO DAILY [facility] Last Admin: 08/18/24 08:06 Dose: 10 mg Escitalopram Oxalate (Escitalopram Oxalate 10 Mg Tablet) 10 mg PO DAILY [facility] Last Admin: 08/18/24 08:04 Dose: 10 mg Fluticasone Propionate (Fluticasone Propionate Nasal 16 Gm [place]) 1 spray NOSTRIL-B DAILY [facility] Last Admin: 08/18/24 11:05 Dose: Not Given Gemfibrozil (Gemfibrozil 600 Mg Tablet) 600 mg PO BID [facility] Last Admin: 08/18/24 20:43 Dose: 600 mg Hydroxyzine HCl (Hydroxyzine Hcl 25 Mg Tablet) 25 mg PO Q6H PRN PRN Reason: Anxiety Last Admin: 08/02/24 13:30 Dose: 25 mg Loratadine (Loratadine 10 Mg Tablet) 10 mg PO DAILY [facility] Last Admin: 08/18/24 08:05 Dose: 10 mg Lurasidone HCl (Lurasidone Hcl 40 Mg Tablet) 40 mg PO DAILY@1700 [facility] Last Admin: 08/18/24 17:30 Dose: 40 mg Magnesium Hydroxide (Milk Of Magnesia 30 Ml Oral.Susp) 30 ml PO DAILY PRN PRN Reason: Constipation Multi-Ingred Cream/Lotion/Oil/Oint (Mineral Oil/Petrolatum,White 106 Gm Tube) 1 appl TOPICAL TID PRN; Protocol PRN Reason: dry skin Nicotine Polacrilex (Nicotine Polacrilex 2 Mg Gum) 4 mg BUCCAL Q2H PRN PRN Reason: Nicotine Cravings Omeprazole (Omeprazole 40 Mg Capsule.Dr) 40 mg PO DAILY@0630 [facility] Last Admin: 08/18/24 07:08 Dose: 40 mg Risperidone (Risperidone 0.5 Mg Tablet) 0.5 mg PO TID PRN PRN Reason: Hallucinations Last Admin: 08/13/24 14:06 Dose: 0.5 mg Risperidone (Risperidone 3 Mg Tablet) 6 mg PO BEDTIME [facility] Last Admin: 08/18/24 20:43 Dose: 6 mg Senna (Sennosides 8.6 Mg Tablet) 8.6 mg PO BID [facility] Last Admin: 08/18/24 20:43 Dose: 8.6 mg Trazodone HCl (Trazodone Hcl 50 Mg Tablet) 50 mg PO BEDTIME MRX1 PRN PRN Reason: Insomnia Last Admin: 08/09/24 20:40 Dose: 50 mg Trazodone HCl (Trazodone Hcl 100 Mg Tablet) 100 mg PO BEDTIME ADRIANO Last Admin: 08/18/24 20:43 Dose: 100 mg Allergies Allergies Allergy/AdvReac Type Severity Reaction Status Date / Time ondansetron [From Zofran] Allergy Unknown Verified 07/28/24 22:30 Penicillins Allergy Unknown Verified 07/28/24 22:30 potassium Allergy Unknown Verified 07/28/24 22:30 prochlorperazine Allergy Unknown Verified 07/28/24 22:30 Assessment & Plan Assessment & Plan (1) Schizoaffective disorder, bipolar type: Status: Acute Code(s): F25.0 - Schizoaffective disorder, bipolar type (2) Autism spectrum disorder: Status: Acute Code(s): F84.0 - Autistic disorder (3) Intellectual disability: Status: Acute Code(s): F79 - Unspecified intellectual disabilities (4) Aarskog syndrome: Status: Acute Code(s): Q87.19 - Other congenital malformation syndromes predominantly associated with short stature Plan Patient is a 34-year-old male with severe ASD, intellectual disability, schizoaffective disorder with, history of behavioral outbursts, who resides at a [facility] residential facility and who presents from external ED for what certified wellness program coordinator reports is decompensation following discharge from [facility] admission about 4 weeks ago. publications manager reports patient has increased anxiety, paranoia and visual hallucinations as well as increased agitation related to AVH, which has resulted in the need for physical restraints. Patient with limited ability to participate in interview. Patient cooperative and calm. He says he misses his mother. He said I am feeling better... And then that he was going to lay down. He said he wanted to be in the hospital until he feels better... But could not discuss his feelings or what that would mean. Denies any SI or HI and says he is feeling safe. Patient does endorse auditory hallucinations which he he says bothers him, however when asked to discuss them further or what they say, he says I do not know and regarding medication that there is nothing to help... For the remainder of the day, patient sometimes in his room, sometimes in the hallway saying he wanted to call his mother or father, saying he misses them and wants to go home. Formulation/clinical reasoning: Patient has diagnosis of schizoaffective disorder, not sure if he actually has manic episodes and according to collateral, patient has not demonstrated psychotic symptoms until this fall. Still he has been on antipsychotics for years. -Guardian paperwork in chart; parents are guardians -No HCP - [place] Diagnosis: -Says diagnosis is schizoaffective, bipolar type however she has no knowledge of any discrete manic episodes; he has some history of depressive episodes -Does not blink: Supposed to be on Restasis/cyclosporine ophthalmic; not sure dose; discussed with pharmacist who reports typically this is 0.05% solution 1 drop b.i.d. (other places say 0.1%) -Aarkskog syndrome -ASD -OCD -has chronic extremely dry skin (eczema?) for which he has some medicated cream; mother not sure the name -Said there was a plan to get MRI of the brain since change seemed somewhat sudden Hospital course: 07/30 Patient remains fearful; can be friendly and cooperative but seems very anxious and cautious. Visual hallucinations patient saying he can see his mother in the room and talking to her Still not going into bathroom, with recent history of being afraid of bathroom; thus patient Incontinent of urine, sitting in wet clothes and refusing to change today, willing to sign CV reiterating he wants to be here for treatment ( to feel better ) -left for outpatient provider [facility] to discuss tx hx 07/31 patient remains cautious and intermittently fearful but is also warming up a bit to some staff, primarily female staff. He says he is feeling better but behaviors remain decompensated. Willing to change out of clothes today with staff encouragement and have them washed; also talked to his mother on the phone today which he said made him happy. Patient willing to use lotion for try facial skin Collateral:[place] discussed case with patient's mother who reports that behaviors decompensated this April after he returned from vacation with his father. At that time he started packing up his stuff, saying he wanted to move out of the [place] [facility]; was taking lots of showers, self dialogue Ng, saying he could see his mother in the room, saying he thought his mother was and refusing to talk to her on the phone. For those reasons This past May he went to [facility] where he was started on Vraylar (and refused to take Latuda). He returned to the [place] [facility] but remained confused, disorganized, paranoid. At 1 point he would not leave the living room at all, incontinent, afraid to go into the bathroom or to shower which resulted in this hospitalization. Some history of aggression for which he was hospitalized a year ago; only mild aggression in [facility] this time around. -left another message with national secretary for [facility] 08/01 mostly same presentation, continued AH which are bothersome; more comfortable with staff and allowing them to help him attending ADLs including bathing. -script writer did get a call back from [facility]; script writer return call and left message 08/02 Patient continues to say I am feeling much better however this does not seem to correlate with any improvement in symptoms as he continues to have AH, is afraid of his room, incontinent of urine because afraid of going to the bathroom and continually saying that he sees his mother in his room. Patient does not respond much to reality testing. He does say he would like other medications to help make the voices go away. -given discussion below, will DC Vraylar since no clear indication of bipolar depression; already on 3 antipsychotics and does not seem effective. Instead will try Risperdal. -will start to try to eliminate pharmacy; need to find out what medication regimen patient was on this past summer during which time he was doing well Collateral: Again discussed case with patient's mother. -She reports he was doing great this past summer; not sure what his medication regimen was at that time -says was on Tegretol for years; for some reason [facility] took him off of it (was restarted at this hospitalization) -says was on clomipramine for OCD since 7 years old and did well on it; not sure why he was taken off a year ago -to her knowledge Latuda was supposed to be discontinued since he was never really taking it; Vraylar was also started at [facility] which has not seemed to help. -Has been on Zyprexa for a while; not sure efficacy --drools consistently at baseline; she said she has asked in the past for medication for this 08/03 Patient reports that he is feeling a lot better which is what he says to script writer every day. He denies any AH. Also says he has not been seeing his mother. Difficult to tell if this is the case or not so will continue to monitor. Patient did ask for a stuffed animal or something about a stuffed animal but it was not clear. -briefly spoke with outpatient provider Huma who said she was 1 who started him on Vraylar -continue with Risperdal 08/04 No change in presentation; still disorganized, fearful, incontinent, hardly moving from room. Not sleeping at night but will tell script writer I slept very good... . Continues to say the same refrain I feel a lot better... 08/05 meeting with outpt team stable on Tegretol and latuda for years until sudden decompensation this fall at which time pt presented with same symptoms he has currently. Prior to this stable and functional in many ways, all ADL's, organized and quite capable; no psychosis; read/write/send emails 08/06 no change in presentation and pt remains disorganized, sitting in own defecate; has AH. Hardly sleeping at night. sitting in one spot for most of the day. -intermittently refusing medications -pt refusing labs -feet are both swollen; hospitalist examined -infection on both side of bridge of nose where glasses sit on nose; pt allowed antibiotic ointment to be applied History that patient was stable on Tegretol and Latuda for at least a year; Latuda was lowered in the springtime to 40 mg, down from 60 since patient said was making him tired. He remained stable until this fall when he suddenly decompensated, unable to accept reality, incontinent, afraid of multiple things, thinking his mom's , forgetting people are Medication: pt was stable on Tegretol and Latuda for years until this fall -for now, will continue on Tegretol and Latuda -dc'd vraylar -started risperdal and increased to 4mg, scheduled it at bedtime to help w/ sleep -consider CT scan brain given sudden onset of symptoms, though was several months ago at this point 12/16 Still no change in presentation; refusing eyedrops. Remains scared to go out of his room. Did allow for bacitracin and sores on bilateral bridge of his nose are better.08/10 Still no change in presentation; refusing eyedrops. Remains scared to go out of his room. Did allow for bacitracin and sores on bilateral bridge of his nose are better. 08/11 Again no change in presentation; refusing labs. Will continue to retry before forcing them. Will try to get head CT. Continues to refuse eyedrops. Will give a little longer on Risperdal 4 mg 08/12 increased Risperdal to 6 mg 08/13 1st day of actual improvement in that patient allowed lab work. That said, he also threw mattress/belongings into the hallway, talking about a 90 yo neighbor he wants to -labs WNL -refused head CT; since he allowed labs, still will try to see if he will comply with head CT hoping to avoid the trauma of forcing him 08/14 Patient out in the milieu today, 1st time in over a week. Furthermore Patient actually using the bathroom today on his own, with significant encouragement from staff and a verbal plan; throughout the day patient was able to get himself to the bathroom rather than remain incontinent and inside close, which he has continually done since admission. Patient also seems more cheerful. -Again refused head CT but since getting better, will hold off from this for now -continue with increased Risperdal dose of 6 mg 08/17 remains somewhat improved. Patient pleasant and out in the milieu. Throughout the weekend he has been using the bathroom and not been incontinent which christie consistent improvement since admission. Also allowing staff to help him brush his teeth. Patient is normally, when at baseline, able to do all these things on his own, maybe with some prompting but independently. -will continue with current regimen for now as patient continues to improve -will continue to keep in mind that patient has a history of OCD and that he may benefit and improve from restarting clomipramine; however as psychosis and disorganized behavior is the main concern will continue to focus treatment in this area now. 08/19: Continue current regime/plan. PLAN: CV *guardians have authorized script writer, staff to administer any/all medical treatments even if against patients will q15 min checks Continue with Risperdal 6 mg qhs -Add Risperdal 0.5 mg t.i.d. p.r.n. for breakthrough AVH -for now, Continue Latuda 40 mg daily at dinnertime (used to be on 60mg) -Continue Tegretol 400mg BID (was stable on this in past) -DC Vraylar 3 mg; this was started by outpatient provider; does not seem to have helped much and no clear indication for bipolar depression (also patient already on 3 antipsychotics) -DC'd Zyprexa: has caused DM/elevated Cholesterol/wt gain -temporarily Start artificial tears; refusing -Will get prescription for Restasis/cyclosporin -consider restarting clomipramine for OCD ( clomipramine 100 mg b.i.d. for OCD in the past around 2014; for some reason it was dc'd at some point; restarted 2022 but not continued after that). -consider glycopyrrolate for excessive drooling -will consider getting MRI, however patient's symptoms are congruent with diagnosis Reason for continued inpatient stay Substantial Risk for: rapid decompensation Time Spent With Patient Time: Total time managing care of this patient today ____ minutes.
[2024-08-19] MEDS: Loratadine 10 MG TABLET PO (09:58)
[2024-08-19] MEDS: clonazePAM 0.5 MG TABLET PO ×3 (09:58→20:18)
[2024-08-19] MEDS: Docusate Sodium 100 MG CAPSULE PO ×3 (09:58→20:18)
[2024-08-19] MEDS: Acetaminophen 325 MG TABLET 650 MG PO ×2 (09:58→17:31)
[2024-08-19 09:59] VITALS: BP 120/80; PULSE 80
[2024-08-19] MEDS: Sennosides 8.6 MG TABLET PO ×2 (09:59→20:18)
[2024-08-19] MEDS: atenoloL 25 MG TABLET PO (09:59)
[2024-08-19] MEDS: Ezetimibe 10 MG TABLET PO (09:59)
[2024-08-19] MEDS: Omeprazole 40 MG CAPSULE.DR PO (10:00)
[2024-08-19] MEDS: Escitalopram Oxalate 10 MG TABLET PO (10:00)
[2024-08-19] MEDS: carBAMazepine ER 200 MG TAB.ER.12H 400 MG PO ×2 (10:00→20:17)
[2024-08-19] MEDS: gemfibroziL 600 MG TABLET PO ×2 (10:01→20:18)
[2024-08-19] MEDS: Fluticasone Propionate Nasal 16 GM SPRAY 1 SPRAY NOSTRIL-B (10:01)
[2024-08-19] MEDS: Lurasidone HCl 40 MG TABLET PO (17:04)
[2024-08-19 19:53] VITALS: BP 156/83; PULSE 78; RESP 15; TEMP 36.8; O2SAT 98
[2024-08-19] MEDS: risperiDONE 3 MG TABLET 6 MG PO (20:17)
[2024-08-19] MEDS: Atorvastatin Calcium 40 MG TABLET PO (20:18)
[2024-08-19] MEDS: traZODone HCL 100 MG TABLET PO (20:18)
[2024-08-20] MEDS: Omeprazole 40 MG CAPSULE.DR PO (06:28)
[2024-08-20] MEDS: carBAMazepine ER 200 MG TAB.ER.12H 400 MG PO ×2 (08:05→20:11)
[2024-08-20] MEDS: Loratadine 10 MG TABLET PO (08:06)
[2024-08-20] MEDS: Docusate Sodium 100 MG CAPSULE PO ×3 (08:06→20:11)
[2024-08-20] MEDS: gemfibroziL 600 MG TABLET PO ×2 (08:06→20:11)
[2024-08-20] MEDS: clonazePAM 0.5 MG TABLET PO ×3 (08:06→20:11)
[2024-08-20] MEDS: Escitalopram Oxalate 10 MG TABLET PO (08:07)
[2024-08-20] MEDS: Sennosides 8.6 MG TABLET PO ×2 (08:07→20:11)
[2024-08-20] MEDS: Ezetimibe 10 MG TABLET PO (08:07)
[2024-08-20] MEDS: Fluticasone Propionate Nasal 16 GM SPRAY 1 SPRAY NOSTRIL-B (08:11)
[2024-08-20 08:12] VITALS: BP 152/66; PULSE 100
[2024-08-20] MEDS: atenoloL 25 MG TABLET PO (08:12)
[2024-08-20 08:14] VITALS: BP 152/66; PULSE 79; RESP 20; TEMP 36.3; O2SAT 100
--- NOTE | 2024-08-20 09:32 | P.PNPSI_ITS ---
Subjective Subjective Date of Service: 08/20/24 Reason For Visit: Schioafective disorder bipolar type Subjective Notes: Conditional Voluntary Interim History: Pt declined to shower this morning and appears unkempt. He reports he is doing well. He reports he like it here very much. He reports staff and others are nice to him. He denies SI/HI. He then ramble about different family members and other people in his life who he felt cared about him. Diagnostics Vital Signs (24Hr): Vital Signs - 24 hr 08/19/24 09:59 08/19/24 19:53 08/20/24 08:12 Temperature 98.2 F Pulse Rate 80 78 100 Respiratory Rate 15 Blood Pressure 120/80 156/83 H 152/66 H Pulse Oximetry 98 Oxygen Delivery Method 08/20/24 08:14 Temperature 97.3 F Pulse Rate 79 Respiratory Rate 20 Blood Pressure 152/66 H Pulse Oximetry 100 Oxygen Delivery Method Room Air BMI result Body Mass Index 33.0 Labs 08/13/24 08:17 08/13/24 08:17 Medications Medications Current Medications Acetaminophen (Acetaminophen 325 Mg Tablet) 650 mg PO Q6H PRN PRN Reason: Headache/Pain Mild Scale (1-3) Last Admin: 08/19/24 17:31 Dose: 650 mg Al Hydroxide/Mg Hydroxide (Magnesium Hydrox/Alum Hydrox 30 Ml Oral.Susp) 30 ml PO Q6H PRN PRN Reason: Heartburn/Nausea Artificial Tears (Artificial Tears 15 Ml Drops) 1 drop EYE-BOTH Q4H PRN PRN Reason: Dry Eyes Last Admin: 08/02/24 16:09 Dose: 1 drop Atenolol (Atenolol 25 Mg Tablet) 25 mg PO DAILY [facility]; Protocol Last Admin: 08/20/24 08:12 Dose: 25 mg Atorvastatin Calcium (Atorvastatin Calcium 40 Mg Tablet) 40 mg PO BEDTIME [facility] Last Admin: 08/19/24 20:18 Dose: 40 mg Carbamazepine (Carbamazepine Er 200 Mg Tab.Er.12h) 400 mg PO BID [facility] Last Admin: 08/20/24 08:05 Dose: 400 mg Clonazepam (Clonazepam 0.5 Mg Tablet) 0.5 mg PO TID [facility] Last Admin: 08/20/24 08:06 Dose: 0.5 mg Docusate Sodium (Docusate Sodium 100 Mg Capsule) 100 mg PO TID [facility] Last Admin: 08/20/24 08:06 Dose: 100 mg Ezetimibe (Ezetimibe 10 Mg Tablet) 10 mg PO DAILY [facility] Last Admin: 08/20/24 08:07 Dose: 10 mg Escitalopram Oxalate (Escitalopram Oxalate 10 Mg Tablet) 10 mg PO DAILY [facility] Last Admin: 08/20/24 08:07 Dose: 10 mg Fluticasone Propionate (Fluticasone Propionate Nasal 16 Gm [place]) 1 spray NOSTRIL-B DAILY [facility] Last Admin: 08/20/24 08:11 Dose: 1 spray Gemfibrozil (Gemfibrozil 600 Mg Tablet) 600 mg PO BID [facility] Last Admin: 08/20/24 08:06 Dose: 600 mg Hydroxyzine HCl (Hydroxyzine Hcl 25 Mg Tablet) 25 mg PO Q6H PRN PRN Reason: Anxiety Last Admin: 08/02/24 13:30 Dose: 25 mg Loratadine (Loratadine 10 Mg Tablet) 10 mg PO DAILY [facility] Last Admin: 08/20/24 08:06 Dose: 10 mg Lurasidone HCl (Lurasidone Hcl 40 Mg Tablet) 40 mg PO DAILY@1700 [facility] Last Admin: 08/19/24 17:04 Dose: 40 mg Magnesium Hydroxide (Milk Of Magnesia 30 Ml Oral.Susp) 30 ml PO DAILY PRN PRN Reason: Constipation Multi-Ingred Cream/Lotion/Oil/Oint (Mineral Oil/Petrolatum,White 106 Gm Tube) 1 appl TOPICAL TID PRN; Protocol PRN Reason: dry skin Nicotine Polacrilex (Nicotine Polacrilex 2 Mg Gum) 4 mg BUCCAL Q2H PRN PRN Reason: Nicotine Cravings Omeprazole (Omeprazole 40 Mg Capsule.Dr) 40 mg PO DAILY@0630 [facility] Last Admin: 08/20/24 06:28 Dose: 40 mg Risperidone (Risperidone 0.5 Mg Tablet) 0.5 mg PO TID PRN PRN Reason: Hallucinations Last Admin: 08/13/24 14:06 Dose: 0.5 mg Risperidone (Risperidone 3 Mg Tablet) 6 mg PO BEDTIME [facility] Last Admin: 08/19/24 20:17 Dose: 6 mg Senna (Sennosides 8.6 Mg Tablet) 8.6 mg PO BID [facility] Last Admin: 08/20/24 08:07 Dose: 8.6 mg Trazodone HCl (Trazodone Hcl 50 Mg Tablet) 50 mg PO BEDTIME MRX1 PRN PRN Reason: Insomnia Last Admin: 08/09/24 20:40 Dose: 50 mg Trazodone HCl (Trazodone Hcl 100 Mg Tablet) 100 mg PO BEDTIME [facility] Last Admin: 08/19/24 20:18 Dose: 100 mg Allergies Allergies Allergy/AdvReac Type Severity Reaction Status Date / Time ondansetron [From Zofran] Allergy Unknown Verified 07/28/24 22:30 Penicillins Allergy Unknown Verified 07/28/24 22:30 potassium Allergy Unknown Verified 07/28/24 22:30 prochlorperazine Allergy Unknown Verified 07/28/24 22:30 Assessment & Plan Assessment & Plan (1) Schizoaffective disorder, bipolar type: Status: Acute Code(s): F25.0 - Schizoaffective disorder, bipolar type (2) Autism spectrum disorder: Status: Acute Code(s): F84.0 - Autistic disorder (3) Intellectual disability: Status: Acute Code(s): F79 - Unspecified intellectual disabilities (4) Aarskog syndrome: Status: Acute Code(s): Q87.19 - Other congenital malformation syndromes predominantly associated with short stature Plan Patient is a 34-year-old male with severe ASD, intellectual disability, schizoaffective disorder with, history of behavioral outbursts, who resides at a [facility] residential facility and who presents from external ED for what coordinator skill training program reports is decompensation following discharge from [facility] admission about 4 weeks ago. area development manager reports patient has increased anxiety, paranoia and visual hallucinations as well as increased agitation related to AVH, which has resulted in the need for physical restraints. Patient with limited ability to participate in interview. Patient cooperative and calm. He says he misses his mother. He said I am feeling better... And then that he was going to lay down. He said he wanted to be in the hospital until he feels better... But could not discuss his feelings or what that would mean. Denies any SI or HI and says he is feeling safe. Patient does endorse auditory hallucinations which he he says bothers him, however when asked to discuss them further or what they say, he says I do not know and regarding medication that there is nothing to help... For the remainder of the day, patient sometimes in his room, sometimes in the hallway saying he wanted to call his mother or father, saying he misses them and wants to go home. Formulation/clinical reasoning: Patient has diagnosis of schizoaffective disorder, not sure if he actually has manic episodes and according to collateral, patient has not demonstrated psychotic symptoms until this fall. Still he has been on antipsychotics for years. -Guardian paperwork in chart; parents are guardians -No HCP - [place] Diagnosis: -Says diagnosis is schizoaffective, bipolar type however she has no knowledge of any discrete manic episodes; he has some history of depressive episodes -Does not blink: Supposed to be on Restasis/cyclosporine ophthalmic; not sure dose; discussed with pharmacist who reports typically this is 0.05% solution 1 drop b.i.d. (other places say 0.1%) -Aarkskog syndrome -ASD -OCD -has chronic extremely dry skin (eczema?) for which he has some medicated cream; mother not sure the name -Said there was a plan to get MRI of the brain since change seemed somewhat sudden Hospital course: 07/30 Patient remains fearful; can be friendly and cooperative but seems very anxious and cautious. Visual hallucinations patient saying he can see his mother in the room and talking to her Still not going into bathroom, with recent history of being afraid of bathroom; thus patient Incontinent of urine, sitting in wet clothes and refusing to change today, willing to sign CV reiterating he wants to be here for treatment ( to feel better ) -left VM for outpatient provider Nat Lee to discuss tx hx 07/31 patient remains cautious and intermittently fearful but is also warming up a bit to some staff, primarily female staff. He says he is feeling better but behaviors remain decompensated. Willing to change out of clothes today with staff encouragement and have them washed; also talked to his mother on the phone today which he said made him happy. Patient willing to use lotion for try facial skin Collateral:Rabbit Breeder discussed case with patient's mother who reports that behaviors decompensated this April after he returned from vacation with his father. At that time he started packing up his stuff, saying he wanted to move out of the fdc; was taking lots of showers, self dialogue Ng, saying he could see his mother in the room, saying he thought his mother was and refusing to talk to her on the phone. For those reasons This past May he went to [facility] where he was started on Vraylar (and refused to take Latuda). He returned to the fdc but remained confused, disorganized, paranoid. At 1 point he would not leave the living room at all, incontinent, afraid to go into the bathroom or to shower which resulted in this hospitalization. Some history of aggression for which he was hospitalized a year ago; only mild aggression in fdc this time around. -left another message with marketing consultant for Nat Lee 08/01 mostly same presentation, continued AH which are bothersome; more comfortable with staff and allowing them to help him attending ADLs including bathing. -newspaper writer did get a call back from Nat Lee; newspaper writer return call and left message 08/02 Patient continues to say I am feeling much better however this does not seem to correlate with any improvement in symptoms as he continues to have AH, is afraid of his room, incontinent of urine because afraid of going to the bathroom and continually saying that he sees his mother in his room. Patient does not respond much to reality testing. He does say he would like other medications to help make the voices go away. -given discussion below, will DC Vraylar since no clear indication of bipolar depression; already on 3 antipsychotics and does not seem effective. Instead will try Risperdal. -will start to try to eliminate pharmacy; need to find out what medication regimen patient was on this past summer during which time he was doing well Collateral: Again discussed case with patient's mother. -She reports he was doing great this past summer; not sure what his medication regimen was at that time -says was on Tegretol for years; for some reason [facility] took him off of it (was restarted at this hospitalization) -says was on clomipramine for OCD since 7 years old and did well on it; not sure why he was taken off a year ago -to her knowledge Latuda was supposed to be discontinued since he was never really taking it; Vraylar was also started at [facility] which has not seemed to help. -Has been on Zyprexa for a while; not sure efficacy --drools consistently at baseline; she said she has asked in the past for medication for this 08/03 Patient reports that he is feeling a lot better which is what he says to newspaper writer every day. He denies any AH. Also says he has not been seeing his mother. Difficult to tell if this is the case or not so will continue to monitor. Patient did ask for a stuffed animal or something about a stuffed animal but it was not clear. -briefly spoke with outpatient provider Huma who said she was 1 who started him on Vraylar -continue with Risperdal 08/04 No change in presentation; still disorganized, fearful, incontinent, hardly moving from room. Not sleeping at night but will tell newspaper writer I slept very good... . Continues to say the same refrain I feel a lot better... 08/05 meeting with outpt team stable on Tegretol and latuda for years until sudden decompensation this fall at which time pt presented with same symptoms he has currently. Prior to this stable and functional in many ways, all ADL's, organized and quite capable; no psychosis; read/write/send emails 08/06 no change in presentation and pt remains disorganized, sitting in own defecate; has AH. Hardly sleeping at night. sitting in one spot for most of the day. -intermittently refusing medications -pt refusing labs -feet are both swollen; hospitalist examined -infection on both side of bridge of nose where glasses sit on nose; pt allowed antibiotic ointment to be applied History that patient was stable on Tegretol and Latuda for at least a year; Latuda was lowered in the springtime to 40 mg, down from 60 since patient said was making him tired. He remained stable until this fall when he suddenly decompensated, unable to accept reality, incontinent, afraid of multiple things, thinking his mom's , forgetting people are Medication: pt was stable on Tegretol and Latuda for years until this fall -for now, will continue on Tegretol and Latuda -dc'd vraylar -started risperdal and increased to 4mg, scheduled it at bedtime to help w/ sleep -consider CT scan brain given sudden onset of symptoms, though was several months ago at this point 08/10 Still no change in presentation; refusing eyedrops. Remains scared to go out of his room. Did allow for bacitracin and sores on bilateral bridge of his nose are better.08/10 Still no change in presentation; refusing eyedrops. Remains scared to go out of his room. Did allow for bacitracin and sores on bilateral bridge of his nose are better. 08/11 Again no change in presentation; refusing labs. Will continue to retry before forcing them. Will try to get head CT. Continues to refuse eyedrops. Will give a little longer on Risperdal 4 mg 08/12 increased Risperdal to 6 mg 08/13 1st day of actual improvement in that patient allowed lab work. That said, he also threw mattress/belongings into the hallway, talking about a 90 yo neighbor he wants to -labs WNL -refused head CT; since he allowed labs, still will try to see if he will comply with head CT hoping to avoid the trauma of forcing him 08/14 Patient out in the milieu today, 1st time in over a week. Furthermore Patient actually using the bathroom today on his own, with significant encouragement from staff and a verbal plan; throughout the day patient was able to get himself to the bathroom rather than remain incontinent and inside close, which he has continually done since admission. Patient also seems more cheerful. -Again refused head CT but since getting better, will hold off from this for now -continue with increased Risperdal dose of 6 mg 08/17 remains somewhat improved. Patient pleasant and out in the milieu. Throughout the weekend he has been using the bathroom and not been incontinent which christie consistent improvement since admission. Also allowing staff to help him brush his teeth. Patient is normally, when at baseline, able to do all these things on his own, maybe with some prompting but independently. -will continue with current regimen for now as patient continues to improve -will continue to keep in mind that patient has a history of OCD and that he may benefit and improve from restarting clomipramine; however as psychosis and disorganized behavior is the main concern will continue to focus treatment in this area now 08/20 continue tx. PLAN: CV *guardians have authorized newspaper writer, staff to administer any/all medical treatments even if against patients will q15 min checks Continue with Risperdal 6 mg qhs -Add Risperdal 0.5 mg t.i.d. p.r.n. for breakthrough AVH -for now, Continue Latuda 40 mg daily at dinnertime (used to be on 60mg) -Continue Tegretol 400mg BID (was stable on this in past) -DC Vraylar 3 mg; this was started by outpatient provider; does not seem to have helped much and no clear indication for bipolar depression (also patient already on 3 antipsychotics) -DC'd Zyprexa: has caused DM/elevated Cholesterol/wt gain -temporarily Start artificial tears; refusing -Will get prescription for Restasis/cyclosporin -consider restarting clomipramine for OCD ( clomipramine 100 mg b.i.d. for OCD in the past around 2014; for some reason it was dc'd at some point; restarted 2022 but not continued after that). -consider glycopyrrolate for excessive drooling -will consider getting MRI, however patient's symptoms are congruent with diagnosis Reason for continued inpatient stay Substantial Risk for: inability to function Time Spent With Patient Time: Total time managing care of this patient today ____ minutes.
[2024-08-20] MEDS: Lurasidone HCl 40 MG TABLET PO (15:59)
[2024-08-20] MEDS: traZODone HCL 100 MG TABLET PO (20:11)
[2024-08-20] MEDS: Atorvastatin Calcium 40 MG TABLET PO (20:11)
[2024-08-20] MEDS: risperiDONE 3 MG TABLET 6 MG PO (20:11)
[2024-08-21 08:00] VITALS: BP 137/75; PULSE 78; RESP 16; TEMP 37.1; O2SAT 100
[2024-08-21] MEDS: carBAMazepine ER 200 MG TAB.ER.12H 400 MG PO ×2 (08:42→21:35)
[2024-08-21 08:43] VITALS: BP 137/75
[2024-08-21] MEDS: gemfibroziL 600 MG TABLET PO ×2 (08:43→21:35)
[2024-08-21] MEDS: Escitalopram Oxalate 10 MG TABLET PO (08:43)
[2024-08-21] MEDS: Docusate Sodium 100 MG CAPSULE PO ×3 (08:43→21:35)
[2024-08-21] MEDS: atenoloL 25 MG TABLET PO (08:43)
[2024-08-21] MEDS: Omeprazole 40 MG CAPSULE.DR PO (08:43)
[2024-08-21] MEDS: clonazePAM 0.5 MG TABLET PO ×3 (08:43→21:35)
[2024-08-21] MEDS: Sennosides 8.6 MG TABLET PO ×2 (08:43→21:35)
[2024-08-21] MEDS: Ezetimibe 10 MG TABLET PO (08:43)
[2024-08-21] MEDS: Loratadine 10 MG TABLET PO (08:43)
--- NOTE | 2024-08-21 10:15 | HO.PSYCHPN ---
Subjective Subjective Date of Service: 08/21/24 Reason For Visit: Schioafective disorder bipolar type Interim History: Met with patient; discussed with team Patient remains doing better. Still not dressing himself or taking a shower but seems to be doing more more ADLs. Denies any AH. Mental Status Exam Mental Status Exam Narrative: Pt is alert and oriented; behavior is more organized and cooperative, also more calm; using toilet on his own; patient is not in distress; dressed in hospital attire, improved hygiene though still no shower; drooling; mood is described as good though affect congruent, more calm and a little brighter; eye contact appropriate; Speech remains a little garbled which is baseline; normal rate, volume; uses few words; not pressured; no psychomotor agitation/retardation present; thought process is concrete, goal directed, asks for needs; Thought content remains with some paranoid delusions but seems to be less intense; AH, missing parents; otherwise pertinent to relevant topics; no overt delusional content expressed; denies any SI/HI. +AH and internally preoccupied. Patients insight and judgment impaired. Diagnostics Vital Signs (24Hr): Vital Signs - 24 hr 08/21/24 08:00 08/21/24 08:43 Temperature 98.8 F Pulse Rate 78 Respiratory Rate 16 Blood Pressure 137/75 137/75 Pulse Oximetry 100 Oxygen Delivery Method Room Air BMI result Body Mass Index 33.0 Labs 08/13/24 08:17 08/13/24 08:17 Medications Medications Current Medications Acetaminophen (Acetaminophen 325 Mg Tablet) 650 mg PO Q6H PRN PRN Reason: Headache/Pain Mild Scale (1-3) Last Admin: 08/19/24 17:31 Dose: 650 mg Al Hydroxide/Mg Hydroxide (Magnesium Hydrox/Alum Hydrox 30 Ml Oral.Susp) 30 ml PO Q6H PRN PRN Reason: Heartburn/Nausea Artificial Tears (Artificial Tears 15 Ml Drops) 1 drop EYE-BOTH Q4H PRN PRN Reason: Dry Eyes Last Admin: 08/02/24 16:09 Dose: 1 drop Atenolol (Atenolol 25 Mg Tablet) 25 mg PO DAILY ADRIANO; Protocol Last Admin: 08/21/24 08:43 Dose: 25 mg Atorvastatin Calcium (Atorvastatin Calcium 40 Mg Tablet) 40 mg PO BEDTIME ADRIANO Last Admin: 08/20/24 20:11 Dose: 40 mg Carbamazepine (Carbamazepine Er 200 Mg Tab.Er.12h) 400 mg PO BID [facility] Last Admin: 08/21/24 08:42 Dose: 400 mg Clonazepam (Clonazepam 0.5 Mg Tablet) 0.5 mg PO TID [facility] Last Admin: 08/21/24 08:43 Dose: 0.5 mg Docusate Sodium (Docusate Sodium 100 Mg Capsule) 100 mg PO TID [facility] Last Admin: 08/21/24 08:43 Dose: 100 mg Ezetimibe (Ezetimibe 10 Mg Tablet) 10 mg PO DAILY [facility] Last Admin: 08/21/24 08:43 Dose: 10 mg Escitalopram Oxalate (Escitalopram Oxalate 10 Mg Tablet) 10 mg PO DAILY [facility] Last Admin: 08/21/24 08:43 Dose: 10 mg Fluticasone Propionate (Fluticasone Propionate Nasal 16 Gm Velpen) 1 spray NOSTRIL-B DAILY [facility] Last Admin: 08/20/24 08:11 Dose: 1 spray Gemfibrozil (Gemfibrozil 600 Mg Tablet) 600 mg PO BID [facility] Last Admin: 08/21/24 08:43 Dose: 600 mg Hydroxyzine HCl (Hydroxyzine Hcl 25 Mg Tablet) 25 mg PO Q6H PRN PRN Reason: Anxiety Last Admin: 08/02/24 13:30 Dose: 25 mg Loratadine (Loratadine 10 Mg Tablet) 10 mg PO DAILY [facility] Last Admin: 08/21/24 08:43 Dose: 10 mg Lurasidone HCl (Lurasidone Hcl 40 Mg Tablet) 40 mg PO DAILY@1700 [facility] Last Admin: 08/20/24 15:59 Dose: 40 mg Magnesium Hydroxide (Milk Of Magnesia 30 Ml Oral.Susp) 30 ml PO DAILY PRN PRN Reason: Constipation Multi-Ingred Cream/Lotion/Oil/Oint (Mineral Oil/Petrolatum,White 106 Gm Tube) 1 appl TOPICAL TID PRN; Protocol PRN Reason: dry skin Nicotine Polacrilex (Nicotine Polacrilex 2 Mg Gum) 4 mg BUCCAL Q2H PRN PRN Reason: Nicotine Cravings Omeprazole (Omeprazole 40 Mg Capsule.Dr) 40 mg PO DAILY@0630 [facility] Last Admin: 08/21/24 08:43 Dose: 40 mg Risperidone (Risperidone 0.5 Mg Tablet) 0.5 mg PO TID PRN PRN Reason: Hallucinations Last Admin: 08/13/24 14:06 Dose: 0.5 mg Risperidone (Risperidone 3 Mg Tablet) 6 mg PO BEDTIME ADRIANO Last Admin: 08/20/24 20:11 Dose: 6 mg Senna (Sennosides 8.6 Mg Tablet) 8.6 mg PO BID ADRIANO Last Admin: 08/21/24 08:43 Dose: 8.6 mg Trazodone HCl (Trazodone Hcl 50 Mg Tablet) 50 mg PO BEDTIME MRX1 PRN PRN Reason: Insomnia Last Admin: 08/09/24 20:40 Dose: 50 mg Trazodone HCl (Trazodone Hcl 100 Mg Tablet) 100 mg PO BEDTIME ADRIANO Last Admin: 08/20/24 20:11 Dose: 100 mg Allergies Allergies Allergy/AdvReac Type Severity Reaction Status Date / Time ondansetron [From Zofran] Allergy Unknown Verified 07/28/24 22:30 Penicillins Allergy Unknown Verified 07/28/24 22:30 potassium Allergy Unknown Verified 07/28/24 22:30 prochlorperazine Allergy Unknown Verified 07/28/24 22:30 Assessment & Plan Assessment & Plan (1) Schizoaffective disorder, bipolar type: Status: Acute Code(s): F25.0 - Schizoaffective disorder, bipolar type (2) Autism spectrum disorder: Status: Acute Code(s): F84.0 - Autistic disorder (3) Intellectual disability: Status: Acute Code(s): F79 - Unspecified intellectual disabilities (4) Aarskog syndrome: Status: Acute Code(s): Q87.19 - Other congenital malformation syndromes predominantly associated with short stature Plan Patient is a 34-year-old male with severe ASD, intellectual disability, schizoaffective disorder with, history of behavioral outbursts, who resides at a [facility] residential facility and who presents from external ED for what vba programmer reports is decompensation following discharge from [facility] admission about 4 weeks ago. network operations manager reports patient has increased anxiety, paranoia and visual hallucinations as well as increased agitation related to AVH, which has resulted in the need for physical restraints. Patient with limited ability to participate in interview. Patient cooperative and calm. He says he misses his mother. He said I am feeling better... And then that he was going to lay down. He said he wanted to be in the hospital until he feels better... But could not discuss his feelings or what that would mean. Denies any SI or HI and says he is feeling safe. Patient does endorse auditory hallucinations which he he says bothers him, however when asked to discuss them further or what they say, he says I do not know and regarding medication that there is nothing to help... For the remainder of the day, patient sometimes in his room, sometimes in the hallway saying he wanted to call his mother or father, saying he misses them and wants to go home. Formulation/clinical reasoning: Patient has diagnosis of schizoaffective disorder, not sure if he actually has manic episodes and according to collateral, patient has not demonstrated psychotic symptoms until this fall. Still he has been on antipsychotics for years. -Guardian paperwork in chart; parents are guardians -No HCP - [place] Diagnosis: -Says diagnosis is schizoaffective, bipolar type however she has no knowledge of any discrete manic episodes; he has some history of depressive episodes -Does not blink: Supposed to be on Restasis/cyclosporine ophthalmic; not sure dose; discussed with pharmacist who reports typically this is 0.05% solution 1 drop b.i.d. (other places say 0.1%) -Aarkskog syndrome -ASD -OCD -has chronic extremely dry skin (eczema?) for which he has some medicated cream; mother not sure the name -Said there was a plan to get MRI of the brain since change seemed somewhat sudden Hospital course: 07/30 Patient remains fearful; can be friendly and cooperative but seems very anxious and cautious. Visual hallucinations patient saying he can see his mother in the room and talking to her Still not going into bathroom, with recent history of being afraid of bathroom; thus patient Incontinent of urine, sitting in wet clothes and refusing to change today, willing to sign CV reiterating he wants to be here for treatment ( to feel better ) -left VM for outpatient provider Nat Lee to discuss tx hx 07/31 patient remains cautious and intermittently fearful but is also warming up a bit to some staff, primarily female staff. He says he is feeling better but behaviors remain decompensated. Willing to change out of clothes today with staff encouragement and have them washed; also talked to his mother on the phone today which he said made him happy. Patient willing to use lotion for try facial skin Collateral:Sorter Operator discussed case with patient's mother who reports that behaviors decompensated this April after he returned from vacation with his father. At that time he started packing up his stuff, saying he wanted to move out of the skilled nursing; was taking lots of showers, self dialogue Ng, saying he could see his mother in the room, saying he thought his mother was and refusing to talk to her on the phone. For those reasons This past May he went to [facility] where he was started on Vraylar (and refused to take Latuda). He returned to the skilled nursing but remained confused, disorganized, paranoid. At 1 point he would not leave the living room at all, incontinent, afraid to go into the bathroom or to shower which resulted in this hospitalization. Some history of aggression for which he was hospitalized a year ago; only mild aggression in skilled nursing this time around. -left another message with secretary to board of commissioners for Nat Lee 08/01 mostly same presentation, continued AH which are bothersome; more comfortable with staff and allowing them to help him attending ADLs including bathing. -investment underwriter did get a call back from Nat Lee; investment underwriter return call and left message 08/02 Patient continues to say I am feeling much better however this does not seem to correlate with any improvement in symptoms as he continues to have AH, is afraid of his room, incontinent of urine because afraid of going to the bathroom and continually saying that he sees his mother in his room. Patient does not respond much to reality testing. He does say he would like other medications to help make the voices go away. -given discussion below, will DC Vraylar since no clear indication of bipolar depression; already on 3 antipsychotics and does not seem effective. Instead will try Risperdal. -will start to try to eliminate pharmacy; need to find out what medication regimen patient was on this past summer during which time he was doing well Collateral: Again discussed case with patient's mother. -She reports he was doing great this past summer; not sure what his medication regimen was at that time -says was on Tegretol for years; for some reason [facility] took him off of it (was restarted at this hospitalization) -says was on clomipramine for OCD since 7 years old and did well on it; not sure why he was taken off a year ago -to her knowledge Latuda was supposed to be discontinued since he was never really taking it; Vraylar was also started at [facility] which has not seemed to help. -Has been on Zyprexa for a while; not sure efficacy --drools consistently at baseline; she said she has asked in the past for medication for this 08/03 Patient reports that he is feeling a lot better which is what he says to investment underwriter every day. He denies any AH. Also says he has not been seeing his mother. Difficult to tell if this is the case or not so will continue to monitor. Patient did ask for a stuffed animal or something about a stuffed animal but it was not clear. -briefly spoke with outpatient provider Huma who said she was 1 who started him on Vraylar -continue with Risperdal 08/04 No change in presentation; still disorganized, fearful, incontinent, hardly moving from room. Not sleeping at night but will tell investment underwriter I slept very good... . Continues to say the same refrain I feel a lot better... 08/05 meeting with outpt team stable on Tegretol and latuda for years until sudden decompensation this fall at which time pt presented with same symptoms he has currently. Prior to this stable and functional in many ways, all ADL's, organized and quite capable; no psychosis; read/write/send emails 08/06 no change in presentation and pt remains disorganized, sitting in own defecate; has AH. Hardly sleeping at night. sitting in one spot for most of the day. -intermittently refusing medications -pt refusing labs -feet are both swollen; hospitalist examined -infection on both side of bridge of nose where glasses sit on nose; pt allowed antibiotic ointment to be applied History that patient was stable on Tegretol and Latuda for at least a year; Latuda was lowered in the springtime to 40 mg, down from 60 since patient said was making him tired. He remained stable until this fall when he suddenly decompensated, unable to accept reality, incontinent, afraid of multiple things, thinking his mom's , forgetting people are Medication: pt was stable on Tegretol and Latuda for years until this fall -for now, will continue on Tegretol and Latuda -dc'd alexander -started risperdal and increased to 4mg, scheduled it at bedtime to help w/ sleep -consider CT scan brain given sudden onset of symptoms, though was several months ago at this point 08/10 Still no change in presentation; refusing eyedrops. Remains scared to go out of his room. Did allow for bacitracin and sores on bilateral bridge of his nose are better.08/10 Still no change in presentation; refusing eyedrops. Remains scared to go out of his room. Did allow for bacitracin and sores on bilateral bridge of his nose are better. 08/11 Again no change in presentation; refusing labs. Will continue to retry before forcing them. Will try to get head CT. Continues to refuse eyedrops. Will give a little longer on Risperdal 4 mg 08/12 increased Risperdal to 6 mg 08/13 1st day of actual improvement in that patient allowed lab work. That said, he also threw mattress/belongings into the hallway, talking about a 90 yo neighbor he wants to -labs WNL -refused head CT; since he allowed labs, still will try to see if he will comply with head CT hoping to avoid the trauma of forcing him 08/14 Patient out in the milieu today, 1st time in over a week. Furthermore Patient actually using the bathroom today on his own, with significant encouragement from staff and a verbal plan; throughout the day patient was able to get himself to the bathroom rather than remain incontinent and inside close, which he has continually done since admission. Patient also seems more cheerful. -Again refused head CT but since getting better, will hold off from this for now -continue with increased Risperdal dose of 6 mg 08/17 remains somewhat improved. Patient pleasant and out in the milieu. Throughout the weekend he has been using the bathroom and not been incontinent which christie consistent improvement since admission. Also allowing staff to help him brush his teeth. Patient is normally, when at baseline, able to do all these things on his own, maybe with some prompting but independently. -will continue with current regimen for now as patient continues to improve -will continue to keep in mind that patient has a history of OCD and that he may benefit and improve from restarting clomipramine; however as psychosis and disorganized behavior is the main concern will continue to focus treatment in this area now 08/18 continues current tx plan for now; will consider increasing Risperdal though already at 6mg. 08/21 Patient remains doing better. Still not dressing himself or taking a shower but seems to be doing more more ADLs. Denies any AH. -at this time, investment underwriter hesitates to make any changes as patient has been slowly but steadily improving. PLAN: CV *guardians have authorized investment underwriter, staff to administer any/all medical treatments even if against patients will q15 min checks Continue with Risperdal 6 mg qhs -Add Risperdal 0.5 mg t.i.d. p.r.n. for breakthrough AVH -for now, Continue Latuda 40 mg daily at dinnertime (used to be on 60mg) -Continue Tegretol 400mg BID (was stable on this in past) -DC Vraylar 3 mg; this was started by outpatient provider; does not seem to have helped much and no clear indication for bipolar depression (also patient already on 3 antipsychotics) -DC'd Zyprexa: has caused DM/elevated Cholesterol/wt gain -temporarily Start artificial tears; refusing -Will get prescription for Restasis/cyclosporin -consider restarting clomipramine for OCD ( clomipramine 100 mg b.i.d. for OCD in the past around 2014; for some reason it was dc'd at some point; restarted 2022 but not continued after that). -consider glycopyrrolate for excessive drooling -will consider getting MRI, however patient's symptoms are congruent with diagnosis Patient educated on: diagnosis Informed Consent: understands, does not understand and further education needed Reason for continued inpatient stay Substantial Risk for: inability to function and rapid decompensation Time Spent With Patient Time: Total time managing care of this patient today ____ minutes.
[2024-08-21] MEDS: Lurasidone HCl 40 MG TABLET PO (15:59)
[2024-08-21] MEDS: risperiDONE 3 MG TABLET 6 MG PO (21:35)
[2024-08-21] MEDS: Atorvastatin Calcium 40 MG TABLET PO (21:36)
[2024-08-21] MEDS: traZODone HCL 100 MG TABLET PO (21:36)
[2024-08-22] MEDS: Omeprazole 40 MG CAPSULE.DR PO (06:24)
[2024-08-22 08:00] VITALS: BP 132/76; PULSE 74; TEMP 36.6; O2SAT 100
[2024-08-22] MEDS: Loratadine 10 MG TABLET PO (08:34)
[2024-08-22] MEDS: Escitalopram Oxalate 10 MG TABLET PO (08:34)
[2024-08-22] MEDS: clonazePAM 0.5 MG TABLET PO ×3 (08:34→20:38)
[2024-08-22] MEDS: carBAMazepine ER 200 MG TAB.ER.12H 400 MG PO ×2 (08:34→20:38)
[2024-08-22] MEDS: Ezetimibe 10 MG TABLET PO (08:34)
[2024-08-22] MEDS: atenoloL 25 MG TABLET PO (08:34)
[2024-08-22] MEDS: Docusate Sodium 100 MG CAPSULE PO ×3 (08:34→20:38)
[2024-08-22] MEDS: gemfibroziL 600 MG TABLET PO ×2 (08:34→20:38)
[2024-08-22] MEDS: Sennosides 8.6 MG TABLET PO ×2 (08:34→20:37)
[2024-08-22] MEDS: Fluticasone Propionate Nasal 16 GM SPRAY 1 SPRAY NOSTRIL-B (09:02)
--- NOTE | 2024-08-22 15:18 | P.PNPSI_ITS ---
Subjective Subjective Date of Service: 08/22/24 Reason For Visit: Schioafective disorder bipolar type Interim History: Pt seen, reviewed with team. Review of plan of care. Reports I feel happy today. Visable in milieu, engaged with team, peers Denies current sx of concern. Medication Compliance: Yes Side effects from medications: No Attending Groups: Yes Review of Systems Acute medical concerns: No Review of Systems Review of Systems I feel happy Mental Status Exam Mental Status Exam Patient Appearance: Appropriate Patient Orientation: Person and Place Level of Consciousness: Alert Patient Behavior: Appropriate, Talkative, Cooperative and Good Eye Contact Mood Description: Appropriate Affect Description: Constricted Patient Cognition Impaired: Yes Ability to Follow Directions: Good Speech Pattern: Spontaneous Speech Memory Description: Remote Impaired Thought Process: Distracted Thought Content: positive for Slowed Thinking Judgement: Fair Diagnostics Vital Signs (24Hr): Vital Signs - 24 hr 08/22/24 08:00 Temperature 98 F Pulse Rate 74 Blood Pressure 132/76 Pulse Oximetry 100 Oxygen Delivery Method Room Air BMI result Body Mass Index 33.0 Labs 08/13/24 08:17 08/13/24 08:17 Medications Medications Current Medications Acetaminophen (Acetaminophen 325 Mg Tablet) 650 mg PO Q6H PRN PRN Reason: Headache/Pain Mild Scale (1-3) Last Admin: 08/19/24 17:31 Dose: 650 mg Al Hydroxide/Mg Hydroxide (Magnesium Hydrox/Alum Hydrox 30 Ml Oral.Susp) 30 ml PO Q6H PRN PRN Reason: Heartburn/Nausea Artificial Tears (Artificial Tears 15 Ml Drops) 1 drop EYE-BOTH Q4H PRN PRN Reason: Dry Eyes Last Admin: 08/02/24 16:09 Dose: 1 drop Atenolol (Atenolol 25 Mg Tablet) 25 mg PO DAILY [facility]; Protocol Last Admin: 08/22/24 08:34 Dose: 25 mg Atorvastatin Calcium (Atorvastatin Calcium 40 Mg Tablet) 40 mg PO BEDTIME ADRIANO Last Admin: 08/21/24 21:36 Dose: 40 mg Carbamazepine (Carbamazepine Er 200 Mg Tab.Er.12h) 400 mg PO BID [facility] Last Admin: 08/22/24 08:34 Dose: 400 mg Clonazepam (Clonazepam 0.5 Mg Tablet) 0.5 mg PO TID [facility] Last Admin: 08/22/24 08:34 Dose: 0.5 mg Docusate Sodium (Docusate Sodium 100 Mg Capsule) 100 mg PO TID [facility] Last Admin: 08/22/24 08:34 Dose: 100 mg Ezetimibe (Ezetimibe 10 Mg Tablet) 10 mg PO DAILY [facility] Last Admin: 08/22/24 08:34 Dose: 10 mg Escitalopram Oxalate (Escitalopram Oxalate 10 Mg Tablet) 10 mg PO DAILY [facility] Last Admin: 08/22/24 08:34 Dose: 10 mg Fluticasone Propionate (Fluticasone Propionate Nasal 16 Gm [place]) 1 spray NOSTRIL-B DAILY [facility] Last Admin: 08/22/24 09:02 Dose: 1 spray Gemfibrozil (Gemfibrozil 600 Mg Tablet) 600 mg PO BID [facility] Last Admin: 08/22/24 08:34 Dose: 600 mg Hydroxyzine HCl (Hydroxyzine Hcl 25 Mg Tablet) 25 mg PO Q6H PRN PRN Reason: Anxiety Last Admin: 08/02/24 13:30 Dose: 25 mg Loratadine (Loratadine 10 Mg Tablet) 10 mg PO DAILY [facility] Last Admin: 08/22/24 08:34 Dose: 10 mg Lurasidone HCl (Lurasidone Hcl 40 Mg Tablet) 40 mg PO DAILY@1700 [facility] Last Admin: 08/21/24 15:59 Dose: 40 mg Magnesium Hydroxide (Milk Of Magnesia 30 Ml Oral.Susp) 30 ml PO DAILY PRN PRN Reason: Constipation Multi-Ingred Cream/Lotion/Oil/Oint (Mineral Oil/Petrolatum,White 106 Gm Tube) 1 appl TOPICAL TID PRN; Protocol PRN Reason: dry skin Nicotine Polacrilex (Nicotine Polacrilex 2 Mg Gum) 4 mg BUCCAL Q2H PRN PRN Reason: Nicotine Cravings Omeprazole (Omeprazole 40 Mg Capsule.Dr) 40 mg PO DAILY@0630 [facility] Last Admin: 08/22/24 06:24 Dose: 40 mg Risperidone (Risperidone 0.5 Mg Tablet) 0.5 mg PO TID PRN PRN Reason: Hallucinations Last Admin: 08/13/24 14:06 Dose: 0.5 mg Risperidone (Risperidone 3 Mg Tablet) 6 mg PO BEDTIME [facility] Last Admin: 08/21/24 21:35 Dose: 6 mg Senna (Sennosides 8.6 Mg Tablet) 8.6 mg PO BID [facility] Last Admin: 08/22/24 08:34 Dose: 8.6 mg Trazodone HCl (Trazodone Hcl 50 Mg Tablet) 50 mg PO BEDTIME MRX1 PRN PRN Reason: Insomnia Last Admin: 08/09/24 20:40 Dose: 50 mg Trazodone HCl (Trazodone Hcl 100 Mg Tablet) 100 mg PO BEDTIME ADRIANO Last Admin: 08/21/24 21:36 Dose: 100 mg Allergies Allergies Allergy/AdvReac Type Severity Reaction Status Date / Time ondansetron [From Zofran] Allergy Unknown Verified 07/28/24 22:30 Penicillins Allergy Unknown Verified 07/28/24 22:30 potassium Allergy Unknown Verified 07/28/24 22:30 prochlorperazine Allergy Unknown Verified 07/28/24 22:30 Assessment & Plan Assessment & Plan (1) Schizoaffective disorder, bipolar type: Status: Acute Code(s): F25.0 - Schizoaffective disorder, bipolar type (2) Autism spectrum disorder: Status: Acute Code(s): F84.0 - Autistic disorder (3) Intellectual disability: Status: Acute Code(s): F79 - Unspecified intellectual disabilities (4) Aarskog syndrome: Status: Acute Code(s): Q87.19 - Other congenital malformation syndromes predominantly associated with short stature Plan Patient is a 34-year-old male with severe ASD, intellectual disability, schizoaffective disorder with, history of behavioral outbursts, who resides at a S residential facility and who presents from external ED for what svp programmatic tv reports is decompensation following discharge from [facility] admission about 4 weeks ago. manager retention reports patient has increased anxiety, paranoia and visual hallucinations as well as increased agitation related to AVH, which has resulted in the need for physical restraints. Patient with limited ability to participate in interview. Patient cooperative and calm. He says he misses his mother. He said I am feeling better... And then that he was going to lay down. He said he wanted to be in the hospital until he feels better... But could not discuss his feelings or what that would mean. Denies any SI or HI and says he is feeling safe. Patient does endorse auditory hallucinations which he he says bothers him, however when asked to discuss them further or what they say, he says I do not know and regarding medication that there is nothing to help... For the remainder of the day, patient sometimes in his room, sometimes in the hallway saying he wanted to call his mother or father, saying he misses them and wants to go home. Formulation/clinical reasoning: Patient has diagnosis of schizoaffective disorder, not sure if he actually has manic episodes and according to collateral, patient has not demonstrated psychotic symptoms until this fall. Still he has been on antipsychotics for years. -Guardian paperwork in chart; parents are guardians -No HCP - [place] Diagnosis: -Says diagnosis is schizoaffective, bipolar type however she has no knowledge of any discrete manic episodes; he has some history of depressive episodes -Does not blink: Supposed to be on Restasis/cyclosporine ophthalmic; not sure dose; discussed with pharmacist who reports typically this is 0.05% solution 1 drop b.i.d. (other places say 0.1%) -Aarkskog syndrome -ASD -OCD -has chronic extremely dry skin (eczema?) for which he has some medicated cream; mother not sure the name -Said there was a plan to get MRI of the brain since change seemed somewhat sudden Hospital course: 07/30 Patient remains fearful; can be friendly and cooperative but seems very anxious and cautious. Visual hallucinations patient saying he can see his mother in the room and talking to her Still not going into bathroom, with recent history of being afraid of bathroom; thus patient Incontinent of urine, sitting in wet clothes and refusing to change today, willing to sign CV reiterating he wants to be here for treatment ( to feel better ) -left for outpatient provider Nat Lee to discuss tx hx 07/31 patient remains cautious and intermittently fearful but is also warming up a bit to some staff, primarily female staff. He says he is feeling better but behaviors remain decompensated. Willing to change out of clothes today with staff encouragement and have them washed; also talked to his mother on the phone today which he said made him happy. Patient willing to use lotion for try facial skin Collateral:Dry Kiln Burner discussed case with patient's mother who reports that behaviors decompensated this April after he returned from vacation with his father. At that time he started packing up his stuff, saying he wanted to move out of the residential; was taking lots of showers, self dialogue Ng, saying he could see his mother in the room, saying he thought his mother was and refusing to talk to her on the phone. For those reasons This past May he went to [facility] where he was started on Vraylar (and refused to take Latuda). He returned to the residential but remained confused, disorganized, paranoid. At 1 point he would not leave the living room at all, incontinent, afraid to go into the bathroom or to shower which resulted in this hospitalization. Some history of aggression for which he was hospitalized a year ago; only mild aggression in residential this time around. -left another message with patent prosecution paralegal for Nat Lee 08/01 mostly same presentation, continued AH which are bothersome; more comfortable with staff and allowing them to help him attending ADLs including bathing. -customs entry writer did get a call back from Nat Lee; customs entry writer return call and left message 08/02 Patient continues to say I am feeling much better however this does not seem to correlate with any improvement in symptoms as he continues to have AH, is afraid of his room, incontinent of urine because afraid of going to the bathroom and continually saying that he sees his mother in his room. Patient does not respond much to reality testing. He does say he would like other medications to help make the voices go away. -given discussion below, will DC Vraylar since no clear indication of bipolar depression; already on 3 antipsychotics and does not seem effective. Instead will try Risperdal. -will start to try to eliminate pharmacy; need to find out what medication regimen patient was on this past summer during which time he was doing well Collateral: Again discussed case with patient's mother. -She reports he was doing great this past summer; not sure what his medication regimen was at that time -says was on Tegretol for years; for some reason [facility] took him off of it (was restarted at this hospitalization) -says was on clomipramine for OCD since 7 years old and did well on it; not sure why he was taken off a year ago -to her knowledge Latuda was supposed to be discontinued since he was never really taking it; Vraylar was also started at [facility] which has not seemed to help. -Has been on Zyprexa for a while; not sure efficacy --drools consistently at baseline; she said she has asked in the past for medication for this 08/03 Patient reports that he is feeling a lot better which is what he says to customs entry writer every day. He denies any AH. Also says he has not been seeing his mother. Difficult to tell if this is the case or not so will continue to monitor. Patient did ask for a stuffed animal or something about a stuffed animal but it was not clear. -briefly spoke with outpatient provider Huma who said she was 1 who started him on Vraylar -continue with Risperdal 08/04 No change in presentation; still disorganized, fearful, incontinent, hardly moving from room. Not sleeping at night but will tell customs entry writer I slept very good... . Continues to say the same refrain I feel a lot better... 08/05 meeting with outpt team stable on Tegretol and latuda for years until sudden decompensation this fall at which time pt presented with same symptoms he has currently. Prior to this stable and functional in many ways, all ADL's, organized and quite capable; no psychosis; read/write/send emails 08/06 no change in presentation and pt remains disorganized, sitting in own defecate; has AH. Hardly sleeping at night. sitting in one spot for most of the day. -intermittently refusing medications -pt refusing labs -feet are both swollen; hospitalist examined -infection on both side of bridge of nose where glasses sit on nose; pt allowed antibiotic ointment to be applied History that patient was stable on Tegretol and Latuda for at least a year; Latuda was lowered in the springtime to 40 mg, down from 60 since patient said was making him tired. He remained stable until this fall when he suddenly decompensated, unable to accept reality, incontinent, afraid of multiple things, thinking his mom's , forgetting people are Medication: pt was stable on Tegretol and Latuda for years until this fall -for now, will continue on Tegretol and Latuda -dc'd vraylar -started risperdal and increased to 4mg, scheduled it at bedtime to help w/ sleep -consider CT scan brain given sudden onset of symptoms, though was several months ago at this point 08/10 Still no change in presentation; refusing eyedrops. Remains scared to go out of his room. Did allow for bacitracin and sores on bilateral bridge of his nose are better.08/10 Still no change in presentation; refusing eyedrops. Remains scared to go out of his room. Did allow for bacitracin and sores on bilateral bridge of his nose are better. 08/11 Again no change in presentation; refusing labs. Will continue to retry before forcing them. Will try to get head CT. Continues to refuse eyedrops. Will give a little longer on Risperdal 4 mg 08/12 increased Risperdal to 6 mg 08/13 day of actual improvement in that patient allowed lab work. That said, he also threw mattress/belongings into the hallway, talking about a 90 yo neighbor he wants to -labs WNL -refused head CT; since he allowed labs, still will try to see if he will comply with head CT hoping to avoid the trauma of forcing him 08/14 Patient out in the milieu today, 1st time in over a week. Furthermore Patient actually using the bathroom today on his own, with significant encouragement from staff and a verbal plan; throughout the day patient was able to get himself to the bathroom rather than remain incontinent and inside close, which he has continually done since admission. Patient also seems more cheerful. -Again refused head CT but since getting better, will hold off from this for now -continue with increased Risperdal dose of 6 mg 08/17 remains somewhat improved. Patient pleasant and out in the milieu. Throughout the weekend he has been using the bathroom and not been incontinent which christie consistent improvement since admission. Also allowing staff to help him brush his teeth. Patient is normally, when at baseline, able to do all these things on his own, maybe with some prompting but independently. -will continue with current regimen for now as patient continues to improve -will continue to keep in mind that patient has a history of OCD and that he may benefit and improve from restarting clomipramine; however as psychosis and disorganized behavior is the main concern will continue to focus treatment in this area now 08/18 continues current tx plan for now; will consider increasing Risperdal though already at 6mg. 08/21 Patient remains doing better. Still not dressing himself or taking a shower but seems to be doing more more ADLs. Denies any AH. -at this time, customs entry writer hesitates to make any changes as patient has been slowly but steadily improving. 08/22: Continue current regime and plan of care. Pt appears improved. PLAN: CV *guardians have authorized customs entry writer, staff to administer any/all medical treatments even if against patients will q15 min checks Continue with Risperdal 6 mg qhs -Add Risperdal 0.5 mg t.i.d. p.r.n. for breakthrough AVH -for now, Continue Latuda 40 mg daily at dinnertime (used to be on 60mg) -Continue Tegretol 400mg BID (was stable on this in past) -DC Vraylar 3 mg; this was started by outpatient provider; does not seem to have helped much and no clear indication for bipolar depression (also patient already on 3 antipsychotics) -DC'd Zyprexa: has caused DM/elevated Cholesterol/wt gain -temporarily Start artificial tears; refusing -Will get prescription for Restasis/cyclosporin -consider restarting clomipramine for OCD ( clomipramine 100 mg b.i.d. for OCD in the past around 2014; for some reason it was dc'd at some point; restarted 2022 but not continued after that). -consider glycopyrrolate for excessive drooling -will consider getting MRI, however patient's symptoms are congruent with diagnosis Reason for continued inpatient stay Substantial Risk for: rapid decompensation Time Spent With Patient Time: Total time managing care of this patient today ____ minutes.
[2024-08-22] MEDS: Lurasidone HCl 40 MG TABLET PO (16:40)
--- NOTE | 2024-08-22 17:33 | PC.NURSE ---
Joel's new glasses were found at the nurses station broken, TW called Nicolasa (mom), and left a message about his glasses being broken and requested a call back-glasses are only a couple weeks old- warranty? It actually looks like the glue failed in the hinge and they fell apart-nothing is technically broken-taped for now so that he could see.
[2024-08-22 19:37] VITALS: BP 117/65; PULSE 70; TEMP 36.7; O2SAT 98
[2024-08-22] MEDS: risperiDONE 3 MG TABLET 6 MG PO (20:37)
[2024-08-22] MEDS: Atorvastatin Calcium 40 MG TABLET PO (20:37)
[2024-08-22] MEDS: traZODone HCL 100 MG TABLET PO (20:38)
[2024-08-22] MEDS: traZODone HCL 50 MG TABLET PO (23:43)
[2024-08-22] MEDS: hydrOXYzine HCL 25 MG TABLET PO (23:43)
[2024-08-23 08:00] VITALS: BP 135/76; PULSE 67; RESP 18; TEMP 36.4; O2SAT 99
[2024-08-23] MEDS: Ezetimibe 10 MG TABLET PO (08:59)
[2024-08-23] MEDS: Docusate Sodium 100 MG CAPSULE PO ×3 (08:59→21:06)
[2024-08-23] MEDS: carBAMazepine ER 200 MG TAB.ER.12H 400 MG PO ×2 (08:59→21:06)
[2024-08-23 09:00] VITALS: BP 135/76; PULSE 67
[2024-08-23] MEDS: clonazePAM 0.5 MG TABLET PO ×3 (09:00→21:06)
[2024-08-23] MEDS: Escitalopram Oxalate 10 MG TABLET PO (09:00)
[2024-08-23] MEDS: gemfibroziL 600 MG TABLET PO ×2 (09:00→21:06)
[2024-08-23] MEDS: atenoloL 25 MG TABLET PO (09:00)
[2024-08-23] MEDS: Omeprazole 40 MG CAPSULE.DR PO (09:00)
[2024-08-23] MEDS: Loratadine 10 MG TABLET PO (09:00)
[2024-08-23] MEDS: Fluticasone Propionate Nasal 16 GM SPRAY 1 SPRAY NOSTRIL-B (09:01)
[2024-08-23] MEDS: Sennosides 8.6 MG TABLET PO ×2 (09:32→21:06)
--- NOTE | 2024-08-23 14:03 | HO.PSYCHPN ---
Subjective Subjective Date of Service: 08/23/24 Reason For Visit: Schioafective disorder bipolar type Interim History: Met with pt, reviewed with the team. Visable in milieu, social, dancing with peers in the common area. Denies current symptoms of concern Appears calm, engaged, comfortable, supported by team and peers today. Medication Compliance: Yes Side effects from medications: No Attending Groups: Intermittent Review of Systems Acute medical concerns: No Review of Systems Review of Systems Denies Mental Status Exam Mental Status Exam Patient Appearance: Appropriate Patient Orientation: Person and Place Level of Consciousness: Alert Patient Behavior: Appropriate, Talkative, Cooperative and Good Eye Contact Mood Description: Appropriate Affect Description: Constricted Patient Cognition Impaired: Yes Ability to Follow Directions: Good Speech Pattern: Spontaneous Speech Memory Description: Remote Impaired Thought Process: Distracted Thought Content: positive for Slowed Thinking Judgement: Fair Diagnostics Vital Signs (24Hr): Vital Signs - 24 hr 08/22/24 19:37 08/23/24 08:00 08/23/24 09:00 Temperature 98.1 F 97.5 F Pulse Rate 70 67 67 Respiratory Rate 18 Blood Pressure 117/65 135/76 135/76 Pulse Oximetry 98 99 Oxygen Delivery Method Room Air Room Air BMI result Body Mass Index 33.0 Labs 08/13/24 08:17 08/13/24 08:17 Medications Medications Current Medications Acetaminophen (Acetaminophen 325 Mg Tablet) 650 mg PO Q6H PRN PRN Reason: Headache/Pain Mild Scale (1-3) Last Admin: 08/19/24 17:31 Dose: 650 mg Al Hydroxide/Mg Hydroxide (Magnesium Hydrox/Alum Hydrox 30 Ml Oral.Susp) 30 ml PO Q6H PRN PRN Reason: Heartburn/Nausea Artificial Tears (Artificial Tears 15 Ml Drops) 1 drop EYE-BOTH Q4H PRN PRN Reason: Dry Eyes Last Admin: 08/02/24 16:09 Dose: 1 drop Atenolol (Atenolol 25 Mg Tablet) 25 mg PO DAILY [facility]; Protocol Last Admin: 08/23/24 09:00 Dose: 25 mg Atorvastatin Calcium (Atorvastatin Calcium 40 Mg Tablet) 40 mg PO BEDTIME [facility] Last Admin: 08/22/24 20:37 Dose: 40 mg Carbamazepine (Carbamazepine Er 200 Mg Tab.Er.12h) 400 mg PO BID [facility] Last Admin: 08/23/24 08:59 Dose: 400 mg Clonazepam (Clonazepam 0.5 Mg Tablet) 0.5 mg PO TID [facility] Last Admin: 08/23/24 09:00 Dose: 0.5 mg Docusate Sodium (Docusate Sodium 100 Mg Capsule) 100 mg PO TID [facility] Last Admin: 08/23/24 08:59 Dose: 100 mg Ezetimibe (Ezetimibe 10 Mg Tablet) 10 mg PO DAILY [facility] Last Admin: 08/23/24 08:59 Dose: 10 mg Escitalopram Oxalate (Escitalopram Oxalate 10 Mg Tablet) 10 mg PO DAILY [facility] Last Admin: 08/23/24 09:00 Dose: 10 mg Fluticasone Propionate (Fluticasone Propionate Nasal 16 Gm [place]) 1 spray NOSTRIL-B DAILY [facility] Last Admin: 08/23/24 09:01 Dose: 1 spray Gemfibrozil (Gemfibrozil 600 Mg Tablet) 600 mg PO BID [facility] Last Admin: 08/23/24 09:00 Dose: 600 mg Hydroxyzine HCl (Hydroxyzine Hcl 25 Mg Tablet) 25 mg PO Q6H PRN PRN Reason: Anxiety Last Admin: 08/22/24 23:43 Dose: 25 mg Loratadine (Loratadine 10 Mg Tablet) 10 mg PO DAILY [facility] Last Admin: 08/23/24 09:00 Dose: 10 mg Lurasidone HCl (Lurasidone Hcl 40 Mg Tablet) 40 mg PO DAILY@1700 [facility] Last Admin: 08/22/24 16:40 Dose: 40 mg Magnesium Hydroxide (Milk Of Magnesia 30 Ml Oral.Susp) 30 ml PO DAILY PRN PRN Reason: Constipation Multi-Ingred Cream/Lotion/Oil/Oint (Mineral Oil/Petrolatum,White 106 Gm Tube) 1 appl TOPICAL TID PRN; Protocol PRN Reason: dry skin Nicotine Polacrilex (Nicotine Polacrilex 2 Mg Gum) 4 mg BUCCAL Q2H PRN PRN Reason: Nicotine Cravings Omeprazole (Omeprazole 40 Mg Capsule.Dr) 40 mg PO DAILY@0630 [facility] Last Admin: 08/23/24 09:00 Dose: 40 mg Risperidone (Risperidone 0.5 Mg Tablet) 0.5 mg PO TID PRN PRN Reason: Hallucinations Last Admin: 08/13/24 14:06 Dose: 0.5 mg Risperidone (Risperidone 3 Mg Tablet) 6 mg PO BEDTIME [facility] Last Admin: 08/22/24 20:37 Dose: 6 mg Senna (Sennosides 8.6 Mg Tablet) 8.6 mg PO BID ADRIANO Last Admin: 08/23/24 09:32 Dose: 8.6 mg Trazodone HCl (Trazodone Hcl 50 Mg Tablet) 50 mg PO BEDTIME MRX1 PRN PRN Reason: Insomnia Last Admin: 08/22/24 23:43 Dose: 50 mg Trazodone HCl (Trazodone Hcl 100 Mg Tablet) 100 mg PO BEDTIME ADRIANO Last Admin: 08/22/24 20:38 Dose: 100 mg Allergies Allergies Allergy/AdvReac Type Severity Reaction Status Date / Time ondansetron [From Zofran] Allergy Unknown Verified 07/28/24 22:30 Penicillins Allergy Unknown Verified 07/28/24 22:30 potassium Allergy Unknown Verified 07/28/24 22:30 prochlorperazine Allergy Unknown Verified 07/28/24 22:30 Assessment & Plan Assessment & Plan (1) Schizoaffective disorder, bipolar type: Status: Acute Code(s): F25.0 - Schizoaffective disorder, bipolar type (2) Autism spectrum disorder: Status: Acute Code(s): F84.0 - Autistic disorder (3) Intellectual disability: Status: Acute Code(s): F79 - Unspecified intellectual disabilities (4) Aarskog syndrome: Status: Acute Code(s): Q87.19 - Other congenital malformation syndromes predominantly associated with short stature Plan Patient is a 34-year-old male with severe ASD, intellectual disability, schizoaffective disorder with, history of behavioral outbursts, who resides at a [facility] residential facility and who presents from external ED for what senior statistical programmer reports is decompensation following discharge from [facility] psych admission about 4 weeks ago. manager loss prevention reports patient has increased anxiety, paranoia and visual hallucinations as well as increased agitation related to AVH, which has resulted in the need for physical restraints. Patient with limited ability to participate in interview. Patient cooperative and calm. He says he misses his mother. He said I am feeling better... And then that he was going to lay down. He said he wanted to be in the hospital until he feels better... But could not discuss his feelings or what that would mean. Denies any SI or HI and says he is feeling safe. Patient does endorse auditory hallucinations which he he says bothers him, however when asked to discuss them further or what they say, he says I do not know and regarding medication that there is nothing to help... For the remainder of the day, patient sometimes in his room, sometimes in the hallway saying he wanted to call his mother or father, saying he misses them and wants to go home. Formulation/clinical reasoning: Patient has diagnosis of schizoaffective disorder, not sure if he actually has manic episodes and according to collateral, patient has not demonstrated psychotic symptoms until this fall. Still he has been on antipsychotics for years. -Guardian paperwork in chart; parents are guardians -No HCP - [place] Diagnosis: -Says diagnosis is schizoaffective, bipolar type however she has no knowledge of any discrete manic episodes; he has some history of depressive episodes -Does not blink: Supposed to be on Restasis/cyclosporine ophthalmic; not sure dose; discussed with pharmacist who reports typically this is 0.05% solution 1 drop b.i.d. (other places say 0.1%) -Aarkskog syndrome -ASD -OCD -has chronic extremely dry skin (eczema?) for which he has some medicated cream; mother not sure the name -Said there was a plan to get MRI of the brain since change seemed somewhat sudden Hospital course: 07/30 Patient remains fearful; can be friendly and cooperative but seems very anxious and cautious. Visual hallucinations patient saying he can see his mother in the room and talking to her Still not going into bathroom, with recent history of being afraid of bathroom; thus patient Incontinent of urine, sitting in wet clothes and refusing to change today, willing to sign CV reiterating he wants to be here for treatment ( to feel better ) -left for outpatient provider Nat Lee to discuss tx hx 07/31 patient remains cautious and intermittently fearful but is also warming up a bit to some staff, primarily female staff. He says he is feeling better but behaviors remain decompensated. Willing to change out of clothes today with staff encouragement and have them washed; also talked to his mother on the phone today which he said made him happy. Patient willing to use lotion for try facial skin Collateral:External Grinder discussed case with patient's mother who reports that behaviors decompensated this April after he returned from vacation with his father. At that time he started packing up his stuff, saying he wanted to move out of the detention; was taking lots of showers, self dialogue Ng, saying he could see his mother in the room, saying he thought his mother was and refusing to talk to her on the phone. For those reasons This past May he went to [facility] where he was started on Vraylar (and refused to take Latuda). He returned to the detention but remained confused, disorganized, paranoid. At 1 point he would not leave the living room at all, incontinent, afraid to go into the bathroom or to shower which resulted in this hospitalization. Some history of aggression for which he was hospitalized a year ago; only mild aggression in detention this time around. -left another message with loan secretary for Nat Lee 08/01 mostly same presentation, continued AH which are bothersome; more comfortable with staff and allowing them to help him attending ADLs including bathing. -keno writer/runner did get a call back from Nat Lee; keno writer/runner return call and left message 08/02 Patient continues to say I am feeling much better however this does not seem to correlate with any improvement in symptoms as he continues to have AH, is afraid of his room, incontinent of urine because afraid of going to the bathroom and continually saying that he sees his mother in his room. Patient does not respond much to reality testing. He does say he would like other medications to help make the voices go away. -given discussion below, will DC Vraylar since no clear indication of bipolar depression; already on 3 antipsychotics and does not seem effective. Instead will try Risperdal. -will start to try to eliminate pharmacy; need to find out what medication regimen patient was on this past summer during which time he was doing well Collateral: Again discussed case with patient's mother. -She reports he was doing great this past summer; not sure what his medication regimen was at that time -says was on Tegretol for years; for some reason [facility] took him off of it (was restarted at this hospitalization) -says was on clomipramine for OCD since 7 years old and did well on it; not sure why he was taken off a year ago -to her knowledge Latuda was supposed to be discontinued since he was never really taking it; Vraylar was also started at [facility] which has not seemed to help. -Has been on Zyprexa for a while; not sure efficacy --drools consistently at baseline; she said she has asked in the past for medication for this 08/03 Patient reports that he is feeling a lot better which is what he says to keno writer/runner every day. He denies any AH. Also says he has not been seeing his mother. Difficult to tell if this is the case or not so will continue to monitor. Patient did ask for a stuffed animal or something about a stuffed animal but it was not clear. -briefly spoke with outpatient provider Huma who said she was 1 who started him on Vraylar -continue with Risperdal 08/04 No change in presentation; still disorganized, fearful, incontinent, hardly moving from room. Not sleeping at night but will tell keno writer/runner I slept very good... . Continues to say the same refrain I feel a lot better... 08/05 meeting with outpt team stable on Tegretol and latuda for years until sudden decompensation this fall at which time pt presented with same symptoms he has currently. Prior to this stable and functional in many ways, all ADL's, organized and quite capable; no psychosis; read/write/send emails 08/06 no change in presentation and pt remains disorganized, sitting in own defecate; has AH. Hardly sleeping at night. sitting in one spot for most of the day. -intermittently refusing medications -pt refusing labs -feet are both swollen; hospitalist examined -infection on both side of bridge of nose where glasses sit on nose; pt allowed antibiotic ointment to be applied History that patient was stable on Tegretol and Latuda for at least a year; Latuda was lowered in the springtime to 40 mg, down from 60 since patient said was making him tired. He remained stable until this fall when he suddenly decompensated, unable to accept reality, incontinent, afraid of multiple things, thinking his mom's , forgetting people are Medication: pt was stable on Tegretol and Latuda for years until this fall -for now, will continue on Tegretol and Latuda -dc'd vraylar -started risperdal and increased to 4mg, scheduled it at bedtime to help w/ sleep -consider CT scan brain given sudden onset of symptoms, though was several months ago at this point 08/10 Still no change in presentation; refusing eyedrops. Remains scared to go out of his room. Did allow for bacitracin and sores on bilateral bridge of his nose are better.08/10 Still no change in presentation; refusing eyedrops. Remains scared to go out of his room. Did allow for bacitracin and sores on bilateral bridge of his nose are better. 08/11 Again no change in presentation; refusing labs. Will continue to retry before forcing them. Will try to get head CT. Continues to refuse eyedrops. Will give a little longer on Risperdal 4 mg 08/12 increased Risperdal to 6 mg 08/13 1st day of actual improvement in that patient allowed lab work. That said, he also threw mattress/belongings into the hallway, talking about a 90 yo neighbor he wants to -labs WN -refused head CT; since he allowed labs, still will try to see if he will comply with head CT hoping to avoid the trauma of forcing him 08/14 Patient out in the milieu today, 1st time in over a week. Furthermore Patient actually using the bathroom today on his own, with significant encouragement from staff and a verbal plan; throughout the day patient was able to get himself to the bathroom rather than remain incontinent and inside close, which he has continually done since admission. Patient also seems more cheerful. -Again refused head CT but since getting better, will hold off from this for now -continue with increased Risperdal dose of 6 mg 08/17 remains somewhat improved. Patient pleasant and out in the milieu. Throughout the weekend he has been using the bathroom and not been incontinent which christie consistent improvement since admission. Also allowing staff to help him brush his teeth. Patient is normally, when at baseline, able to do all these things on his own, maybe with some prompting but independently. -will continue with current regimen for now as patient continues to improve -will continue to keep in mind that patient has a history of OCD and that he may benefit and improve from restarting clomipramine; however as psychosis and disorganized behavior is the main concern will continue to focus treatment in this area now 08/18 continues current tx plan for now; will consider increasing Risperdal though already at 6mg. 08/21 Patient remains doing better. Still not dressing himself or taking a shower but seems to be doing more more ADLs. Denies any AH. -at this time, keno writer/runner hesitates to make any changes as patient has been slowly but steadily improving. 08/22: continue tx PLAN: CV *guardians have authorized keno writer/runner, staff to administer any/all medical treatments even if against patients will q15 min checks Continue with Risperdal 6 mg qhs -Add Risperdal 0.5 mg t.i.d. p.r.n. for breakthrough AVH -for now, Continue Latuda 40 mg daily at dinnertime (used to be on 60mg) -Continue Tegretol 400mg BID (was stable on this in past) -DC Vraylar 3 mg; this was started by outpatient provider; does not seem to have helped much and no clear indication for bipolar depression (also patient already on 3 antipsychotics) -DC'd Zyprexa: has caused DM/elevated Cholesterol/wt gain -temporarily Start artificial tears; refusing -Will get prescription for Restasis/cyclosporin -consider restarting clomipramine for OCD ( clomipramine 100 mg b.i.d. for OCD in the past around 2014; for some reason it was dc'd at some point; restarted 2022 but not continued after that). -consider glycopyrrolate for excessive drooling -will consider getting MRI, however patient's symptoms are congruent with diagnosis Reason for continued inpatient stay Substantial Risk for: rapid decompensation Time Spent With Patient Time: Total time managing care of this patient today ____ minutes.
[2024-08-23] MEDS: Lurasidone HCl 40 MG TABLET PO (16:14)
[2024-08-23 20:00] VITALS: BP 133/68; PULSE 82; TEMP 36.9; O2SAT 99
[2024-08-23] MEDS: Atorvastatin Calcium 40 MG TABLET PO (21:06)
[2024-08-23] MEDS: traZODone HCL 100 MG TABLET PO (21:06)
[2024-08-23] MEDS: risperiDONE 3 MG TABLET 6 MG PO (21:06)
[2024-08-24] MEDS: Omeprazole 40 MG CAPSULE.DR PO (06:44)
[2024-08-24 08:00] VITALS: BP 123/64; PULSE 80; RESP 18; TEMP 36.6; O2SAT 100
[2024-08-24] MEDS: carBAMazepine ER 200 MG TAB.ER.12H 400 MG PO ×2 (08:15→20:25)
[2024-08-24] MEDS: clonazePAM 0.5 MG TABLET PO ×3 (08:15→20:25)
[2024-08-24] MEDS: Sennosides 8.6 MG TABLET PO ×2 (08:15→20:25)
[2024-08-24] MEDS: Escitalopram Oxalate 10 MG TABLET PO (08:15)
[2024-08-24] MEDS: gemfibroziL 600 MG TABLET PO ×2 (08:15→20:25)
[2024-08-24] MEDS: Loratadine 10 MG TABLET PO (08:15)
[2024-08-24] MEDS: Docusate Sodium 100 MG CAPSULE PO ×3 (08:15→20:25)
[2024-08-24] MEDS: Ezetimibe 10 MG TABLET PO (08:15)
[2024-08-24] MEDS: Fluticasone Propionate Nasal 16 GM SPRAY 1 SPRAY NOSTRIL-B (08:17)
[2024-08-24] MEDS: atenoloL 25 MG TABLET PO (08:24)
--- NOTE | 2024-08-24 09:51 | P.PNPSI_ITS ---
Subjective Subjective Date of Service: 08/24/24 Reason For Visit: Schioafective disorder bipolar type Interim History: Met with patient; discussed with team Overall remains doing better. Attending to most ADLs except for showering. He says he is afraid to shower here and that he will shower at his own house. Patient sleeping through the night. Still Refusing head CT saying that he is better now. [employer] discussed with patient adding clomipramine back to his medication regimen with which he agrees and which was encouraged by his mother Mental Status Exam Mental Status Exam Narrative: Pt is alert and oriented; behavior is more organized and cooperative, also more calm; using toilet on his own; patient is not in distress; dressed in hospital attire, improved hygiene though still no shower; drooling; mood is described as good though affect congruent, more calm and a little brighter; eye contact appropriate; Speech remains a little garbled which is baseline; normal rate, volume; uses few words; not pressured; no psychomotor agitation/retardation present; thought process is concrete, goal directed, asks for needs; Thought content on missing parents; otherwise pertinent to relevant topics; remains without any expressed paranoid delusions content; denies any SI/HI. Denies AH; hard to tell if internally preoccupied. Patients insight and judgment impaired but improving. Diagnostics Vital Signs (24Hr): Vital Signs - 24 hr 08/23/24 20:00 08/24/24 08:00 Temperature 98.5 F 97.8 F Pulse Rate 82 80 Respiratory Rate 18 Blood Pressure 133/68 123/64 Pulse Oximetry 99 100 Oxygen Delivery Method Room Air Room Air BMI result Body Mass Index 33.0 Labs 08/13/24 08:17 08/13/24 08:17 Medications Medications Current Medications Acetaminophen (Acetaminophen 325 Mg Tablet) 650 mg PO Q6H PRN PRN Reason: Headache/Pain Mild Scale (1-3) Last Admin: 08/19/24 17:31 Dose: 650 mg Al Hydroxide/Mg Hydroxide (Magnesium Hydrox/Alum Hydrox 30 Ml Oral.Susp) 30 ml PO Q6H PRN PRN Reason: Heartburn/Nausea Artificial Tears (Artificial Tears 15 Ml Drops) 1 drop EYE-BOTH Q4H PRN PRN Reason: Dry Eyes Last Admin: 08/02/24 16:09 Dose: 1 drop Atenolol (Atenolol 25 Mg Tablet) 25 mg PO DAILY [facility]; Protocol Last Admin: 08/24/24 08:24 Dose: 25 mg Atorvastatin Calcium (Atorvastatin Calcium 40 Mg Tablet) 40 mg PO BEDTIME [facility] Last Admin: 08/23/24 21:06 Dose: 40 mg Carbamazepine (Carbamazepine Er 200 Mg Tab.Er.12h) 400 mg PO BID [facility] Last Admin: 08/24/24 08:15 Dose: 400 mg Clonazepam (Clonazepam 0.5 Mg Tablet) 0.5 mg PO TID [facility] Last Admin: 08/24/24 08:15 Dose: 0.5 mg Docusate Sodium (Docusate Sodium 100 Mg Capsule) 100 mg PO TID [facility] Last Admin: 08/24/24 08:15 Dose: 100 mg Ezetimibe (Ezetimibe 10 Mg Tablet) 10 mg PO DAILY [facility] Last Admin: 08/24/24 08:15 Dose: 10 mg Escitalopram Oxalate (Escitalopram Oxalate 10 Mg Tablet) 10 mg PO DAILY [facility] Last Admin: 08/24/24 08:15 Dose: 10 mg Fluticasone Propionate (Fluticasone Propionate Nasal 16 Gm [place]) 1 spray NOSTRIL-B DAILY [facility] Last Admin: 08/24/24 08:17 Dose: 1 spray Gemfibrozil (Gemfibrozil 600 Mg Tablet) 600 mg PO BID [facility] Last Admin: 08/24/24 08:15 Dose: 600 mg Hydroxyzine HCl (Hydroxyzine Hcl 25 Mg Tablet) 25 mg PO Q6H PRN PRN Reason: Anxiety Last Admin: 08/22/24 23:43 Dose: 25 mg Loratadine (Loratadine 10 Mg Tablet) 10 mg PO DAILY [facility] Last Admin: 08/24/24 08:15 Dose: 10 mg Lurasidone HCl (Lurasidone Hcl 40 Mg Tablet) 40 mg PO DAILY@1700 [facility] Last Admin: 08/23/24 16:14 Dose: 40 mg Magnesium Hydroxide (Milk Of Magnesia 30 Ml Oral.Susp) 30 ml PO DAILY PRN PRN Reason: Constipation Multi-Ingred Cream/Lotion/Oil/Oint (Mineral Oil/Petrolatum,White 106 Gm Tube) 1 appl TOPICAL TID PRN; Protocol PRN Reason: dry skin Nicotine Polacrilex (Nicotine Polacrilex 2 Mg Gum) 4 mg BUCCAL Q2H PRN PRN Reason: Nicotine Cravings Omeprazole (Omeprazole 40 Mg Capsule.Dr) 40 mg PO DAILY@0630 [facility] Last Admin: 08/24/24 06:44 Dose: 40 mg Risperidone (Risperidone 0.5 Mg Tablet) 0.5 mg PO TID PRN PRN Reason: Hallucinations Last Admin: 08/13/24 14:06 Dose: 0.5 mg Risperidone (Risperidone 3 Mg Tablet) 6 mg PO BEDTIME [facility] Last Admin: 08/23/24 21:06 Dose: 6 mg Senna (Sennosides 8.6 Mg Tablet) 8.6 mg PO BID [facility] Last Admin: 08/24/24 08:15 Dose: 8.6 mg Trazodone HCl (Trazodone Hcl 50 Mg Tablet) 50 mg PO BEDTIME MRX1 PRN PRN Reason: Insomnia Last Admin: 08/22/24 23:43 Dose: 50 mg Trazodone HCl (Trazodone Hcl 100 Mg Tablet) 100 mg PO BEDTIME [facility] Last Admin: 08/23/24 21:06 Dose: 100 mg Allergies Allergies Allergy/AdvReac Type Severity Reaction Status Date / Time ondansetron [From Zofran] Allergy Unknown Verified 07/28/24 22:30 Penicillins Allergy Unknown Verified 07/28/24 22:30 potassium Allergy Unknown Verified 07/28/24 22:30 prochlorperazine Allergy Unknown Verified 07/28/24 22:30 Assessment & Plan Assessment & Plan (1) Schizoaffective disorder, bipolar type: Status: Acute Code(s): F25.0 - Schizoaffective disorder, bipolar type (2) Autism spectrum disorder: Status: Acute Code(s): F84.0 - Autistic disorder (3) Intellectual disability: Status: Acute Code(s): F79 - Unspecified intellectual disabilities (4) Aarskog syndrome: Status: Acute Code(s): Q87.19 - Other congenital malformation syndromes predominantly associated with short stature Plan Patient is a 34-year-old male with severe ASD, intellectual disability, schizoaffective disorder with, history of behavioral outbursts, who resides at a [facility] residential facility and who presents from external ED for what graphics programmer reports is decompensation following [facility] about 4 weeks ago. area field manager reports patient has increased anxiety, paranoia and visual hallucinations as well as increased agitation related to AVH, which has resulted in the need for physical restraints. Patient with limited ability to participate in interview. Patient cooperative and calm. He says he misses his mother. He said I am feeling better... And then that he was going to lay down. He said he wanted to be in the hospital until he feels better... But could not discuss his feelings or what that would mean. Denies any SI or HI and says he is feeling safe. Patient does endorse auditory hallucinations which he he says bothers him, however when asked to discuss them further or what they say, he says I do not know and regarding medication that there is nothing to help... For the remainder of the day, patient sometimes in his room, sometimes in the hallway saying he wanted to call his mother or father, saying he misses them and wants to go home. Formulation/clinical reasoning: Patient has diagnosis of schizoaffective disorder, not sure if he actually has manic episodes and according to collateral, patient has not demonstrated psychotic symptoms until this fall. Still he has been on antipsychotics for years. -Guardian paperwork in chart; parents are guardians -No HCP - [place] Diagnosis: -Says diagnosis is schizoaffective, bipolar type however she has no knowledge of any discrete manic episodes; he has some history of depressive episodes -Does not blink: Supposed to be on Restasis/cyclosporine ophthalmic; not sure dose; discussed with pharmacist who reports typically this is 0.05% solution 1 drop b.i.d. (other places say 0.1%) -Aarkskog syndrome -ASD -OCD -has chronic extremely dry skin (eczema?) for which he has some medicated cream; mother not sure the name -Said there was a plan to get MRI of the brain since change seemed somewhat sudden Hospital course: 07/30 Patient remains fearful; can be friendly and cooperative but seems very anxious and cautious. Visual hallucinations patient saying he can see his mother in the room and talking to her Still not going into bathroom, with recent history of being afraid of bathroom; thus patient Incontinent of urine, sitting in wet clothes and refusing to change today, willing to sign CV reiterating he wants to be here for treatment ( to feel better ) -left VM for outpatient provider Nat Lee to discuss tx hx 07/31 patient remains cautious and intermittently fearful but is also warming up a bit to some staff, primarily female staff. He says he is feeling better but behaviors remain decompensated. Willing to change out of clothes today with staff encouragement and have them washed; also talked to his mother on the phone today which he said made him happy. Patient willing to use lotion for try facial skin Collateral:[employer] discussed case with patient's mother who reports that behaviors decompensated this April after he returned from vacation with his father. At that time he started packing up his stuff, saying he wanted to move out of the [facility]; was taking lots of showers, self dialogue Ng, saying he could see his mother in the room, saying he thought his mother was and refusing to talk to her on the phone. For those reasons This past May he went to [facility] where he was started on Vraylar (and refused to take Latuda). He returned to the [facility] but remained confused, disorganized, paranoid. At 1 point he would not leave the living room at all, incontinent, afraid to go into the bathroom or to shower which resulted in this hospitalization. Some history of aggression for which he was hospitalized a year ago; only mild aggression in [facility] this time around. -left another message with clerical secretary for Nat Lee 08/01 mostly same presentation, continued AH which are bothersome; more comfortable with staff and allowing them to help him attending ADLs including bathing. -fiction and nonfiction writer prose did get a call back from Nat Lee; fiction and nonfiction writer prose return call and left message 08/02 Patient continues to say I am feeling much better however this does not seem to correlate with any improvement in symptoms as he continues to have AH, is afraid of his room, incontinent of urine because afraid of going to the bathroom and continually saying that he sees his mother in his room. Patient does not respond much to reality testing. He does say he would like other medications to help make the voices go away. -given discussion below, will DC Vraylar since no clear indication of bipolar depression; already on 3 antipsychotics and does not seem effective. Instead will try Risperdal. -will start to try to eliminate pharmacy; need to find out what medication regimen patient was on this past summer during which time he was doing well Collateral: Again discussed case with patient's mother. -She reports he was doing great this past summer; not sure what his medication regimen was at that time -says was on Tegretol for years; for some reason [facility] took him off of it (was restarted at this hospitalization) -says was on clomipramine for OCD since 7 years old and did well on it; not sure why he was taken off a year ago -to her knowledge Latuda was supposed to be discontinued since he was never really taking it; Vraylar was also started at [facility] which has not seemed to help. -Has been on Zyprexa for a while; not sure efficacy --drools consistently at baseline; she said she has asked in the past for medication for this 08/03 Patient reports that he is feeling a lot better which is what he says to fiction and nonfiction writer prose every day. He denies any AH. Also says he has not been seeing his mother. Difficult to tell if this is the case or not so will continue to monitor. Patient did ask for a stuffed animal or something about a stuffed animal but it was not clear. -briefly spoke with outpatient provider Huma who said she was 1 who started him on Vraylar -continue with Risperdal 08/04 No change in presentation; still disorganized, fearful, incontinent, hardly moving from room. Not sleeping at night but will tell fiction and nonfiction writer prose I slept very good... . Continues to say the same refrain I feel a lot better... 08/05 meeting with outpt team stable on Tegretol and latuda for years until sudden decompensation this fall at which time pt presented with same symptoms he has currently. Prior to this stable and functional in many ways, all ADL's, organized and quite capable; no psychosis; read/write/send emails 08/06 no change in presentation and pt remains disorganized, sitting in own defecate; has AH. Hardly sleeping at night. sitting in one spot for most of the day. -intermittently refusing medications -pt refusing labs -feet are both swollen; hospitalist examined -infection on both side of bridge of nose where glasses sit on nose; pt allowed antibiotic ointment to be applied History that patient was stable on Tegretol and Latuda for at least a year; Latuda was lowered in the springtime to 40 mg, down from 60 since patient said was making him tired. He remained stable until this fall when he suddenly decompensated, unable to accept reality, incontinent, afraid of multiple things, thinking his mom's , forgetting people are Medication: pt was stable on Tegretol and Latuda for years until this fall -for now, will continue on Tegretol and Latuda -dc'd alexander -started risperdal and increased to 4mg, scheduled it at bedtime to help w/ sleep -consider CT scan brain given sudden onset of symptoms, though was several months ago at this point 08/10 Still no change in presentation; refusing eyedrops. Remains scared to go out of his room. Did allow for bacitracin and sores on bilateral bridge of his nose are better.08/10 Still no change in presentation; refusing eyedrops. Remains scared to go out of his room. Did allow for bacitracin and sores on bilateral bridge of his nose are better. 08/11 Again no change in presentation; refusing labs. Will continue to retry before forcing them. Will try to get head CT. Continues to refuse eyedrops. Will give a little longer on Risperdal 4 mg 08/12 increased Risperdal to 6 mg 08/13 day of actual improvement in that patient allowed lab work. That said, he also threw mattress/belongings into the hallway, talking about a 90 yo neighbor he wants to -labs WNL -refused head CT; since he allowed labs, still will try to see if he will comply with head CT hoping to avoid the trauma of forcing him 08/14 Patient out in the milieu today, 1st time in over a week. Furthermore Patient actually using the bathroom today on his own, with significant encouragement from staff and a verbal plan; throughout the day patient was able to get himself to the bathroom rather than remain incontinent and inside close, which he has continually done since admission. Patient also seems more cheerful. -Again refused head CT but since getting better, will hold off from this for now -continue with increased Risperdal dose of 6 mg 08/17 remains somewhat improved. Patient pleasant and out in the milieu. Throughout the weekend he has been using the bathroom and not been incontinent which christie consistent improvement since admission. Also allowing staff to help him brush his teeth. Patient is normally, when at baseline, able to do all these things on his own, maybe with some prompting but independently. -will continue with current regimen for now as patient continues to improve -will continue to keep in mind that patient has a history of OCD and that he may benefit and improve from restarting clomipramine; however as psychosis and disorganized behavior is the main concern will continue to focus treatment in this area now 08/18 continues current tx plan for now; will consider increasing Risperdal though already at 6mg. 08/21 Patient remains doing better. Still not dressing himself or taking a shower but seems to be doing more more ADLs. Denies any AH. -at this time, fiction and nonfiction writer prose hesitates to make any changes as patient has been slowly but steadily improving. 08/22: Continue current regime and plan of care. Pt appears improved. 08/24 Overall remains doing better. Attending to most ADLs except for showering. He says he is afraid to shower here and that he will shower at his own house. Patient sleeping through the night. Still Refusing head CT saying that he is better now. [employer] discussed with patient adding clomipramine back to his medication regimen with which he agrees and which was encouraged by his mother PLAN: CV *guardians have authorized fiction and nonfiction writer prose, staff to administer any/all medical treatments even if against patients will q15 min checks Continue with Risperdal 6 mg qhs -Add Risperdal 0.5 mg t.i.d. p.r.n. for breakthrough AVH -for now, Continue Latuda 40 mg daily at dinnertime (used to be on 60mg) -Continue Tegretol 400mg BID (was stable on this in past) -DC Vraylar 3 mg; this was started by outpatient provider; does not seem to have helped much and no clear indication for bipolar depression (also patient already on 3 antipsychotics) -DC'd Zyprexa: has caused DM/elevated Cholesterol/wt gain -temporarily Start artificial tears; refusing -Will get prescription for Restasis/cyclosporin -consider restarting clomipramine for OCD ( clomipramine 100 mg b.i.d. for OCD in the past around 2014; for some reason it was dc'd at some point; restarted 2022 but not continued after that). -consider glycopyrrolate for excessive drooling -will consider getting MRI, however patient's symptoms are congruent with diagnosis Patient educated on: diagnosis and medication risk/benefits Informed Consent: understands, does not understand and further education needed Reason for continued inpatient stay Substantial Risk for: rapid decompensation and med/psych decompensation Time Spent With Patient Time: Total time managing care of this patient today ____ minutes.
[2024-08-24] MEDS: Lurasidone HCl 40 MG TABLET PO (16:51)
[2024-08-24 19:51] VITALS: BP 134/63; PULSE 73; TEMP 36.9; O2SAT 100
[2024-08-24] MEDS: Atorvastatin Calcium 40 MG TABLET PO (20:25)
[2024-08-24] MEDS: risperiDONE 3 MG TABLET 6 MG PO (20:25)
[2024-08-24] MEDS: traZODone HCL 100 MG TABLET PO (20:25)
[2024-08-25] MEDS: Omeprazole 40 MG CAPSULE.DR PO (06:36)
[2024-08-25 08:00] VITALS: BP 133/77; PULSE 72; TEMP 36.6; O2SAT 100
[2024-08-25 08:45] VITALS: BP 133/77; PULSE 72
[2024-08-25] MEDS: atenoloL 25 MG TABLET PO (08:45)
[2024-08-25] MEDS: Ezetimibe 10 MG TABLET PO (08:46)
[2024-08-25] MEDS: Sennosides 8.6 MG TABLET PO ×2 (08:47→21:06)
[2024-08-25] MEDS: gemfibroziL 600 MG TABLET PO ×2 (08:47→21:04)
[2024-08-25] MEDS: Loratadine 10 MG TABLET PO (08:47)
[2024-08-25] MEDS: Escitalopram Oxalate 10 MG TABLET PO (08:47)
[2024-08-25] MEDS: carBAMazepine ER 200 MG TAB.ER.12H 400 MG PO ×2 (08:48→21:04)
[2024-08-25] MEDS: clonazePAM 0.5 MG TABLET PO ×3 (08:48→21:06)
[2024-08-25] MEDS: Docusate Sodium 100 MG CAPSULE PO ×3 (08:49→21:06)
[2024-08-25] MEDS: Fluticasone Propionate Nasal 16 GM SPRAY 1 SPRAY NOSTRIL-B (15:05)
[2024-08-25] MEDS: Lurasidone HCl 40 MG TABLET PO (18:10)
--- NOTE | 2024-08-25 18:23 | HO.PSYCHPN ---
Subjective Subjective Date of Service: 08/25/24 Reason For Visit: Schioafective disorder bipolar type Interim History: Met with patient; discussed with team Continues with same presentation and denies psychiatric symptoms. He did however put all of his belongings into the [place] again but with no explanation. Patient saying that he will be seeing his mother today who is coming to visit however this is not true; this remains improvement however from saying he can see his mother in his bedroom Mental Status Exam Mental Status Exam Narrative: Pt is alert and oriented; behavior is more organized and cooperative, also more calm; using toilet on his own; patient is not in distress; dressed in hospital attire, improved hygiene though still no shower; drooling; mood is described as good though affect congruent, more calm and a little brighter; eye contact appropriate; Speech remains a little garbled which is baseline; normal rate, volume; uses few words; not pressured; no psychomotor agitation/retardation present; thought process is concrete, goal directed, asks for needs; Thought content on missing parents; otherwise pertinent to relevant topics; remains without any expressed paranoid delusions content; denies any SI/HI. Denies AH; hard to tell if internally preoccupied. Patients insight and judgment impaired but improving. Diagnostics Vital Signs (24Hr): Vital Signs - 24 hr 08/24/24 19:51 08/25/24 08:00 08/25/24 08:45 Temperature 98.4 F 97.8 F Pulse Rate 73 72 72 Blood Pressure 134/63 133/77 133/77 Pulse Oximetry 100 100 Oxygen Delivery Method Room Air Room Air BMI result Body Mass Index 33.0 Labs 08/13/24 08:17 08/13/24 08:17 Medications Medications Current Medications Acetaminophen (Acetaminophen 325 Mg Tablet) 650 mg PO Q6H PRN PRN Reason: Headache/Pain Mild Scale (1-3) Last Admin: 08/19/24 17:31 Dose: 650 mg Al Hydroxide/Mg Hydroxide (Magnesium Hydrox/Alum Hydrox 30 Ml Oral.Susp) 30 ml PO Q6H PRN PRN Reason: Heartburn/Nausea Artificial Tears (Artificial Tears 15 Ml Drops) 1 drop EYE-BOTH Q4H PRN PRN Reason: Dry Eyes Last Admin: 08/02/24 16:09 Dose: 1 drop Atenolol (Atenolol 25 Mg Tablet) 25 mg PO DAILY ADRIANO; Protocol Last Admin: 08/25/24 08:45 Dose: 25 mg Atorvastatin Calcium (Atorvastatin Calcium 40 Mg Tablet) 40 mg PO BEDTIME [facility] Last Admin: 08/24/24 20:25 Dose: 40 mg Carbamazepine (Carbamazepine Er 200 Mg Tab.Er.12h) 400 mg PO BID [facility] Last Admin: 08/25/24 08:48 Dose: 400 mg Clomipramine HCl (Clomipramine Hcl 25 Mg Capsule) 25 mg PO BEDTIME [facility] Clonazepam (Clonazepam 0.5 Mg Tablet) 0.5 mg PO TID [facility] Last Admin: 08/25/24 15:05 Dose: 0.5 mg Docusate Sodium (Docusate Sodium 100 Mg Capsule) 100 mg PO TID [facility] Last Admin: 08/25/24 15:05 Dose: 100 mg Ezetimibe (Ezetimibe 10 Mg Tablet) 10 mg PO DAILY [facility] Last Admin: 08/25/24 08:46 Dose: 10 mg Escitalopram Oxalate (Escitalopram Oxalate 10 Mg Tablet) 10 mg PO DAILY [facility] Last Admin: 08/25/24 08:47 Dose: 10 mg Fluticasone Propionate (Fluticasone Propionate Nasal 16 Gm [place]) 1 spray NOSTRIL-B DAILY [facility] Last Admin: 08/25/24 15:05 Dose: 1 spray Gemfibrozil (Gemfibrozil 600 Mg Tablet) 600 mg PO BID [facility] Last Admin: 08/25/24 08:47 Dose: 600 mg Hydroxyzine HCl (Hydroxyzine Hcl 25 Mg Tablet) 25 mg PO Q6H PRN PRN Reason: Anxiety Last Admin: 08/22/24 23:43 Dose: 25 mg Loratadine (Loratadine 10 Mg Tablet) 10 mg PO DAILY [facility] Last Admin: 08/25/24 08:47 Dose: 10 mg Lurasidone HCl (Lurasidone Hcl 40 Mg Tablet) 40 mg PO DAILY@1700 [facility] Last Admin: 08/25/24 18:10 Dose: 40 mg Magnesium Hydroxide (Milk Of Magnesia 30 Ml Oral.Susp) 30 ml PO DAILY PRN PRN Reason: Constipation Multi-Ingred Cream/Lotion/Oil/Oint (Mineral Oil/Petrolatum,White 106 Gm Tube) 1 appl TOPICAL TID PRN; Protocol PRN Reason: dry skin Nicotine Polacrilex (Nicotine Polacrilex 2 Mg Gum) 4 mg BUCCAL Q2H PRN PRN Reason: Nicotine Cravings Omeprazole (Omeprazole 40 Mg Capsule.Dr) 40 mg PO DAILY@0630 [facility] Last Admin: 08/25/24 06:36 Dose: 40 mg Risperidone (Risperidone 0.5 Mg Tablet) 0.5 mg PO TID PRN PRN Reason: Hallucinations Last Admin: 08/13/24 14:06 Dose: 0.5 mg Risperidone (Risperidone 3 Mg Tablet) 6 mg PO BEDTIME [facility] Last Admin: 08/24/24 20:25 Dose: 6 mg Senna (Sennosides 8.6 Mg Tablet) 8.6 mg PO BID [facility] Last Admin: 08/25/24 08:47 Dose: 8.6 mg Trazodone HCl (Trazodone Hcl 50 Mg Tablet) 50 mg PO BEDTIME MRX1 PRN PRN Reason: Insomnia Last Admin: 08/22/24 23:43 Dose: 50 mg Trazodone HCl (Trazodone Hcl 100 Mg Tablet) 100 mg PO BEDTIME [facility] Last Admin: 08/24/24 20:25 Dose: 100 mg Allergies Allergies Allergy/AdvReac Type Severity Reaction Status Date / Time ondansetron [From Zofran] Allergy Unknown Verified 07/28/24 22:30 Penicillins Allergy Unknown Verified 07/28/24 22:30 potassium Allergy Unknown Verified 07/28/24 22:30 prochlorperazine Allergy Unknown Verified 07/28/24 22:30 Assessment & Plan Assessment & Plan (1) Schizoaffective disorder, bipolar type: Status: Acute Code(s): F25.0 - Schizoaffective disorder, bipolar type (2) Autism spectrum disorder: Status: Acute Code(s): F84.0 - Autistic disorder (3) Intellectual disability: Status: Acute Code(s): F79 - Unspecified intellectual disabilities (4) Aarskog syndrome: Status: Acute Code(s): Q87.19 - Other congenital malformation syndromes predominantly associated with short stature Plan Patient is a 34-year-old male with severe ASD, intellectual disability, schizoaffective disorder with, history of behavioral outbursts, who resides at a [facility] residential facility and who presents from external ED for what quality assurance test program manager reports is decompensation following discharge from [facility] admission about 4 weeks ago. patient care manager reports patient has increased anxiety, paranoia and visual hallucinations as well as increased agitation related to AVH, which has resulted in the need for physical restraints. Patient with limited ability to participate in interview. Patient cooperative and calm. He says he misses his mother. He said I am feeling better... And then that he was going to lay down. He said he wanted to be in the hospital until he feels better... But could not discuss his feelings or what that would mean. Denies any SI or HI and says he is feeling safe. Patient does endorse auditory hallucinations which he he says bothers him, however when asked to discuss them further or what they say, he says I do not know and regarding medication that there is nothing to help... For the remainder of the day, patient sometimes in his room, sometimes in the hallway saying he wanted to call his mother or father, saying he misses them and wants to go home. Formulation/clinical reasoning: Patient has diagnosis of schizoaffective disorder, not sure if he actually has manic episodes and according to collateral, patient has not demonstrated psychotic symptoms until this fall. Still he has been on antipsychotics for years. -Guardian paperwork in chart; parents are guardians -No HCP - [place] Diagnosis: -Says diagnosis is schizoaffective, bipolar type however she has no knowledge of any discrete manic episodes; he has some history of depressive episodes -Does not blink: Supposed to be on Restasis/cyclosporine ophthalmic; not sure dose; discussed with pharmacist who reports typically this is 0.05% solution 1 drop b.i.d. (other places say 0.1%) -Aarkskog syndrome -ASD -OCD -has chronic extremely dry skin (eczema?) for which he has some medicated cream; mother not sure the name -Said there was a plan to get MRI of the brain since change seemed somewhat sudden Hospital course: 07/30 Patient remains fearful; can be friendly and cooperative but seems very anxious and cautious. Visual hallucinations patient saying he can see his mother in the room and talking to her Still not going into bathroom, with recent history of being afraid of bathroom; thus patient Incontinent of urine, sitting in wet clothes and refusing to change today, willing to sign CV reiterating he wants to be here for treatment ( to feel better ) -left for outpatient provider Nat Lee to discuss tx hx 07/31 patient remains cautious and intermittently fearful but is also warming up a bit to some staff, primarily female staff. He says he is feeling better but behaviors remain decompensated. Willing to change out of clothes today with staff encouragement and have them washed; also talked to his mother on the phone today which he said made him happy. Patient willing to use lotion for try facial skin Collateral:Laundry Attendant discussed case with patient's mother who reports that behaviors decompensated this April after he returned from vacation with his father. At that time he started packing up his stuff, saying he wanted to move out of the assisted; was taking lots of showers, self dialogue Ng, saying he could see his mother in the room, saying he thought his mother was and refusing to talk to her on the phone. For those reasons This past May he went to [facility] where he was started on Vraylar (and refused to take Latuda). He returned to the assisted but remained confused, disorganized, paranoid. At 1 point he would not leave the living room at all, incontinent, afraid to go into the bathroom or to shower which resulted in this hospitalization. Some history of aggression for which he was hospitalized a year ago; only mild aggression in assisted this time around. -left another message with real estate legal secretary for [facility] Lee 08/01 mostly same presentation, continued AH which are bothersome; more comfortable with staff and allowing them to help him attending ADLs including bathing. -manual writer did get a call back from Nat Lee; manual writer return call and left message 08/02 Patient continues to say I am feeling much better however this does not seem to correlate with any improvement in symptoms as he continues to have AH, is afraid of his room, incontinent of urine because afraid of going to the bathroom and continually saying that he sees his mother in his room. Patient does not respond much to reality testing. He does say he would like other medications to help make the voices go away. -given discussion below, will DC Vraylar since no clear indication of bipolar depression; already on 3 antipsychotics and does not seem effective. Instead will try Risperdal. -will start to try to eliminate pharmacy; need to find out what medication regimen patient was on this past summer during which time he was doing well Collateral: Again discussed case with patient's mother. -She reports he was doing great this past summer; not sure what his medication regimen was at that time -says was on Tegretol for years; for some reason [facility] took him off of it (was restarted at this hospitalization) -says was on clomipramine for OCD since 7 years old and did well on it; not sure why he was taken off a year ago -to her knowledge Latuda was supposed to be discontinued since he was never really taking it; Vraylar was also started at [facility] which has not seemed to help. -Has been on Zyprexa for a while; not sure efficacy --drools consistently at baseline; she said she has asked in the past for medication for this 08/03 Patient reports that he is feeling a lot better which is what he says to manual writer every day. He denies any AH. Also says he has not been seeing his mother. Difficult to tell if this is the case or not so will continue to monitor. Patient did ask for a stuffed animal or something about a stuffed animal but it was not clear. -briefly spoke with outpatient provider Huma who said she was 1 who started him on Vraylar -continue with Risperdal 08/04 No change in presentation; still disorganized, fearful, incontinent, hardly moving from room. Not sleeping at night but will tell manual writer I slept very good... . Continues to say the same refrain I feel a lot better... 08/05 meeting with outpt team stable on Tegretol and latuda for years until sudden decompensation this fall at which time pt presented with same symptoms he has currently. Prior to this stable and functional in many ways, all ADL's, organized and quite capable; no psychosis; read/write/send emails 08/06 no change in presentation and pt remains disorganized, sitting in own defecate; has AH. Hardly sleeping at night. sitting in one spot for most of the day. -intermittently refusing medications -pt refusing labs -feet are both swollen; hospitalist examined -infection on both side of bridge of nose where glasses sit on nose; pt allowed antibiotic ointment to be applied History that patient was stable on Tegretol and Latuda for at least a year; Latuda was lowered in the springtime to 40 mg, down from 60 since patient said was making him tired. He remained stable until this fall when he suddenly decompensated, unable to accept reality, incontinent, afraid of multiple things, thinking his mom's , forgetting people are Medication: pt was stable on Tegretol and Latuda for years until this fall -for now, will continue on Tegretol and Latuda -kaylee'nicho munoz -started risperdal and increased to 4mg, scheduled it at bedtime to help w/ sleep -consider CT scan brain given sudden onset of symptoms, though was several months ago at this point 08/10 Still no change in presentation; refusing eyedrops. Remains scared to go out of his room. Did allow for bacitracin and sores on bilateral bridge of his nose are better.08/10 Still no change in presentation; refusing eyedrops. Remains scared to go out of his room. Did allow for bacitracin and sores on bilateral bridge of his nose are better. 08/11 Again no change in presentation; refusing labs. Will continue to retry before forcing them. Will try to get head CT. Continues to refuse eyedrops. Will give a little longer on Risperdal 4 mg 08/12 increased Risperdal to 6 mg 08/13 1st day of actual improvement in that patient allowed lab work. That said, he also threw mattress/belongings into the hallway, talking about a 90 yo neighbor he wants to -labs WN -refused head CT; since he allowed labs, still will try to see if he will comply with head CT hoping to avoid the trauma of forcing him 08/14 Patient out in the milieu today, 1st time in over a week. Furthermore Patient actually using the bathroom today on his own, with significant encouragement from staff and a verbal plan; throughout the day patient was able to get himself to the bathroom rather than remain incontinent and inside close, which he has continually done since admission. Patient also seems more cheerful. -Again refused head CT but since getting better, will hold off from this for now -continue with increased Risperdal dose of 6 mg 08/17 remains somewhat improved. Patient pleasant and out in the milieu. Throughout the weekend he has been using the bathroom and not been incontinent which christie consistent improvement since admission. Also allowing staff to help him brush his teeth. Patient is normally, when at baseline, able to do all these things on his own, maybe with some prompting but independently. -will continue with current regimen for now as patient continues to improve -will continue to keep in mind that patient has a history of OCD and that he may benefit and improve from restarting clomipramine; however as psychosis and disorganized behavior is the main concern will continue to focus treatment in this area now 08/18 continues current tx plan for now; will consider increasing Risperdal though already at 6mg. 08/21 Patient remains doing better. Still not dressing himself or taking a shower but seems to be doing more more ADLs. Denies any AH. -at this time, manual writer hesitates to make any changes as patient has been slowly but steadily improving. 08/22: Continue current regime and plan of care. Pt appears improved. 08/24 Overall remains doing better. Attending to most ADLs except for showering. He says he is afraid to shower here and that he will shower at his own house. Patient sleeping through the night. Still Refusing head CT saying that he is better now. Laundry Attendant discussed with patient adding clomipramine back to his medication regimen with which he agrees and which was encouraged by his mother 08/25 same presentation and denies psychiatric symptoms. He did however put all of his belongings into the [place] again but with no explanation. Patient saying that he will be seeing his mother today who is coming to visit however this is not true; this remains improvement however from when he was saying he can see his mother in his bedroom PLAN: CV *guardians have authorized manual writer, staff to administer any/all medical treatments even if against patients will q15 min checks STARt clomipramine 25mg qhs for OCD (on this at home) Continue with Risperdal 6 mg qhs -Add Risperdal 0.5 mg t.i.d. p.r.n. for breakthrough AVH -for now, Continue Latuda 40 mg daily at dinnertime (used to be on 60mg) -Continue Tegretol 400mg BID (was stable on this in past) -DC Vraylar 3 mg; this was started by outpatient provider; does not seem to have helped much and no clear indication for bipolar depression (also patient already on 3 antipsychotics) -DC'd Zyprexa: has caused DM/elevated Cholesterol/wt gain -temporarily Start artificial tears; refusing -Will get prescription for Restasis/cyclosporin -consider restarting clomipramine for OCD ( clomipramine 100 mg b.i.d. for OCD in the past around 2014; for some reason it was dc'd at some point; restarted 2022 but not continued after that). -consider glycopyrrolate for excessive drooling -will consider getting MRI, however patient's symptoms are congruent with diagnosis Patient educated on: diagnosis and medication risk/benefits Informed Consent: understands, does not understand and further education needed Reason for continued inpatient stay Substantial Risk for: rapid decompensation and med/psych decompensation Time Spent With Patient Time: Total time managing care of this patient today ____ minutes.
[2024-08-25 19:56] VITALS: BP 136/64; PULSE 82; TEMP 36.9; O2SAT 99
[2024-08-25] MEDS: traZODone HCL 100 MG TABLET PO (21:04)
[2024-08-25] MEDS: clomiPRAMINE HCl 25 MG CAPSULE PO (21:04)
[2024-08-25] MEDS: risperiDONE 3 MG TABLET 6 MG PO (21:05)
[2024-08-25] MEDS: Atorvastatin Calcium 40 MG TABLET PO (21:06)
[2024-08-25] MEDS: risperiDONE 0.5 MG TABLET PO (21:06)
[2024-08-26] MEDS: hydrOXYzine HCL 25 MG TABLET PO (00:02)
[2024-08-26] MEDS: traZODone HCL 50 MG TABLET PO (00:02)
[2024-08-26 08:00] VITALS: BP 115/64; PULSE 64; RESP 16; TEMP 36.6; O2SAT 100
[2024-08-26] MEDS: clonazePAM 0.5 MG TABLET PO ×3 (08:58→21:26)
[2024-08-26] MEDS: gemfibroziL 600 MG TABLET PO ×2 (08:58→21:26)
[2024-08-26] MEDS: carBAMazepine ER 200 MG TAB.ER.12H 400 MG PO ×2 (08:58→21:25)
[2024-08-26] MEDS: Escitalopram Oxalate 10 MG TABLET PO (08:58)
[2024-08-26] MEDS: atenoloL 25 MG TABLET PO (08:58)
[2024-08-26] MEDS: Loratadine 10 MG TABLET PO (08:59)
[2024-08-26] MEDS: Omeprazole 40 MG CAPSULE.DR PO (08:59)
[2024-08-26] MEDS: Ezetimibe 10 MG TABLET PO (08:59)
[2024-08-26] MEDS: Sennosides 8.6 MG TABLET PO ×2 (08:59→21:25)
[2024-08-26] MEDS: Docusate Sodium 100 MG CAPSULE PO ×3 (08:59→21:25)
[2024-08-26] MEDS: Fluticasone Propionate Nasal 16 GM SPRAY 1 SPRAY NOSTRIL-B (09:02)
--- NOTE | 2024-08-26 09:54 | P.PNPSI_ITS ---
Subjective Subjective Date of Service: 08/26/24 Reason For Visit: Schioafective disorder bipolar type Interim History: Met with patient; discussed with team Again discussed clomipramine which he got last night and says he will continue taking. Was incontinent 2nd shift yesterday but not sure if it was cause he did not get to the bathroom in time which has happened even at baseline. Patient denies any AVH; says he is not feeling afraid. Hydroelectric Plant Electrical Engineer again addressed taking a shower on the unit reminded him that this is what he does when he is doing well and he said he would consider. Mental Status Exam Mental Status Exam Narrative: Pt is alert and oriented; behavior is more organized and cooperative, also more calm; using toilet on his own; patient is not in distress; dressed in hospital attire, improved hygiene though still no shower; drooling; mood is described as good though affect congruent, more calm and a little brighter; eye contact appropriate; Speech remains a little garbled which is baseline; normal rate, volume; uses few words; not pressured; no psychomotor agitation/retardation present; thought process is concrete, goal directed, asks for needs; Thought content on missing parents; otherwise pertinent to relevant topics; remains without any expressed paranoid delusions content; denies any SI/HI. Denies AH; hard to tell if internally preoccupied. Patients insight and judgment impaired but improving. Diagnostics Vital Signs (24Hr): Vital Signs - 24 hr 08/25/24 19:56 08/26/24 08:00 Temperature 98.4 F 97.9 F Pulse Rate 82 64 Respiratory Rate 16 Blood Pressure 136/64 115/64 Pulse Oximetry 99 100 Oxygen Delivery Method Room Air Room Air BMI result Body Mass Index 33.0 Labs 08/13/24 08:17 08/13/24 08:17 Medications Medications Current Medications Acetaminophen (Acetaminophen 325 Mg Tablet) 650 mg PO Q6H PRN PRN Reason: Headache/Pain Mild Scale (1-3) Last Admin: 08/19/24 17:31 Dose: 650 mg Al Hydroxide/Mg Hydroxide (Magnesium Hydrox/Alum Hydrox 30 Ml Oral.Susp) 30 ml PO Q6H PRN PRN Reason: Heartburn/Nausea Artificial Tears (Artificial Tears 15 Ml Drops) 1 drop EYE-BOTH Q4H PRN PRN Reason: Dry Eyes Last Admin: 08/02/24 16:09 Dose: 1 drop Atenolol (Atenolol 25 Mg Tablet) 25 mg PO DAILY [facility]; Protocol Last Admin: 08/26/24 08:58 Dose: 25 mg Atorvastatin Calcium (Atorvastatin Calcium 40 Mg Tablet) 40 mg PO BEDTIME [facility] Last Admin: 08/25/24 21:06 Dose: 40 mg Carbamazepine (Carbamazepine Er 200 Mg Tab.Er.12h) 400 mg PO BID [facility] Last Admin: 08/26/24 08:58 Dose: 400 mg Clomipramine HCl (Clomipramine Hcl 25 Mg Capsule) 25 mg PO BEDTIME [facility] Last Admin: 08/25/24 21:04 Dose: 25 mg Clonazepam (Clonazepam 0.5 Mg Tablet) 0.5 mg PO TID [facility] Last Admin: 08/26/24 08:58 Dose: 0.5 mg Docusate Sodium (Docusate Sodium 100 Mg Capsule) 100 mg PO TID [facility] Last Admin: 08/26/24 08:59 Dose: 100 mg Ezetimibe (Ezetimibe 10 Mg Tablet) 10 mg PO DAILY [facility] Last Admin: 08/26/24 08:59 Dose: 10 mg Escitalopram Oxalate (Escitalopram Oxalate 10 Mg Tablet) 10 mg PO DAILY [facility] Last Admin: 08/26/24 08:58 Dose: 10 mg Fluticasone Propionate (Fluticasone Propionate Nasal 16 Gm [place]) 1 spray NOSTRIL-B DAILY [facility] Last Admin: 08/26/24 09:02 Dose: 1 spray Gemfibrozil (Gemfibrozil 600 Mg Tablet) 600 mg PO BID [facility] Last Admin: 08/26/24 08:58 Dose: 600 mg Hydroxyzine HCl (Hydroxyzine Hcl 25 Mg Tablet) 25 mg PO Q6H PRN PRN Reason: Anxiety Last Admin: 08/26/24 00:02 Dose: 25 mg Loratadine (Loratadine 10 Mg Tablet) 10 mg PO DAILY [facility] Last Admin: 08/26/24 08:59 Dose: 10 mg Lurasidone HCl (Lurasidone Hcl 40 Mg Tablet) 40 mg PO DAILY@1700 [facility] Last Admin: 08/25/24 18:10 Dose: 40 mg Magnesium Hydroxide (Milk Of Magnesia 30 Ml Oral.Susp) 30 ml PO DAILY PRN PRN Reason: Constipation Multi-Ingred Cream/Lotion/Oil/Oint (Mineral Oil/Petrolatum,White 106 Gm Tube) 1 appl TOPICAL TID PRN; Protocol PRN Reason: dry skin Nicotine Polacrilex (Nicotine Polacrilex 2 Mg Gum) 4 mg BUCCAL Q2H PRN PRN Reason: Nicotine Cravings Omeprazole (Omeprazole 40 Mg Capsule.Dr) 40 mg PO DAILY@0630 [facility] Last Admin: 08/26/24 08:59 Dose: 40 mg Risperidone (Risperidone 0.5 Mg Tablet) 0.5 mg PO TID PRN PRN Reason: Hallucinations Last Admin: 08/25/24 21:06 Dose: 0.5 mg Risperidone (Risperidone 3 Mg Tablet) 6 mg PO BEDTIME [facility] Last Admin: 08/25/24 21:05 Dose: 6 mg Senna (Sennosides 8.6 Mg Tablet) 8.6 mg PO BID [facility] Last Admin: 08/26/24 08:59 Dose: 8.6 mg Trazodone HCl (Trazodone Hcl 50 Mg Tablet) 50 mg PO BEDTIME MRX1 PRN PRN Reason: Insomnia Last Admin: 08/26/24 00:02 Dose: 50 mg Trazodone HCl (Trazodone Hcl 100 Mg Tablet) 100 mg PO BEDTIME [facility] Last Admin: 08/25/24 21:04 Dose: 100 mg Allergies Allergies Allergy/AdvReac Type Severity Reaction Status Date / Time ondansetron [From Zofran] Allergy Unknown Verified 07/28/24 22:30 Penicillins Allergy Unknown Verified 07/28/24 22:30 potassium Allergy Unknown Verified 07/28/24 22:30 prochlorperazine Allergy Unknown Verified 07/28/24 22:30 Assessment & Plan Assessment & Plan (1) Schizoaffective disorder, bipolar type: Status: Acute Code(s): F25.0 - Schizoaffective disorder, bipolar type (2) Autism spectrum disorder: Status: Acute Code(s): F84.0 - Autistic disorder (3) Intellectual disability: Status: Acute Code(s): F79 - Unspecified intellectual disabilities (4) Aarskog syndrome: Status: Acute Code(s): Q87.19 - Other congenital malformation syndromes predominantly associated with short stature Plan Patient is a 34-year-old male with severe ASD, intellectual disability, schizoaffective disorder with, history of behavioral outbursts, who resides at a [facility] residential facility and who presents from external ED for what junior programmer analyst reports is decompensation following discharge from [facility] admission about 4 weeks ago. marketing finance manager reports patient has increased anxiety, paranoia and visual hallucinations as well as increased agitation related to AVH, which has resulted in the need for physical restraints. Patient with limited ability to participate in interview. Patient cooperative and calm. He says he misses his mother. He said I am feeling better... And then that he was going to lay down. He said he wanted to be in the hospital until he feels better... But could not discuss his feelings or what that would mean. Denies any SI or HI and says he is feeling safe. Patient does endorse auditory hallucinations which he he says bothers him, however when asked to discuss them further or what they say, he says I do not know and regarding medication that there is nothing to help... For the remainder of the day, patient sometimes in his room, sometimes in the hallway saying he wanted to call his mother or father, saying he misses them and wants to go home. Formulation/clinical reasoning: Patient has diagnosis of schizoaffective disorder, not sure if he actually has manic episodes and according to collateral, patient has not demonstrated psychotic symptoms until this fall. Still he has been on antipsychotics for years. -Guardian paperwork in chart; parents are guardians -No HCP - [place] Diagnosis: -Says diagnosis is schizoaffective, bipolar type however she has no knowledge of any discrete manic episodes; he has some history of depressive episodes -Does not blink: Supposed to be on Restasis/cyclosporine ophthalmic; not sure dose; discussed with pharmacist who reports typically this is 0.05% solution 1 drop b.i.d. (other places say 0.1%) -Aarkskog syndrome -ASD -OCD -has chronic extremely dry skin (eczema?) for which he has some medicated cream; mother not sure the name -Said there was a plan to get MRI of the brain since change seemed somewhat sudden Hospital course: 07/30 Patient remains fearful; can be friendly and cooperative but seems very anxious and cautious. Visual hallucinations patient saying he can see his mother in the room and talking to her Still not going into bathroom, with recent history of being afraid of bathroom; thus patient Incontinent of urine, sitting in wet clothes and refusing to change today, willing to sign CV reiterating he wants to be here for treatment ( to feel better ) -left VM for outpatient provider Nat Lee to discuss tx hx 07/31 patient remains cautious and intermittently fearful but is also warming up a bit to some staff, primarily female staff. He says he is feeling better but behaviors remain decompensated. Willing to change out of clothes today with staff encouragement and have them washed; also talked to his mother on the phone today which he said made him happy. Patient willing to use lotion for try facial skin Collateral:Hydroelectric Plant Electrical Engineer discussed case with patient's mother who reports that behaviors decompensated this April after he returned from vacation with his father. At that time he started packing up his stuff, saying he wanted to move out of the senior living; was taking lots of showers, self dialogue Ng, saying he could see his mother in the room, saying he thought his mother was and refusing to talk to her on the phone. For those reasons This past May he went to [facility] where he was started on Vraylar (and refused to take Latuda). He returned to the senior living but remained confused, disorganized, paranoid. At 1 point he would not leave the living room at all, incontinent, afraid to go into the bathroom or to shower which resulted in this hospitalization. Some history of aggression for which he was hospitalized a year ago; only mild aggression in senior living this time around. -left another message with medical secretary teacher for Nat Lee 08/01 mostly same presentation, continued AH which are bothersome; more comfortable with staff and allowing them to help him attending ADLs including bathing. -process description writer did get a call back from Nat Lee; process description writer return call and left message 08/02 Patient continues to say I am feeling much better however this does not seem to correlate with any improvement in symptoms as he continues to have AH, is afraid of his room, incontinent of urine because afraid of going to the bathroom and continually saying that he sees his mother in his room. Patient does not respond much to reality testing. He does say he would like other medications to help make the voices go away. -given discussion below, will DC Vraylar since no clear indication of bipolar depression; already on 3 antipsychotics and does not seem effective. Instead will try Risperdal. -will start to try to eliminate pharmacy; need to find out what medication regimen patient was on this past summer during which time he was doing well Collateral: Again discussed case with patient's mother. -She reports he was doing great this past summer; not sure what his medication regimen was at that time -says was on Tegretol for years; for some reason [facility] took him off of it (was restarted at this hospitalization) -says was on clomipramine for OCD since 7 years old and did well on it; not sure why he was taken off a year ago -to her knowledge Latuda was supposed to be discontinued since he was never really taking it; Vraylar was also started at [facility] which has not seemed to help. -Has been on Zyprexa for a while; not sure efficacy --drools consistently at baseline; she said she has asked in the past for medication for this 08/03 Patient reports that he is feeling a lot better which is what he says to process description writer every day. He denies any AH. Also says he has not been seeing his mother. Difficult to tell if this is the case or not so will continue to monitor. Patient did ask for a stuffed animal or something about a stuffed animal but it was not clear. -briefly spoke with outpatient provider Huma who said she was 1 who started him on Vraylar -continue with Risperdal 08/04 No change in presentation; still disorganized, fearful, incontinent, hardly moving from room. Not sleeping at night but will tell process description writer I slept very good... . Continues to say the same refrain I feel a lot better... 08/05 meeting with outpt team stable on Tegretol and latuda for years until sudden decompensation this fall at which time pt presented with same symptoms he has currently. Prior to this stable and functional in many ways, all ADL's, organized and quite capable; no psychosis; read/write/send emails 08/06 no change in presentation and pt remains disorganized, sitting in own defecate; has AH. Hardly sleeping at night. sitting in one spot for most of the day. -intermittently refusing medications -pt refusing labs -feet are both swollen; hospitalist examined -infection on both side of bridge of nose where glasses sit on nose; pt allowed antibiotic ointment to be applied History that patient was stable on Tegretol and Latuda for at least a year; Latuda was lowered in the springtime to 40 mg, down from 60 since patient said was making him tired. He remained stable until this fall when he suddenly decompensated, unable to accept reality, incontinent, afraid of multiple things, thinking his mom's , forgetting people are Medication: pt was stable on Tegretol and Latuda for years until this fall -for now, will continue on Tegretol and Latuda -dc'd alexander -started risperdal and increased to 4mg, scheduled it at bedtime to help w/ sleep -consider CT scan brain given sudden onset of symptoms, though was several months ago at this point 08/10 Still no change in presentation; refusing eyedrops. Remains scared to go out of his room. Did allow for bacitracin and sores on bilateral bridge of his nose are better.08/10 Still no change in presentation; refusing eyedrops. Remains scared to go out of his room. Did allow for bacitracin and sores on bilateral bridge of his nose are better. 08/11 Again no change in presentation; refusing labs. Will continue to retry before forcing them. Will try to get head CT. Continues to refuse eyedrops. Will give a little longer on Risperdal 4 mg 08/12 increased Risperdal to 6 mg 08/13 1st day of actual improvement in that patient allowed lab work. That said, he also threw mattress/belongings into the hallway, talking about a 90 yo neighbor he wants to -labs WNL -refused head CT; since he allowed labs, still will try to see if he will comply with head CT hoping to avoid the trauma of forcing him 08/14 Patient out in the milieu today, 1st time in over a week. Furthermore Patient actually using the bathroom today on his own, with significant encouragement from staff and a verbal plan; throughout the day patient was able to get himself to the bathroom rather than remain incontinent and inside close, which he has continually done since admission. Patient also seems more cheerful. -Again refused head CT but since getting better, will hold off from this for now -continue with increased Risperdal dose of 6 mg 08/17 remains somewhat improved. Patient pleasant and out in the milieu. Throughout the weekend he has been using the bathroom and not been incontinent which christie consistent improvement since admission. Also allowing staff to help him brush his teeth. Patient is normally, when at baseline, able to do all these things on his own, maybe with some prompting but independently. -will continue with current regimen for now as patient continues to improve -will continue to keep in mind that patient has a history of OCD and that he may benefit and improve from restarting clomipramine; however as psychosis and disorganized behavior is the main concern will continue to focus treatment in this area now 08/18 continues current tx plan for now; will consider increasing Risperdal though already at 6mg. 08/21 Patient remains doing better. Still not dressing himself or taking a shower but seems to be doing more more ADLs. Denies any AH. -at this time, process description writer hesitates to make any changes as patient has been slowly but steadily improving. 08/22: Continue current regime and plan of care. Pt appears improved. 08/24 Overall remains doing better. Attending to most ADLs except for showering. He says he is afraid to shower here and that he will shower at his own house. Patient sleeping through the night. Still Refusing head CT saying that he is better now. Hydroelectric Plant Electrical Engineer discussed with patient adding clomipramine back to his medication regimen with which he agrees and which was encouraged by his mother 08/25 same presentation and denies psychiatric symptoms. He did however put all of his belongings into the [place] again but with no explanation. Patient saying that he will be seeing his mother today who is coming to visit however this is not true; this remains improvement however from when he was saying he can see his mother in his bedroom 08/26/2024 same presentation; took clomipramine last night; will keep it same dose and only slowly titrate as patient has been doing better overall do not want to make any quick changes; patient not able to have informative discussion about OCD symptoms however per his mother, patient did much better on clomipramine PLAN: CV *guardians have authorized process description writer, staff to administer any/all medical treatments even if against patients will q15 min checks STARt clomipramine 25mg qhs for OCD (on this at home: clomipramine 100 mg b.i.d Continue with Risperdal 6 mg qhs -Add Risperdal 0.5 mg t.i.d. p.r.n. for breakthrough AVH -for now, Continue Latuda 40 mg daily at dinnertime (used to be on 60mg) -Continue Tegretol 400mg BID (was stable on this in past) -DC Vraylar 3 mg; this was started by outpatient provider; does not seem to have helped much and no clear indication for bipolar depression (also patient already on 3 antipsychotics) -DC'd Zyprexa: has caused DM/elevated Cholesterol/wt gain -temporarily Start artificial tears; refusing -Will get prescription for Restasis/cyclosporin -consider restarting clomipramine for OCD ( clomipramine 100 mg b.i.d. for OCD in the past around 2014; for some reason it was dc'd at some point; restarted 2022 but not continued after that). -consider glycopyrrolate for excessive drooling -will consider getting MRI, however patient's symptoms are congruent with diagnosis Patient educated on: diagnosis, medication risk/benefits and therapeutic strategies Informed Consent: understands, does not understand and further education needed Reason for continued inpatient stay Substantial Risk for: rapid decompensation and med/psych decompensation Time Spent With Patient Time: Total time managing care of this patient today ____ minutes.
[2024-08-26] MEDS: Lurasidone HCl 40 MG TABLET PO (17:53)
[2024-08-26 20:00] VITALS: BP 135/73; PULSE 78; RESP 16; TEMP 36.7; O2SAT 99
[2024-08-26] MEDS: clomiPRAMINE HCl 25 MG CAPSULE PO (21:25)
[2024-08-26] MEDS: risperiDONE 3 MG TABLET 6 MG PO (21:25)
[2024-08-26] MEDS: Atorvastatin Calcium 40 MG TABLET PO (21:26)
[2024-08-26] MEDS: traZODone HCL 100 MG TABLET PO (21:26)
[2024-08-27 07:00] VITALS: BMI 31.4
[2024-08-27 08:25] VITALS: BP 148/77; PULSE 74; RESP 16; TEMP 36.4; O2SAT 100
[2024-08-27] MEDS: Omeprazole 40 MG CAPSULE.DR PO (08:28)
[2024-08-27] MEDS: Ezetimibe 10 MG TABLET PO (08:28)
[2024-08-27] MEDS: gemfibroziL 600 MG TABLET PO ×2 (08:28→23:42)
[2024-08-27] MEDS: carBAMazepine ER 200 MG TAB.ER.12H 400 MG PO ×2 (08:28→23:39)
[2024-08-27] MEDS: Sennosides 8.6 MG TABLET PO ×2 (08:28→23:40)
[2024-08-27] MEDS: Escitalopram Oxalate 10 MG TABLET PO (08:28)
[2024-08-27] MEDS: Docusate Sodium 100 MG CAPSULE PO ×3 (08:29→20:48)
[2024-08-27] MEDS: clonazePAM 0.5 MG TABLET PO ×3 (08:29→23:41)
[2024-08-27] MEDS: Loratadine 10 MG TABLET PO (08:29)
[2024-08-27] MEDS: atenoloL 25 MG TABLET PO (08:29)
[2024-08-27] MEDS: Fluticasone Propionate Nasal 16 GM SPRAY 1 SPRAY NOSTRIL-B (08:58)
[2024-08-27] MEDS: Lurasidone HCl 40 MG TABLET PO (17:40)
[2024-08-27 20:00] VITALS: BP 141/80; PULSE 78; RESP 16; TEMP 36.6; O2SAT 100
[2024-08-27] MEDS: risperiDONE 3 MG TABLET 6 MG PO (23:39)
[2024-08-27] MEDS: traZODone HCL 100 MG TABLET PO (23:40)
[2024-08-27] MEDS: clomiPRAMINE HCl 25 MG CAPSULE PO (23:40)
[2024-08-27] MEDS: Atorvastatin Calcium 40 MG TABLET PO (23:41)
[2024-08-28 08:00] VITALS: BP 130/79; PULSE 73; TEMP 36.4; O2SAT 100
[2024-08-28 08:39] VITALS: BP 130/79; PULSE 73
[2024-08-28] MEDS: clonazePAM 0.5 MG TABLET PO ×3 (08:39→20:24)
[2024-08-28] MEDS: carBAMazepine ER 200 MG TAB.ER.12H 400 MG PO ×2 (08:39→20:25)
[2024-08-28] MEDS: Ezetimibe 10 MG TABLET PO (08:39)
[2024-08-28] MEDS: atenoloL 25 MG TABLET PO (08:39)
[2024-08-28] MEDS: Loratadine 10 MG TABLET PO (08:39)
[2024-08-28] MEDS: Docusate Sodium 100 MG CAPSULE PO ×3 (08:39→20:24)
[2024-08-28] MEDS: Omeprazole 40 MG CAPSULE.DR PO (08:39)
[2024-08-28] MEDS: gemfibroziL 600 MG TABLET PO ×2 (08:40→20:24)
[2024-08-28] MEDS: Escitalopram Oxalate 10 MG TABLET PO (08:40)
[2024-08-28] MEDS: Sennosides 8.6 MG TABLET PO ×2 (08:40→20:24)
[2024-08-28] MEDS: Fluticasone Propionate Nasal 16 GM SPRAY 1 SPRAY NOSTRIL-B (10:16)
[2024-08-28] MEDS: hydrOXYzine HCL 25 MG TABLET PO (10:16)
--- NOTE | 2024-08-28 17:28 | P.PNPSI_ITS ---
Subjective Subjective Date of Service: 08/27/24 Reason For Visit: Schioafective disorder bipolar type Interim History: Late entry note for patient seen on 08/27; discussed with team No change in presentation overall remains doing better; patient's shelter staff supervisor nutritional yeast, Lisseth coming in tomorrow to help assess baseline. Pump Tender and staff continue to encourage patient to shower which is part of his baseline Mental Status Exam Mental Status Exam Narrative: Pt is alert and oriented; behavior is more organized and cooperative, also more calm; using toilet on his own; patient is not in distress; dressed in hospital attire, improved hygiene though still no shower; drooling; mood is described as good though affect congruent, more calm and a little brighter; eye contact appropriate; Speech remains a little garbled which is baseline; normal rate, volume; uses few words; not pressured; no psychomotor agitation/retardation present; thought process is concrete, goal directed, asks for needs; Thought content on missing parents; otherwise pertinent to relevant topics; remains without any expressed paranoid delusions content; denies any SI/HI. Denies AH; hard to tell if internally preoccupied. Patients insight and judgment impaired but improving. Diagnostics Vital Signs (24Hr): Vital Signs - 24 hr 08/27/24 20:00 08/28/24 08:00 08/28/24 08:39 Temperature 97.8 F 97.5 F Pulse Rate 78 73 73 Respiratory Rate 16 Blood Pressure 141/80 H 130/79 130/79 Pulse Oximetry 100 100 Oxygen Delivery Method Room Air Room Air BMI result Body Mass Index 31.4 Labs 08/13/24 08:17 08/13/24 08:17 Medications Medications Current Medications Acetaminophen (Acetaminophen 325 Mg Tablet) 650 mg PO Q6H PRN PRN Reason: Headache/Pain Mild Scale (1-3) Last Admin: 08/19/24 17:31 Dose: 650 mg Al Hydroxide/Mg Hydroxide (Magnesium Hydrox/Alum Hydrox 30 Ml Oral.Susp) 30 ml PO Q6H PRN PRN Reason: Heartburn/Nausea Artificial Tears (Artificial Tears 15 Ml Drops) 1 drop EYE-BOTH Q4H PRN PRN Reason: Dry Eyes Last Admin: 08/02/24 16:09 Dose: 1 drop Atenolol (Atenolol 25 Mg Tablet) 25 mg PO DAILY ADRIANO; Protocol Last Admin: 08/28/24 08:39 Dose: 25 mg Atorvastatin Calcium (Atorvastatin Calcium 40 Mg Tablet) 40 mg PO BEDTIME [facility] Last Admin: 08/27/24 23:41 Dose: 40 mg Carbamazepine (Carbamazepine Er 200 Mg Tab.Er.12h) 400 mg PO BID [facility] Last Admin: 08/28/24 08:39 Dose: 400 mg Clomipramine HCl (Clomipramine Hcl 25 Mg Capsule) 50 mg PO BEDTIME [facility] Clonazepam (Clonazepam 0.5 Mg Tablet) 0.5 mg PO TID [facility] Last Admin: 08/28/24 15:13 Dose: 0.5 mg Docusate Sodium (Docusate Sodium 100 Mg Capsule) 100 mg PO TID [facility] Last Admin: 08/28/24 15:13 Dose: 100 mg Ezetimibe (Ezetimibe 10 Mg Tablet) 10 mg PO DAILY [facility] Last Admin: 08/28/24 08:39 Dose: 10 mg Escitalopram Oxalate (Escitalopram Oxalate 10 Mg Tablet) 10 mg PO DAILY [facility] Last Admin: 08/28/24 08:40 Dose: 10 mg Fluticasone Propionate (Fluticasone Propionate Nasal 16 Gm [place]) 1 spray NOSTRIL-B DAILY [facility] Last Admin: 08/28/24 10:16 Dose: 1 spray Gemfibrozil (Gemfibrozil 600 Mg Tablet) 600 mg PO BID [facility] Last Admin: 08/28/24 08:40 Dose: 600 mg Hydroxyzine HCl (Hydroxyzine Hcl 25 Mg Tablet) 25 mg PO Q6H PRN PRN Reason: Anxiety Last Admin: 08/28/24 10:16 Dose: 25 mg Loratadine (Loratadine 10 Mg Tablet) 10 mg PO DAILY [facility] Last Admin: 08/28/24 08:39 Dose: 10 mg Lurasidone HCl (Lurasidone Hcl 40 Mg Tablet) 40 mg PO DAILY@1700 [facility] Last Admin: 08/27/24 17:40 Dose: 40 mg Magnesium Hydroxide (Milk Of Magnesia 30 Ml Oral.Susp) 30 ml PO DAILY PRN PRN Reason: Constipation Multi-Ingred Cream/Lotion/Oil/Oint (Mineral Oil/Petrolatum,White 106 Gm Tube) 1 appl TOPICAL TID PRN; Protocol PRN Reason: dry skin Nicotine Polacrilex (Nicotine Polacrilex 2 Mg Gum) 4 mg BUCCAL Q2H PRN PRN Reason: Nicotine Cravings Omeprazole (Omeprazole 40 Mg Capsule.Dr) 40 mg PO DAILY@0630 [facility] Last Admin: 08/28/24 08:39 Dose: 40 mg Risperidone (Risperidone 0.5 Mg Tablet) 0.5 mg PO TID PRN PRN Reason: Hallucinations Last Admin: 08/25/24 21:06 Dose: 0.5 mg Risperidone (Risperidone 3 Mg Tablet) 6 mg PO BEDTIME [facility] Last Admin: 08/27/24 23:39 Dose: 6 mg Senna (Sennosides 8.6 Mg Tablet) 8.6 mg PO BID [facility] Last Admin: 08/28/24 08:40 Dose: 8.6 mg Trazodone HCl (Trazodone Hcl 50 Mg Tablet) 50 mg PO BEDTIME MRX1 PRN PRN Reason: Insomnia Last Admin: 08/26/24 00:02 Dose: 50 mg Trazodone HCl (Trazodone Hcl 100 Mg Tablet) 100 mg PO BEDTIME [facility] Last Admin: 08/27/24 23:40 Dose: 100 mg Allergies Allergies Allergy/AdvReac Type Severity Reaction Status Date / Time ondansetron [From Zofran] Allergy Unknown Verified 07/28/24 22:30 Penicillins Allergy Unknown Verified 07/28/24 22:30 potassium Allergy Unknown Verified 07/28/24 22:30 prochlorperazine Allergy Unknown Verified 07/28/24 22:30 Assessment & Plan Assessment & Plan (1) Schizoaffective disorder, bipolar type: Status: Acute Code(s): F25.0 - Schizoaffective disorder, bipolar type (2) Autism spectrum disorder: Status: Acute Code(s): F84.0 - Autistic disorder (3) Intellectual disability: Status: Acute Code(s): F79 - Unspecified intellectual disabilities (4) Aarskog syndrome: Status: Acute Code(s): Q87.19 - Other congenital malformation syndromes predominantly associated with short stature Plan Patient is a 34-year-old male with severe ASD, intellectual disability, schizoaffective disorder with, history of behavioral outbursts, who resides at a [facility] residential facility and who presents from external ED for what program arranger reports is decompensation following discharge from [facility] admission about 4 weeks ago. data entry manager reports patient has increased anxiety, paranoia and visual hallucinations as well as increased agitation related to AVH, which has resulted in the need for physical restraints. Patient with limited ability to participate in interview. Patient cooperative and calm. He says he misses his mother. He said I am feeling better... And then that he was going to lay down. He said he wanted to be in the hospital until he feels better... But could not discuss his feelings or what that would mean. Denies any SI or HI and says he is feeling safe. Patient does endorse auditory hallucinations which he he says bothers him, however when asked to discuss them further or what they say, he says I do not know and regarding medication that there is nothing to help... For the remainder of the day, patient sometimes in his room, sometimes in the hallway saying he wanted to call his mother or father, saying he misses them and wants to go home. Formulation/clinical reasoning: Patient has diagnosis of schizoaffective disorder, not sure if he actually has manic episodes and according to collateral, patient has not demonstrated psychotic symptoms until this fall. Still he has been on antipsychotics for years. -Guardian paperwork in chart; parents are guardians -No HCP - [place] Diagnosis: -Says diagnosis is schizoaffective, bipolar type however she has no knowledge of any discrete manic episodes; he has some history of depressive episodes -Does not blink: Supposed to be on Restasis/cyclosporine ophthalmic; not sure dose; discussed with pharmacist who reports typically this is 0.05% solution 1 drop b.i.d. (other places say 0.1%) -Aarkskog syndrome -ASD -OCD -has chronic extremely dry skin (eczema?) for which he has some medicated cream; mother not sure the name -Said there was a plan to get MRI of the brain since change seemed somewhat sudden Hospital course: 07/30 Patient remains fearful; can be friendly and cooperative but seems very anxious and cautious. Visual hallucinations patient saying he can see his mother in the room and talking to her Still not going into bathroom, with recent history of being afraid of bathroom; thus patient Incontinent of urine, sitting in wet clothes and refusing to change today, willing to sign CV reiterating he wants to be here for treatment ( to feel better ) -left for outpatient provider Nat Lee to discuss tx hx 12/6 patient remains cautious and intermittently fearful but is also warming up a bit to some staff, primarily female staff. He says he is feeling better but behaviors remain decompensated. Willing to change out of clothes today with staff encouragement and have them washed; also talked to his mother on the phone today which he said made him happy. Patient willing to use lotion for try facial skin Collateral:Pump Tender discussed case with patient's mother who reports that behaviors decompensated this April after he returned from vacation with his father. At that time he started packing up his stuff, saying he wanted to move out of the shelter; was taking lots of showers, self dialogue Ng, saying he could see his mother in the room, saying he thought his mother was and refusing to talk to her on the phone. For those reasons This past May he went to [facility] where he was started on Vraylar (and refused to take Latuda). He returned to the shelter but remained confused, disorganized, paranoid. At 1 point he would not leave the living room at all, incontinent, afraid to go into the bathroom or to shower which resulted in this hospitalization. Some history of aggression for which he was hospitalized a year ago; only mild aggression in shelter this time around. -left another message with pocket secretary assembler for Nat Lee 08/01 mostly same presentation, continued AH which are bothersome; more comfortable with staff and allowing them to help him attending ADLs including bathing. -speech writer did get a call back from Nat Lee; speech writer return call and left message 08/02 Patient continues to say I am feeling much better however this does not seem to correlate with any improvement in symptoms as he continues to have AH, is afraid of his room, incontinent of urine because afraid of going to the bathroom and continually saying that he sees his mother in his room. Patient does not respond much to reality testing. He does say he would like other medications to help make the voices go away. -given discussion below, will DC Vraylar since no clear indication of bipolar depression; already on 3 antipsychotics and does not seem effective. Instead will try Risperdal. -will start to try to eliminate pharmacy; need to find out what medication regimen patient was on this past summer during which time he was doing well Collateral: Again discussed case with patient's mother. -She reports he was doing great this past summer; not sure what his medication regimen was at that time -says was on Tegretol for years; for some reason [facility] took him off of it (was restarted at this hospitalization) -says was on clomipramine for OCD since 7 years old and did well on it; not sure why he was taken off a year ago -to her knowledge Latuda was supposed to be discontinued since he was never really taking it; Vraylar was also started at [facility] which has not seemed to help. -Has been on Zyprexa for a while; not sure efficacy --drools consistently at baseline; she said she has asked in the past for medication for this 08/03 Patient reports that he is feeling a lot better which is what he says to speech writer every day. He denies any AH. Also says he has not been seeing his mother. Difficult to tell if this is the case or not so will continue to monitor. Patient did ask for a stuffed animal or something about a stuffed animal but it was not clear. -briefly spoke with outpatient provider Huma who said she was 1 who started him on Vraylar -continue with Risperdal 08/04 No change in presentation; still disorganized, fearful, incontinent, hardly moving from room. Not sleeping at night but will tell speech writer I slept very good... . Continues to say the same refrain I feel a lot better... 08/05 meeting with outpt team stable on Tegretol and latuda for years until sudden decompensation this fall at which time pt presented with same symptoms he has currently. Prior to this stable and functional in many ways, all ADL's, organized and quite capable; no psychosis; read/write/send emails 08/06 no change in presentation and pt remains disorganized, sitting in own defecate; has AH. Hardly sleeping at night. sitting in one spot for most of the day. -intermittently refusing medications -pt refusing labs -feet are both swollen; hospitalist examined -infection on both side of bridge of nose where glasses sit on nose; pt allowed antibiotic ointment to be applied History that patient was stable on Tegretol and Latuda for at least a year; Latuda was lowered in the springtime to 40 mg, down from 60 since patient said was making him tired. He remained stable until this fall when he suddenly decompensated, unable to accept reality, incontinent, afraid of multiple things, thinking his mom's , forgetting people are Medication: pt was stable on Tegretol and Latuda for years until this fall -for now, will continue on Tegretol and Latuda -kaylee'd alexander -started risperdal and increased to 4mg, scheduled it at bedtime to help w/ sleep -consider CT scan brain given sudden onset of symptoms, though was several months ago at this point 08/10 Still no change in presentation; refusing eyedrops. Remains scared to go out of his room. Did allow for bacitracin and sores on bilateral bridge of his nose are better.08/10 Still no change in presentation; refusing eyedrops. Remains scared to go out of his room. Did allow for bacitracin and sores on bilateral bridge of his nose are better. 08/11 Again no change in presentation; refusing labs. Will continue to retry before forcing them. Will try to get head CT. Continues to refuse eyedrops. Will give a little longer on Risperdal 4 mg 08/12 increased Risperdal to 6 mg 08/13 day of actual improvement in that patient allowed lab work. That said, he also threw mattress/belongings into the hallway, talking about a 90 yo neighbor he wants to -labs WNL -refused head CT; since he allowed labs, still will try to see if he will comply with head CT hoping to avoid the trauma of forcing him 08/14 Patient out in the milieu today, 1st time in over a week. Furthermore Patient actually using the bathroom today on his own, with significant encouragement from staff and a verbal plan; throughout the day patient was able to get himself to the bathroom rather than remain incontinent and inside close, which he has continually done since admission. Patient also seems more cheerful. -Again refused head CT but since getting better, will hold off from this for now -continue with increased Risperdal dose of 6 mg 08/17 remains somewhat improved. Patient pleasant and out in the milieu. Throughout the weekend he has been using the bathroom and not been incontinent which christie consistent improvement since admission. Also allowing staff to help him brush his teeth. Patient is normally, when at baseline, able to do all these things on his own, maybe with some prompting but independently. -will continue with current regimen for now as patient continues to improve -will continue to keep in mind that patient has a history of OCD and that he may benefit and improve from restarting clomipramine; however as psychosis and disorganized behavior is the main concern will continue to focus treatment in this area now 08/18 continues current tx plan for now; will consider increasing Risperdal though already at 6mg. 08/21 Patient remains doing better. Still not dressing himself or taking a shower but seems to be doing more more ADLs. Denies any AH. -at this time, speech writer hesitates to make any changes as patient has been slowly but steadily improving. 08/22: Continue current regime and plan of care. Pt appears improved. 08/24 Overall remains doing better. Attending to most ADLs except for showering. He says he is afraid to shower here and that he will shower at his own house. Patient sleeping through the night. Still Refusing head CT saying that he is better now. Pump Tender discussed with patient adding clomipramine back to his medication regimen with which he agrees and which was encouraged by his mother 08/25 same presentation and denies psychiatric symptoms. He did however put all of his belongings into the [place] again but with no explanation. Patient saying that he will be seeing his mother today who is coming to visit however this is not true; this remains improvement however from when he was saying he can see his mother in his bedroom 08/26/2024 same presentation; took clomipramine last night; will keep it same dose and only slowly titrate as patient has been doing better overall do not want to make any quick changes; patient not able to have informative discussion about OCD symptoms however per his mother, patient did much better on clomipramine PLAN: CV *guardians have authorized speech writer, staff to administer any/all medical treatments even if against patients will q15 min checks STARt clomipramine 25mg qhs for OCD (on this at home: clomipramine 100 mg b.i.d Continue with Risperdal 6 mg qhs -Add Risperdal 0.5 mg t.i.d. p.r.n. for breakthrough AVH -for now, Continue Latuda 40 mg daily at dinnertime (used to be on 60mg) -Continue Tegretol 400mg BID (was stable on this in past) -DC Vraylar 3 mg; this was started by outpatient provider; does not seem to have helped much and no clear indication for bipolar depression (also patient already on 3 antipsychotics) -DC'd Zyprexa: has caused DM/elevated Cholesterol/wt gain -temporarily Start artificial tears; refusing -Will get prescription for Restasis/cyclosporin -consider restarting clomipramine for OCD ( clomipramine 100 mg b.i.d. for OCD in the past around 2014; for some reason it was dc'd at some point; restarted 2022 but not continued after that). -consider glycopyrrolate for excessive drooling -will consider getting MRI, however patient's symptoms are congruent with diagnosis Patient educated on: diagnosis, medication risk/benefits and therapeutic strategies Informed Consent: understands, does not understand and further education needed Reason for continued inpatient stay Substantial Risk for: rapid decompensation Time Spent With Patient Time: Total time managing care of this patient today ____ minutes.
--- NOTE | 2024-08-28 17:30 | P.PNPSI_ITS ---
Subjective Subjective Date of Service: 08/28/24 Reason For Visit: Schioafective disorder bipolar type Interim History: Met with patient; discussed with team Patient intermittently talking about seeing his mother father or Mrs Pierre in his room which he has not done for over a week; however he continues to independently due number was ADLs. He asked about returning home. Lisseth came to see patient today and reports that he is definitely heading towards his baseline though not there yet, as he is not bathing himself and still has some psychotic symptoms. Skip Miner spoke with his mother today about labs, head CT; she agreed with procedure writer's reasoning for holding off on the head CT for now, not wanting to traumatize patient and risk regression from progress made, since he has been refusing it. However procedure writer also agrees that that it is worthwhile to get and will do so Mental Status Exam Mental Status Exam Narrative: Pt is alert and oriented; behavior is more organized and cooperative, also more calm; using toilet on his own; patient is not in distress; dressed in casual shirt and hospital pants; improved hygiene though still no shower; drooling; mood is described as good though affect congruent, more calm and a little brighter; eye contact appropriate; Speech remains a little garbled which is baseline; normal rate, volume; uses few words; not pressured; no psychomotor agitation/retardation present; thought process is concrete, goal directed, asks for needs; Thought content on missing parents; otherwise pertinent to relevant topics; some delusional thoughts expressed; denies any SI/HI. Denies AH; hard to tell if internally preoccupied. Patients insight and judgment impaired but improving, getting closer to baseline. Diagnostics Vital Signs (24Hr): Vital Signs - 24 hr 08/27/24 20:00 08/28/24 08:00 08/28/24 08:39 Temperature 97.8 F 97.5 F Pulse Rate 78 73 73 Respiratory Rate 16 Blood Pressure 141/80 H 130/79 130/79 Pulse Oximetry 100 100 Oxygen Delivery Method Room Air Room Air BMI result Body Mass Index 31.4 Labs 08/13/24 08:17 08/13/24 08:17 Medications Medications Current Medications Acetaminophen (Acetaminophen 325 Mg Tablet) 650 mg PO Q6H PRN PRN Reason: Headache/Pain Mild Scale (1-3) Last Admin: 08/19/24 17:31 Dose: 650 mg Al Hydroxide/Mg Hydroxide (Magnesium Hydrox/Alum Hydrox 30 Ml Oral.Susp) 30 ml PO Q6H PRN PRN Reason: Heartburn/Nausea Artificial Tears (Artificial Tears 15 Ml Drops) 1 drop EYE-BOTH Q4H PRN PRN Reason: Dry Eyes Last Admin: 08/02/24 16:09 Dose: 1 drop Atenolol (Atenolol 25 Mg Tablet) 25 mg PO DAILY [facility]; Protocol Last Admin: 08/28/24 08:39 Dose: 25 mg Atorvastatin Calcium (Atorvastatin Calcium 40 Mg Tablet) 40 mg PO BEDTIME [facility] Last Admin: 08/27/24 23:41 Dose: 40 mg Carbamazepine (Carbamazepine Er 200 Mg Tab.Er.12h) 400 mg PO BID [facility] Last Admin: 08/28/24 08:39 Dose: 400 mg Clomipramine HCl (Clomipramine Hcl 25 Mg Capsule) 50 mg PO BEDTIME [facility] Clonazepam (Clonazepam 0.5 Mg Tablet) 0.5 mg PO TID [facility] Last Admin: 08/28/24 15:13 Dose: 0.5 mg Docusate Sodium (Docusate Sodium 100 Mg Capsule) 100 mg PO TID [facility] Last Admin: 08/28/24 15:13 Dose: 100 mg Ezetimibe (Ezetimibe 10 Mg Tablet) 10 mg PO DAILY [facility] Last Admin: 08/28/24 08:39 Dose: 10 mg Escitalopram Oxalate (Escitalopram Oxalate 10 Mg Tablet) 10 mg PO DAILY [facility] Last Admin: 08/28/24 08:40 Dose: 10 mg Fluticasone Propionate (Fluticasone Propionate Nasal 16 Gm Cory) 1 spray NOSTRIL-B DAILY [facility] Last Admin: 08/28/24 10:16 Dose: 1 spray Gemfibrozil (Gemfibrozil 600 Mg Tablet) 600 mg PO BID [facility] Last Admin: 08/28/24 08:40 Dose: 600 mg Hydroxyzine HCl (Hydroxyzine Hcl 25 Mg Tablet) 25 mg PO Q6H PRN PRN Reason: Anxiety Last Admin: 08/28/24 10:16 Dose: 25 mg Loratadine (Loratadine 10 Mg Tablet) 10 mg PO DAILY [facility] Last Admin: 08/28/24 08:39 Dose: 10 mg Lurasidone HCl (Lurasidone Hcl 40 Mg Tablet) 40 mg PO DAILY@1700 [facility] Last Admin: 08/27/24 17:40 Dose: 40 mg Magnesium Hydroxide (Milk Of Magnesia 30 Ml Oral.Susp) 30 ml PO DAILY PRN PRN Reason: Constipation Multi-Ingred Cream/Lotion/Oil/Oint (Mineral Oil/Petrolatum,White 106 Gm Tube) 1 appl TOPICAL TID PRN; Protocol PRN Reason: dry skin Nicotine Polacrilex (Nicotine Polacrilex 2 Mg Gum) 4 mg BUCCAL Q2H PRN PRN Reason: Nicotine Cravings Omeprazole (Omeprazole 40 Mg Capsule.Dr) 40 mg PO DAILY@0630 [facility] Last Admin: 08/28/24 08:39 Dose: 40 mg Risperidone (Risperidone 0.5 Mg Tablet) 0.5 mg PO TID PRN PRN Reason: Hallucinations Last Admin: 08/25/24 21:06 Dose: 0.5 mg Risperidone (Risperidone 3 Mg Tablet) 6 mg PO BEDTIME [facility] Last Admin: 08/27/24 23:39 Dose: 6 mg Senna (Sennosides 8.6 Mg Tablet) 8.6 mg PO BID [facility] Last Admin: 08/28/24 08:40 Dose: 8.6 mg Trazodone HCl (Trazodone Hcl 50 Mg Tablet) 50 mg PO BEDTIME MRX1 PRN PRN Reason: Insomnia Last Admin: 08/26/24 00:02 Dose: 50 mg Trazodone HCl (Trazodone Hcl 100 Mg Tablet) 100 mg PO BEDTIME [facility] Last Admin: 08/27/24 23:40 Dose: 100 mg Allergies Allergies Allergy/AdvReac Type Severity Reaction Status Date / Time ondansetron [From Zofran] Allergy Unknown Verified 07/28/24 22:30 Penicillins Allergy Unknown Verified 07/28/24 22:30 potassium Allergy Unknown Verified 07/28/24 22:30 prochlorperazine Allergy Unknown Verified 07/28/24 22:30 Assessment & Plan Assessment & Plan (1) Schizoaffective disorder, bipolar type: Status: Acute Code(s): F25.0 - Schizoaffective disorder, bipolar type (2) Autism spectrum disorder: Status: Acute Code(s): F84.0 - Autistic disorder (3) Intellectual disability: Status: Acute Code(s): F79 - Unspecified intellectual disabilities (4) Aarskog syndrome: Status: Acute Code(s): Q87.19 - Other congenital malformation syndromes predominantly associated with short stature Plan Patient is a 34-year-old male with severe ASD, intellectual disability, schizoaffective disorder with, history of behavioral outbursts, who resides at a [facility] and who presents from external ED for what senior programmer reports is decompensation following discharge from [facility] admission about 4 weeks ago. adult basic education manager reports patient has increased anxiety, paranoia and visual hallucinations as well as increased agitation related to AVH, which has resulted in the need for physical restraints. Patient with limited ability to participate in interview. Patient cooperative and calm. He says he misses his mother. He said I am feeling better... And then that he was going to lay down. He said he wanted to be in the hospital until he feels better... But could not discuss his feelings or what that would mean. Denies any SI or HI and says he is feeling safe. Patient does endorse auditory hallucinations which he he says bothers him, however when asked to discuss them further or what they say, he says I do not know and regarding medication that there is nothing to help... For the remainder of the day, patient sometimes in his room, sometimes in the hallway saying he wanted to call his mother or father, saying he misses them and wants to go home. Formulation/clinical reasoning: Patient has diagnosis of schizoaffective disorder, not sure if he actually has manic episodes and according to collateral, patient has not demonstrated psychotic symptoms until this fall. Still he has been on antipsychotics for years. -Guardian paperwork in chart; parents are guardians -No HCP - [place] Diagnosis: -Says diagnosis is schizoaffective, bipolar type however she has no knowledge of any discrete manic episodes; he has some history of depressive episodes -Does not blink: Supposed to be on Restasis/cyclosporine ophthalmic; not sure dose; discussed with pharmacist who reports typically this is 0.05% solution 1 drop b.i.d. (other places say 0.1%) -Aarkskog syndrome -ASD -OCD -has chronic extremely dry skin (eczema?) for which he has some medicated cream; mother not sure the name -Said there was a plan to get MRI of the brain since change seemed somewhat sudden Hospital course: 07/30 Patient remains fearful; can be friendly and cooperative but seems very anxious and cautious. Visual hallucinations patient saying he can see his mother in the room and talking to her Still not going into bathroom, with recent history of being afraid of bathroom; thus patient Incontinent of urine, sitting in wet clothes and refusing to change today, willing to sign CV reiterating he wants to be here for treatment ( to feel better ) -left VM for outpatient provider Nat Lee to discuss tx hx 07/31 patient remains cautious and intermittently fearful but is also warming up a bit to some staff, primarily female staff. He says he is feeling better but behaviors remain decompensated. Willing to change out of clothes today with staff encouragement and have them washed; also talked to his mother on the phone today which he said made him happy. Patient willing to use lotion for try facial skin Collateral:Skip Miner discussed case with patient's mother who reports that behaviors decompensated this April after he returned from vacation with his father. At that time he started packing up his stuff, saying he wanted to move out of the care home; was taking lots of showers, self dialogue Ng, saying he could see his mother in the room, saying he thought his mother was and refusing to talk to her on the phone. For those reasons This past May he went to [facility] where he was started on Vraylar (and refused to take Latuda). He returned to the care home but remained confused, disorganized, paranoid. At 1 point he would not leave the living room at all, incontinent, afraid to go into the bathroom or to shower which resulted in this hospitalization. Some history of aggression for which he was hospitalized a year ago; only mild aggression in care home this time around. -left another message with sales secretary for Nat Lee 08/01 mostly same presentation, continued AH which are bothersome; more comfortable with staff and allowing them to help him attending ADLs including bathing. -procedure writer did get a call back from Nat Lee; procedure writer return call and left message 08/02 Patient continues to say I am feeling much better however this does not seem to correlate with any improvement in symptoms as he continues to have AH, is afraid of his room, incontinent of urine because afraid of going to the bathroom and continually saying that he sees his mother in his room. Patient does not respond much to reality testing. He does say he would like other medications to help make the voices go away. -given discussion below, will DC Vraylar since no clear indication of bipolar depression; already on 3 antipsychotics and does not seem effective. Instead will try Risperdal. -will start to try to eliminate pharmacy; need to find out what medication regimen patient was on this past summer during which time he was doing well Collateral: Again discussed case with patient's mother. -She reports he was doing great this past summer; not sure what his medication regimen was at that time -says was on Tegretol for years; for some reason [facility] took him off of it (was restarted at this hospitalization) -says was on clomipramine for OCD since 7 years old and did well on it; not sure why he was taken off a year ago -to her knowledge Latuda was supposed to be discontinued since he was never really taking it; Vraylar was also started at [facility] which has not seemed to help. -Has been on Zyprexa for a while; not sure efficacy --drools consistently at baseline; she said she has asked in the past for medication for this 08/03 Patient reports that he is feeling a lot better which is what he says to procedure writer every day. He denies any AH. Also says he has not been seeing his mother. Difficult to tell if this is the case or not so will continue to monitor. Patient did ask for a stuffed animal or something about a stuffed animal but it was not clear. -briefly spoke with outpatient provider Huma who said she was 1 who started him on Vraylar -continue with Risperdal 08/04 No change in presentation; still disorganized, fearful, incontinent, hardly moving from room. Not sleeping at night but will tell procedure writer I slept very good... . Continues to say the same refrain I feel a lot better... 08/05 meeting with outpt team stable on Tegretol and latuda for years until sudden decompensation this fall at which time pt presented with same symptoms he has currently. Prior to this stable and functional in many ways, all ADL's, organized and quite capable; no psychosis; read/write/send emails 08/06 no change in presentation and pt remains disorganized, sitting in own defecate; has AH. Hardly sleeping at night. sitting in one spot for most of the day. -intermittently refusing medications -pt refusing labs -feet are both swollen; hospitalist examined -infection on both side of bridge of nose where glasses sit on nose; pt allowed antibiotic ointment to be applied History that patient was stable on Tegretol and Latuda for at least a year; Latuda was lowered in the springtime to 40 mg, down from 60 since patient said was making him tired. He remained stable until this fall when he suddenly decompensated, unable to accept reality, incontinent, afraid of multiple things, thinking his mom's , forgetting people are Medication: pt was stable on Tegretol and Latuda for years until this fall -for now, will continue on Tegretol and Latuda -dc'd alexander -started risperdal and increased to 4mg, scheduled it at bedtime to help w/ sleep -consider CT scan brain given sudden onset of symptoms, though was several months ago at this point 08/10 Still no change in presentation; refusing eyedrops. Remains scared to go out of his room. Did allow for bacitracin and sores on bilateral bridge of his nose are better.08/10 Still no change in presentation; refusing eyedrops. Remains scared to go out of his room. Did allow for bacitracin and sores on bilateral bridge of his nose are better. 08/11 Again no change in presentation; refusing labs. Will continue to retry before forcing them. Will try to get head CT. Continues to refuse eyedrops. Will give a little longer on Risperdal 4 mg 08/12 increased Risperdal to 6 mg 08/13 1st day of actual improvement in that patient allowed lab work. That said, he also threw mattress/belongings into the hallway, talking about a 90 yo neighbor he wants to -labs WNL -refused head CT; since he allowed labs, still will try to see if he will comply with head CT hoping to avoid the trauma of forcing him 08/14 Patient out in the milieu today, 1st time in over a week. Furthermore Patient actually using the bathroom today on his own, with significant encouragement from staff and a verbal plan; throughout the day patient was able to get himself to the bathroom rather than remain incontinent and inside close, which he has continually done since admission. Patient also seems more cheerful. -Again refused head CT but since getting better, will hold off from this for now -continue with increased Risperdal dose of 6 mg 08/17 remains somewhat improved. Patient pleasant and out in the milieu. Throughout the weekend he has been using the bathroom and not been incontinent which christie consistent improvement since admission. Also allowing staff to help him brush his teeth. Patient is normally, when at baseline, able to do all these things on his own, maybe with some prompting but independently. -will continue with current regimen for now as patient continues to improve -will continue to keep in mind that patient has a history of OCD and that he may benefit and improve from restarting clomipramine; however as psychosis and disorganized behavior is the main concern will continue to focus treatment in this area now 08/18 continues current tx plan for now; will consider increasing Risperdal though already at 6mg. 08/21 Patient remains doing better. Still not dressing himself or taking a shower but seems to be doing more more ADLs. Denies any AH. -at this time, procedure writer hesitates to make any changes as patient has been slowly but steadily improving. 08/22: Continue current regime and plan of care. Pt appears improved. 08/24 Overall remains doing better. Attending to most ADLs except for showering. He says he is afraid to shower here and that he will shower at his own house. Patient sleeping through the night. Still Refusing head CT saying that he is better now. Skip Miner discussed with patient adding clomipramine back to his medication regimen with which he agrees and which was encouraged by his mother 08/25 same presentation and denies psychiatric symptoms. He did however put all of his belongings into the [place] again but with no explanation. Patient saying that he will be seeing his mother today who is coming to visit however this is not true; this remains improvement however from when he was saying he can see his mother in his bedroom 08/26/2024 same presentation; took clomipramine last night; will keep it same dose and only slowly titrate as patient has been doing better overall do not want to make any quick changes; patient not able to have informative discussion about OCD symptoms however per his mother, patient did much better on clomipramine / Patient intermittently talking about seeing his mother father or Mrs Pierre in his room which he has not done for over a week; however he continues to independently due number was ADLs. He asked about returning home. Lisseth came to see patient today and reports that he is definitely heading towards his baseline though not there yet, as he is not bathing himself and still has some psychotic symptoms. Skip Miner spoke with his mother today about labs (elevated hemoglobin A1c; she says this happens to him with antipsychotics), head CT; she agreed with procedure writer's reasoning for holding off on the head CT for now, not wanting to traumatize patient and risk regression from progress made, since he has been refusing it. However procedure writer also agrees that that it is worthwhile to get and will do so -will increase clomipramine to 50 mg; his mother is adamant that this was very helpful to him and procedure writer agrees it may help patient progress further as he may be struggling with OCD symptoms that he is not able to articulate PLAN: CV *guardians have authorized procedure writer, staff to administer any/all medical treatments even if against patients will q15 min checks Increase to clomipramine 50mg qhs for OCD (on this at home: clomipramine 100 mg b.i.d Continue with Risperdal 6 mg qhs -Add Risperdal 0.5 mg t.i.d. p.r.n. for breakthrough AVH -for now, Continue Latuda 40 mg daily at dinnertime (used to be on 60mg) -Continue Tegretol 400mg BID (was stable on this in past) -DC Vraylar 3 mg; this was started by outpatient provider; does not seem to have helped much and no clear indication for bipolar depression (also patient already on 3 antipsychotics) -DC'd Zyprexa: has caused DM/elevated Cholesterol/wt gain -temporarily Start artificial tears; refusing -Will get prescription for Restasis/cyclosporin -consider restarting clomipramine for OCD ( clomipramine 100 mg b.i.d. for OCD in the past around 2014; for some reason it was dc'd at some point; restarted 2022 but not continued after that). -consider glycopyrrolate for excessive drooling -will consider getting MRI, however patient's symptoms are congruent with diagnosis Patient educated on: therapeutic strategies Informed Consent: understands, does not understand and further education needed Reason for continued inpatient stay Substantial Risk for: rapid decompensation Time Spent With Patient Time: Total time managing care of this patient today ____ minutes.
[2024-08-28 20:00] VITALS: BP 138/85; PULSE 74; TEMP 36.9; O2SAT 98
[2024-08-28] MEDS: Atorvastatin Calcium 40 MG TABLET PO (20:24)
[2024-08-28] MEDS: Lurasidone HCl 40 MG TABLET PO (20:24)
[2024-08-28] MEDS: clomiPRAMINE HCl 25 MG CAPSULE 50 MG PO (20:24)
[2024-08-28] MEDS: traZODone HCL 100 MG TABLET PO (20:25)
[2024-08-28] MEDS: risperiDONE 3 MG TABLET 6 MG PO (20:25)
[2024-08-29] MEDS: Omeprazole 40 MG CAPSULE.DR PO (06:43)
[2024-08-29 08:39] VITALS: BP 116/69; PULSE 73; RESP 16; TEMP 36.6; O2SAT 99
--- NOTE | 2024-08-29 09:52 | HO.PSYCHPN ---
Subjective Subjective Date of Service: 08/29/24 Reason For Visit: Schioafective disorder bipolar type Subjective Notes: Conditional Voluntary Interim History: met with patient. Discussed with Nursing. Overall doing okay. No hallucinations today. Has not been incontinent. Allowing support and care to be delivered. Patient is very eager for discharge and some frustration around same. Otherwise concrete in presentation and no evidence of SI HI or psychosis. Medication Compliance: Yes Side effects from medications: No Attending Groups: No Review of Systems Acute medical concerns: No Review of Systems Review of Systems Unremarkable Mental Status Exam Mental Status Exam Narrative: Pt is alert and oriented; behavior is more organized and cooperative, also more calm; using toilet on his own; patient is not in distress; dressed in casual shirt and hospital pants; improved hygiene though still no shower; drooling; mood is described as good though affect congruent, more calm and a little brighter; eye contact appropriate; Speech remains a little garbled which is baseline; normal rate, volume; uses few words; not pressured; no psychomotor agitation/retardation present; thought process is concrete, goal directed, asks for needs; Thought content is very concrete and eager for discharge. No SI/HI. Denies AH; hard to tell if internally preoccupied. Patients insight and judgment impaired but improving, getting closer to baseline. Diagnostics Vital Signs (24Hr): Vital Signs - 24 hr 08/28/24 20:00 08/29/24 08:39 Temperature 98.4 F 97.8 F Pulse Rate 74 73 Respiratory Rate 16 Blood Pressure 138/85 116/69 Pulse Oximetry 98 99 Oxygen Delivery Method Room Air Room Air BMI result Body Mass Index 31.4 Labs 08/13/24 08:17 08/13/24 08:17 Medications Medications Current Medications Acetaminophen (Acetaminophen 325 Mg Tablet) 650 mg PO Q6H PRN PRN Reason: Headache/Pain Mild Scale (1-3) Last Admin: 08/19/24 17:31 Dose: 650 mg Al Hydroxide/Mg Hydroxide (Magnesium Hydrox/Alum Hydrox 30 Ml Oral.Susp) 30 ml PO Q6H PRN PRN Reason: Heartburn/Nausea Artificial Tears (Artificial Tears 15 Ml Drops) 1 drop EYE-BOTH Q4H PRN PRN Reason: Dry Eyes Last Admin: 08/02/24 16:09 Dose: 1 drop Atenolol (Atenolol 25 Mg Tablet) 25 mg PO DAILY [facility]; Protocol Last Admin: 08/28/24 08:39 Dose: 25 mg Atorvastatin Calcium (Atorvastatin Calcium 40 Mg Tablet) 40 mg PO BEDTIME [facility] Last Admin: 08/28/24 20:24 Dose: 40 mg Carbamazepine (Carbamazepine Er 200 Mg Tab.Er.12h) 400 mg PO BID [facility] Last Admin: 08/28/24 20:25 Dose: 400 mg Clomipramine HCl (Clomipramine Hcl 25 Mg Capsule) 50 mg PO BEDTIME [facility] Last Admin: 08/28/24 20:24 Dose: 50 mg Clonazepam (Clonazepam 0.5 Mg Tablet) 0.5 mg PO TID [facility] Last Admin: 08/28/24 20:24 Dose: 0.5 mg Docusate Sodium (Docusate Sodium 100 Mg Capsule) 100 mg PO TID [facility] Last Admin: 08/28/24 20:24 Dose: 100 mg Ezetimibe (Ezetimibe 10 Mg Tablet) 10 mg PO DAILY [facility] Last Admin: 08/28/24 08:39 Dose: 10 mg Escitalopram Oxalate (Escitalopram Oxalate 10 Mg Tablet) 10 mg PO DAILY [facility] Last Admin: 08/28/24 08:40 Dose: 10 mg Fluticasone Propionate (Fluticasone Propionate Nasal 16 Gm Gilberts) 1 spray NOSTRIL-B DAILY [facility] Last Admin: 08/28/24 10:16 Dose: 1 spray Gemfibrozil (Gemfibrozil 600 Mg Tablet) 600 mg PO BID [facility] Last Admin: 08/28/24 20:24 Dose: 600 mg Hydroxyzine HCl (Hydroxyzine Hcl 25 Mg Tablet) 25 mg PO Q6H PRN PRN Reason: Anxiety Last Admin: 08/28/24 10:16 Dose: 25 mg Loratadine (Loratadine 10 Mg Tablet) 10 mg PO DAILY [facility] Last Admin: 08/28/24 08:39 Dose: 10 mg Lurasidone HCl (Lurasidone Hcl 40 Mg Tablet) 40 mg PO DAILY@1700 [facility] Last Admin: 08/28/24 20:24 Dose: 40 mg Magnesium Hydroxide (Milk Of Magnesia 30 Ml Oral.Susp) 30 ml PO DAILY PRN PRN Reason: Constipation Multi-Ingred Cream/Lotion/Oil/Oint (Mineral Oil/Petrolatum,White 106 Gm Tube) 1 appl TOPICAL TID PRN; Protocol PRN Reason: dry skin Nicotine Polacrilex (Nicotine Polacrilex 2 Mg Gum) 4 mg BUCCAL Q2H PRN PRN Reason: Nicotine Cravings Omeprazole (Omeprazole 40 Mg Capsule.Dr) 40 mg PO DAILY@0630 [facility] Last Admin: 08/29/24 06:43 Dose: 40 mg Risperidone (Risperidone 0.5 Mg Tablet) 0.5 mg PO TID PRN PRN Reason: Hallucinations Last Admin: 08/25/24 21:06 Dose: 0.5 mg Risperidone (Risperidone 3 Mg Tablet) 6 mg PO BEDTIME [facility] Last Admin: 08/28/24 20:25 Dose: 6 mg Senna (Sennosides 8.6 Mg Tablet) 8.6 mg PO BID [facility] Last Admin: 08/28/24 20:24 Dose: 8.6 mg Trazodone HCl (Trazodone Hcl 50 Mg Tablet) 50 mg PO BEDTIME MRX1 PRN PRN Reason: Insomnia Last Admin: 08/26/24 00:02 Dose: 50 mg Trazodone HCl (Trazodone Hcl 100 Mg Tablet) 100 mg PO BEDTIME [facility] Last Admin: 08/28/24 20:25 Dose: 100 mg Allergies Allergies Allergy/AdvReac Type Severity Reaction Status Date / Time ondansetron [From Zofran] Allergy Unknown Verified 07/28/24 22:30 Penicillins Allergy Unknown Verified 07/28/24 22:30 potassium Allergy Unknown Verified 07/28/24 22:30 prochlorperazine Allergy Unknown Verified 07/28/24 22:30 Assessment & Plan Assessment & Plan (1) Schizoaffective disorder, bipolar type: Status: Acute Code(s): F25.0 - Schizoaffective disorder, bipolar type (2) Autism spectrum disorder: Status: Acute Code(s): F84.0 - Autistic disorder (3) Intellectual disability: Status: Acute Code(s): F79 - Unspecified intellectual disabilities (4) Aarskog syndrome: Status: Acute Code(s): Q87.19 - Other congenital malformation syndromes predominantly associated with short stature Plan Patient is a 34-year-old male with severe ASD, intellectual disability, schizoaffective disorder with, history of behavioral outbursts, who resides at a [facility] residential facility and who presents from external ED for what care program director reports is decompensation following discharge from [facility] psych admission about 4 weeks ago. veterinary manager reports patient has increased anxiety, paranoia and visual hallucinations as well as increased agitation related to AVH, which has resulted in the need for physical restraints. Patient with limited ability to participate in interview. Patient cooperative and calm. He says he misses his mother. He said I am feeling better... And then that he was going to lay down. He said he wanted to be in the hospital until he feels better... But could not discuss his feelings or what that would mean. Denies any SI or HI and says he is feeling safe. Patient does endorse auditory hallucinations which he he says bothers him, however when asked to discuss them further or what they say, he says I do not know and regarding medication that there is nothing to help... For the remainder of the day, patient sometimes in his room, sometimes in the hallway saying he wanted to call his mother or father, saying he misses them and wants to go home. Formulation/clinical reasoning: Patient has diagnosis of schizoaffective disorder, not sure if he actually has manic episodes and according to collateral, patient has not demonstrated psychotic symptoms until this fall. Still he has been on antipsychotics for years. -Guardian paperwork in chart; parents are guardians -No HCP - [place] Diagnosis: -Says diagnosis is schizoaffective, bipolar type however she has no knowledge of any discrete manic episodes; he has some history of depressive episodes -Does not blink: Supposed to be on Restasis/cyclosporine ophthalmic; not sure dose; discussed with pharmacist who reports typically this is 0.05% solution 1 drop b.i.d. (other places say 0.1%) -Aarkskog syndrome -ASD -OCD -has chronic extremely dry skin (eczema?) for which he has some medicated cream; mother not sure the name -Said there was a plan to get MRI of the brain since change seemed somewhat sudden Hospital course: 07/30 Patient remains fearful; can be friendly and cooperative but seems very anxious and cautious. Visual hallucinations patient saying he can see his mother in the room and talking to her Still not going into bathroom, with recent history of being afraid of bathroom; thus patient Incontinent of urine, sitting in wet clothes and refusing to change today, willing to sign CV reiterating he wants to be here for treatment ( to feel better ) -left VM for outpatient provider Nat Lee to discuss tx hx 07/31 patient remains cautious and intermittently fearful but is also warming up a bit to some staff, primarily female staff. He says he is feeling better but behaviors remain decompensated. Willing to change out of clothes today with staff encouragement and have them washed; also talked to his mother on the phone today which he said made him happy. Patient willing to use lotion for try facial skin Collateral:Hotel Baggage Handler discussed case with patient's mother who reports that behaviors decompensated this April after he returned from vacation with his father. At that time he started packing up his stuff, saying he wanted to move out of the penitentiary; was taking lots of showers, self dialogue Ng, saying he could see his mother in the room, saying he thought his mother was and refusing to talk to her on the phone. For those reasons This past May he went to [facility] where he was started on Vraylar (and refused to take Latuda). He returned to the penitentiary but remained confused, disorganized, paranoid. At 1 point he would not leave the living room at all, incontinent, afraid to go into the bathroom or to shower which resulted in this hospitalization. Some history of aggression for which he was hospitalized a year ago; only mild aggression in penitentiary this time around. -left another message with law secretary for Nat Lee 08/01 mostly same presentation, continued AH which are bothersome; more comfortable with staff and allowing them to help him attending ADLs including bathing. -telegraphic typewriter repairer did get a call back from Nat Lee; telegraphic typewriter repairer return call and left message 08/02 Patient continues to say I am feeling much better however this does not seem to correlate with any improvement in symptoms as he continues to have AH, is afraid of his room, incontinent of urine because afraid of going to the bathroom and continually saying that he sees his mother in his room. Patient does not respond much to reality testing. He does say he would like other medications to help make the voices go away. -given discussion below, will DC Vraylar since no clear indication of bipolar depression; already on 3 antipsychotics and does not seem effective. Instead will try Risperdal. -will start to try to eliminate pharmacy; need to find out what medication regimen patient was on this past summer during which time he was doing well Collateral: Again discussed case with patient's mother. -She reports he was doing great this past summer; not sure what his medication regimen was at that time -says was on Tegretol for years; for some reason [facility] took him off of it (was restarted at this hospitalization) -says was on clomipramine for OCD since 7 years old and did well on it; not sure why he was taken off a year ago -to her knowledge Latuda was supposed to be discontinued since he was never really taking it; Vraylar was also started at [facility] which has not seemed to help. -Has been on Zyprexa for a while; not sure efficacy --drools consistently at baseline; she said she has asked in the past for medication for this 08/03 Patient reports that he is feeling a lot better which is what he says to telegraphic typewriter repairer every day. He denies any AH. Also says he has not been seeing his mother. Difficult to tell if this is the case or not so will continue to monitor. Patient did ask for a stuffed animal or something about a stuffed animal but it was not clear. -briefly spoke with outpatient provider Huma who said she was 1 who started him on Vraylar -continue with Risperdal 08/04 No change in presentation; still disorganized, fearful, incontinent, hardly moving from room. Not sleeping at night but will tell telegraphic typewriter repairer I slept very good... . Continues to say the same refrain I feel a lot better... 08/05 meeting with outpt team stable on Tegretol and latuda for years until sudden decompensation this fall at which time pt presented with same symptoms he has currently. Prior to this stable and functional in many ways, all ADL's, organized and quite capable; no psychosis; read/write/send emails 08/06 no change in presentation and pt remains disorganized, sitting in own defecate; has AH. Hardly sleeping at night. sitting in one spot for most of the day. -intermittently refusing medications -pt refusing labs -feet are both swollen; hospitalist examined -infection on both side of bridge of nose where glasses sit on nose; pt allowed antibiotic ointment to be applied History that patient was stable on Tegretol and Latuda for at least a year; Latuda was lowered in the springtime to 40 mg, down from 60 since patient said was making him tired. He remained stable until this fall when he suddenly decompensated, unable to accept reality, incontinent, afraid of multiple things, thinking his mom's , forgetting people are Medication: pt was stable on Tegretol and Latuda for years until this fall -for now, will continue on Tegretol and Latuda -dc'd alexander -started risperdal and increased to 4mg, scheduled it at bedtime to help w/ sleep -consider CT scan brain given sudden onset of symptoms, though was several months ago at this point 08/10 Still no change in presentation; refusing eyedrops. Remains scared to go out of his room. Did allow for bacitracin and sores on bilateral bridge of his nose are better.08/10 Still no change in presentation; refusing eyedrops. Remains scared to go out of his room. Did allow for bacitracin and sores on bilateral bridge of his nose are better. 08/11 Again no change in presentation; refusing labs. Will continue to retry before forcing them. Will try to get head CT. Continues to refuse eyedrops. Will give a little longer on Risperdal 4 mg 08/12 increased Risperdal to 6 mg 08/13 1st day of actual improvement in that patient allowed lab work. That said, he also threw mattress/belongings into the hallway, talking about a 90 yo neighbor he wants to -labs WNL -refused head CT; since he allowed labs, still will try to see if he will comply with head CT hoping to avoid the trauma of forcing him 08/14 Patient out in the milieu today, 1st time in over a week. Furthermore Patient actually using the bathroom today on his own, with significant encouragement from staff and a verbal plan; throughout the day patient was able to get himself to the bathroom rather than remain incontinent and inside close, which he has continually done since admission. Patient also seems more cheerful. -Again refused head CT but since getting better, will hold off from this for now -continue with increased Risperdal dose of 6 mg 08/17 remains somewhat improved. Patient pleasant and out in the milieu. Throughout the weekend he has been using the bathroom and not been incontinent which christie consistent improvement since admission. Also allowing staff to help him brush his teeth. Patient is normally, when at baseline, able to do all these things on his own, maybe with some prompting but independently. -will continue with current regimen for now as patient continues to improve -will continue to keep in mind that patient has a history of OCD and that he may benefit and improve from restarting clomipramine; however as psychosis and disorganized behavior is the main concern will continue to focus treatment in this area now 08/18 continues current tx plan for now; will consider increasing Risperdal though already at 6mg. 08/21 Patient remains doing better. Still not dressing himself or taking a shower but seems to be doing more more ADLs. Denies any AH. -at this time, telegraphic typewriter repairer hesitates to make any changes as patient has been slowly but steadily improving. 08/22: Continue current regime and plan of care. Pt appears improved. 08/24 Overall remains doing better. Attending to most ADLs except for showering. He says he is afraid to shower here and that he will shower at his own house. Patient sleeping through the night. Still Refusing head CT saying that he is better now. Hotel Baggage Handler discussed with patient adding clomipramine back to his medication regimen with which he agrees and which was encouraged by his mother 08/25 same presentation and denies psychiatric symptoms. He did however put all of his belongings into the [place] again but with no explanation. Patient saying that he will be seeing his mother today who is coming to visit however this is not true; this remains improvement however from when he was saying he can see his mother in his bedroom 08/26/2024 same presentation; took clomipramine last night; will keep it same dose and only slowly titrate as patient has been doing better overall do not want to make any quick changes; patient not able to have informative discussion about OCD symptoms however per his mother, patient did much better on clomipramine 08/28 Patient intermittently talking about seeing his mother father or Mrs Pierre in his room which he has not done for over a week; however he continues to independently due number was ADLs. He asked about returning home. Lisseth came to see patient today and reports that he is definitely heading towards his baseline though not there yet, as he is not bathing himself and still has some psychotic symptoms. Hotel Baggage Handler spoke with his mother today about labs (elevated hemoglobin A1c; she says this happens to him with antipsychotics), head CT; she agreed with telegraphic typewriter repairer's reasoning for holding off on the head CT for now, not wanting to traumatize patient and risk regression from progress made, since he has been refusing it. However telegraphic typewriter repairer also agrees that that it is worthwhile to get and will do so -will increase clomipramine to 50 mg; his mother is adamant that this was very helpful to him and telegraphic typewriter repairer agrees it may help patient progress further as he may be struggling with OCD symptoms that he is not able to articulate 08/29/2024: No changes PLAN: CV *guardians have authorized telegraphic typewriter repairer, staff to administer any/all medical treatments even if against patients will q15 min checks Increase to clomipramine 50mg qhs for OCD (on this at home: clomipramine 100 mg b.i.d Continue with Risperdal 6 mg qhs -Add Risperdal 0.5 mg t.i.d. p.r.n. for breakthrough AVH -for now, Continue Latuda 40 mg daily at dinnertime (used to be on 60mg) -Continue Tegretol 400mg BID (was stable on this in past) -DC Vraylar 3 mg; this was started by outpatient provider; does not seem to have helped much and no clear indication for bipolar depression (also patient already on 3 antipsychotics) -DC'd Zyprexa: has caused DM/elevated Cholesterol/wt gain -temporarily Start artificial tears; refusing -Will get prescription for Restasis/cyclosporin -consider restarting clomipramine for OCD ( clomipramine 100 mg b.i.d. for OCD in the past around 2014; for some reason it was dc'd at some point; restarted 2022 but not continued after that). -consider glycopyrrolate for excessive drooling -will consider getting MRI, however patient's symptoms are congruent with diagnosis Reason for continued inpatient stay Substantial Risk for: inability to function Time Spent With Patient Time: Total time managing care of this patient today ____ minutes.
[2024-08-29] MEDS: gemfibroziL 600 MG TABLET PO ×2 (10:44→20:46)
[2024-08-29] MEDS: Ezetimibe 10 MG TABLET PO (10:44)
[2024-08-29 10:45] VITALS: BP 133/72
[2024-08-29] MEDS: Docusate Sodium 100 MG CAPSULE PO ×3 (10:45→20:48)
[2024-08-29] MEDS: Sennosides 8.6 MG TABLET PO ×2 (10:45→20:48)
[2024-08-29] MEDS: atenoloL 25 MG TABLET PO (10:45)
[2024-08-29] MEDS: clonazePAM 0.5 MG TABLET PO ×3 (10:45→20:46)
[2024-08-29] MEDS: Escitalopram Oxalate 10 MG TABLET PO (10:45)
[2024-08-29] MEDS: Loratadine 10 MG TABLET PO (10:45)
[2024-08-29] MEDS: carBAMazepine ER 200 MG TAB.ER.12H 400 MG PO ×2 (10:46→20:47)
[2024-08-29] MEDS: Lurasidone HCl 40 MG TABLET PO (16:32)
[2024-08-29] MEDS: hydrOXYzine HCL 25 MG TABLET PO (18:50)
[2024-08-29 20:00] VITALS: BP 145/68; PULSE 75; TEMP 36.9; O2SAT 100
[2024-08-29] MEDS: clomiPRAMINE HCl 25 MG CAPSULE 50 MG PO (20:46)
[2024-08-29] MEDS: risperiDONE 3 MG TABLET 6 MG PO (20:48)
[2024-08-29] MEDS: Atorvastatin Calcium 40 MG TABLET PO (20:48)
[2024-08-29] MEDS: traZODone HCL 100 MG TABLET PO (20:49)
--- NOTE | 2024-08-30 08:35 | HO.PSYCHPN ---
Subjective Subjective Date of Service: 08/30/24 Reason For Visit: Schioafective disorder bipolar type Interim History: met with patient. Discussed with Nursing. overall no management issues. Sleeping okay. Remains concrete. In milieu without issue. Reports still wanting discharge. Denies feeling suicidal. No overt paranoia. Medication Compliance: Yes Side effects from medications: No Attending Groups: No Review of Systems Acute medical concerns: No Review of Systems Review of Systems Unremarkable Mental Status Exam Mental Status Exam Narrative: Pt is alert and oriented; behavior is more organized and cooperative, also more calm; using toilet on his own; patient is not in distress; dressed in casual shirt and hospital pants; improved hygiene though still no shower; drooling; mood is described as good though affect congruent, more calm and a little brighter; eye contact appropriate; Speech remains a little garbled which is baseline; normal rate, volume; uses few words; not pressured; no psychomotor agitation/retardation present; thought process is concrete, goal directed, asks for needs; Thought content is very concrete and eager for discharge. No SI/HI. Denies AH. Patients insight and judgment impaired but improving, getting closer to baseline. Diagnostics Vital Signs (24Hr): Vital Signs - 24 hr 08/29/24 08:39 08/29/24 10:45 08/29/24 20:00 Temperature 97.8 F 98.5 F Pulse Rate 73 75 Respiratory Rate 16 Blood Pressure 116/69 133/72 145/68 H Pulse Oximetry 99 100 Oxygen Delivery Method Room Air Room Air BMI result Body Mass Index 31.4 Labs 08/13/24 08:17 08/13/24 08:17 Medications Medications Current Medications Acetaminophen (Acetaminophen 325 Mg Tablet) 650 mg PO Q6H PRN PRN Reason: Headache/Pain Mild Scale (1-3) Last Admin: 08/19/24 17:31 Dose: 650 mg Al Hydroxide/Mg Hydroxide (Magnesium Hydrox/Alum Hydrox 30 Ml Oral.Susp) 30 ml PO Q6H PRN PRN Reason: Heartburn/Nausea Artificial Tears (Artificial Tears 15 Ml Drops) 1 drop EYE-BOTH Q4H PRN PRN Reason: Dry Eyes Last Admin: 08/02/24 16:09 Dose: 1 drop Atenolol (Atenolol 25 Mg Tablet) 25 mg PO DAILY [facility]; Protocol Last Admin: 08/29/24 10:45 Dose: 25 mg Atorvastatin Calcium (Atorvastatin Calcium 40 Mg Tablet) 40 mg PO BEDTIME [facility] Last Admin: 08/29/24 20:48 Dose: 40 mg Carbamazepine (Carbamazepine Er 200 Mg Tab.Er.12h) 400 mg PO BID [facility] Last Admin: 08/29/24 20:47 Dose: 400 mg Clomipramine HCl (Clomipramine Hcl 25 Mg Capsule) 50 mg PO BEDTIME [facility] Last Admin: 08/29/24 20:46 Dose: 50 mg Clonazepam (Clonazepam 0.5 Mg Tablet) 0.5 mg PO TID [facility] Last Admin: 08/29/24 20:46 Dose: 0.5 mg Docusate Sodium (Docusate Sodium 100 Mg Capsule) 100 mg PO TID [facility] Last Admin: 08/29/24 20:48 Dose: 100 mg Ezetimibe (Ezetimibe 10 Mg Tablet) 10 mg PO DAILY [facility] Last Admin: 08/29/24 10:44 Dose: 10 mg Escitalopram Oxalate (Escitalopram Oxalate 10 Mg Tablet) 10 mg PO DAILY [facility] Last Admin: 08/29/24 10:45 Dose: 10 mg Fluticasone Propionate (Fluticasone Propionate Nasal 16 Gm Edgard) 1 spray NOSTRIL-B DAILY [facility] Last Admin: 08/29/24 10:48 Dose: Not Given Gemfibrozil (Gemfibrozil 600 Mg Tablet) 600 mg PO BID [facility] Last Admin: 08/29/24 20:46 Dose: 600 mg Hydroxyzine HCl (Hydroxyzine Hcl 25 Mg Tablet) 25 mg PO Q6H PRN PRN Reason: Anxiety Last Admin: 08/29/24 18:50 Dose: 25 mg Loratadine (Loratadine 10 Mg Tablet) 10 mg PO DAILY [facility] Last Admin: 08/29/24 10:45 Dose: 10 mg Lurasidone HCl (Lurasidone Hcl 40 Mg Tablet) 40 mg PO DAILY@1700 [facility] Last Admin: 08/29/24 16:32 Dose: 40 mg Magnesium Hydroxide (Milk Of Magnesia 30 Ml Oral.Susp) 30 ml PO DAILY PRN PRN Reason: Constipation Multi-Ingred Cream/Lotion/Oil/Oint (Mineral Oil/Petrolatum,White 106 Gm Tube) 1 appl TOPICAL TID PRN; Protocol PRN Reason: dry skin Nicotine Polacrilex (Nicotine Polacrilex 2 Mg Gum) 4 mg BUCCAL Q2H PRN PRN Reason: Nicotine Cravings Omeprazole (Omeprazole 40 Mg Capsule.Dr) 40 mg PO DAILY@0630 [facility] Last Admin: 08/29/24 06:43 Dose: 40 mg Risperidone (Risperidone 0.5 Mg Tablet) 0.5 mg PO TID PRN PRN Reason: Hallucinations Last Admin: 08/25/24 21:06 Dose: 0.5 mg Risperidone (Risperidone 3 Mg Tablet) 6 mg PO BEDTIME [facility] Last Admin: 08/29/24 20:48 Dose: 6 mg Senna (Sennosides 8.6 Mg Tablet) 8.6 mg PO BID [facility] Last Admin: 08/29/24 20:48 Dose: 8.6 mg Trazodone HCl (Trazodone Hcl 50 Mg Tablet) 50 mg PO BEDTIME MRX1 PRN PRN Reason: Insomnia Last Admin: 08/26/24 00:02 Dose: 50 mg Trazodone HCl (Trazodone Hcl 100 Mg Tablet) 100 mg PO BEDTIME [facility] Last Admin: 08/29/24 20:49 Dose: 100 mg Allergies Allergies Allergy/AdvReac Type Severity Reaction Status Date / Time ondansetron [From Zofran] Allergy Unknown Verified 07/28/24 22:30 Penicillins Allergy Unknown Verified 07/28/24 22:30 potassium Allergy Unknown Verified 07/28/24 22:30 prochlorperazine Allergy Unknown Verified 07/28/24 22:30 Assessment & Plan Assessment & Plan (1) Schizoaffective disorder, bipolar type: Status: Acute Code(s): F25.0 - Schizoaffective disorder, bipolar type (2) Autism spectrum disorder: Status: Acute Code(s): F84.0 - Autistic disorder (3) Intellectual disability: Status: Acute Code(s): F79 - Unspecified intellectual disabilities (4) Aarskog syndrome: Status: Acute Code(s): Q87.19 - Other congenital malformation syndromes predominantly associated with short stature Plan Patient is a 34-year-old male with severe ASD, intellectual disability, schizoaffective disorder with, history of behavioral outbursts, who resides at a [facility] residential facility and who presents from external ED for what supply chain program manager reports is decompensation following discharge from [facility] admission about 4 weeks ago. wellness spa manager reports patient has increased anxiety, paranoia and visual hallucinations as well as increased agitation related to AVH, which has resulted in the need for physical restraints. Patient with limited ability to participate in interview. Patient cooperative and calm. He says he misses his mother. He said I am feeling better... And then that he was going to lay down. He said he wanted to be in the hospital until he feels better... But could not discuss his feelings or what that would mean. Denies any SI or HI and says he is feeling safe. Patient does endorse auditory hallucinations which he he says bothers him, however when asked to discuss them further or what they say, he says I do not know and regarding medication that there is nothing to help... For the remainder of the day, patient sometimes in his room, sometimes in the hallway saying he wanted to call his mother or father, saying he misses them and wants to go home. Formulation/clinical reasoning: Patient has diagnosis of schizoaffective disorder, not sure if he actually has manic episodes and according to collateral, patient has not demonstrated psychotic symptoms until this fall. Still he has been on antipsychotics for years. -Guardian paperwork in chart; parents are guardians -No HCP - [place] Diagnosis: -Says diagnosis is schizoaffective, bipolar type however she has no knowledge of any discrete manic episodes; he has some history of depressive episodes -Does not blink: Supposed to be on Restasis/cyclosporine ophthalmic; not sure dose; discussed with pharmacist who reports typically this is 0.05% solution 1 drop b.i.d. (other places say 0.1%) -Aarkskog syndrome -ASD -OCD -has chronic extremely dry skin (eczema?) for which he has some medicated cream; mother not sure the name -Said there was a plan to get MRI of the brain since change seemed somewhat sudden Hospital course: 07/30 Patient remains fearful; can be friendly and cooperative but seems very anxious and cautious. Visual hallucinations patient saying he can see his mother in the room and talking to her Still not going into bathroom, with recent history of being afraid of bathroom; thus patient Incontinent of urine, sitting in wet clothes and refusing to change today, willing to sign CV reiterating he wants to be here for treatment ( to feel better ) -left for outpatient provider Nat Lee to discuss tx hx 07/31 patient remains cautious and intermittently fearful but is also warming up a bit to some staff, primarily female staff. He says he is feeling better but behaviors remain decompensated. Willing to change out of clothes today with staff encouragement and have them washed; also talked to his mother on the phone today which he said made him happy. Patient willing to use lotion for try facial skin Collateral:Under Baster discussed case with patient's mother who reports that behaviors decompensated this April after he returned from vacation with his father. At that time he started packing up his stuff, saying he wanted to move out of the [facility]; was taking lots of showers, self dialogue Ng, saying he could see his mother in the room, saying he thought his mother was and refusing to talk to her on the phone. For those reasons This past May he went to [facility] where he was started on Vraylar (and refused to take Latuda). He returned to the [facility] but remained confused, disorganized, paranoid. At 1 point he would not leave the living room at all, incontinent, afraid to go into the bathroom or to shower which resulted in this hospitalization. Some history of aggression for which he was hospitalized a year ago; only mild aggression in [facility] this time around. -left another message with chief librarian work with blind for Nat Lee 08/01 mostly same presentation, continued AH which are bothersome; more comfortable with staff and allowing them to help him attending ADLs including bathing. -proposal writer did get a call back from Nat Lee; proposal writer return call and left message 08/02 Patient continues to say I am feeling much better however this does not seem to correlate with any improvement in symptoms as he continues to have AH, is afraid of his room, incontinent of urine because afraid of going to the bathroom and continually saying that he sees his mother in his room. Patient does not respond much to reality testing. He does say he would like other medications to help make the voices go away. -given discussion below, will DC Vraylar since no clear indication of bipolar depression; already on 3 antipsychotics and does not seem effective. Instead will try Risperdal. -will start to try to eliminate pharmacy; need to find out what medication regimen patient was on this past summer during which time he was doing well Collateral: Again discussed case with patient's mother. -She reports he was doing great this past summer; not sure what his medication regimen was at that time -says was on Tegretol for years; for some reason [facility] took him off of it (was restarted at this hospitalization) -says was on clomipramine for OCD since 7 years old and did well on it; not sure why he was taken off a year ago -to her knowledge Latuda was supposed to be discontinued since he was never really taking it; Vraylar was also started at [facility] which has not seemed to help. -Has been on Zyprexa for a while; not sure efficacy --drools consistently at baseline; she said she has asked in the past for medication for this 08/03 Patient reports that he is feeling a lot better which is what he says to proposal writer every day. He denies any AH. Also says he has not been seeing his mother. Difficult to tell if this is the case or not so will continue to monitor. Patient did ask for a stuffed animal or something about a stuffed animal but it was not clear. -briefly spoke with outpatient provider Huma who said she was 1 who started him on Vraylar -continue with Risperdal 08/04 No change in presentation; still disorganized, fearful, incontinent, hardly moving from room. Not sleeping at night but will tell proposal writer I slept very good... . Continues to say the same refrain I feel a lot better... 08/05 meeting with outpt team stable on Tegretol and latuda for years until sudden decompensation this fall at which time pt presented with same symptoms he has currently. Prior to this stable and functional in many ways, all ADL's, organized and quite capable; no psychosis; read/write/send emails 08/06 no change in presentation and pt remains disorganized, sitting in own defecate; has AH. Hardly sleeping at night. sitting in one spot for most of the day. -intermittently refusing medications -pt refusing labs -feet are both swollen; hospitalist examined -infection on both side of bridge of nose where glasses sit on nose; pt allowed antibiotic ointment to be applied History that patient was stable on Tegretol and Latuda for at least a year; Latuda was lowered in the springtime to 40 mg, down from 60 since patient said was making him tired. He remained stable until this fall when he suddenly decompensated, unable to accept reality, incontinent, afraid of multiple things, thinking his mom's , forgetting people are Medication: pt was stable on Tegretol and Latuda for years until this fall -for now, will continue on Tegretol and Latuda -kaylee'd alexander -started risperdal and increased to 4mg, scheduled it at bedtime to help w/ sleep -consider CT scan brain given sudden onset of symptoms, though was several months ago at this point 08/10 Still no change in presentation; refusing eyedrops. Remains scared to go out of his room. Did allow for bacitracin and sores on bilateral bridge of his nose are better.08/10 Still no change in presentation; refusing eyedrops. Remains scared to go out of his room. Did allow for bacitracin and sores on bilateral bridge of his nose are better. 08/11 Again no change in presentation; refusing labs. Will continue to retry before forcing them. Will try to get head CT. Continues to refuse eyedrops. Will give a little longer on Risperdal 4 mg 08/12 increased Risperdal to 6 mg 08/13 1st day of actual improvement in that patient allowed lab work. That said, he also threw mattress/belongings into the hallway, talking about a 90 yo neighbor he wants to -labs WN -refused head CT; since he allowed labs, still will try to see if he will comply with head CT hoping to avoid the trauma of forcing him 08/14 Patient out in the milieu today, 1st time in over a week. Furthermore Patient actually using the bathroom today on his own, with significant encouragement from staff and a verbal plan; throughout the day patient was able to get himself to the bathroom rather than remain incontinent and inside close, which he has continually done since admission. Patient also seems more cheerful. -Again refused head CT but since getting better, will hold off from this for now -continue with increased Risperdal dose of 6 mg 08/17 remains somewhat improved. Patient pleasant and out in the milieu. Throughout the weekend he has been using the bathroom and not been incontinent which christie consistent improvement since admission. Also allowing staff to help him brush his teeth. Patient is normally, when at baseline, able to do all these things on his own, maybe with some prompting but independently. -will continue with current regimen for now as patient continues to improve -will continue to keep in mind that patient has a history of OCD and that he may benefit and improve from restarting clomipramine; however as psychosis and disorganized behavior is the main concern will continue to focus treatment in this area now 08/18 continues current tx plan for now; will consider increasing Risperdal though already at 6mg. 08/21 Patient remains doing better. Still not dressing himself or taking a shower but seems to be doing more more ADLs. Denies any AH. -at this time, proposal writer hesitates to make any changes as patient has been slowly but steadily improving. 08/22: Continue current regime and plan of care. Pt appears improved. 08/24 Overall remains doing better. Attending to most ADLs except for showering. He says he is afraid to shower here and that he will shower at his own house. Patient sleeping through the night. Still Refusing head CT saying that he is better now. Under Baster discussed with patient adding clomipramine back to his medication regimen with which he agrees and which was encouraged by his mother 08/25 same presentation and denies psychiatric symptoms. He did however put all of his belongings into the [place] again but with no explanation. Patient saying that he will be seeing his mother today who is coming to visit however this is not true; this remains improvement however from when he was saying he can see his mother in his bedroom 08/26/2024 same presentation; took clomipramine last night; will keep it same dose and only slowly titrate as patient has been doing better overall do not want to make any quick changes; patient not able to have informative discussion about OCD symptoms however per his mother, patient did much better on clomipramine 08/28 Patient intermittently talking about seeing his mother father or Mrs Pierre in his room which he has not done for over a week; however he continues to independently due number was ADLs. He asked about returning home. Lisseth came to see patient today and reports that he is definitely heading towards his baseline though not there yet, as he is not bathing himself and still has some psychotic symptoms. Under Baster spoke with his mother today about labs (elevated hemoglobin A1c; she says this happens to him with antipsychotics), head CT; she agreed with proposal writer's reasoning for holding off on the head CT for now, not wanting to traumatize patient and risk regression from progress made, since he has been refusing it. However proposal writer also agrees that that it is worthwhile to get and will do so -will increase clomipramine to 50 mg; his mother is adamant that this was very helpful to him and proposal writer agrees it may help patient progress further as he may be struggling with OCD symptoms that he is not able to articulate 08/30/2024: Continue current treatment plan PLAN: CV *guardians have authorized proposal writer, staff to administer any/all medical treatments even if against patients will q15 min checks Increase to clomipramine 50mg qhs for OCD (on this at home: clomipramine 100 mg b.i.d Continue with Risperdal 6 mg qhs -Add Risperdal 0.5 mg t.i.d. p.r.n. for breakthrough AVH -for now, Continue Latuda 40 mg daily at dinnertime (used to be on 60mg) -Continue Tegretol 400mg BID (was stable on this in past) -DC Vraylar 3 mg; this was started by outpatient provider; does not seem to have helped much and no clear indication for bipolar depression (also patient already on 3 antipsychotics) -DC'd Zyprexa: has caused DM/elevated Cholesterol/wt gain -temporarily Start artificial tears; refusing -Will get prescription for Restasis/cyclosporin -consider restarting clomipramine for OCD ( clomipramine 100 mg b.i.d. for OCD in the past around 2014; for some reason it was dc'd at some point; restarted 2022 but not continued after that). -consider glycopyrrolate for excessive drooling -will consider getting MRI, however patient's symptoms are congruent with diagnosis Reason for continued inpatient stay Substantial Risk for: inability to function and rapid decompensation Time Spent With Patient Time: Total time managing care of this patient today ____ minutes.
[2024-08-30 09:56] VITALS: BP 108/62; PULSE 64; RESP 16; TEMP 36.5; O2SAT 97
[2024-08-30 10:00] VITALS: BP 108/62
[2024-08-30] MEDS: atenoloL 25 MG TABLET PO (10:00)
[2024-08-30] MEDS: carBAMazepine ER 200 MG TAB.ER.12H 400 MG PO ×2 (10:00→21:39)
[2024-08-30] MEDS: clonazePAM 0.5 MG TABLET PO ×3 (10:01→21:39)
[2024-08-30] MEDS: Escitalopram Oxalate 10 MG TABLET PO (10:01)
[2024-08-30] MEDS: Loratadine 10 MG TABLET PO (10:01)
[2024-08-30] MEDS: Docusate Sodium 100 MG CAPSULE PO ×3 (10:01→21:40)
[2024-08-30] MEDS: Ezetimibe 10 MG TABLET PO (10:01)
[2024-08-30] MEDS: Omeprazole 40 MG CAPSULE.DR PO (10:01)
[2024-08-30] MEDS: Sennosides 8.6 MG TABLET PO ×2 (10:01→21:39)
[2024-08-30] MEDS: gemfibroziL 600 MG TABLET PO ×2 (10:01→21:39)
[2024-08-30] MEDS: risperiDONE 0.5 MG TABLET PO ×2 (15:17→18:20)
[2024-08-30] MEDS: Lurasidone HCl 40 MG TABLET PO (16:55)
[2024-08-30] MEDS: hydrOXYzine HCL 25 MG TABLET PO (18:17)
[2024-08-30 20:00] VITALS: BP 136/80; PULSE 82; RESP 14; TEMP 36.6; O2SAT 100
[2024-08-30] MEDS: traZODone HCL 100 MG TABLET PO (21:39)
[2024-08-30] MEDS: Atorvastatin Calcium 40 MG TABLET PO (21:39)
[2024-08-30] MEDS: risperiDONE 3 MG TABLET 6 MG PO (21:39)
[2024-08-30] MEDS: clomiPRAMINE HCl 25 MG CAPSULE 50 MG PO (21:39)
[2024-08-31 08:00] VITALS: BP 128/62; PULSE 68; TEMP 36.1; O2SAT 97
[2024-08-31 08:13] VITALS: BP 128/62; PULSE 68
[2024-08-31] MEDS: carBAMazepine ER 200 MG TAB.ER.12H 400 MG PO ×2 (08:13→20:06)
[2024-08-31] MEDS: Loratadine 10 MG TABLET PO (08:13)
[2024-08-31] MEDS: clonazePAM 0.5 MG TABLET PO ×3 (08:13→20:05)
[2024-08-31] MEDS: gemfibroziL 600 MG TABLET PO ×2 (08:13→20:05)
[2024-08-31] MEDS: atenoloL 25 MG TABLET PO (08:13)
[2024-08-31] MEDS: Escitalopram Oxalate 10 MG TABLET PO (08:13)
[2024-08-31] MEDS: Omeprazole 40 MG CAPSULE.DR PO (08:13)
[2024-08-31] MEDS: Ezetimibe 10 MG TABLET PO (08:14)
[2024-08-31] MEDS: Sennosides 8.6 MG TABLET PO ×2 (08:14→20:05)
[2024-08-31] MEDS: Docusate Sodium 100 MG CAPSULE PO ×3 (08:14→20:06)
--- NOTE | 2024-08-31 10:00 | P.PNPSI_ITS ---
Subjective Subjective Date of Service: 08/31/24 Reason For Visit: Schioafective disorder bipolar type Interim History: Met with patient; discussed with team patient had an Epiphany today. With staff's help, it was revealed that the dust on patient's window did have the shape of a person's head and face which patient was referring to as Mrs. Lawton, an old acquaintance. Staff cleaned this off and the outline of the face was removed and with this, patient very clearly said he no longer sees Mrs. Lawton in the room; this remained a consistent understanding. Patient remains very ambivalent and anxious about getting a head CT; he was afraid to leave the the unit; Ativan was given however patient ultimately refused to go down and ad writer agreed to try again tomorrow Mental Status Exam Mental Status Exam Narrative: Pt is alert and oriented; behavior is more organized and cooperative, also more calm; using toilet on his own; patient is not in distress; dressed in casual shirt and hospital pants; improved hygiene though still no shower; drooling; mood is described as good though affect congruent, more calm and a little brighter; eye contact appropriate; Speech remains a little garbled which is baseline; normal rate, volume; uses few words; not pressured; no psychomotor agitation/retardation present; thought process is concrete, goal directed, asks for needs; Thought content is very concrete and eager for discharge. No SI/HI. Denies AH. Patients insight and judgment impaired but improving, getting closer to baseline. Diagnostics Vital Signs (24Hr): Vital Signs - 24 hr 08/30/24 20:00 08/31/24 08:00 08/31/24 08:13 Temperature 97.8 F 97 F Pulse Rate 82 68 68 Respiratory Rate 14 Blood Pressure 136/80 128/62 128/62 Pulse Oximetry 100 97 Oxygen Delivery Method Room Air Room Air BMI result Body Mass Index 31.4 Labs 08/13/24 08:17 08/13/24 08:17 Medications Medications Current Medications Acetaminophen (Acetaminophen 325 Mg Tablet) 650 mg PO Q6H PRN PRN Reason: Headache/Pain Mild Scale (1-3) Last Admin: 08/19/24 17:31 Dose: 650 mg Al Hydroxide/Mg Hydroxide (Magnesium Hydrox/Alum Hydrox 30 Ml Oral.Susp) 30 ml PO Q6H PRN PRN Reason: Heartburn/Nausea Artificial Tears (Artificial Tears 15 Ml Drops) 1 drop EYE-BOTH Q4H PRN PRN Reason: Dry Eyes Last Admin: 08/02/24 16:09 Dose: 1 drop Atenolol (Atenolol 25 Mg Tablet) 25 mg PO DAILY COUNT INCLUDES THE [facility]; Protocol Last Admin: 08/31/24 08:13 Dose: 25 mg Atorvastatin Calcium (Atorvastatin Calcium 40 Mg Tablet) 40 mg PO BEDTIME COUNT INCLUDES THE [facility] Last Admin: 08/30/24 21:39 Dose: 40 mg Carbamazepine (Carbamazepine Er 200 Mg Tab.Er.12h) 400 mg PO BID COUNT INCLUDES THE [facility] Last Admin: 08/31/24 08:13 Dose: 400 mg Clomipramine HCl (Clomipramine Hcl 25 Mg Capsule) 50 mg PO BEDTIME COUNT INCLUDES THE [facility] Last Admin: 08/30/24 21:39 Dose: 50 mg Clonazepam (Clonazepam 0.5 Mg Tablet) 0.5 mg PO TID COUNT INCLUDES THE [facility] Last Admin: 08/31/24 08:13 Dose: 0.5 mg Docusate Sodium (Docusate Sodium 100 Mg Capsule) 100 mg PO TID COUNT INCLUDES THE [facility] Last Admin: 08/31/24 08:14 Dose: 100 mg Ezetimibe (Ezetimibe 10 Mg Tablet) 10 mg PO DAILY COUNT INCLUDES THE [facility] Last Admin: 08/31/24 08:14 Dose: 10 mg Escitalopram Oxalate (Escitalopram Oxalate 10 Mg Tablet) 10 mg PO DAILY COUNT INCLUDES THE [facility] Last Admin: 08/31/24 08:13 Dose: 10 mg Fluticasone Propionate (Fluticasone Propionate Nasal 16 Gm [place]) 1 spray NOSTRIL-B DAILY COUNT INCLUDES THE [facility] Last Admin: 08/31/24 08:14 Dose: Not Given Gemfibrozil (Gemfibrozil 600 Mg Tablet) 600 mg PO BID COUNT INCLUDES THE [facility] Last Admin: 08/31/24 08:13 Dose: 600 mg Hydroxyzine HCl (Hydroxyzine Hcl 25 Mg Tablet) 25 mg PO Q6H PRN PRN Reason: Anxiety Last Admin: 08/30/24 18:17 Dose: 25 mg Loratadine (Loratadine 10 Mg Tablet) 10 mg PO DAILY COUNT INCLUDES THE [facility] Last Admin: 08/31/24 08:13 Dose: 10 mg Lurasidone HCl (Lurasidone Hcl 40 Mg Tablet) 40 mg PO DAILY@1700 COUNT INCLUDES THE [facility] Last Admin: 08/30/24 16:55 Dose: 40 mg Magnesium Hydroxide (Milk Of Magnesia 30 Ml Oral.Susp) 30 ml PO DAILY PRN PRN Reason: Constipation Multi-Ingred Cream/Lotion/Oil/Oint (Mineral Oil/Petrolatum,White 106 Gm Tube) 1 appl TOPICAL TID PRN; Protocol PRN Reason: dry skin Nicotine Polacrilex (Nicotine Polacrilex 2 Mg Gum) 4 mg BUCCAL Q2H PRN PRN Reason: Nicotine Cravings Omeprazole (Omeprazole 40 Mg Capsule.Dr) 40 mg PO DAILY@0630 COUNT INCLUDES THE [facility] Last Admin: 08/31/24 08:13 Dose: 40 mg Risperidone (Risperidone 0.5 Mg Tablet) 0.5 mg PO TID PRN PRN Reason: Hallucinations Last Admin: 08/30/24 18:20 Dose: 0.5 mg Risperidone (Risperidone 3 Mg Tablet) 6 mg PO BEDTIME COUNT INCLUDES THE [facility] Last Admin: 08/30/24 21:39 Dose: 6 mg Senna (Sennosides 8.6 Mg Tablet) 8.6 mg PO BID COUNT INCLUDES THE [facility] Last Admin: 08/31/24 08:14 Dose: 8.6 mg Trazodone HCl (Trazodone Hcl 50 Mg Tablet) 50 mg PO BEDTIME MRX1 PRN PRN Reason: Insomnia Last Admin: 08/26/24 00:02 Dose: 50 mg Trazodone HCl (Trazodone Hcl 100 Mg Tablet) 100 mg PO BEDTIME COUNT INCLUDES THE [facility] Last Admin: 08/30/24 21:39 Dose: 100 mg Allergies Allergies Allergy/AdvReac Type Severity Reaction Status Date / Time ondansetron [From Zofran] Allergy Unknown Verified 07/28/24 22:30 Penicillins Allergy Unknown Verified 07/28/24 22:30 potassium Allergy Unknown Verified 07/28/24 22:30 prochlorperazine Allergy Unknown Verified 07/28/24 22:30 Assessment & Plan Assessment & Plan (1) Schizoaffective disorder, bipolar type: Status: Acute Code(s): F25.0 - Schizoaffective disorder, bipolar type (2) Autism spectrum disorder: Status: Acute Code(s): F84.0 - Autistic disorder (3) Intellectual disability: Status: Acute Code(s): F79 - Unspecified intellectual disabilities (4) Aarskog syndrome: Status: Acute Code(s): Q87.19 - Other congenital malformation syndromes predominantly associated with short stature Plan Patient is a 34-year-old male with severe ASD, intellectual disability, schizoaffective disorder with, history of behavioral outbursts, who resides at a [facility] residential facility and who presents from external ED for what systems program manager reports is decompensation following discharge from [facility] admission about 4 weeks ago. sustainability manager reports patient has increased anxiety, paranoia and visual hallucinations as well as increased agitation related to AVH, which has resulted in the need for physical restraints. Patient with limited ability to participate in interview. Patient cooperative and calm. He says he misses his mother. He said I am feeling better... And then that he was going to lay down. He said he wanted to be in the hospital until he feels better... But could not discuss his feelings or what that would mean. Denies any SI or HI and says he is feeling safe. Patient does endorse auditory hallucinations which he he says bothers him, however when asked to discuss them further or what they say, he says I do not know and regarding medication that there is nothing to help... For the remainder of the day, patient sometimes in his room, sometimes in the hallway saying he wanted to call his mother or father, saying he misses them and wants to go home. Formulation/clinical reasoning: Patient has diagnosis of schizoaffective disorder, not sure if he actually has manic episodes and according to collateral, patient has not demonstrated psychotic symptoms until this fall. Still he has been on antipsychotics for years. -Guardian paperwork in chart; parents are guardians -No HCP - [place] Diagnosis: -Says diagnosis is schizoaffective, bipolar type however she has no knowledge of any discrete manic episodes; he has some history of depressive episodes -Does not blink: Supposed to be on Restasis/cyclosporine ophthalmic; not sure dose; discussed with pharmacist who reports typically this is 0.05% solution 1 drop b.i.d. (other places say 0.1%) -Aarkskog syndrome -ASD -OCD -has chronic extremely dry skin (eczema?) for which he has some medicated cream; mother not sure the name -Said there was a plan to get MRI of the brain since change seemed somewhat sudden Hospital course: 07/30 Patient remains fearful; can be friendly and cooperative but seems very anxious and cautious. Visual hallucinations patient saying he can see his mother in the room and talking to her Still not going into bathroom, with recent history of being afraid of bathroom; thus patient Incontinent of urine, sitting in wet clothes and refusing to change today, willing to sign CV reiterating he wants to be here for treatment ( to feel better ) -left VM for outpatient provider Nat Lee to discuss tx hx 07/31 patient remains cautious and intermittently fearful but is also warming up a bit to some staff, primarily female staff. He says he is feeling better but behaviors remain decompensated. Willing to change out of clothes today with staff encouragement and have them washed; also talked to his mother on the phone today which he said made him happy. Patient willing to use lotion for try facial skin Collateral:Electrician W[employer] discussed case with patient's mother who reports that behaviors decompensated this April after he returned from vacation with his father. At that time he started packing up his stuff, saying he wanted to move out of the half-way; was taking lots of showers, self dialogue Ng, saying he could see his mother in the room, saying he thought his mother was and refusing to talk to her on the phone. For those reasons This past May he went to [facility] where he was started on Vraylar (and refused to take Latuda). He returned to the half-way but remained confused, disorganized, paranoid. At 1 point he would not leave the living room at all, incontinent, afraid to go into the bathroom or to shower which resulted in this hospitalization. Some history of aggression for which he was hospitalized a year ago; only mild aggression in half-way this time around. -left another message with press secretary for Nat Lee 08/01 mostly same presentation, continued AH which are bothersome; more comfortable with staff and allowing them to help him attending ADLs including bathing. -ad writer did get a call back from Nat Lee; ad writer return call and left message 08/02 Patient continues to say I am feeling much better however this does not seem to correlate with any improvement in symptoms as he continues to have AH, is afraid of his room, incontinent of urine because afraid of going to the bathroom and continually saying that he sees his mother in his room. Patient does not respond much to reality testing. He does say he would like other medications to help make the voices go away. -given discussion below, will DC Vraylar since no clear indication of bipolar depression; already on 3 antipsychotics and does not seem effective. Instead will try Risperdal. -will start to try to eliminate pharmacy; need to find out what medication regimen patient was on this past summer during which time he was doing well Collateral: Again discussed case with patient's mother. -She reports he was doing great this past summer; not sure what his medication regimen was at that time -says was on Tegretol for years; for some reason [facility] took him off of it (was restarted at this hospitalization) -says was on clomipramine for OCD since 7 years old and did well on it; not sure why he was taken off a year ago -to her knowledge Latuda was supposed to be discontinued since he was never really taking it; Vraylar was also started at [facility] which has not seemed to help. -Has been on Zyprexa for a while; not sure efficacy --drools consistently at baseline; she said she has asked in the past for medication for this 08/03 Patient reports that he is feeling a lot better which is what he says to ad writer every day. He denies any AH. Also says he has not been seeing his mother. Difficult to tell if this is the case or not so will continue to monitor. Patient did ask for a stuffed animal or something about a stuffed animal but it was not clear. -briefly spoke with outpatient provider Huma who said she was 1 who started him on Vraylar -continue with Risperdal 08/04 No change in presentation; still disorganized, fearful, incontinent, hardly moving from room. Not sleeping at night but will tell ad writer I slept very good... . Continues to say the same refrain I feel a lot better... 08/05 meeting with outpt team stable on Tegretol and latuda for years until sudden decompensation this fall at which time pt presented with same symptoms he has currently. Prior to this stable and functional in many ways, all ADL's, organized and quite capable; no psychosis; read/write/send emails 08/06 no change in presentation and pt remains disorganized, sitting in own defecate; has AH. Hardly sleeping at night. sitting in one spot for most of the day. -intermittently refusing medications -pt refusing labs -feet are both swollen; hospitalist examined -infection on both side of bridge of nose where glasses sit on nose; pt allowed antibiotic ointment to be applied History that patient was stable on Tegretol and Latuda for at least a year; Latuda was lowered in the springtime to 40 mg, down from 60 since patient said was making him tired. He remained stable until this fall when he suddenly decompensated, unable to accept reality, incontinent, afraid of multiple things, thinking his mom's , forgetting people are Medication: pt was stable on Tegretol and Latuda for years until this fall -for now, will continue on Tegretol and Latuda -dc'd alexander -started risperdal and increased to 4mg, scheduled it at bedtime to help w/ sleep -consider CT scan brain given sudden onset of symptoms, though was several months ago at this point 08/10 Still no change in presentation; refusing eyedrops. Remains scared to go out of his room. Did allow for bacitracin and sores on bilateral bridge of his nose are better.08/10 Still no change in presentation; refusing eyedrops. Remains scared to go out of his room. Did allow for bacitracin and sores on bilateral bridge of his nose are better. 08/11 Again no change in presentation; refusing labs. Will continue to retry before forcing them. Will try to get head CT. Continues to refuse eyedrops. Will give a little longer on Risperdal 4 mg 08/12 increased Risperdal to 6 mg 08/13 day of actual improvement in that patient allowed lab work. That said, he also threw mattress/belongings into the hallway, talking about a 90 yo neighbor he wants to -labs WNL -refused head CT; since he allowed labs, still will try to see if he will comply with head CT hoping to avoid the trauma of forcing him 08/14 Patient out in the milieu today, 1st time in over a week. Furthermore Patient actually using the bathroom today on his own, with significant encouragement from staff and a verbal plan; throughout the day patient was able to get himself to the bathroom rather than remain incontinent and inside close, which he has continually done since admission. Patient also seems more cheerful. -Again refused head CT but since getting better, will hold off from this for now -continue with increased Risperdal dose of 6 mg 08/17 remains somewhat improved. Patient pleasant and out in the milieu. Throughout the weekend he has been using the bathroom and not been incontinent which christie consistent improvement since admission. Also allowing staff to help him brush his teeth. Patient is normally, when at baseline, able to do all these things on his own, maybe with some prompting but independently. -will continue with current regimen for now as patient continues to improve -will continue to keep in mind that patient has a history of OCD and that he may benefit and improve from restarting clomipramine; however as psychosis and disorganized behavior is the main concern will continue to focus treatment in this area now 08/18 continues current tx plan for now; will consider increasing Risperdal though already at 6mg. 08/21 Patient remains doing better. Still not dressing himself or taking a shower but seems to be doing more more ADLs. Denies any AH. -at this time, ad writer hesitates to make any changes as patient has been slowly but steadily improving. 08/22: Continue current regime and plan of care. Pt appears improved. 08/24 Overall remains doing better. Attending to most ADLs except for showering. He says he is afraid to shower here and that he will shower at his own house. Patient sleeping through the night. Still Refusing head CT saying that he is better now. Electrician Wiring discussed with patient adding clomipramine back to his medication regimen with which he agrees and which was encouraged by his mother 08/25 same presentation and denies psychiatric symptoms. He did however put all of his belongings into the [place] again but with no explanation. Patient saying that he will be seeing his mother today who is coming to visit however this is not true; this remains improvement however from when he was saying he can see his mother in his bedroom 08/26/2024 same presentation; took clomipramine last night; will keep it same dose and only slowly titrate as patient has been doing better overall do not want to make any quick changes; patient not able to have informative discussion about OCD symptoms however per his mother, patient did much better on clomipramine 08/28 Patient intermittently talking about seeing his mother father or Mrs Pierre in his room which he has not done for over a week; however he continues to independently due number was ADLs. He asked about returning home. Lisseth came to see patient today and reports that he is definitely heading towards his baseline though not there yet, as he is not bathing himself and still has some psychotic symptoms. Electrician Wiring spoke with his mother today about labs (elevated hemoglobin A1c; she says this happens to him with antipsychotics), head CT; she agreed with ad writer's reasoning for holding off on the head CT for now, not wanting to traumatize patient and risk regression from progress made, since he has been refusing it. However ad writer also agrees that that it is worthwhile to get and will do so -will increase clomipramine to 50 mg; his mother is adamant that this was very helpful to him and ad writer agrees it may help patient progress further as he may be struggling with OCD symptoms that he is not able to articulate 08/30/2024: Continue current treatment plan 08/31 patient had an Epiphany today. With staff's help, it was revealed that the dust on patient's window did have the shape of a person's head and face which patient was referring to as Mrs. Lawton, an old acquaintance. Staff cleaned this off and the outline of the face was removed and with this, patient very clearly said he no longer sees Mrs. Lawton in the room; this remained a consistent understanding. Patient remains very ambivalent and anxious about getting a head CT; he was afraid to leave the the unit; Ativan was given however patient ultimately refused to go down and ad writer agreed to try again tomorrow PLAN: CV *guardians have authorized ad writer, staff to administer any/all medical treatments even if against patients will q15 min checks Increase to clomipramine 50mg qhs for OCD (on this at home: clomipramine 100 mg b.i.d Continue with Risperdal 6 mg qhs -Add Risperdal 0.5 mg t.i.d. p.r.n. for breakthrough AVH -for now, Continue Latuda 40 mg daily at dinnertime (used to be on 60mg) -Continue Tegretol 400mg BID (was stable on this in past) -DC Vraylar 3 mg; this was started by outpatient provider; does not seem to have helped much and no clear indication for bipolar depression (also patient already on 3 antipsychotics) -DC'd Zyprexa: has caused DM/elevated Cholesterol/wt gain -temporarily Start artificial tears; refusing -Will get prescription for Restasis/cyclosporin -consider restarting clomipramine for OCD ( clomipramine 100 mg b.i.d. for OCD in the past around 2014; for some reason it was dc'd at some point; restarted 2022 but not continued after that). -consider glycopyrrolate for excessive drooling -will consider getting MRI, however patient's symptoms are congruent with diagnosis Patient educated on: diagnosis, medication risk/benefits and medical condition Informed Consent: understands, does not understand and further education needed Reason for continued inpatient stay Substantial Risk for: stable for discharge, rapid decompensation and med/psych decompensation Time Spent With Patient Time: Total time managing care of this patient today ____ minutes.
[2024-08-31] MEDS: LORazepam 1 MG TABLET 3 MG PO (16:40)
[2024-08-31] MEDS: Lurasidone HCl 40 MG TABLET PO (17:59)
[2024-08-31 20:00] VITALS: BP 137/81; PULSE 89; TEMP 36.7; O2SAT 100
[2024-08-31] MEDS: Atorvastatin Calcium 40 MG TABLET PO (20:05)
[2024-08-31] MEDS: clomiPRAMINE HCl 25 MG CAPSULE 50 MG PO (20:05)
[2024-08-31] MEDS: risperiDONE 3 MG TABLET 6 MG PO (20:06)
[2024-08-31] MEDS: traZODone HCL 100 MG TABLET PO (20:06)
[2024-09-01 08:00] VITALS: BP 118/71; PULSE 88; RESP 20; TEMP 36.2; O2SAT 97
[2024-09-01] MEDS: carBAMazepine ER 200 MG TAB.ER.12H 400 MG PO ×2 (09:11→20:44)
[2024-09-01 09:12] VITALS: BP 124/68; PULSE 77
[2024-09-01] MEDS: clonazePAM 0.5 MG TABLET PO ×2 (09:12→20:44)
[2024-09-01] MEDS: Docusate Sodium 100 MG CAPSULE PO ×3 (09:12→20:44)
[2024-09-01] MEDS: atenoloL 25 MG TABLET PO (09:12)
[2024-09-01] MEDS: Omeprazole 40 MG CAPSULE.DR PO (09:12)
[2024-09-01] MEDS: Loratadine 10 MG TABLET PO (09:13)
[2024-09-01] MEDS: gemfibroziL 600 MG TABLET PO ×2 (09:13→20:44)
[2024-09-01] MEDS: Ezetimibe 10 MG TABLET PO (09:13)
[2024-09-01] MEDS: Escitalopram Oxalate 10 MG TABLET PO (09:13)
[2024-09-01] MEDS: Sennosides 8.6 MG TABLET PO ×2 (09:13→20:44)
[2024-09-01] MEDS: clonazePAM 1 MG TABLET 2 MG PO (14:02)
[2024-09-01] MEDS: Lurasidone HCl 40 MG TABLET PO (16:06)
--- NOTE | 2024-09-01 18:06 | HO.PSYCHPN ---
Subjective Subjective Date of Service: 09/01/24 Reason For Visit: Schioafective disorder bipolar type Interim History: Met with patient; discussed with team Patient seems happier today and playfully bouncing around the milieu. Today he actually agreed to get his head CT which was completed! No mentioned of seeing Mrs. Lawton in his room. Mental Status Exam Mental Status Exam Narrative: Pt is alert and oriented; behavior is more organized and cooperative, also more calm; using toilet on his own; patient is not in distress; dressed in casual shirt and hospital pants; improved hygiene though still no shower; drooling; mood is described as good and affect congruent, more calm and brighter; eye contact appropriate; Speech remains a little garbled which is baseline; normal rate, volume; uses few words; not pressured; no psychomotor agitation/retardation present; thought process is concrete, goal directed, asks for needs; Thought content is very concrete and remains on seeing his mother and father and returning to fdc. No SI/HI. Denies AH. Patients insight and judgment impaired but improving, getting closer to baseline. Diagnostics Vital Signs (24Hr): Vital Signs - 24 hr 08/31/24 20:00 09/01/24 08:00 09/01/24 09:12 Temperature 98.0 F 97.1 F Pulse Rate 89 88 77 Respiratory Rate 20 Blood Pressure 137/81 118/71 124/68 Pulse Oximetry 100 97 Oxygen Delivery Method Room Air Room Air BMI result Body Mass Index 31.4 Labs 08/13/24 08:17 08/13/24 08:17 Imaging Radiology Impressions: ITS Impressions Head CT 09/01/24 14:51 IMPRESSION: Unremarkable unenhanced head CT. Electronically signed by: Davide Chen MD 09/01/2024 03:41 PM [facility] [place] Medications Current Medications Acetaminophen (Acetaminophen 325 Mg Tablet) 650 mg PO Q6H PRN PRN Reason: Headache/Pain Mild Scale (1-3) Last Admin: 08/19/24 17:31 Dose: 650 mg Al Hydroxide/Mg Hydroxide (Magnesium Hydrox/Alum Hydrox 30 Ml Oral.Susp) 30 ml PO Q6H PRN PRN Reason: Heartburn/Nausea Artificial Tears (Artificial Tears 15 Ml Drops) 1 drop EYE-BOTH Q4H PRN PRN Reason: Dry Eyes Last Admin: 08/02/24 16:09 Dose: 1 drop Atenolol (Atenolol 25 Mg Tablet) 25 mg PO DAILY [facility]; Protocol Last Admin: 09/01/24 09:12 Dose: 25 mg Atorvastatin Calcium (Atorvastatin Calcium 40 Mg Tablet) 40 mg PO BEDTIME [facility] Last Admin: 08/31/24 20:05 Dose: 40 mg Carbamazepine (Carbamazepine Er 200 Mg Tab.Er.12h) 400 mg PO BID [facility] Last Admin: 09/01/24 09:11 Dose: 400 mg Clomipramine HCl (Clomipramine Hcl 25 Mg Capsule) 75 mg PO BEDTIME [facility] Clonazepam (Clonazepam 0.5 Mg Tablet) 0.5 mg PO TID [facility] Last Admin: 09/01/24 14:04 Dose: Not Given Docusate Sodium (Docusate Sodium 100 Mg Capsule) 100 mg PO TID [facility] Last Admin: 09/01/24 14:03 Dose: 100 mg Ezetimibe (Ezetimibe 10 Mg Tablet) 10 mg PO DAILY [facility] Last Admin: 09/01/24 09:13 Dose: 10 mg Escitalopram Oxalate (Escitalopram Oxalate 10 Mg Tablet) 10 mg PO DAILY [facility] Last Admin: 09/01/24 09:13 Dose: 10 mg Fluticasone Propionate (Fluticasone Propionate Nasal 16 Gm [place]) 1 spray NOSTRIL-B DAILY [facility] Last Admin: 09/01/24 09:29 Dose: Not Given Gemfibrozil (Gemfibrozil 600 Mg Tablet) 600 mg PO BID [facility] Last Admin: 09/01/24 09:13 Dose: 600 mg Hydroxyzine HCl (Hydroxyzine Hcl 25 Mg Tablet) 25 mg PO Q6H PRN PRN Reason: Anxiety Last Admin: 08/30/24 18:17 Dose: 25 mg Loratadine (Loratadine 10 Mg Tablet) 10 mg PO DAILY [facility] Last Admin: 09/01/24 09:13 Dose: 10 mg Lurasidone HCl (Lurasidone Hcl 40 Mg Tablet) 40 mg PO DAILY@1700 [facility] Last Admin: 09/01/24 16:06 Dose: 40 mg Magnesium Hydroxide (Milk Of Magnesia 30 Ml Oral.Susp) 30 ml PO DAILY PRN PRN Reason: Constipation Multi-Ingred Cream/Lotion/Oil/Oint (Mineral Oil/Petrolatum,White 106 Gm Tube) 1 appl TOPICAL TID PRN; Protocol PRN Reason: dry skin Nicotine Polacrilex (Nicotine Polacrilex 2 Mg Gum) 4 mg BUCCAL Q2H PRN PRN Reason: Nicotine Cravings Omeprazole (Omeprazole 40 Mg Capsule.Dr) 40 mg PO DAILY@0630 [facility] Last Admin: 09/01/24 09:12 Dose: 40 mg Risperidone (Risperidone 0.5 Mg Tablet) 0.5 mg PO TID PRN PRN Reason: Hallucinations Last Admin: 08/30/24 18:20 Dose: 0.5 mg Risperidone (Risperidone 3 Mg Tablet) 6 mg PO BEDTIME [facility] Last Admin: 08/31/24 20:06 Dose: 6 mg Senna (Sennosides 8.6 Mg Tablet) 8.6 mg PO BID [facility] Last Admin: 09/01/24 09:13 Dose: 8.6 mg Trazodone HCl (Trazodone Hcl 50 Mg Tablet) 50 mg PO BEDTIME [facility] PRN PRN Reason: Insomnia Last Admin: 08/26/24 00:02 Dose: 50 mg Trazodone HCl (Trazodone Hcl 100 Mg Tablet) 100 mg PO BEDTIME [facility] Last Admin: 08/31/24 20:06 Dose: 100 mg Allergies Allergies Allergy/AdvReac Type Severity Reaction Status Date / Time ondansetron [From Zofran] Allergy Unknown Verified 07/28/24 22:30 Penicillins Allergy Unknown Verified 07/28/24 22:30 potassium Allergy Unknown Verified 07/28/24 22:30 prochlorperazine Allergy Unknown Verified 07/28/24 22:30 Assessment & Plan Assessment & Plan (1) Schizoaffective disorder, bipolar type: Status: Acute Code(s): F25.0 - Schizoaffective disorder, bipolar type (2) Autism spectrum disorder: Status: Acute Code(s): F84.0 - Autistic disorder (3) Intellectual disability: Status: Acute Code(s): F79 - Unspecified intellectual disabilities (4) Aarskog syndrome: Status: Acute Code(s): Q87.19 - Other congenital malformation syndromes predominantly associated with short stature Plan Patient is a 34-year-old male with severe ASD, intellectual disability, schizoaffective disorder with, history of behavioral outbursts, who resides at a [facility] residential facility and who presents from external ED for what director of content and programming reports is decompensation following discharge from [facility] psych admission about 4 weeks ago. resolution manager reports patient has increased anxiety, paranoia and visual hallucinations as well as increased agitation related to AVH, which has resulted in the need for physical restraints. Patient with limited ability to participate in interview. Patient cooperative and calm. He says he misses his mother. He said I am feeling better... And then that he was going to lay down. He said he wanted to be in the hospital until he feels better... But could not discuss his feelings or what that would mean. Denies any SI or HI and says he is feeling safe. Patient does endorse auditory hallucinations which he he says bothers him, however when asked to discuss them further or what they say, he says I do not know and regarding medication that there is nothing to help... For the remainder of the day, patient sometimes in his room, sometimes in the hallway saying he wanted to call his mother or father, saying he misses them and wants to go home. Formulation/clinical reasoning: Patient has diagnosis of schizoaffective disorder, not sure if he actually has manic episodes and according to collateral, patient has not demonstrated psychotic symptoms until this fall. Still he has been on antipsychotics for years. -Guardian paperwork in chart; parents are guardians -No HCP - [place] Diagnosis: -Says diagnosis is schizoaffective, bipolar type however she has no knowledge of any discrete manic episodes; he has some history of depressive episodes -Does not blink: Supposed to be on Restasis/cyclosporine ophthalmic; not sure dose; discussed with pharmacist who reports typically this is 0.05% solution 1 drop b.i.d. (other places say 0.1%) -Aarkskog syndrome -ASD -OCD -has chronic extremely dry skin (eczema?) for which he has some medicated cream; mother not sure the name -Said there was a plan to get MRI of the brain since change seemed somewhat sudden Hospital course: 07/30 Patient remains fearful; can be friendly and cooperative but seems very anxious and cautious. Visual hallucinations patient saying he can see his mother in the room and talking to her Still not going into bathroom, with recent history of being afraid of bathroom; thus patient Incontinent of urine, sitting in wet clothes and refusing to change today, willing to sign CV reiterating he wants to be here for treatment ( to feel better ) -left VM for outpatient provider Nat Lee to discuss tx hx 07/31 patient remains cautious and intermittently fearful but is also warming up a bit to some staff, primarily female staff. He says he is feeling better but behaviors remain decompensated. Willing to change out of clothes today with staff encouragement and have them washed; also talked to his mother on the phone today which he said made him happy. Patient willing to use lotion for try facial skin Collateral:[employer] discussed case with patient's mother who reports that behaviors decompensated this April after he returned from vacation with his father. At that time he started packing up his stuff, saying he wanted to move out of the fdc; was taking lots of showers, self dialogue Ng, saying he could see his mother in the room, saying he thought his mother was and refusing to talk to her on the phone. For those reasons This past May he went to [facility] where he was started on Vraylar (and refused to take Latuda). He returned to the fdc but remained confused, disorganized, paranoid. At 1 point he would not leave the living room at all, incontinent, afraid to go into the bathroom or to shower which resulted in this hospitalization. Some history of aggression for which he was hospitalized a year ago; only mild aggression in fdc this time around. -left another message with escrow secretary for Nat Lee 08/01 mostly same presentation, continued AH which are bothersome; more comfortable with staff and allowing them to help him attending ADLs including bathing. -journalists and other writers did get a call back from Nat Lee; journalists and other writers return call and left message 08/02 Patient continues to say I am feeling much better however this does not seem to correlate with any improvement in symptoms as he continues to have AH, is afraid of his room, incontinent of urine because afraid of going to the bathroom and continually saying that he sees his mother in his room. Patient does not respond much to reality testing. He does say he would like other medications to help make the voices go away. -given discussion below, will DC Vraylar since no clear indication of bipolar depression; already on 3 antipsychotics and does not seem effective. Instead will try Risperdal. -will start to try to eliminate pharmacy; need to find out what medication regimen patient was on this past summer during which time he was doing well Collateral: Again discussed case with patient's mother. -She reports he was doing great this past summer; not sure what his medication regimen was at that time -says was on Tegretol for years; for some reason [facility] took him off of it (was restarted at this hospitalization) -says was on clomipramine for OCD since 7 years old and did well on it; not sure why he was taken off a year ago -to her knowledge Latuda was supposed to be discontinued since he was never really taking it; Vraylar was also started at [facility] which has not seemed to help. -Has been on Zyprexa for a while; not sure efficacy --drools consistently at baseline; she said she has asked in the past for medication for this 08/03 Patient reports that he is feeling a lot better which is what he says to journalists and other writers every day. He denies any AH. Also says he has not been seeing his mother. Difficult to tell if this is the case or not so will continue to monitor. Patient did ask for a stuffed animal or something about a stuffed animal but it was not clear. -briefly spoke with outpatient provider Huma who said she was 1 who started him on Vraylar -continue with Risperdal 08/04 No change in presentation; still disorganized, fearful, incontinent, hardly moving from room. Not sleeping at night but will tell journalists and other writers I slept very good... . Continues to say the same refrain I feel a lot better... 08/05 meeting with outpt team stable on Tegretol and latuda for years until sudden decompensation this fall at which time pt presented with same symptoms he has currently. Prior to this stable and functional in many ways, all ADL's, organized and quite capable; no psychosis; read/write/send emails 08/06 no change in presentation and pt remains disorganized, sitting in own defecate; has AH. Hardly sleeping at night. sitting in one spot for most of the day. -intermittently refusing medications -pt refusing labs -feet are both swollen; hospitalist examined -infection on both side of bridge of nose where glasses sit on nose; pt allowed antibiotic ointment to be applied History that patient was stable on Tegretol and Latuda for at least a year; Latuda was lowered in the springtime to 40 mg, down from 60 since patient said was making him tired. He remained stable until this fall when he suddenly decompensated, unable to accept reality, incontinent, afraid of multiple things, thinking his mom's , forgetting people are Medication: pt was stable on Tegretol and Latuda for years until this fall -for now, will continue on Tegretol and Latuda -dc'd alexander -started risperdal and increased to 4mg, scheduled it at bedtime to help w/ sleep -consider CT scan brain given sudden onset of symptoms, though was several months ago at this point 08/10 Still no change in presentation; refusing eyedrops. Remains scared to go out of his room. Did allow for bacitracin and sores on bilateral bridge of his nose are better.08/10 Still no change in presentation; refusing eyedrops. Remains scared to go out of his room. Did allow for bacitracin and sores on bilateral bridge of his nose are better. 08/11 Again no change in presentation; refusing labs. Will continue to retry before forcing them. Will try to get head CT. Continues to refuse eyedrops. Will give a little longer on Risperdal 4 mg 08/12 increased Risperdal to 6 mg 08/13 1st day of actual improvement in that patient allowed lab work. That said, he also threw mattress/belongings into the hallway, talking about a 90 yo neighbor he wants to -labs WNL -refused head CT; since he allowed labs, still will try to see if he will comply with head CT hoping to avoid the trauma of forcing him 08/14 Patient out in the milieu today, 1st time in over a week. Furthermore Patient actually using the bathroom today on his own, with significant encouragement from staff and a verbal plan; throughout the day patient was able to get himself to the bathroom rather than remain incontinent and inside close, which he has continually done since admission. Patient also seems more cheerful. -Again refused head CT but since getting better, will hold off from this for now -continue with increased Risperdal dose of 6 mg 08/17 remains somewhat improved. Patient pleasant and out in the milieu. Throughout the weekend he has been using the bathroom and not been incontinent which christie consistent improvement since admission. Also allowing staff to help him brush his teeth. Patient is normally, when at baseline, able to do all these things on his own, maybe with some prompting but independently. -will continue with current regimen for now as patient continues to improve -will continue to keep in mind that patient has a history of OCD and that he may benefit and improve from restarting clomipramine; however as psychosis and disorganized behavior is the main concern will continue to focus treatment in this area now 08/18 continues current tx plan for now; will consider increasing Risperdal though already at 6mg. 08/21 Patient remains doing better. Still not dressing himself or taking a shower but seems to be doing more more ADLs. Denies any AH. -at this time, journalists and other writers hesitates to make any changes as patient has been slowly but steadily improving. 08/22: Continue current regime and plan of care. Pt appears improved. 08/24 Overall remains doing better. Attending to most ADLs except for showering. He says he is afraid to shower here and that he will shower at his own house. Patient sleeping through the night. Still Refusing head CT saying that he is better now. [employer] discussed with patient adding clomipramine back to his medication regimen with which he agrees and which was encouraged by his mother 08/25 same presentation and denies psychiatric symptoms. He did however put all of his belongings into the [place] again but with no explanation. Patient saying that he will be seeing his mother today who is coming to visit however this is not true; this remains improvement however from when he was saying he can see his mother in his bedroom 08/26/2024 same presentation; took clomipramine last night; will keep it same dose and only slowly titrate as patient has been doing better overall do not want to make any quick changes; patient not able to have informative discussion about OCD symptoms however per his mother, patient did much better on clomipramine 08/28 Patient intermittently talking about seeing his mother father or Mrs Pierre in his room which he has not done for over a week; however he continues to independently due number was ADLs. He asked about returning home. Lisseth came to see patient today and reports that he is definitely heading towards his baseline though not there yet, as he is not bathing himself and still has some psychotic symptoms. [employer] spoke with his mother today about labs (elevated hemoglobin A1c; she says this happens to him with antipsychotics), head CT; she agreed with journalists and other writers's reasoning for holding off on the head CT for now, not wanting to traumatize patient and risk regression from progress made, since he has been refusing it. However journalists and other writers also agrees that that it is worthwhile to get and will do so -will increase clomipramine to 50 mg; his mother is adamant that this was very helpful to him and journalists and other writers agrees it may help patient progress further as he may be struggling with OCD symptoms that he is not able to articulate 08/30/2024: Continue current treatment plan 08/31 patient had an Epiphany today. With staff's help, it was revealed that the dust on patient's window did have the shape of a person's head and face which patient was referring to as Mrs. Lawton, an old acquaintance. Staff cleaned this off and the outline of the face was removed and with this, patient very clearly said he no longer sees Mrs. Lawton in the room; this remained a consistent understanding. Patient remains very ambivalent and anxious about getting a head CT; he was afraid to leave the the unit; Ativan was given however patient ultimately refused to go down and journalists and other writers agreed to try again tomorrow 09/01 Patient seems happier today and playfully bouncing around the milieu. Today he actually agreed to get his head CT which was completed! No mentioned of seeing Mrs. Lawton in his room. -increasing clomipramine to 75 mg; will continue to titrate -Head CT reviewed and Negative: -will consider switching Risperdal to long-acting 09/01 CT/CT head/brain wo IV con IMPRESSION: Unremarkable unenhanced head CT. PLAN: CV *guardians have authorized journalists and other writers, staff to administer any/all medical treatments even if against patients will q15 min checks Increase to clomipramine 75mg qhs for OCD (on this at home: clomipramine 100 mg b.i.d Continue with Risperdal 6 mg qhs -Add Risperdal 0.5 mg t.i.d. p.r.n. for breakthrough AVH -for now, Continue Latuda 40 mg daily at dinnertime (used to be on 60mg) -Continue Tegretol 400mg BID (was stable on this in past) -DC Vraylar 3 mg; this was started by outpatient provider; does not seem to have helped much and no clear indication for bipolar depression (also patient already on 3 antipsychotics) -DC'd Zyprexa: has caused DM/elevated Cholesterol/wt gain -temporarily Start artificial tears; refusing -Will get prescription for Restasis/cyclosporin -consider restarting clomipramine for OCD ( clomipramine 100 mg b.i.d. for OCD in the past around 2014; for some reason it was dc'd at some point; restarted 2022 but not continued after that). -consider glycopyrrolate for excessive drooling -will consider getting MRI, however patient's symptoms are congruent with diagnosis Patient educated on: diagnosis, medication risk/benefits and medical condition Informed Consent: understands, does not understand and further education needed Reason for continued inpatient stay Substantial Risk for: stable for discharge, rapid decompensation and med/psych decompensation Time Spent With Patient Time: Total time managing care of this patient today ____ minutes.
[2024-09-01 19:37] VITALS: BP 140/89; PULSE 79; TEMP 36.4; O2SAT 100
[2024-09-01] MEDS: clomiPRAMINE HCl 25 MG CAPSULE 75 MG PO (20:43)
[2024-09-01] MEDS: risperiDONE 3 MG TABLET 6 MG PO (20:44)
[2024-09-01] MEDS: traZODone HCL 100 MG TABLET PO (20:44)
[2024-09-01] MEDS: Atorvastatin Calcium 40 MG TABLET PO (20:44)
[2024-09-02] MEDS: Omeprazole 40 MG CAPSULE.DR PO (07:20)
[2024-09-02 08:38] VITALS: BP 102/62; PULSE 71; RESP 16; TEMP 36.6; O2SAT 100
[2024-09-02] MEDS: atenoloL 25 MG TABLET PO (08:39)
[2024-09-02] MEDS: Sennosides 8.6 MG TABLET PO ×2 (08:39→21:22)
[2024-09-02] MEDS: carBAMazepine ER 200 MG TAB.ER.12H 400 MG PO ×2 (08:39→21:22)
[2024-09-02] MEDS: Escitalopram Oxalate 10 MG TABLET PO (08:39)
[2024-09-02] MEDS: Loratadine 10 MG TABLET PO (08:39)
[2024-09-02] MEDS: Docusate Sodium 100 MG CAPSULE PO ×3 (08:39→21:22)
[2024-09-02] MEDS: Ezetimibe 10 MG TABLET PO (08:39)
[2024-09-02] MEDS: clonazePAM 0.5 MG TABLET PO ×3 (08:39→21:22)
[2024-09-02] MEDS: gemfibroziL 600 MG TABLET PO ×2 (08:39→21:21)
--- NOTE | 2024-09-02 10:16 | P.PNPSI_ITS ---
Subjective Subjective Date of Service: 09/02/24 Reason For Visit: Schioafective disorder bipolar type Interim History: met w/ patient; discussed with team pt doing better; showered today!! And went to group keno writer / runner Talked with mom and discussed tx plan; she feels he is doing better and getting close to discharge. Pt is not drooling very much any more. Mental Status Exam Mental Status Exam Narrative: Pt is alert and oriented; behavior is more organized and cooperative, also more calm; using toilet on his own; patient is not in distress; dressed in casual shirt and hospital pants; adequate hygiene; mood is described as good and affect congruent, more calm and brighter; eye contact appropriate; Speech remains a little garbled which is baseline; normal rate, volume; uses few words; not pressured; no psychomotor agitation/retardation present; thought process is concrete, goal directed, asks for needs; Thought content is very concrete and remains on seeing his mother and father and returning to [place] [facility]. No SI/HI. Denies AH. Patients insight and judgment impaired but improving, getting closer to baseline. Diagnostics Vital Signs (24Hr): Vital Signs - 24 hr 09/01/24 19:37 09/02/24 08:38 Temperature 97.5 F 97.9 F Pulse Rate 79 71 Respiratory Rate 16 Blood Pressure 140/89 H 102/62 Pulse Oximetry 100 100 Oxygen Delivery Method Room Air Room Air BMI result Body Mass Index 31.4 Labs 08/13/24 08:17 08/13/24 08:17 Imaging Radiology Impressions: ITS Impressions Head CT 09/01/24 14:51 IMPRESSION: Unremarkable unenhanced head CT. Electronically signed by: Davide Chen MD 09/01/2024 03:41 PM [facility] Medications Medications Current Medications Acetaminophen (Acetaminophen 325 Mg Tablet) 650 mg PO Q6H PRN PRN Reason: Headache/Pain Mild Scale (1-3) Last Admin: 08/19/24 17:31 Dose: 650 mg Al Hydroxide/Mg Hydroxide (Magnesium Hydrox/Alum Hydrox 30 Ml Oral.Susp) 30 ml PO Q6H PRN PRN Reason: Heartburn/Nausea Artificial Tears (Artificial Tears 15 Ml Drops) 1 drop EYE-BOTH Q4H PRN PRN Reason: Dry Eyes Last Admin: 08/02/24 16:09 Dose: 1 drop Atenolol (Atenolol 25 Mg Tablet) 25 mg PO DAILY [facility]; Protocol Last Admin: 09/02/24 08:39 Dose: 25 mg Atorvastatin Calcium (Atorvastatin Calcium 40 Mg Tablet) 40 mg PO BEDTIME [facility] Last Admin: 09/01/24 20:44 Dose: 40 mg Carbamazepine (Carbamazepine Er 200 Mg Tab.Er.12h) 400 mg PO BID [facility] Last Admin: 09/02/24 08:39 Dose: 400 mg Clomipramine HCl (Clomipramine Hcl 25 Mg Capsule) 75 mg PO BEDTIME [facility] Last Admin: 09/01/24 20:43 Dose: 75 mg Clonazepam (Clonazepam 0.5 Mg Tablet) 0.5 mg PO TID [facility] Last Admin: 09/02/24 08:39 Dose: 0.5 mg Docusate Sodium (Docusate Sodium 100 Mg Capsule) 100 mg PO TID [facility] Last Admin: 09/02/24 08:39 Dose: 100 mg Ezetimibe (Ezetimibe 10 Mg Tablet) 10 mg PO DAILY [facility] Last Admin: 09/02/24 08:39 Dose: 10 mg Escitalopram Oxalate (Escitalopram Oxalate 10 Mg Tablet) 10 mg PO DAILY [facility] Last Admin: 09/02/24 08:39 Dose: 10 mg Fluticasone Propionate (Fluticasone Propionate Nasal 16 Gm [place]) 1 spray NOSTRIL-B DAILY [facility] Last Admin: 09/02/24 08:43 Dose: Not Given Gemfibrozil (Gemfibrozil 600 Mg Tablet) 600 mg PO BID [facility] Last Admin: 09/02/24 08:39 Dose: 600 mg Hydroxyzine HCl (Hydroxyzine Hcl 25 Mg Tablet) 25 mg PO Q6H PRN PRN Reason: Anxiety Last Admin: 08/30/24 18:17 Dose: 25 mg Loratadine (Loratadine 10 Mg Tablet) 10 mg PO DAILY [facility] Last Admin: 09/02/24 08:39 Dose: 10 mg Lurasidone HCl (Lurasidone Hcl 40 Mg Tablet) 40 mg PO DAILY@1700 [facility] Last Admin: 09/01/24 16:06 Dose: 40 mg Magnesium Hydroxide (Milk Of Magnesia 30 Ml Oral.Susp) 30 ml PO DAILY PRN PRN Reason: Constipation Multi-Ingred Cream/Lotion/Oil/Oint (Mineral Oil/Petrolatum,White 106 Gm Tube) 1 appl TOPICAL TID PRN; Protocol PRN Reason: dry skin Nicotine Polacrilex (Nicotine Polacrilex 2 Mg Gum) 4 mg BUCCAL Q2H PRN PRN Reason: Nicotine Cravings Omeprazole (Omeprazole 40 Mg Capsule.Dr) 40 mg PO DAILY@0630 [facility] Last Admin: 09/02/24 07:20 Dose: 40 mg Risperidone (Risperidone 0.5 Mg Tablet) 0.5 mg PO TID PRN PRN Reason: Hallucinations Last Admin: 08/30/24 18:20 Dose: 0.5 mg Risperidone (Risperidone 3 Mg Tablet) 6 mg PO BEDTIME [facility] Last Admin: 09/01/24 20:44 Dose: 6 mg Senna (Sennosides 8.6 Mg Tablet) 8.6 mg PO BID [facility] Last Admin: 09/02/24 08:39 Dose: 8.6 mg Trazodone HCl (Trazodone Hcl 50 Mg Tablet) 50 mg PO BEDTIME MRX1 PRN PRN Reason: Insomnia Last Admin: 08/26/24 00:02 Dose: 50 mg Trazodone HCl (Trazodone Hcl 100 Mg Tablet) 100 mg PO BEDTIME [facility] Last Admin: 09/01/24 20:44 Dose: 100 mg Allergies Allergies Allergy/AdvReac Type Severity Reaction Status Date / Time ondansetron [From Zofran] Allergy Unknown Verified 07/28/24 22:30 Penicillins Allergy Unknown Verified 07/28/24 22:30 potassium Allergy Unknown Verified 07/28/24 22:30 prochlorperazine Allergy Unknown Verified 07/28/24 22:30 Assessment & Plan Assessment & Plan (1) Schizoaffective disorder, bipolar type: Status: Acute Code(s): F25.0 - Schizoaffective disorder, bipolar type (2) Autism spectrum disorder: Status: Acute Code(s): F84.0 - Autistic disorder (3) Intellectual disability: Status: Acute Code(s): F79 - Unspecified intellectual disabilities (4) Aarskog syndrome: Status: Acute Code(s): Q87.19 - Other congenital malformation syndromes predominantly associated with short stature Plan Patient is a 34-year-old male with severe ASD, intellectual disability, schizoaffective disorder with, history of behavioral outbursts, who resides at a [facility] residential facility and who presents from external ED for what program project manager reports is decompensation following discharge from [facility] [place] admission about 4 weeks ago. statistics manager reports patient has increased anxiety, paranoia and visual hallucinations as well as increased agitation related to AVH, which has resulted in the need for physical restraints. Patient with limited ability to participate in interview. Patient cooperative and calm. He says he misses his mother. He said I am feeling better... And then that he was going to lay down. He said he wanted to be in the hospital until he feels better... But could not discuss his feelings or what that would mean. Denies any SI or HI and says he is feeling safe. Patient does endorse auditory hallucinations which he he says bothers him, however when asked to discuss them further or what they say, he says I do not know and regarding medication that there is nothing to help... For the remainder of the day, patient sometimes in his room, sometimes in the hallway saying he wanted to call his mother or father, saying he misses them and wants to go home. Formulation/clinical reasoning: Patient has diagnosis of schizoaffective disorder, not sure if he actually has manic episodes and according to collateral, patient has not demonstrated psychotic symptoms until this fall. Still he has been on antipsychotics for years. -Guardian paperwork in chart; parents are guardians -No HCP - [place] Diagnosis: -Says diagnosis is schizoaffective, bipolar type however she has no knowledge of any discrete manic episodes; he has some history of depressive episodes -Does not blink: Supposed to be on Restasis/cyclosporine ophthalmic; not sure dose; discussed with pharmacist who reports typically this is 0.05% solution 1 drop b.i.d. (other places say 0.1%) -Aarkskog syndrome -ASD -OCD -has chronic extremely dry skin (eczema?) for which he has some medicated cream; mother not sure the name -Said there was a plan to get MRI of the brain since change seemed somewhat sudden Hospital course: 07/30 Patient remains fearful; can be friendly and cooperative but seems very anxious and cautious. Visual hallucinations patient saying he can see his mother in the room and talking to her Still not going into bathroom, with recent history of being afraid of bathroom; thus patient Incontinent of urine, sitting in wet clothes and refusing to change today, willing to sign CV reiterating he wants to be here for treatment ( to feel better ) -left VM for outpatient provider Nat Lee to discuss tx hx 07/31 patient remains cautious and intermittently fearful but is also warming up a bit to some staff, primarily female staff. He says he is feeling better but behaviors remain decompensated. Willing to change out of clothes today with staff encouragement and have them washed; also talked to his mother on the phone today which he said made him happy. Patient willing to use lotion for try facial skin Collateral:Parquetry Floor Layer discussed case with patient's mother who reports that behaviors decompensated this April after he returned from vacation with his father. At that time he started packing up his stuff, saying he wanted to move out of the [place] [facility]; was taking lots of showers, self dialogue Ng, saying he could see his mother in the room, saying he thought his mother was and refusing to talk to her on the phone. For those reasons This past May he went to [facility] where he was started on Vraylar (and refused to take Latuda). He returned to the [place] [facility] but remained confused, disorganized, paranoid. At 1 point he would not leave the living room at all, incontinent, afraid to go into the bathroom or to shower which resulted in this hospitalization. Some history of aggression for which he was hospitalized a year ago; only mild aggression in [facility] [facility] this time around. -left another message with trade union secretary for Nat Lee 08/01 mostly same presentation, continued AH which are bothersome; more comfortable with staff and allowing them to help him attending ADLs including bathing. -keno writer / runner did get a call back from Nat Lee; keno writer / runner return call and left message 08/02 Patient continues to say I am feeling much better however this does not seem to correlate with any improvement in symptoms as he continues to have AH, is afraid of his room, incontinent of urine because afraid of going to the bathroom and continually saying that he sees his mother in his room. Patient does not respond much to reality testing. He does say he would like other medications to help make the voices go away. -given discussion below, will DC Vraylar since no clear indication of bipolar depression; already on 3 antipsychotics and does not seem effective. Instead will try Risperdal. -will start to try to eliminate pharmacy; need to find out what medication regimen patient was on this past summer during which time he was doing well Collateral: Again discussed case with patient's mother. -She reports he was doing great this past summer; not sure what his medication regimen was at that time -says was on Tegretol for years; for some reason [facility] took him off of it (was restarted at this hospitalization) -says was on clomipramine for OCD since 7 years old and did well on it; not sure why he was taken off a year ago -to her knowledge Latuda was supposed to be discontinued since he was never really taking it; Vraylar was also started at [facility] which has not seemed to help. -Has been on Zyprexa for a while; not sure efficacy --drools consistently at baseline; she said she has asked in the past for medication for this 08/03 Patient reports that he is feeling a lot better which is what he says to keno writer / runner every day. He denies any AH. Also says he has not been seeing his mother. Difficult to tell if this is the case or not so will continue to monitor. Patient did ask for a stuffed animal or something about a stuffed animal but it was not clear. -briefly spoke with outpatient provider Huma who said she was 1 who started him on Vraylar -continue with Risperdal 08/04 No change in presentation; still disorganized, fearful, incontinent, hardly moving from room. Not sleeping at night but will tell keno writer / runner I slept very good... . Continues to say the same refrain I feel a lot better... 08/05 meeting with outpt team stable on Tegretol and latuda for years until sudden decompensation this fall at which time pt presented with same symptoms he has currently. Prior to this stable and functional in many ways, all ADL's, organized and quite capable; no psychosis; read/write/send emails 08/06 no change in presentation and pt remains disorganized, sitting in own defecate; has AH. Hardly sleeping at night. sitting in one spot for most of the day. -intermittently refusing medications -pt refusing labs -feet are both swollen; hospitalist examined -infection on both side of bridge of nose where glasses sit on nose; pt allowed antibiotic ointment to be applied History that patient was stable on Tegretol and Latuda for at least a year; Latuda was lowered in the springtime to 40 mg, down from 60 since patient said was making him tired. He remained stable until this fall when he suddenly decompensated, unable to accept reality, incontinent, afraid of multiple things, thinking his mom's , forgetting people are Medication: pt was stable on Tegretol and Latuda for years until this fall -for now, will continue on Tegretol and Latuda -dc'd alexander -started risperdal and increased to 4mg, scheduled it at bedtime to help w/ sleep -consider CT scan brain given sudden onset of symptoms, though was several months ago at this point 08/10 Still no change in presentation; refusing eyedrops. Remains scared to go out of his room. Did allow for bacitracin and sores on bilateral bridge of his nose are better.08/10 Still no change in presentation; refusing eyedrops. Remains scared to go out of his room. Did allow for bacitracin and sores on bilateral bridge of his nose are better. 08/11 Again no change in presentation; refusing labs. Will continue to retry before forcing them. Will try to get head CT. Continues to refuse eyedrops. Will give a little longer on Risperdal 4 mg 08/12 increased Risperdal to 6 mg 08/13 1st day of actual improvement in that patient allowed lab work. That said, he also threw mattress/belongings into the hallway, talking about a 90 yo neighbor he wants to -labs WNL -refused head CT; since he allowed labs, still will try to see if he will comply with head CT hoping to avoid the trauma of forcing him 08/14 Patient out in the milieu today, 1st time in over a week. Furthermore Patient actually using the bathroom today on his own, with significant encouragement from staff and a verbal plan; throughout the day patient was able to get himself to the bathroom rather than remain incontinent and inside close, which he has continually done since admission. Patient also seems more cheerful. -Again refused head CT but since getting better, will hold off from this for now -continue with increased Risperdal dose of 6 mg 08/17 remains somewhat improved. Patient pleasant and out in the milieu. Throughout the weekend he has been using the bathroom and not been incontinent which christie consistent improvement since admission. Also allowing staff to help him brush his teeth. Patient is normally, when at baseline, able to do all these things on his own, maybe with some prompting but independently. -will continue with current regimen for now as patient continues to improve -will continue to keep in mind that patient has a history of OCD and that he may benefit and improve from restarting clomipramine; however as psychosis and disorganized behavior is the main concern will continue to focus treatment in this area now 08/18 continues current tx plan for now; will consider increasing Risperdal though already at 6mg. 08/21 Patient remains doing better. Still not dressing himself or taking a shower but seems to be doing more more ADLs. Denies any AH. -at this time, keno writer / runner hesitates to make any changes as patient has been slowly but steadily improving. 08/22: Continue current regime and plan of care. Pt appears improved. 08/24 Overall remains doing better. Attending to most ADLs except for showering. He says he is afraid to shower here and that he will shower at his own house. Patient sleeping through the night. Still Refusing head CT saying that he is better now. Parquetry Floor Layer discussed with patient adding clomipramine back to his medication regimen with which he agrees and which was encouraged by his mother 08/25 same presentation and denies psychiatric symptoms. He did however put all of his belongings into the [place] again but with no explanation. Patient saying that he will be seeing his mother today who is coming to visit however this is not true; this remains improvement however from when he was saying he can see his mother in his bedroom 08/26/2024 same presentation; took clomipramine last night; will keep it same dose and only slowly titrate as patient has been doing better overall do not want to make any quick changes; patient not able to have informative discussion about OCD symptoms however per his mother, patient did much better on clomipramine 08/28 Patient intermittently talking about seeing his mother father or Mrs Pierre in his room which he has not done for over a week; however he continues to independently due number was ADLs. He asked about returning home. Lisseth came to see patient today and reports that he is definitely heading towards his baseline though not there yet, as he is not bathing himself and still has some psychotic symptoms. Parquetry Floor Layer spoke with his mother today about labs (elevated hemoglobin A1c; she says this happens to him with antipsychotics), head CT; she agreed with keno writer / runner's reasoning for holding off on the head CT for now, not wanting to traumatize patient and risk regression from progress made, since he has been refusing it. However keno writer / runner also agrees that that it is worthwhile to get and will do so -will increase clomipramine to 50 mg; his mother is adamant that this was very helpful to him and keno writer / runner agrees it may help patient progress further as he may be struggling with OCD symptoms that he is not able to articulate 08/30/2024: Continue current treatment plan 08/31 patient had an Epiphany today. With staff's help, it was revealed that the dust on patient's window did have the shape of a person's head and face which patient was referring to as Mrs. Lawton, an old acquaintance. Staff cleaned this off and the outline of the face was removed and with this, patient very clearly said he no longer sees Mrs. Lawton in the room; this remained a consistent understanding. Patient remains very ambivalent and anxious about getting a head CT; he was afraid to leave the the unit; Ativan was given however patient ultimately refused to go down and keno writer / runner agreed to try again tomorrow 09/01 Patient seems happier today and playfully bouncing around the milieu. Today he actually agreed to get his head CT which was completed! No mentioned of seeing Mrs. Lawton in his room. -increasing clomipramine to 75 mg; will continue to titrate -Head CT reviewed and Negative: -will consider switching Risperdal to long-acting 09/01 CT/CT head/brain wo IV con IMPRESSION: Unremarkable unenhanced head CT. 09/02 pt doing better; showered today!! And went to group keno writer / runner Talked with mom and discussed tx plan; she feels he is doing better and getting close to discharge. Pt is not drooling very much any more. PLAN: CV *guardians have authorized keno writer / runner, staff to administer any/all medical treatments even if against patients will q15 min checks Increase to clomipramine 100mg qhs for OCD (on this at home: clomipramine 100 mg b.i.d Continue with Risperdal 6 mg qhs -Add Risperdal 0.5 mg t.i.d. p.r.n. for breakthrough AVH -for now, Continue Latuda 40 mg daily at dinnertime (used to be on 60mg) -Continue Tegretol 400mg BID (was stable on this in past) -DC Vraylar 3 mg; this was started by outpatient provider; does not seem to have helped much and no clear indication for bipolar depression (also patient already on 3 antipsychotics) -DC'd Zyprexa: has caused DM/elevated Cholesterol/wt gain -temporarily Start artificial tears; refusing -Will get prescription for Restasis/cyclosporin -consider restarting clomipramine for OCD ( clomipramine 100 mg b.i.d. for OCD in the past around 2014; for some reason it was dc'd at some point; restarted 2022 but not continued after that). -consider glycopyrrolate for excessive drooling -will consider getting MRI, however patient's symptoms are congruent with diagnosis Patient educated on: therapeutic strategies Informed Consent: understands Reason for continued inpatient stay Substantial Risk for: stable for discharge and rapid decompensation Time Spent With Patient Time: Total time managing care of this patient today ____ minutes.
[2024-09-02] MEDS: Fluticasone Propionate Nasal 16 GM SPRAY 1 SPRAY NOSTRIL-B (10:37)
[2024-09-02 20:00] VITALS: BP 138/81; PULSE 88; TEMP 36.6; O2SAT 99
[2024-09-02] MEDS: clomiPRAMINE HCl 25 MG CAPSULE 100 MG PO (21:21)
[2024-09-02] MEDS: risperiDONE 3 MG TABLET 6 MG PO (21:22)
[2024-09-02] MEDS: hydrOXYzine HCL 25 MG TABLET PO (21:22)
[2024-09-02] MEDS: Lurasidone HCl 40 MG TABLET PO (21:22)
[2024-09-02] MEDS: Atorvastatin Calcium 40 MG TABLET PO (21:22)
[2024-09-02] MEDS: traZODone HCL 100 MG TABLET PO (21:22)
[2024-09-03] MEDS: Omeprazole 40 MG CAPSULE.DR PO (07:07)
[2024-09-03 08:37] VITALS: BP 104/61; PULSE 68; RESP 16; TEMP 36.6; O2SAT 96
[2024-09-03 11:01] VITALS: BP 119/60; PULSE 87; RESP 16; TEMP 36.9; O2SAT 100
[2024-09-03] MEDS: atenoloL 25 MG TABLET PO (11:04)
[2024-09-03] MEDS: carBAMazepine ER 200 MG TAB.ER.12H 400 MG PO ×2 (11:04→22:26)
[2024-09-03] MEDS: Loratadine 10 MG TABLET PO (11:04)
[2024-09-03] MEDS: Ezetimibe 10 MG TABLET PO (11:04)
[2024-09-03] MEDS: Escitalopram Oxalate 10 MG TABLET PO (11:04)
[2024-09-03] MEDS: Docusate Sodium 100 MG CAPSULE PO ×3 (11:04→22:23)
[2024-09-03] MEDS: Sennosides 8.6 MG TABLET PO ×2 (11:04→22:25)
[2024-09-03] MEDS: clonazePAM 0.5 MG TABLET PO ×3 (11:04→22:22)
[2024-09-03] MEDS: gemfibroziL 600 MG TABLET PO ×2 (11:05→22:25)
[2024-09-03] MEDS: Fluticasone Propionate Nasal 16 GM SPRAY 1 SPRAY NOSTRIL-B (11:09)
[2024-09-03] MEDS: Acetaminophen 325 MG TABLET 650 MG PO (11:09)
[2024-09-03] MEDS: Lurasidone HCl 40 MG TABLET PO (16:05)
--- NOTE | 2024-09-03 18:07 | P.PNPSI_ITS ---
Subjective Subjective Date of Service: 09/03/24 Reason For Visit: Schioafective disorder bipolar type Interim History: Met with patient; discussed with team same presentation Mental Status Exam Mental Status Exam Narrative: Pt is alert and oriented; behavior is more organized and cooperative, also more calm; using toilet on his own; patient is not in distress; dressed in casual shirt and hospital pants; adequate hygiene; mood is described as i feel a lot better and affect congruent, more calm and brighter; eye contact appropriate; Speech remains a little garbled which is baseline; normal rate, volume; uses few words; not pressured; no psychomotor agitation/retardation present; thought process is concrete, goal directed, asks for needs; Thought content is very concrete and remains on seeing his mother and father and returning to skilled nursing. No SI/HI. Denies AH. Patients insight and judgment impaired but improving, close to or at baseline. Diagnostics Vital Signs (24Hr): Vital Signs - 24 hr 09/02/24 20:00 09/03/24 08:37 09/03/24 11:01 Temperature 97.9 F 97.8 F 98.4 F Pulse Rate 88 68 87 Respiratory Rate 16 16 Blood Pressure 138/81 104/61 119/60 Pulse Oximetry 99 96 100 Oxygen Delivery Method Room Air Room Air BMI result Body Mass Index 31.4 Labs 08/13/24 08:17 08/13/24 08:17 Imaging Radiology Impressions: ITS Impressions Head CT 09/01/24 14:51 IMPRESSION: Unremarkable unenhanced head CT. Electronically signed by: Davide Chen MD 09/01/2024 03:41 PM [facility] Medications Medications Current Medications Acetaminophen (Acetaminophen 325 Mg Tablet) 650 mg PO Q6H PRN PRN Reason: Headache/Pain Mild Scale (1-3) Last Admin: 09/03/24 11:09 Dose: 650 mg Al Hydroxide/Mg Hydroxide (Magnesium Hydrox/Alum Hydrox 30 Ml Oral.Susp) 30 ml PO Q6H PRN PRN Reason: Heartburn/Nausea Artificial Tears (Artificial Tears 15 Ml Drops) 1 drop EYE-BOTH Q4H PRN PRN Reason: Dry Eyes Last Admin: 08/02/24 16:09 Dose: 1 drop Atenolol (Atenolol 25 Mg Tablet) 25 mg PO DAILY ADRIANO; Protocol Last Admin: 09/03/24 11:04 Dose: 25 mg Atorvastatin Calcium (Atorvastatin Calcium 40 Mg Tablet) 40 mg PO BEDTIME [facility] Last Admin: 09/02/24 21:22 Dose: 40 mg Carbamazepine (Carbamazepine Er 200 Mg Tab.Er.12h) 400 mg PO BID [facility] Last Admin: 09/03/24 11:04 Dose: 400 mg Clomipramine HCl (Clomipramine Hcl 25 Mg Capsule) 100 mg PO BEDTIME [facility] Last Admin: 09/02/24 21:21 Dose: 100 mg Clomipramine HCl (Clomipramine Hcl 25 Mg Capsule) 25 mg PO DAILY [facility] Clonazepam (Clonazepam 0.5 Mg Tablet) 0.5 mg PO TID [facility] Last Admin: 09/03/24 14:32 Dose: 0.5 mg Docusate Sodium (Docusate Sodium 100 Mg Capsule) 100 mg PO TID [facility] Last Admin: 09/03/24 14:32 Dose: 100 mg Ezetimibe (Ezetimibe 10 Mg Tablet) 10 mg PO DAILY [facility] Last Admin: 09/03/24 11:04 Dose: 10 mg Escitalopram Oxalate (Escitalopram Oxalate 10 Mg Tablet) 10 mg PO DAILY [facility] Last Admin: 09/03/24 11:04 Dose: 10 mg Fluticasone Propionate (Fluticasone Propionate Nasal 16 Gm [place]) 1 spray NOSTRIL-B DAILY [facility] Last Admin: 09/03/24 11:09 Dose: 1 spray Gemfibrozil (Gemfibrozil 600 Mg Tablet) 600 mg PO BID [facility] Last Admin: 09/03/24 11:05 Dose: 600 mg Hydroxyzine HCl (Hydroxyzine Hcl 25 Mg Tablet) 25 mg PO Q6H PRN PRN Reason: Anxiety Last Admin: 09/02/24 21:22 Dose: 25 mg Loratadine (Loratadine 10 Mg Tablet) 10 mg PO DAILY [facility] Last Admin: 09/03/24 11:04 Dose: 10 mg Lurasidone HCl (Lurasidone Hcl 40 Mg Tablet) 40 mg PO DAILY@1700 [facility] Last Admin: 09/03/24 16:05 Dose: 40 mg Magnesium Hydroxide (Milk Of Magnesia 30 Ml Oral.Susp) 30 ml PO DAILY PRN PRN Reason: Constipation Multi-Ingred Cream/Lotion/Oil/Oint (Mineral Oil/Petrolatum,White 106 Gm Tube) 1 appl TOPICAL TID PRN; Protocol PRN Reason: dry skin Nicotine Polacrilex (Nicotine Polacrilex 2 Mg Gum) 4 mg BUCCAL Q2H PRN PRN Reason: Nicotine Cravings Omeprazole (Omeprazole 40 Mg Capsule.Dr) 40 mg PO DAILY@0630 [facility] Last Admin: 09/03/24 07:07 Dose: 40 mg Risperidone (Risperidone 0.5 Mg Tablet) 0.5 mg PO TID PRN PRN Reason: Hallucinations Last Admin: 08/30/24 18:20 Dose: 0.5 mg Risperidone (Risperidone 3 Mg Tablet) 6 mg PO BEDTIME [facility] Last Admin: 09/02/24 21:22 Dose: 6 mg Senna (Sennosides 8.6 Mg Tablet) 8.6 mg PO BID [facility] Last Admin: 09/03/24 11:04 Dose: 8.6 mg Trazodone HCl (Trazodone Hcl 50 Mg Tablet) 50 mg PO BEDTIME MRX1 PRN PRN Reason: Insomnia Last Admin: 08/26/24 00:02 Dose: 50 mg Trazodone HCl (Trazodone Hcl 100 Mg Tablet) 100 mg PO BEDTIME [facility] Last Admin: 09/02/24 21:22 Dose: 100 mg Allergies Allergies Allergy/AdvReac Type Severity Reaction Status Date / Time ondansetron [From Zofran] Allergy Unknown Verified 07/28/24 22:30 Penicillins Allergy Unknown Verified 07/28/24 22:30 potassium Allergy Unknown Verified 07/28/24 22:30 prochlorperazine Allergy Unknown Verified 07/28/24 22:30 Assessment & Plan Assessment & Plan (1) Schizoaffective disorder, bipolar type: Status: Acute Code(s): F25.0 - Schizoaffective disorder, bipolar type (2) Autism spectrum disorder: Status: Acute Code(s): F84.0 - Autistic disorder (3) Intellectual disability: Status: Acute Code(s): F79 - Unspecified intellectual disabilities (4) Aarskog syndrome: Status: Acute Code(s): Q87.19 - Other congenital malformation syndromes predominantly associated with short stature Plan Patient is a 34-year-old male with severe ASD, intellectual disability, schizoaffective disorder with, history of behavioral outbursts, who resides at a [facility] residential facility and who presents from external ED for what aviation program manager reports is decompensation following discharge from [facility] psych admission about 4 weeks ago. manager product marketing reports patient has increased anxiety, paranoia and visual hallucinations as well as increased agitation related to AVH, which has resulted in the need for physical restraints. Patient with limited ability to participate in interview. Patient cooperative and calm. He says he misses his mother. He said I am feeling better... And then that he was going to lay down. He said he wanted to be in the hospital until he feels better... But could not discuss his feelings or what that would mean. Denies any SI or HI and says he is feeling safe. Patient does endorse auditory hallucinations which he he says bothers him, however when asked to discuss them further or what they say, he says I do not know and regarding medication that there is nothing to help... For the remainder of the day, patient sometimes in his room, sometimes in the hallway saying he wanted to call his mother or father, saying he misses them and wants to go home. Formulation/clinical reasoning: Patient has diagnosis of schizoaffective disorder, not sure if he actually has manic episodes and according to collateral, patient has not demonstrated psychotic symptoms until this fall. Still he has been on antipsychotics for years. -Guardian paperwork in chart; parents are guardians -No HCP - [place] Diagnosis: -Says diagnosis is schizoaffective, bipolar type however she has no knowledge of any discrete manic episodes; he has some history of depressive episodes -Does not blink: Supposed to be on Restasis/cyclosporine ophthalmic; not sure dose; discussed with pharmacist who reports typically this is 0.05% solution 1 drop b.i.d. (other places say 0.1%) -Aarkskog syndrome -ASD -OCD -has chronic extremely dry skin (eczema?) for which he has some medicated cream; mother not sure the name -Said there was a plan to get MRI of the brain since change seemed somewhat sudden Hospital course: 07/30 Patient remains fearful; can be friendly and cooperative but seems very anxious and cautious. Visual hallucinations patient saying he can see his mother in the room and talking to her Still not going into bathroom, with recent history of being afraid of bathroom; thus patient Incontinent of urine, sitting in wet clothes and refusing to change today, willing to sign CV reiterating he wants to be here for treatment ( to feel better ) -left VM for outpatient provider Nat Lee to discuss tx hx 07/31 patient remains cautious and intermittently fearful but is also warming up a bit to some staff, primarily female staff. He says he is feeling better but behaviors remain decompensated. Willing to change out of clothes today with staff encouragement and have them washed; also talked to his mother on the phone today which he said made him happy. Patient willing to use lotion for try facial skin Collateral:Harness Installer discussed case with patient's mother who reports that behaviors decompensated this April after he returned from vacation with his father. At that time he started packing up his stuff, saying he wanted to move out of the skilled nursing; was taking lots of showers, self dialogue Ng, saying he could see his mother in the room, saying he thought his mother was and refusing to talk to her on the phone. For those reasons This past May he went to [facility] where he was started on Vraylar (and refused to take Latuda). He returned to the skilled nursing but remained confused, disorganized, paranoid. At 1 point he would not leave the living room at all, incontinent, afraid to go into the bathroom or to shower which resulted in this hospitalization. Some history of aggression for which he was hospitalized a year ago; only mild aggression in skilled nursing this time around. -left another message with medical records secretary for Nat Lee 08/01 mostly same presentation, continued AH which are bothersome; more comfortable with staff and allowing them to help him attending ADLs including bathing. -fiction and nonfiction writer prose did get a call back from Nat Lee; fiction and nonfiction writer prose return call and left message 08/02 Patient continues to say I am feeling much better however this does not seem to correlate with any improvement in symptoms as he continues to have AH, is afraid of his room, incontinent of urine because afraid of going to the bathroom and continually saying that he sees his mother in his room. Patient does not respond much to reality testing. He does say he would like other medications to help make the voices go away. -given discussion below, will DC Vraylar since no clear indication of bipolar depression; already on 3 antipsychotics and does not seem effective. Instead will try Risperdal. -will start to try to eliminate pharmacy; need to find out what medication regimen patient was on this past summer during which time he was doing well Collateral: Again discussed case with patient's mother. -She reports he was doing great this past summer; not sure what his medication regimen was at that time -says was on Tegretol for years; for some reason [facility] took him off of it (was restarted at this hospitalization) -says was on clomipramine for OCD since 7 years old and did well on it; not sure why he was taken off a year ago -to her knowledge Latuda was supposed to be discontinued since he was never really taking it; Vraylar was also started at [facility] which has not seemed to help. -Has been on Zyprexa for a while; not sure efficacy --drools consistently at baseline; she said she has asked in the past for medication for this 08/03 Patient reports that he is feeling a lot better which is what he says to fiction and nonfiction writer prose every day. He denies any AH. Also says he has not been seeing his mother. Difficult to tell if this is the case or not so will continue to monitor. Patient did ask for a stuffed animal or something about a stuffed animal but it was not clear. -briefly spoke with outpatient provider Huma who said she was 1 who started him on Vraylar -continue with Risperdal 08/04 No change in presentation; still disorganized, fearful, incontinent, hardly moving from room. Not sleeping at night but will tell fiction and nonfiction writer prose I slept very good... . Continues to say the same refrain I feel a lot better... 08/05 meeting with outpt team stable on Tegretol and latuda for years until sudden decompensation this fall at which time pt presented with same symptoms he has currently. Prior to this stable and functional in many ways, all ADL's, organized and quite capable; no psychosis; read/write/send emails 08/06 no change in presentation and pt remains disorganized, sitting in own defecate; has AH. Hardly sleeping at night. sitting in one spot for most of the day. -intermittently refusing medications -pt refusing labs -feet are both swollen; hospitalist examined -infection on both side of bridge of nose where glasses sit on nose; pt allowed antibiotic ointment to be applied History that patient was stable on Tegretol and Latuda for at least a year; Latuda was lowered in the springtime to 40 mg, down from 60 since patient said was making him tired. He remained stable until this fall when he suddenly decompensated, unable to accept reality, incontinent, afraid of multiple things, thinking his mom's , forgetting people are Medication: pt was stable on Tegretol and Latuda for years until this fall -for now, will continue on Tegretol and Latuda -dc'd alexander -started risperdal and increased to 4mg, scheduled it at bedtime to help w/ sleep -consider CT scan brain given sudden onset of symptoms, though was several months ago at this point 08/10 Still no change in presentation; refusing eyedrops. Remains scared to go out of his room. Did allow for bacitracin and sores on bilateral bridge of his nose are better.08/10 Still no change in presentation; refusing eyedrops. Remains scared to go out of his room. Did allow for bacitracin and sores on bilateral bridge of his nose are better. 08/11 Again no change in presentation; refusing labs. Will continue to retry before forcing them. Will try to get head CT. Continues to refuse eyedrops. Will give a little longer on Risperdal 4 mg 08/12 increased Risperdal to 6 mg 08/13 1st day of actual improvement in that patient allowed lab work. That said, he also threw mattress/belongings into the hallway, talking about a 90 yo neighbor he wants to -labs WNL -refused head CT; since he allowed labs, still will try to see if he will comply with head CT hoping to avoid the trauma of forcing him 08/14 Patient out in the milieu today, 1st time in over a week. Furthermore Patient actually using the bathroom today on his own, with significant encouragement from staff and a verbal plan; throughout the day patient was able to get himself to the bathroom rather than remain incontinent and inside close, which he has continually done since admission. Patient also seems more cheerful. -Again refused head CT but since getting better, will hold off from this for now -continue with increased Risperdal dose of 6 mg 08/17 remains somewhat improved. Patient pleasant and out in the milieu. Throughout the weekend he has been using the bathroom and not been incontinent which christie consistent improvement since admission. Also allowing staff to help him brush his teeth. Patient is normally, when at baseline, able to do all these things on his own, maybe with some prompting but independently. -will continue with current regimen for now as patient continues to improve -will continue to keep in mind that patient has a history of OCD and that he may benefit and improve from restarting clomipramine; however as psychosis and disorganized behavior is the main concern will continue to focus treatment in this area now 08/18 continues current tx plan for now; will consider increasing Risperdal though already at 6mg. 08/21 Patient remains doing better. Still not dressing himself or taking a shower but seems to be doing more more ADLs. Denies any AH. -at this time, fiction and nonfiction writer prose hesitates to make any changes as patient has been slowly but steadily improving. 08/22: Continue current regime and plan of care. Pt appears improved. 08/24 Overall remains doing better. Attending to most ADLs except for showering. He says he is afraid to shower here and that he will shower at his own house. Patient sleeping through the night. Still Refusing head CT saying that he is better now. Harness Installer discussed with patient adding clomipramine back to his medication regimen with which he agrees and which was encouraged by his mother 08/25 same presentation and denies psychiatric symptoms. He did however put all of his belongings into the [place] again but with no explanation. Patient saying that he will be seeing his mother today who is coming to visit however this is not true; this remains improvement however from when he was saying he can see his mother in his bedroom 08/26/2024 same presentation; took clomipramine last night; will keep it same dose and only slowly titrate as patient has been doing better overall do not want to make any quick changes; patient not able to have informative discussion about OCD symptoms however per his mother, patient did much better on clomipramine 08/28 Patient intermittently talking about seeing his mother father or Mrs Pierre in his room which he has not done for over a week; however he continues to independently due number was ADLs. He asked about returning home. Lisseth came to see patient today and reports that he is definitely heading towards his baseline though not there yet, as he is not bathing himself and still has some psychotic symptoms. Harness Installer spoke with his mother today about labs (elevated hemoglobin A1c; she says this happens to him with antipsychotics), head CT; she agreed with fiction and nonfiction writer prose's reasoning for holding off on the head CT for now, not wanting to traumatize patient and risk regression from progress made, since he has been refusing it. However fiction and nonfiction writer prose also agrees that that it is worthwhile to get and will do so -will increase clomipramine to 50 mg; his mother is adamant that this was very helpful to him and fiction and nonfiction writer prose agrees it may help patient progress further as he may be struggling with OCD symptoms that he is not able to articulate 08/30/2024: Continue current treatment plan 08/31 patient had an Epiphany today. With staff's help, it was revealed that the dust on patient's window did have the shape of a person's head and face which patient was referring to as Mrs. Lawton, an old acquaintance. Staff cleaned this off and the outline of the face was removed and with this, patient very clearly said he no longer sees Mrs. Lawton in the room; this remained a consistent understanding. Patient remains very ambivalent and anxious about getting a head CT; he was afraid to leave the the unit; Ativan was given however patient ultimately refused to go down and fiction and nonfiction writer prose agreed to try again tomorrow 09/01 Patient seems happier today and playfully bouncing around the milieu. Today he actually agreed to get his head CT which was completed! No mentioned of seeing Mrs. Lawton in his room. -increasing clomipramine to 75 mg; will continue to titrate -Head CT reviewed and Negative: -will consider switching Risperdal to long-acting 09/01 CT/CT head/brain wo IV con IMPRESSION: Unremarkable unenhanced head CT. 09/02 pt doing better; showered today!! And went to group fiction and nonfiction writer prose Talked with mom and discussed tx plan; she feels he is doing better and getting close to discharge. Pt is not drooling very much any more. PLAN: CV *guardians have authorized fiction and nonfiction writer prose, staff to administer any/all medical treatments even if against patients will q15 min checks Increase to clomipramine 75mg qhs for OCD (on this at home: clomipramine 100 mg b.i.d Continue with Risperdal 6 mg qhs -Add Risperdal 0.5 mg t.i.d. p.r.n. for breakthrough AVH -for now, Continue Latuda 40 mg daily at dinnertime (used to be on 60mg) -Continue Tegretol 400mg BID (was stable on this in past) -DC Vraylar 3 mg; this was started by outpatient provider; does not seem to have helped much and no clear indication for bipolar depression (also patient already on 3 antipsychotics) -DC'd Zyprexa: has caused DM/elevated Cholesterol/wt gain -temporarily Start artificial tears; refusing -Will get prescription for Restasis/cyclosporin -consider restarting clomipramine for OCD ( clomipramine 100 mg b.i.d. for OCD in the past around 2014; for some reason it was dc'd at some point; restarted 2022 but not continued after that). -consider glycopyrrolate for excessive drooling -will consider getting MRI, however patient's symptoms are congruent with diagnosis Reason for continued inpatient stay Substantial Risk for: stable for discharge Time Spent With Patient Time: Total time managing care of this patient today ____ minutes.
[2024-09-03 20:00] VITALS: BP 119/65; PULSE 80; TEMP 36.6; O2SAT 100
[2024-09-03] MEDS: clomiPRAMINE HCl 25 MG CAPSULE 100 MG PO (22:23)
[2024-09-03] MEDS: risperiDONE 3 MG TABLET 6 MG PO (22:25)
[2024-09-03] MEDS: Atorvastatin Calcium 40 MG TABLET PO (22:25)
[2024-09-03] MEDS: traZODone HCL 100 MG TABLET PO (22:26)
[2024-09-04] MEDS: Omeprazole 40 MG CAPSULE.DR PO (07:21)
[2024-09-04 08:00] VITALS: BP 144/72; PULSE 74; TEMP 36.6; O2SAT 100
[2024-09-04 08:57] VITALS: BP 109/76; PULSE 72
[2024-09-04] MEDS: Loratadine 10 MG TABLET PO (08:57)
[2024-09-04] MEDS: Docusate Sodium 100 MG CAPSULE PO ×3 (08:57→20:30)
[2024-09-04] MEDS: gemfibroziL 600 MG TABLET PO ×2 (08:57→20:30)
[2024-09-04] MEDS: atenoloL 25 MG TABLET PO (08:57)
[2024-09-04] MEDS: clonazePAM 0.5 MG TABLET PO ×3 (08:57→20:30)
[2024-09-04] MEDS: Escitalopram Oxalate 10 MG TABLET PO (08:57)
[2024-09-04] MEDS: carBAMazepine ER 200 MG TAB.ER.12H 400 MG PO ×2 (08:57→20:29)
[2024-09-04] MEDS: Sennosides 8.6 MG TABLET PO ×2 (08:57→20:30)
[2024-09-04] MEDS: Ezetimibe 10 MG TABLET PO (08:57)
[2024-09-04] MEDS: clomiPRAMINE HCl 25 MG CAPSULE PO (08:57)
[2024-09-04] MEDS: Fluticasone Propionate Nasal 16 GM SPRAY 1 SPRAY NOSTRIL-B (10:28)
[2024-09-04] MEDS: Lurasidone HCl 40 MG TABLET PO (17:19)
--- NOTE | 2024-09-04 19:13 | P.PNPSI_ITS ---
Subjective Subjective Date of Service: 09/04/24 Reason For Visit: Schioafective disorder bipolar type Interim History: Met with patient; discussed with team Patient remains doing much better, showered again today, attending groups, tells policy writer typist he is doing much better Mental Status Exam Mental Status Exam Narrative: Pt is alert and oriented; behavior is more organized and cooperative, also more calm; using toilet on his own; patient is not in distress; dressed in casual shirt and hospital pants; adequate hygiene; mood is described as i feel a lot better and affect congruent, more calm and brighter; eye contact appropriate; Speech remains a little garbled which is baseline; normal rate, volume; uses few words; not pressured; no psychomotor agitation/retardation present; thought process is concrete, goal directed, asks for needs; Thought content is very concrete and remains on seeing his mother and father and returning to pen[facility]. No SI/HI. Denies AH. Patients insight and judgment impaired but improving, close to or at baseline. Diagnostics Vital Signs (24Hr): Vital Signs - 24 hr 09/03/24 20:00 09/04/24 08:00 09/04/24 08:57 Temperature 97.8 F 98 F Pulse Rate 80 74 72 Blood Pressure 119/65 144/72 H 109/76 Pulse Oximetry 100 100 Oxygen Delivery Method Room Air Room Air BMI result Body Mass Index 31.4 Labs 08/13/24 08:17 08/13/24 08:17 Imaging Radiology Impressions: ITS Impressions Head CT 09/01/24 14:51 IMPRESSION: Unremarkable unenhanced head CT. Electronically signed by: Davide Chen MD 09/01/2024 03:41 PM [facility] Medications Medications Current Medications Acetaminophen (Acetaminophen 325 Mg Tablet) 650 mg PO Q6H PRN PRN Reason: Headache/Pain Mild Scale (1-3) Last Admin: 09/03/24 11:09 Dose: 650 mg Al Hydroxide/Mg Hydroxide (Magnesium Hydrox/Alum Hydrox 30 Ml Oral.Susp) 30 ml PO Q6H PRN PRN Reason: Heartburn/Nausea Artificial Tears (Artificial Tears 15 Ml Drops) 1 drop EYE-BOTH Q4H PRN PRN Reason: Dry Eyes Last Admin: 08/02/24 16:09 Dose: 1 drop Atenolol (Atenolol 25 Mg Tablet) 25 mg PO DAILY [facility]; Protocol Last Admin: 09/04/24 08:57 Dose: 25 mg Atorvastatin Calcium (Atorvastatin Calcium 40 Mg Tablet) 40 mg PO BEDTIME [facility] Last Admin: 09/03/24 22:25 Dose: 40 mg Carbamazepine (Carbamazepine Er 200 Mg Tab.Er.12h) 400 mg PO BID [facility] Last Admin: 09/04/24 08:57 Dose: 400 mg Clomipramine HCl (Clomipramine Hcl 25 Mg Capsule) 100 mg PO BEDTIME [facility] Last Admin: 09/03/24 22:23 Dose: 100 mg Clomipramine HCl (Clomipramine Hcl 25 Mg Capsule) 25 mg PO DAILY [facility] Last Admin: 09/04/24 08:57 Dose: 25 mg Clonazepam (Clonazepam 0.5 Mg Tablet) 0.5 mg PO TID [facility] Last Admin: 09/04/24 14:50 Dose: 0.5 mg Docusate Sodium (Docusate Sodium 100 Mg Capsule) 100 mg PO TID [facility] Last Admin: 09/04/24 14:51 Dose: 100 mg Ezetimibe (Ezetimibe 10 Mg Tablet) 10 mg PO DAILY [facility] Last Admin: 09/04/24 08:57 Dose: 10 mg Escitalopram Oxalate (Escitalopram Oxalate 10 Mg Tablet) 10 mg PO DAILY [facility] Last Admin: 09/04/24 08:57 Dose: 10 mg Fluticasone Propionate (Fluticasone Propionate Nasal 16 Gm Heath) 1 spray NOSTRIL-B DAILY [facility] Last Admin: 09/04/24 10:28 Dose: 1 spray Gemfibrozil (Gemfibrozil 600 Mg Tablet) 600 mg PO BID [facility] Last Admin: 09/04/24 08:57 Dose: 600 mg Hydroxyzine HCl (Hydroxyzine Hcl 25 Mg Tablet) 25 mg PO Q6H PRN PRN Reason: Anxiety Last Admin: 09/02/24 21:22 Dose: 25 mg Loratadine (Loratadine 10 Mg Tablet) 10 mg PO DAILY [facility] Last Admin: 09/04/24 08:57 Dose: 10 mg Lurasidone HCl (Lurasidone Hcl 40 Mg Tablet) 40 mg PO DAILY@1700 [facility] Last Admin: 09/04/24 17:19 Dose: 40 mg Magnesium Hydroxide (Milk Of Magnesia 30 Ml Oral.Susp) 30 ml PO DAILY PRN PRN Reason: Constipation Multi-Ingred Cream/Lotion/Oil/Oint (Mineral Oil/Petrolatum,White 106 Gm Tube) 1 appl TOPICAL TID PRN; Protocol PRN Reason: dry skin Nicotine Polacrilex (Nicotine Polacrilex 2 Mg Gum) 4 mg BUCCAL Q2H PRN PRN Reason: Nicotine Cravings Omeprazole (Omeprazole 40 Mg Capsule.Dr) 40 mg PO DAILY@0630 [facility] Last Admin: 09/04/24 07:21 Dose: 40 mg Risperidone (Risperidone 0.5 Mg Tablet) 0.5 mg PO TID PRN PRN Reason: Hallucinations Last Admin: 08/30/24 18:20 Dose: 0.5 mg Risperidone (Risperidone 3 Mg Tablet) 6 mg PO BEDTIME [facility] Last Admin: 09/03/24 22:25 Dose: 6 mg Senna (Sennosides 8.6 Mg Tablet) 8.6 mg PO BID [facility] Last Admin: 09/04/24 08:57 Dose: 8.6 mg Trazodone HCl (Trazodone Hcl 50 Mg Tablet) 50 mg PO BEDTIME [facility]X1 PRN PRN Reason: Insomnia Last Admin: 08/26/24 00:02 Dose: 50 mg Trazodone HCl (Trazodone Hcl 100 Mg Tablet) 100 mg PO BEDTIME [facility] Last Admin: 09/03/24 22:26 Dose: 100 mg Allergies Allergies Allergy/AdvReac Type Severity Reaction Status Date / Time ondansetron [From Zofran] Allergy Unknown Verified 07/28/24 22:30 Penicillins Allergy Unknown Verified 07/28/24 22:30 potassium Allergy Unknown Verified 07/28/24 22:30 prochlorperazine Allergy Unknown Verified 07/28/24 22:30 Assessment & Plan Assessment & Plan (1) Schizoaffective disorder, bipolar type: Status: Acute Code(s): F25.0 - Schizoaffective disorder, bipolar type (2) Autism spectrum disorder: Status: Acute Code(s): F84.0 - Autistic disorder (3) Intellectual disability: Status: Acute Code(s): F79 - Unspecified intellectual disabilities (4) Aarskog syndrome: Status: Acute Code(s): Q87.19 - Other congenital malformation syndromes predominantly associated with short stature Plan Patient is a 34-year-old male with severe ASD, intellectual disability, schizoaffective disorder with, history of behavioral outbursts, who resides at a S residential facility and who presents from external ED for what manager program reports is decompensation following discharge from [facility] admission about 4 weeks ago. military exchange wireless manager reports patient has increased anxiety, paranoia and visual hallucinations as well as increased agitation related to AVH, which has resulted in the need for physical restraints. Patient with limited ability to participate in interview. Patient cooperative and calm. He says he misses his mother. He said I am feeling better... And then that he was going to lay down. He said he wanted to be in the hospital until he feels better... But could not discuss his feelings or what that would mean. Denies any SI or HI and says he is feeling safe. Patient does endorse auditory hallucinations which he he says bothers him, however when asked to discuss them further or what they say, he says I do not know and regarding medication that there is nothing to help... For the remainder of the day, patient sometimes in his room, sometimes in the hallway saying he wanted to call his mother or father, saying he misses them and wants to go home. Formulation/clinical reasoning: Patient has diagnosis of schizoaffective disorder, not sure if he actually has manic episodes and according to collateral, patient has not demonstrated psychotic symptoms until this fall. Still he has been on antipsychotics for years. -Guardian paperwork in chart; parents are guardians -No HCP - [place] Diagnosis: -Says diagnosis is schizoaffective, bipolar type however she has no knowledge of any discrete manic episodes; he has some history of depressive episodes -Does not blink: Supposed to be on Restasis/cyclosporine ophthalmic; not sure dose; discussed with pharmacist who reports typically this is 0.05% solution 1 drop b.i.d. (other places say 0.1%) -Aarkskog syndrome -ASD -OCD -has chronic extremely dry skin (eczema?) for which he has some medicated cream; mother not sure the name -Said there was a plan to get MRI of the brain since change seemed somewhat sudden Hospital course: 07/30 Patient remains fearful; can be friendly and cooperative but seems very anxious and cautious. Visual hallucinations patient saying he can see his mother in the room and talking to her Still not going into bathroom, with recent history of being afraid of bathroom; thus patient Incontinent of urine, sitting in wet clothes and refusing to change today, willing to sign CV reiterating he wants to be here for treatment ( to feel better ) -left VM for outpatient provider Nat Lee to discuss tx hx 07/31 patient remains cautious and intermittently fearful but is also warming up a bit to some staff, primarily female staff. He says he is feeling better but behaviors remain decompensated. Willing to change out of clothes today with staff encouragement and have them washed; also talked to his mother on the phone today which he said made him happy. Patient willing to use lotion for try facial skin Collateral:Glove Printer discussed case with patient's mother who reports that behaviors decompensated this April after he returned from vacation with his father. At that time he started packing up his stuff, saying he wanted to move out of the penitentiary; was taking lots of showers, self dialogue Ng, saying he could see his mother in the room, saying he thought his mother was and refusing to talk to her on the phone. For those reasons This past May he went to [facility] where he was started on Vraylar (and refused to take Latuda). He returned to the penitentiary but remained confused, disorganized, paranoid. At 1 point he would not leave the living room at all, incontinent, afraid to go into the bathroom or to shower which resulted in this hospitalization. Some history of aggression for which he was hospitalized a year ago; only mild aggression in penitentiary this time around. -left another message with pathology secretary/transcriptionist for Nat Lee 08/01 mostly same presentation, continued AH which are bothersome; more comfortable with staff and allowing them to help him attending ADLs including bathing. -policy writer typist did get a call back from Nta Lee; policy writer typist return call and left message 08/02 Patient continues to say I am feeling much better however this does not seem to correlate with any improvement in symptoms as he continues to have AH, is afraid of his room, incontinent of urine because afraid of going to the bathroom and continually saying that he sees his mother in his room. Patient does not respond much to reality testing. He does say he would like other medications to help make the voices go away. -given discussion below, will DC Vraylar since no clear indication of bipolar depression; already on 3 antipsychotics and does not seem effective. Instead will try Risperdal. -will start to try to eliminate pharmacy; need to find out what medication regimen patient was on this past summer during which time he was doing well Collateral: Again discussed case with patient's mother. -She reports he was doing great this past summer; not sure what his medication regimen was at that time -says was on Tegretol for years; for some reason [facility] took him off of it (was restarted at this hospitalization) -says was on clomipramine for OCD since 7 years old and did well on it; not sure why he was taken off a year ago -to her knowledge Latuda was supposed to be discontinued since he was never really taking it; Vraylar was also started at [facility] which has not seemed to help. -Has been on Zyprexa for a while; not sure efficacy --drools consistently at baseline; she said she has asked in the past for medication for this 08/03 Patient reports that he is feeling a lot better which is what he says to policy writer typist every day. He denies any AH. Also says he has not been seeing his mother. Difficult to tell if this is the case or not so will continue to monitor. Patient did ask for a stuffed animal or something about a stuffed animal but it was not clear. -briefly spoke with outpatient provider Huma who said she was 1 who started him on Vraylar -continue with Risperdal 08/04 No change in presentation; still disorganized, fearful, incontinent, hardly moving from room. Not sleeping at night but will tell policy writer typist I slept very good... . Continues to say the same refrain I feel a lot better... 08/05 meeting with outpt team stable on Tegretol and latuda for years until sudden decompensation this fall at which time pt presented with same symptoms he has currently. Prior to this stable and functional in many ways, all ADL's, organized and quite capable; no psychosis; read/write/send emails 08/06 no change in presentation and pt remains disorganized, sitting in own defecate; has AH. Hardly sleeping at night. sitting in one spot for most of the day. -intermittently refusing medications -pt refusing labs -feet are both swollen; hospitalist examined -infection on both side of bridge of nose where glasses sit on nose; pt allowed antibiotic ointment to be applied History that patient was stable on Tegretol and Latuda for at least a year; Latuda was lowered in the springtime to 40 mg, down from 60 since patient said was making him tired. He remained stable until this fall when he suddenly decompensated, unable to accept reality, incontinent, afraid of multiple things, thinking his mom's , forgetting people are Medication: pt was stable on Tegretol and Latuda for years until this fall -for now, will continue on Tegretol and Latuda -kaylee'd alexander -started risperdal and increased to 4mg, scheduled it at bedtime to help w/ sleep -consider CT scan brain given sudden onset of symptoms, though was several months ago at this point 08/10 Still no change in presentation; refusing eyedrops. Remains scared to go out of his room. Did allow for bacitracin and sores on bilateral bridge of his nose are better.08/10 Still no change in presentation; refusing eyedrops. Remains scared to go out of his room. Did allow for bacitracin and sores on bilateral bridge of his nose are better. 08/11 Again no change in presentation; refusing labs. Will continue to retry before forcing them. Will try to get head CT. Continues to refuse eyedrops. Will give a little longer on Risperdal 4 mg 08/12 increased Risperdal to 6 mg 08/13 day of actual improvement in that patient allowed lab work. That said, he also threw mattress/belongings into the hallway, talking about a 90 yo neighbor he wants to -labs WNL -refused head CT; since he allowed labs, still will try to see if he will comply with head CT hoping to avoid the trauma of forcing him 08/14 Patient out in the milieu today, 1st time in over a week. Furthermore Patient actually using the bathroom today on his own, with significant encouragement from staff and a verbal plan; throughout the day patient was able to get himself to the bathroom rather than remain incontinent and inside close, which he has continually done since admission. Patient also seems more cheerful. -Again refused head CT but since getting better, will hold off from this for now -continue with increased Risperdal dose of 6 mg 08/17 remains somewhat improved. Patient pleasant and out in the milieu. Throughout the weekend he has been using the bathroom and not been incontinent which christie consistent improvement since admission. Also allowing staff to help him brush his teeth. Patient is normally, when at baseline, able to do all these things on his own, maybe with some prompting but independently. -will continue with current regimen for now as patient continues to improve -will continue to keep in mind that patient has a history of OCD and that he may benefit and improve from restarting clomipramine; however as psychosis and disorganized behavior is the main concern will continue to focus treatment in this area now 08/18 continues current tx plan for now; will consider increasing Risperdal though already at 6mg. 08/21 Patient remains doing better. Still not dressing himself or taking a shower but seems to be doing more more ADLs. Denies any AH. -at this time, policy writer typist hesitates to make any changes as patient has been slowly but steadily improving. 08/22: Continue current regime and plan of care. Pt appears improved. 08/24 Overall remains doing better. Attending to most ADLs except for showering. He says he is afraid to shower here and that he will shower at his own house. Patient sleeping through the night. Still Refusing head CT saying that he is better now. Glove Printer discussed with patient adding clomipramine back to his medication regimen with which he agrees and which was encouraged by his mother 08/25 same presentation and denies psychiatric symptoms. He did however put all of his belongings into the [place] again but with no explanation. Patient saying that he will be seeing his mother today who is coming to visit however this is not true; this remains improvement however from when he was saying he can see his mother in his bedroom 08/26/2024 same presentation; took clomipramine last night; will keep it same dose and only slowly titrate as patient has been doing better overall do not want to make any quick changes; patient not able to have informative discussion about OCD symptoms however per his mother, patient did much better on clomipramine 08/28 Patient intermittently talking about seeing his mother father or Mrs Pierre in his room which he has not done for over a week; however he continues to independently due number was ADLs. He asked about returning home. Lisseth came to see patient today and reports that he is definitely heading towards his baseline though not there yet, as he is not bathing himself and still has some psychotic symptoms. Glove Printer spoke with his mother today about labs (elevated hemoglobin A1c; she says this happens to him with antipsychotics), head CT; she agreed with policy writer typist's reasoning for holding off on the head CT for now, not wanting to traumatize patient and risk regression from progress made, since he has been refusing it. However policy writer typist also agrees that that it is worthwhile to get and will do so -will increase clomipramine to 50 mg; his mother is adamant that this was very helpful to him and policy writer typist agrees it may help patient progress further as he may be struggling with OCD symptoms that he is not able to articulate 08/30/2024: Continue current treatment plan 08/31 patient had an Epiphany today. With staff's help, it was revealed that the dust on patient's window did have the shape of a person's head and face which patient was referring to as Mrs. Lawton, an old acquaintance. Staff cleaned this off and the outline of the face was removed and with this, patient very clearly said he no longer sees Mrs. Lawton in the room; this remained a consistent understanding. Patient remains very ambivalent and anxious about getting a head CT; he was afraid to leave the the unit; Ativan was given however patient ultimately refused to go down and policy writer typist agreed to try again tomorrow 09/01 Patient seems happier today and playfully bouncing around the milieu. Today he actually agreed to get his head CT which was completed! No mentioned of seeing Mrs. Lawton in his room. -increasing clomipramine to 75 mg; will continue to titrate -Head CT reviewed and Negative: -will consider switching Risperdal to long-acting 09/01 CT/CT head/brain wo IV con IMPRESSION: Unremarkable unenhanced head CT. 09/02 pt doing better; showered today!! And went to group policy writer typist Talked with mom and discussed tx plan; she feels he is doing better and getting close to discharge. Pt is not drooling very much any more. 09/04 continue treatment plan; patient remains much improved PLAN: CV *guardians have authorized policy writer typist, staff to administer any/all medical treatments even if against patients will q15 min checks Added clomipramine 25 mg daily Continue clomipramine 100 mg qhs for OCD (on this at home: clomipramine 100 mg b.i.d Continue with Risperdal 6 mg qhs -Add Risperdal 0.5 mg t.i.d. p.r.n. for breakthrough AVH -for now, Continue Latuda 40 mg daily at dinnertime (used to be on 60mg) -Continue Tegretol 400mg BID (was stable on this in past) -DC Vraylar 3 mg; this was started by outpatient provider; does not seem to have helped much and no clear indication for bipolar depression (also patient already on 3 antipsychotics) -DC'd Zyprexa: has caused DM/elevated Cholesterol/wt gain -temporarily Start artificial tears; refusing -Will get prescription for Restasis/cyclosporin -consider restarting clomipramine for OCD ( clomipramine 100 mg b.i.d. for OCD in the past around 2014; for some reason it was dc'd at some point; restarted 2022 but not continued after that). -consider glycopyrrolate for excessive drooling -will consider getting MRI, however patient's symptoms are congruent with diagnosis Patient educated on: diagnosis and therapeutic strategies Informed Consent: understands Reason for continued inpatient stay Substantial Risk for: stable for discharge and rapid decompensation Time Spent With Patient Time: Total time managing care of this patient today ____ minutes.
[2024-09-04 20:00] VITALS: BP 133/69; PULSE 79; RESP 18; TEMP 36.5; O2SAT 98
[2024-09-04] MEDS: traZODone HCL 100 MG TABLET PO (20:29)
[2024-09-04] MEDS: Atorvastatin Calcium 40 MG TABLET PO (20:30)
[2024-09-04] MEDS: clomiPRAMINE HCl 25 MG CAPSULE 100 MG PO (20:30)
[2024-09-04] MEDS: risperiDONE 3 MG TABLET 6 MG PO (20:30)
[2024-09-05] MEDS: Omeprazole 40 MG CAPSULE.DR PO (05:30)
[2024-09-05 08:41] VITALS: BP 120/64; PULSE 63; TEMP 35.9; O2SAT 98
[2024-09-05] MEDS: atenoloL 25 MG TABLET PO (08:57)
[2024-09-05] MEDS: clomiPRAMINE HCl 25 MG CAPSULE PO (08:57)
[2024-09-05] MEDS: Sennosides 8.6 MG TABLET PO ×2 (08:57→21:11)
[2024-09-05] MEDS: gemfibroziL 600 MG TABLET PO ×2 (08:57→21:11)
[2024-09-05] MEDS: clonazePAM 0.5 MG TABLET PO ×3 (08:58→21:10)
[2024-09-05] MEDS: Ezetimibe 10 MG TABLET PO (08:58)
[2024-09-05] MEDS: Escitalopram Oxalate 10 MG TABLET PO (08:58)
[2024-09-05] MEDS: Loratadine 10 MG TABLET PO (08:58)
[2024-09-05] MEDS: carBAMazepine ER 200 MG TAB.ER.12H 400 MG PO ×2 (08:58→21:10)
[2024-09-05] MEDS: Docusate Sodium 100 MG CAPSULE PO ×3 (08:58→21:11)
[2024-09-05] MEDS: Fluticasone Propionate Nasal 16 GM SPRAY 1 SPRAY NOSTRIL-B (10:41)
[2024-09-05] MEDS: Acetaminophen 325 MG TABLET 650 MG PO (12:13)
[2024-09-05] MEDS: risperiDONE 0.5 MG TABLET PO (15:07)
[2024-09-05] MEDS: Lurasidone HCl 40 MG TABLET PO (18:04)
--- NOTE | 2024-09-05 18:48 | P.PNPSI_ITS ---
Subjective Subjective Date of Service: 09/05/24 Reason For Visit: Schioafective disorder bipolar type Interim History: Met with patient; discussed with team Patient said that he has has allergies; took allergy medication which he said is a little helpful. Otherwise remains stable. Continues to attend to ADLs, social in the milieu, no psychotic symptoms expressed and says is looking forward to returning to custodial. Mental Status Exam Mental Status Exam Narrative: Pt is alert and oriented; behavior is more organized and cooperative, also more calm; using toilet on his own; patient is not in distress; dressed in casual shirt and hospital pants; adequate hygiene; mood is described as not good..i have allergies though overall affect remains brighter, calm; eye contact appropriate; Speech remains a little garbled which is baseline; normal rate, volume; uses few words; not pressured; no psychomotor agitation/retardation present; thought process is concrete, goal directed, asks for needs; Thought content is very concrete and remains on seeing his mother and father and returning to custodial. No SI/HI. Denies AH. Patients insight and judgment impaired but at baseline. Diagnostics Vital Signs (24Hr): Vital Signs - 24 hr 09/04/24 20:00 09/05/24 08:41 Temperature 97.7 F 96.7 F L Pulse Rate 79 63 Respiratory Rate 18 Blood Pressure 133/69 120/64 Pulse Oximetry 98 98 Oxygen Delivery Method Room Air Room Air BMI result Body Mass Index 31.4 Labs 08/13/24 08:17 08/13/24 08:17 Imaging Radiology Impressions: ITS Impressions Head CT 09/01/24 14:51 IMPRESSION: Unremarkable unenhanced head CT. Electronically signed by: Davide Chen MD 09/01/2024 03:41 PM [facility] Medications Medications Current Medications Acetaminophen (Acetaminophen 325 Mg Tablet) 650 mg PO Q6H PRN PRN Reason: Headache/Pain Mild Scale (1-3) Last Admin: 09/05/24 12:13 Dose: 650 mg Al Hydroxide/Mg Hydroxide (Magnesium Hydrox/Alum Hydrox 30 Ml Oral.Susp) 30 ml PO Q6H PRN PRN Reason: Heartburn/Nausea Artificial Tears (Artificial Tears 15 Ml Drops) 1 drop EYE-BOTH Q4H PRN PRN Reason: Dry Eyes Last Admin: 08/02/24 16:09 Dose: 1 drop Atenolol (Atenolol 25 Mg Tablet) 25 mg PO DAILY [facility]; Protocol Last Admin: 09/05/24 08:57 Dose: 25 mg Atorvastatin Calcium (Atorvastatin Calcium 40 Mg Tablet) 40 mg PO BEDTIME [facility] Last Admin: 09/04/24 20:30 Dose: 40 mg Carbamazepine (Carbamazepine Er 200 Mg Tab.Er.12h) 400 mg PO BID [facility] Last Admin: 09/05/24 08:58 Dose: 400 mg Clomipramine HCl (Clomipramine Hcl 25 Mg Capsule) 100 mg PO BEDTIME [facility] Last Admin: 09/04/24 20:30 Dose: 100 mg Clomipramine HCl (Clomipramine Hcl 25 Mg Capsule) 25 mg PO DAILY [facility] Last Admin: 09/05/24 08:57 Dose: 25 mg Clonazepam (Clonazepam 0.5 Mg Tablet) 0.5 mg PO TID [facility] Last Admin: 09/05/24 14:43 Dose: 0.5 mg Docusate Sodium (Docusate Sodium 100 Mg Capsule) 100 mg PO TID [facility] Last Admin: 09/05/24 14:42 Dose: 100 mg Ezetimibe (Ezetimibe 10 Mg Tablet) 10 mg PO DAILY [facility] Last Admin: 09/05/24 08:58 Dose: 10 mg Escitalopram Oxalate (Escitalopram Oxalate 10 Mg Tablet) 10 mg PO DAILY [facility] Last Admin: 09/05/24 08:58 Dose: 10 mg Fluticasone Propionate (Fluticasone Propionate Nasal 16 Gm [place]) 1 spray NOSTRIL-B DAILY [facility] Last Admin: 09/05/24 10:41 Dose: 1 spray Gemfibrozil (Gemfibrozil 600 Mg Tablet) 600 mg PO BID [facility] Last Admin: 09/05/24 08:57 Dose: 600 mg Hydroxyzine HCl (Hydroxyzine Hcl 25 Mg Tablet) 25 mg PO Q6H PRN PRN Reason: Anxiety Last Admin: 09/02/24 21:22 Dose: 25 mg Loratadine (Loratadine 10 Mg Tablet) 10 mg PO DAILY [facility] Last Admin: 09/05/24 08:58 Dose: 10 mg Lurasidone HCl (Lurasidone Hcl 40 Mg Tablet) 40 mg PO DAILY@1700 [facility] Last Admin: 09/05/24 18:04 Dose: 40 mg Magnesium Hydroxide (Milk Of Magnesia 30 Ml Oral.Susp) 30 ml PO DAILY PRN PRN Reason: Constipation Multi-Ingred Cream/Lotion/Oil/Oint (Mineral Oil/Petrolatum,White 106 Gm Tube) 1 appl TOPICAL TID PRN; Protocol PRN Reason: dry skin Nicotine Polacrilex (Nicotine Polacrilex 2 Mg Gum) 4 mg BUCCAL Q2H PRN PRN Reason: Nicotine Cravings Omeprazole (Omeprazole 40 Mg Capsule.Dr) 40 mg PO DAILY@0630 [facility] Last Admin: 09/05/24 05:30 Dose: 40 mg Risperidone (Risperidone 0.5 Mg Tablet) 0.5 mg PO TID PRN PRN Reason: Hallucinations Last Admin: 09/05/24 15:07 Dose: 0.5 mg Risperidone (Risperidone 3 Mg Tablet) 6 mg PO BEDTIME [facility] Last Admin: 09/04/24 20:30 Dose: 6 mg Senna (Sennosides 8.6 Mg Tablet) 8.6 mg PO BID [facility] Last Admin: 09/05/24 08:57 Dose: 8.6 mg Trazodone HCl (Trazodone Hcl 50 Mg Tablet) 50 mg PO BEDTIME MRX1 PRN PRN Reason: Insomnia Last Admin: 08/26/24 00:02 Dose: 50 mg Trazodone HCl (Trazodone Hcl 100 Mg Tablet) 100 mg PO BEDTIME [facility] Last Admin: 09/04/24 20:29 Dose: 100 mg Allergies Allergies Allergy/AdvReac Type Severity Reaction Status Date / Time ondansetron [From Zofran] Allergy Unknown Verified 07/28/24 22:30 Penicillins Allergy Unknown Verified 07/28/24 22:30 potassium Allergy Unknown Verified 07/28/24 22:30 prochlorperazine Allergy Unknown Verified 07/28/24 22:30 Assessment & Plan Assessment & Plan (1) Schizoaffective disorder, bipolar type: Status: Acute Code(s): F25.0 - Schizoaffective disorder, bipolar type (2) Autism spectrum disorder: Status: Acute Code(s): F84.0 - Autistic disorder (3) Intellectual disability: Status: Acute Code(s): F79 - Unspecified intellectual disabilities (4) Aarskog syndrome: Status: Acute Code(s): Q87.19 - Other congenital malformation syndromes predominantly associated with short stature Plan Patient is a 34-year-old male with severe ASD, intellectual disability, schizoaffective disorder with, history of behavioral outbursts, who resides at a S residential facility and who presents from external ED for what oracle programmer reports is decompensation following discharge from [facility] [place] admission about 4 weeks ago. manager fine dining reports patient has increased anxiety, paranoia and visual hallucinations as well as increased agitation related to AVH, which has resulted in the need for physical restraints. Patient with limited ability to participate in interview. Patient cooperative and calm. He says he misses his mother. He said I am feeling better... And then that he was going to lay down. He said he wanted to be in the hospital until he feels better... But could not discuss his feelings or what that would mean. Denies any SI or HI and says he is feeling safe. Patient does endorse auditory hallucinations which he he says bothers him, however when asked to discuss them further or what they say, he says I do not know and regarding medication that there is nothing to help... For the remainder of the day, patient sometimes in his room, sometimes in the hallway saying he wanted to call his mother or father, saying he misses them and wants to go home. Formulation/clinical reasoning: Patient has diagnosis of schizoaffective disorder, not sure if he actually has manic episodes and according to collateral, patient has not demonstrated psychotic symptoms until this fall. Still he has been on antipsychotics for years. -Guardian paperwork in chart; parents are guardians -No HCP - [place] Diagnosis: -Says diagnosis is schizoaffective, bipolar type however she has no knowledge of any discrete manic episodes; he has some history of depressive episodes -Does not blink: Supposed to be on Restasis/cyclosporine ophthalmic; not sure dose; discussed with pharmacist who reports typically this is 0.05% solution 1 drop b.i.d. (other places say 0.1%) -Aarkskog syndrome -ASD -OCD -has chronic extremely dry skin (eczema?) for which he has some medicated cream; mother not sure the name -Said there was a plan to get MRI of the brain since change seemed somewhat sudden Hospital course: 07/30 Patient remains fearful; can be friendly and cooperative but seems very anxious and cautious. Visual hallucinations patient saying he can see his mother in the room and talking to her Still not going into bathroom, with recent history of being afraid of bathroom; thus patient Incontinent of urine, sitting in wet clothes and refusing to change today, willing to sign CV reiterating he wants to be here for treatment ( to feel better ) -left VM for outpatient provider Nat Lee to discuss tx hx 07/31 patient remains cautious and intermittently fearful but is also warming up a bit to some staff, primarily female staff. He says he is feeling better but behaviors remain decompensated. Willing to change out of clothes today with staff encouragement and have them washed; also talked to his mother on the phone today which he said made him happy. Patient willing to use lotion for try facial skin Collateral:Business Systems Architect discussed case with patient's mother who reports that behaviors decompensated this April after he returned from vacation with his father. At that time he started packing up his stuff, saying he wanted to move out of the custodial; was taking lots of showers, self dialogue Ng, saying he could see his mother in the room, saying he thought his mother was and refusing to talk to her on the phone. For those reasons This past May he went to [facility] where he was started on Vraylar (and refused to take Latuda). He returned to the custodial but remained confused, disorganized, paranoid. At 1 point he would not leave the living room at all, incontinent, afraid to go into the bathroom or to shower which resulted in this hospitalization. Some history of aggression for which he was hospitalized a year ago; only mild aggression in custodial this time around. -left another message with secretary of police for Nat Lee 08/01 mostly same presentation, continued AH which are bothersome; more comfortable with staff and allowing them to help him attending ADLs including bathing. -typewriter tester did get a call back from Nat Lee; typewriter tester return call and left message 08/02 Patient continues to say I am feeling much better however this does not seem to correlate with any improvement in symptoms as he continues to have AH, is afraid of his room, incontinent of urine because afraid of going to the bathroom and continually saying that he sees his mother in his room. Patient does not respond much to reality testing. He does say he would like other medications to help make the voices go away. -given discussion below, will DC Vraylar since no clear indication of bipolar depression; already on 3 antipsychotics and does not seem effective. Instead will try Risperdal. -will start to try to eliminate pharmacy; need to find out what medication regimen patient was on this past summer during which time he was doing well Collateral: Again discussed case with patient's mother. -She reports he was doing great this past summer; not sure what his medication regimen was at that time -says was on Tegretol for years; for some reason [facility] took him off of it (was restarted at this hospitalization) -says was on clomipramine for OCD since 7 years old and did well on it; not sure why he was taken off a year ago -to her knowledge Latuda was supposed to be discontinued since he was never really taking it; Vraylar was also started at [facility] which has not seemed to help. -Has been on Zyprexa for a while; not sure efficacy --drools consistently at baseline; she said she has asked in the past for medication for this 08/03 Patient reports that he is feeling a lot better which is what he says to typewriter tester every day. He denies any AH. Also says he has not been seeing his mother. Difficult to tell if this is the case or not so will continue to monitor. Patient did ask for a stuffed animal or something about a stuffed animal but it was not clear. -briefly spoke with outpatient provider Huma who said she was 1 who started him on Vraylar -continue with Risperdal 08/04 No change in presentation; still disorganized, fearful, incontinent, hardly moving from room. Not sleeping at night but will tell typewriter tester I slept very good... . Continues to say the same refrain I feel a lot better... 08/05 meeting with outpt team stable on Tegretol and latuda for years until sudden decompensation this fall at which time pt presented with same symptoms he has currently. Prior to this stable and functional in many ways, all ADL's, organized and quite capable; no psychosis; read/write/send emails 08/06 no change in presentation and pt remains disorganized, sitting in own defecate; has AH. Hardly sleeping at night. sitting in one spot for most of the day. -intermittently refusing medications -pt refusing labs -feet are both swollen; hospitalist examined -infection on both side of bridge of nose where glasses sit on nose; pt allowed antibiotic ointment to be applied History that patient was stable on Tegretol and Latuda for at least a year; Latuda was lowered in the springtime to 40 mg, down from 60 since patient said was making him tired. He remained stable until this fall when he suddenly decompensated, unable to accept reality, incontinent, afraid of multiple things, thinking his mom's , forgetting people are Medication: pt was stable on Tegretol and Latuda for years until this fall -for now, will continue on Tegretol and Latuda -kaylee'd alexander -started risperdal and increased to 4mg, scheduled it at bedtime to help w/ sleep -consider CT scan brain given sudden onset of symptoms, though was several months ago at this point 08/10 Still no change in presentation; refusing eyedrops. Remains scared to go out of his room. Did allow for bacitracin and sores on bilateral bridge of his nose are better.08/10 Still no change in presentation; refusing eyedrops. Remains scared to go out of his room. Did allow for bacitracin and sores on bilateral bridge of his nose are better. 08/11 Again no change in presentation; refusing labs. Will continue to retry before forcing them. Will try to get head CT. Continues to refuse eyedrops. Will give a little longer on Risperdal 4 mg 08/12 increased Risperdal to 6 mg 08/13 day of actual improvement in that patient allowed lab work. That said, he also threw mattress/belongings into the hallway, talking about a 90 yo neighbor he wants to -labs WNL -refused head CT; since he allowed labs, still will try to see if he will comply with head CT hoping to avoid the trauma of forcing him 08/14 Patient out in the milieu today, 1st time in over a week. Furthermore Patient actually using the bathroom today on his own, with significant encouragement from staff and a verbal plan; throughout the day patient was able to get himself to the bathroom rather than remain incontinent and inside close, which he has continually done since admission. Patient also seems more cheerful. -Again refused head CT but since getting better, will hold off from this for now -continue with increased Risperdal dose of 6 mg 08/17 remains somewhat improved. Patient pleasant and out in the milieu. Throughout the weekend he has been using the bathroom and not been incontinent which christie consistent improvement since admission. Also allowing staff to help him brush his teeth. Patient is normally, when at baseline, able to do all these things on his own, maybe with some prompting but independently. -will continue with current regimen for now as patient continues to improve -will continue to keep in mind that patient has a history of OCD and that he may benefit and improve from restarting clomipramine; however as psychosis and disorganized behavior is the main concern will continue to focus treatment in this area now 08/18 continues current tx plan for now; will consider increasing Risperdal though already at 6mg. 08/21 Patient remains doing better. Still not dressing himself or taking a shower but seems to be doing more more ADLs. Denies any AH. -at this time, typewriter tester hesitates to make any changes as patient has been slowly but steadily improving. 08/22: Continue current regime and plan of care. Pt appears improved. 08/24 Overall remains doing better. Attending to most ADLs except for showering. He says he is afraid to shower here and that he will shower at his own house. Patient sleeping through the night. Still Refusing head CT saying that he is better now. Business Systems Architect discussed with patient adding clomipramine back to his medication regimen with which he agrees and which was encouraged by his mother 08/25 same presentation and denies psychiatric symptoms. He did however put all of his belongings into the [place] again but with no explanation. Patient saying that he will be seeing his mother today who is coming to visit however this is not true; this remains improvement however from when he was saying he can see his mother in his bedroom 08/26/2024 same presentation; took clomipramine last night; will keep it same dose and only slowly titrate as patient has been doing better overall do not want to make any quick changes; patient not able to have informative discussion about OCD symptoms however per his mother, patient did much better on clomipramine 08/28 Patient intermittently talking about seeing his mother father or Mrs Pierre in his room which he has not done for over a week; however he continues to independently due number was ADLs. He asked about returning home. Lisseth came to see patient today and reports that he is definitely heading towards his baseline though not there yet, as he is not bathing himself and still has some psychotic symptoms. Business Systems Architect spoke with his mother today about labs (elevated hemoglobin A1c; she says this happens to him with antipsychotics), head CT; she agreed with typewriter tester's reasoning for holding off on the head CT for now, not wanting to traumatize patient and risk regression from progress made, since he has been refusing it. However typewriter tester also agrees that that it is worthwhile to get and will do so -will increase clomipramine to 50 mg; his mother is adamant that this was very helpful to him and typewriter tester agrees it may help patient progress further as he may be struggling with OCD symptoms that he is not able to articulate 08/30/2024: Continue current treatment plan 08/31 patient had an Epiphany today. With staff's help, it was revealed that the dust on patient's window did have the shape of a person's head and face which patient was referring to as Mrs. Lawton, an old acquaintance. Staff cleaned this off and the outline of the face was removed and with this, patient very clearly said he no longer sees Mrs. Lawton in the room; this remained a consistent understanding. Patient remains very ambivalent and anxious about getting a head CT; he was afraid to leave the the unit; Ativan was given however patient ultimately refused to go down and typewriter tester agreed to try again tomorrow 09/01 Patient seems happier today and playfully bouncing around the milieu. Today he actually agreed to get his head CT which was completed! No mentioned of seeing Mrs. Lawton in his room. -increasing clomipramine to 75 mg; will continue to titrate -Head CT reviewed and Negative: -will consider switching Risperdal to long-acting 09/01 CT/CT head/brain wo IV con IMPRESSION: Unremarkable unenhanced head CT. 09/02 pt doing better; showered today!! And went to group typewriter tester Talked with mom and discussed tx plan; she feels he is doing better and getting close to discharge. Pt is not drooling very much any more. 09/04 continue treatment plan; patient remains much improved 09/05 Patient said that he has has allergies; took allergy medication which he said is a little helpful. Otherwise remains stable. Continues to attend to ADLs, social in the milieu, no psychotic symptoms expressed and says is looking forward to returning to custodial. -of note, patient consistently refused artificial tears which was thus eventually discontinued; however typewriter tester noticed that patient is blinking PLAN: CV *guardians have authorized typewriter tester, staff to administer any/all medical treatments even if against patients will q15 min checks Added clomipramine 25 mg daily Continue clomipramine 100 mg qhs for OCD (on this at home: clomipramine 100 mg b.i.d Continue with Risperdal 6 mg qhs -Add Risperdal 0.5 mg t.i.d. p.r.n. for breakthrough AVH -for now, Continue Latuda 40 mg daily at dinnertime (used to be on 60mg) -Continue Tegretol 400mg BID (was stable on this in past) -DC Vraylar 3 mg; this was started by outpatient provider; does not seem to have helped much and no clear indication for bipolar depression (also patient already on 3 antipsychotics) -DC'd Zyprexa: has caused DM/elevated Cholesterol/wt gain -temporarily Start artificial tears; refusing -Will get prescription for Restasis/cyclosporin -consider restarting clomipramine for OCD ( clomipramine 100 mg b.i.d. for OCD in the past around 2014; for some reason it was dc'd at some point; restarted 2022 but not continued after that). -consider glycopyrrolate for excessive drooling -will consider getting MRI, however patient's symptoms are congruent with diagnosis Patient educated on: diagnosis, medication risk/benefits, therapeutic strategies and medical condition Informed Consent: understands, does not understand and further education needed Reason for continued inpatient stay Substantial Risk for: stable for discharge Time Spent With Patient Time: Total time managing care of this patient today ____ minutes.
[2024-09-05 19:46] VITALS: BP 128/66; PULSE 75; TEMP 36.7; O2SAT 98
[2024-09-05] MEDS: clomiPRAMINE HCl 25 MG CAPSULE 100 MG PO (21:10)
[2024-09-05] MEDS: risperiDONE 3 MG TABLET 6 MG PO (21:10)
[2024-09-05] MEDS: traZODone HCL 100 MG TABLET PO (21:11)
[2024-09-05] MEDS: Atorvastatin Calcium 40 MG TABLET PO (21:11)
[2024-09-05] MEDS: Magnesium Hydrox/Alum Hydrox 30 ML ORAL.SUSP PO (22:40)
[2024-09-06] MEDS: Omeprazole 40 MG CAPSULE.DR PO (07:45)
[2024-09-06] MEDS: Ezetimibe 10 MG TABLET PO (08:17)
[2024-09-06] MEDS: carBAMazepine ER 200 MG TAB.ER.12H 400 MG PO ×2 (08:17→20:34)
[2024-09-06] MEDS: Sennosides 8.6 MG TABLET PO ×2 (08:17→20:34)
[2024-09-06 08:18] VITALS: BP 92/52; PULSE 72; TEMP 36.2; O2SAT 95
[2024-09-06] MEDS: atenoloL 25 MG TABLET PO (08:18)
[2024-09-06] MEDS: clonazePAM 0.5 MG TABLET PO ×3 (08:18→20:34)
[2024-09-06] MEDS: Escitalopram Oxalate 10 MG TABLET PO (08:18)
[2024-09-06] MEDS: Loratadine 10 MG TABLET PO (08:18)
[2024-09-06] MEDS: Docusate Sodium 100 MG CAPSULE PO ×3 (08:18→20:35)
[2024-09-06] MEDS: gemfibroziL 600 MG TABLET PO ×2 (08:18→20:35)
[2024-09-06] MEDS: clomiPRAMINE HCl 25 MG CAPSULE PO (08:18)
[2024-09-06] MEDS: Fluticasone Propionate Nasal 16 GM SPRAY 1 SPRAY NOSTRIL-B (08:19)
--- NOTE | 2024-09-06 16:15 | P.PNPSI_ITS ---
Subjective Subjective Date of Service: 09/06/24 Reason For Visit: Schioafective disorder bipolar type Interim History: Met with patient; discussed with team Patient stable, no change in presentation. Says I feel a lot better. Asks when he is going home and pleased to know it is in a few days. Mental Status Exam Mental Status Exam Narrative: Pt is alert and oriented; behavior is organized and cooperative, calm and friendly; attending to ADLs independently; patient is not in distress; dressed in casual shirt and hospital pants; adequate hygiene; mood is described as i feel a lot better and affect congruent, bright, calm; eye contact appropriate; Speech remains a little garbled which is baseline; normal rate, volume; uses few words; not pressured; no psychomotor agitation/retardation present; thought process is concrete, goal directed, asks for needs; Thought content is very concrete and remains on seeing his mother and father and returning to longterm. No SI/HI. Denies AH. Patients insight and judgment impaired but at baseline and adequate. Diagnostics Vital Signs (24Hr): Vital Signs - 24 hr 09/05/24 19:46 09/06/24 08:18 09/06/24 08:18 Temperature 98.1 F 97.2 F Pulse Rate 75 72 72 Blood Pressure 128/66 92/52 L 92/52 L Pulse Oximetry 98 95 Oxygen Delivery Method Room Air Room Air BMI result Body Mass Index 31.4 Labs 08/13/24 08:17 08/13/24 08:17 Imaging Radiology Impressions: ITS Impressions Head CT 09/01/24 14:51 IMPRESSION: Unremarkable unenhanced head CT. Electronically signed by: Davide Chen MD 09/01/2024 03:41 PM [facility] Medications Medications Current Medications Acetaminophen (Acetaminophen 325 Mg Tablet) 650 mg PO Q6H PRN PRN Reason: Headache/Pain Mild Scale (1-3) Last Admin: 09/05/24 12:13 Dose: 650 mg Al Hydroxide/Mg Hydroxide (Magnesium Hydrox/Alum Hydrox 30 Ml Oral.Susp) 30 ml PO Q6H PRN PRN Reason: Heartburn/Nausea Last Admin: 09/05/24 22:40 Dose: 30 ml Artificial Tears (Artificial Tears 15 Ml Drops) 1 drop EYE-BOTH Q4H PRN PRN Reason: Dry Eyes Last Admin: 08/02/24 16:09 Dose: 1 drop Atenolol (Atenolol 25 Mg Tablet) 25 mg PO DAILY [facility]; Protocol Last Admin: 09/06/24 08:18 Dose: 25 mg Atorvastatin Calcium (Atorvastatin Calcium 40 Mg Tablet) 40 mg PO BEDTIME [facility] Last Admin: 09/05/24 21:11 Dose: 40 mg Carbamazepine (Carbamazepine Er 200 Mg Tab.Er.12h) 400 mg PO BID [facility] Last Admin: 09/06/24 08:17 Dose: 400 mg Clomipramine HCl (Clomipramine Hcl 25 Mg Capsule) 100 mg PO BEDTIME [facility] Last Admin: 09/05/24 21:10 Dose: 100 mg Clomipramine HCl (Clomipramine Hcl 25 Mg Capsule) 25 mg PO DAILY [facility] Last Admin: 09/06/24 08:18 Dose: 25 mg Clonazepam (Clonazepam 0.5 Mg Tablet) 0.5 mg PO TID PRN PRN Reason: anxiety/restlessness Docusate Sodium (Docusate Sodium 100 Mg Capsule) 100 mg PO TID [facility] Last Admin: 09/06/24 08:18 Dose: 100 mg Ezetimibe (Ezetimibe 10 Mg Tablet) 10 mg PO DAILY [facility] Last Admin: 09/06/24 08:17 Dose: 10 mg Escitalopram Oxalate (Escitalopram Oxalate 10 Mg Tablet) 10 mg PO DAILY [facility] Last Admin: 09/06/24 08:18 Dose: 10 mg Fluticasone Propionate (Fluticasone Propionate Nasal 16 Gm [place]) 1 spray NOSTRIL-B DAILY [facility] Last Admin: 09/06/24 08:19 Dose: 1 spray Gemfibrozil (Gemfibrozil 600 Mg Tablet) 600 mg PO BID [facility] Last Admin: 09/06/24 08:18 Dose: 600 mg Hydroxyzine HCl (Hydroxyzine Hcl 25 Mg Tablet) 25 mg PO Q6H PRN PRN Reason: Anxiety Last Admin: 09/02/24 21:22 Dose: 25 mg Loratadine (Loratadine 10 Mg Tablet) 10 mg PO DAILY [facility] Last Admin: 09/06/24 08:18 Dose: 10 mg Lurasidone HCl (Lurasidone Hcl 40 Mg Tablet) 40 mg PO DAILY@1700 [facility] Last Admin: 09/05/24 18:04 Dose: 40 mg Magnesium Hydroxide (Milk Of Magnesia 30 Ml Oral.Susp) 30 ml PO DAILY PRN PRN Reason: Constipation Multi-Ingred Cream/Lotion/Oil/Oint (Mineral Oil/Petrolatum,White 106 Gm Tube) 1 appl TOPICAL TID PRN; Protocol PRN Reason: dry skin Nicotine Polacrilex (Nicotine Polacrilex 2 Mg Gum) 4 mg BUCCAL Q2H PRN PRN Reason: Nicotine Cravings Omeprazole (Omeprazole 40 Mg Capsule.Dr) 40 mg PO DAILY@0630 [facility] Last Admin: 09/06/24 07:45 Dose: 40 mg Risperidone (Risperidone 0.5 Mg Tablet) 0.5 mg PO TID PRN PRN Reason: Hallucinations Last Admin: 09/05/24 15:07 Dose: 0.5 mg Risperidone (Risperidone 3 Mg Tablet) 6 mg PO BEDTIME [facility] Last Admin: 09/05/24 21:10 Dose: 6 mg Senna (Sennosides 8.6 Mg Tablet) 8.6 mg PO BID [facility] Last Admin: 09/06/24 08:17 Dose: 8.6 mg Trazodone HCl (Trazodone Hcl 50 Mg Tablet) 50 mg PO BEDTIME MRX1 PRN PRN Reason: Insomnia Last Admin: 08/26/24 00:02 Dose: 50 mg Trazodone HCl (Trazodone Hcl 100 Mg Tablet) 100 mg PO BEDTIME [facility] Last Admin: 09/05/24 21:11 Dose: 100 mg Allergies Allergies Allergy/AdvReac Type Severity Reaction Status Date / Time ondansetron [From Zofran] Allergy Unknown Verified 07/28/24 22:30 Penicillins Allergy Unknown Verified 07/28/24 22:30 potassium Allergy Unknown Verified 07/28/24 22:30 prochlorperazine Allergy Unknown Verified 07/28/24 22:30 Assessment & Plan Assessment & Plan (1) Schizoaffective disorder, bipolar type: Status: Acute Code(s): F25.0 - Schizoaffective disorder, bipolar type (2) Autism spectrum disorder: Status: Acute Code(s): F84.0 - Autistic disorder (3) Intellectual disability: Status: Acute Code(s): F79 - Unspecified intellectual disabilities (4) Aarskog syndrome: Status: Acute Code(s): Q87.19 - Other congenital malformation syndromes predominantly associated with short stature Plan Patient is a 34-year-old male with severe ASD, intellectual disability, schizoaffective disorder with, history of behavioral outbursts, who resides at a S residential facility and who presents from external ED for what junior programmer reports is decompensation following discharge from [facility] admission about 4 weeks ago. assurance senior manager insurance reports patient has increased anxiety, paranoia and visual hallucinations as well as increased agitation related to AVH, which has resulted in the need for physical restraints. Patient with limited ability to participate in interview. Patient cooperative and calm. He says he misses his mother. He said I am feeling better... And then that he was going to lay down. He said he wanted to be in the hospital until he feels better... But could not discuss his feelings or what that would mean. Denies any SI or HI and says he is feeling safe. Patient does endorse auditory hallucinations which he he says bothers him, however when asked to discuss them further or what they say, he says I do not know and regarding medication that there is nothing to help... For the remainder of the day, patient sometimes in his room, sometimes in the hallway saying he wanted to call his mother or father, saying he misses them and wants to go home. Formulation/clinical reasoning: Patient has diagnosis of schizoaffective disorder, not sure if he actually has manic episodes and according to collateral, patient has not demonstrated psychotic symptoms until this fall. Still he has been on antipsychotics for years. -Guardian paperwork in chart; parents are guardians -No HCP - [place] Diagnosis: -Says diagnosis is schizoaffective, bipolar type however she has no knowledge of any discrete manic episodes; he has some history of depressive episodes -Does not blink: Supposed to be on Restasis/cyclosporine ophthalmic; not sure dose; discussed with pharmacist who reports typically this is 0.05% solution 1 drop b.i.d. (other places say 0.1%) -Aarkskog syndrome -ASD -OCD -has chronic extremely dry skin (eczema?) for which he has some medicated cream; mother not sure the name -Said there was a plan to get MRI of the brain since change seemed somewhat sudden Hospital course: 07/30 Patient remains fearful; can be friendly and cooperative but seems very anxious and cautious. Visual hallucinations patient saying he can see his mother in the room and talking to her Still not going into bathroom, with recent history of being afraid of bathroom; thus patient Incontinent of urine, sitting in wet clothes and refusing to change today, willing to sign CV reiterating he wants to be here for treatment ( to feel better ) -left VM for outpatient provider Nat Lee to discuss tx hx 07/31 patient remains cautious and intermittently fearful but is also warming up a bit to some staff, primarily female staff. He says he is feeling better but behaviors remain decompensated. Willing to change out of clothes today with staff encouragement and have them washed; also talked to his mother on the phone today which he said made him happy. Patient willing to use lotion for try facial skin Collateral:Business Specialist discussed case with patient's mother who reports that behaviors decompensated this April after he returned from vacation with his father. At that time he started packing up his stuff, saying he wanted to move out of the longterm; was taking lots of showers, self dialogue Ng, saying he could see his mother in the room, saying he thought his mother was and refusing to talk to her on the phone. For those reasons This past May he went to [facility] where he was started on Vraylar (and refused to take Latuda). He returned to the longterm but remained confused, disorganized, paranoid. At 1 point he would not leave the living room at all, incontinent, afraid to go into the bathroom or to shower which resulted in this hospitalization. Some history of aggression for which he was hospitalized a year ago; only mild aggression in longterm this time around. -left another message with admin secretary for Nat Lee 08/01 mostly same presentation, continued AH which are bothersome; more comfortable with staff and allowing them to help him attending ADLs including bathing. -proposal writer did get a call back from Nat Lee; proposal writer return call and left message 08/02 Patient continues to say I am feeling much better however this does not seem to correlate with any improvement in symptoms as he continues to have AH, is afraid of his room, incontinent of urine because afraid of going to the bathroom and continually saying that he sees his mother in his room. Patient does not respond much to reality testing. He does say he would like other medications to help make the voices go away. -given discussion below, will DC Vraylar since no clear indication of bipolar depression; already on 3 antipsychotics and does not seem effective. Instead will try Risperdal. -will start to try to eliminate pharmacy; need to find out what medication regimen patient was on this past summer during which time he was doing well Collateral: Again discussed case with patient's mother. -She reports he was doing great this past summer; not sure what his medication regimen was at that time -says was on Tegretol for years; for some reason [facility] took him off of it (was restarted at this hospitalization) -says was on clomipramine for OCD since 7 years old and did well on it; not sure why he was taken off a year ago -to her knowledge Latuda was supposed to be discontinued since he was never really taking it; Vraylar was also started at [facility] which has not seemed to help. -Has been on Zyprexa for a while; not sure efficacy --drools consistently at baseline; she said she has asked in the past for medication for this 08/03 Patient reports that he is feeling a lot better which is what he says to proposal writer every day. He denies any AH. Also says he has not been seeing his mother. Difficult to tell if this is the case or not so will continue to monitor. Patient did ask for a stuffed animal or something about a stuffed animal but it was not clear. -briefly spoke with outpatient provider Huma who said she was 1 who started him on Vraylar -continue with Risperdal 08/04 No change in presentation; still disorganized, fearful, incontinent, hardly moving from room. Not sleeping at night but will tell proposal writer I slept very good... . Continues to say the same refrain I feel a lot better... 08/05 meeting with outpt team stable on Tegretol and latuda for years until sudden decompensation this fall at which time pt presented with same symptoms he has currently. Prior to this stable and functional in many ways, all ADL's, organized and quite capable; no psychosis; read/write/send emails 08/06 no change in presentation and pt remains disorganized, sitting in own defecate; has AH. Hardly sleeping at night. sitting in one spot for most of the day. -intermittently refusing medications -pt refusing labs -feet are both swollen; hospitalist examined -infection on both side of bridge of nose where glasses sit on nose; pt allowed antibiotic ointment to be applied History that patient was stable on Tegretol and Latuda for at least a year; Latuda was lowered in the springtime to 40 mg, down from 60 since patient said was making him tired. He remained stable until this fall when he suddenly decompensated, unable to accept reality, incontinent, afraid of multiple things, thinking his mom's , forgetting people are Medication: pt was stable on Tegretol and Latuda for years until this fall -for now, will continue on Tegretol and Latuda -kaylee'd alexander -started risperdal and increased to 4mg, scheduled it at bedtime to help w/ sleep -consider CT scan brain given sudden onset of symptoms, though was several months ago at this point 08/10 Still no change in presentation; refusing eyedrops. Remains scared to go out of his room. Did allow for bacitracin and sores on bilateral bridge of his nose are better.08/10 Still no change in presentation; refusing eyedrops. Remains scared to go out of his room. Did allow for bacitracin and sores on bilateral bridge of his nose are better. 08/11 Again no change in presentation; refusing labs. Will continue to retry before forcing them. Will try to get head CT. Continues to refuse eyedrops. Will give a little longer on Risperdal 4 mg 08/12 increased Risperdal to 6 mg 08/13 1st day of actual improvement in that patient allowed lab work. That said, he also threw mattress/belongings into the hallway, talking about a 90 yo neighbor he wants to -labs WNL -refused head CT; since he allowed labs, still will try to see if he will comply with head CT hoping to avoid the trauma of forcing him 08/14 Patient out in the milieu today, 1st time in over a week. Furthermore Patient actually using the bathroom today on his own, with significant encouragement from staff and a verbal plan; throughout the day patient was able to get himself to the bathroom rather than remain incontinent and inside close, which he has continually done since admission. Patient also seems more cheerful. -Again refused head CT but since getting better, will hold off from this for now -continue with increased Risperdal dose of 6 mg 08/17 remains somewhat improved. Patient pleasant and out in the milieu. Throughout the weekend he has been using the bathroom and not been incontinent which christie consistent improvement since admission. Also allowing staff to help him brush his teeth. Patient is normally, when at baseline, able to do all these things on his own, maybe with some prompting but independently. -will continue with current regimen for now as patient continues to improve -will continue to keep in mind that patient has a history of OCD and that he may benefit and improve from restarting clomipramine; however as psychosis and disorganized behavior is the main concern will continue to focus treatment in this area now 08/18 continues current tx plan for now; will consider increasing Risperdal though already at 6mg. 08/21 Patient remains doing better. Still not dressing himself or taking a shower but seems to be doing more more ADLs. Denies any AH. -at this time, proposal writer hesitates to make any changes as patient has been slowly but steadily improving. 08/22: Continue current regime and plan of care. Pt appears improved. 08/24 Overall remains doing better. Attending to most ADLs except for showering. He says he is afraid to shower here and that he will shower at his own house. Patient sleeping through the night. Still Refusing head CT saying that he is better now. Business Specialist discussed with patient adding clomipramine back to his medication regimen with which he agrees and which was encouraged by his mother 08/25 same presentation and denies psychiatric symptoms. He did however put all of his belongings into the [place] again but with no explanation. Patient saying that he will be seeing his mother today who is coming to visit however this is not true; this remains improvement however from when he was saying he can see his mother in his bedroom 08/26/2024 same presentation; took clomipramine last night; will keep it same dose and only slowly titrate as patient has been doing better overall do not want to make any quick changes; patient not able to have informative discussion about OCD symptoms however per his mother, patient did much better on clomipramine 08/28 Patient intermittently talking about seeing his mother father or Mrs Pierre in his room which he has not done for over a week; however he continues to independently due number was ADLs. He asked about returning home. Lisseth came to see patient today and reports that he is definitely heading towards his baseline though not there yet, as he is not bathing himself and still has some psychotic symptoms. Business Specialist spoke with his mother today about labs (elevated hemoglobin A1c; she says this happens to him with antipsychotics), head CT; she agreed with proposal writer's reasoning for holding off on the head CT for now, not wanting to traumatize patient and risk regression from progress made, since he has been refusing it. However proposal writer also agrees that that it is worthwhile to get and will do so -will increase clomipramine to 50 mg; his mother is adamant that this was very helpful to him and proposal writer agrees it may help patient progress further as he may be struggling with OCD symptoms that he is not able to articulate 08/30/2024: Continue current treatment plan 08/31 patient had an Epiphany today. With staff's help, it was revealed that the dust on patient's window did have the shape of a person's head and face which patient was referring to as Mrs. Lawton, an old acquaintance. Staff cleaned this off and the outline of the face was removed and with this, patient very clearly said he no longer sees Mrs. Lawton in the room; this remained a consistent understanding. Patient remains very ambivalent and anxious about getting a head CT; he was afraid to leave the the unit; Ativan was given however patient ultimately refused to go down and proposal writer agreed to try again tomorrow 09/01 Patient seems happier today and playfully bouncing around the milieu. Today he actually agreed to get his head CT which was completed! No mentioned of seeing Mrs. Lawton in his room. -increasing clomipramine to 75 mg; will continue to titrate -Head CT reviewed and Negative: -will consider switching Risperdal to long-acting 09/01 CT/CT head/brain wo IV con IMPRESSION: Unremarkable unenhanced head CT. 09/02 pt doing better; showered today!! And went to group proposal writer Talked with mom and discussed tx plan; she feels he is doing better and getting close to discharge. Pt is not drooling very much any more. -during discussion proposal writer and mother decided against starting patient on long- acting injectable at this time and will leave that to outpatient provider 09/04 continue treatment plan; patient remains much improved 09/05 Patient said that he has has allergies; took allergy medication which he said is a little helpful. Otherwise remains stable. Continues to attend to ADLs, social in the milieu, no psychotic symptoms expressed and says is looking forward to returning to longterm. -of note, patient consistently refused artificial tears which was thus eventually discontinued; however proposal writer noticed that patient is blinking PLAN: CV *guardians have authorized proposal writer, staff to administer any/all medical treatments even if against patients will q15 min checks Added clomipramine 25 mg daily Continue clomipramine 100 mg qhs for OCD (on this at home: clomipramine 100 mg b.i.d Continue with Risperdal 6 mg qhs -Add Risperdal 0.5 mg t.i.d. p.r.n. for breakthrough AVH -for now, Continue Latuda 40 mg daily at dinnertime (used to be on 60mg) -Continue Tegretol 400mg BID (was stable on this in past) -DC Vraylar 3 mg; this was started by outpatient provider; does not seem to have helped much and no clear indication for bipolar depression (also patient already on 3 antipsychotics) -DC'd Zyprexa: has caused DM/elevated Cholesterol/wt gain -temporarily Start artificial tears; refusing -Will get prescription for Restasis/cyclosporin -consider restarting clomipramine for OCD ( clomipramine 100 mg b.i.d. for OCD in the past around 2014; for some reason it was dc'd at some point; restarted 2022 but not continued after that). -consider glycopyrrolate for excessive drooling -will consider getting MRI, however patient's symptoms are congruent with diagnosis Patient educated on: diagnosis Informed Consent: understands and further education needed Reason for continued inpatient stay Substantial Risk for: stable for discharge Time Spent With Patient Time: Total time managing care of this patient today ____ minutes.
[2024-09-06] MEDS: Lurasidone HCl 40 MG TABLET PO (17:29)
[2024-09-06 20:00] VITALS: BP 105/75; PULSE 75; RESP 15; TEMP 36.8; O2SAT 98
[2024-09-06] MEDS: clomiPRAMINE HCl 25 MG CAPSULE 100 MG PO (20:33)
[2024-09-06] MEDS: Atorvastatin Calcium 40 MG TABLET PO (20:34)
[2024-09-06] MEDS: risperiDONE 3 MG TABLET 6 MG PO (20:34)
[2024-09-06] MEDS: traZODone HCL 100 MG TABLET PO (20:34)
[2024-09-07] MEDS: Omeprazole 40 MG CAPSULE.DR PO (06:52)
[2024-09-07 09:02] VITALS: BP 119/65; PULSE 75; RESP 16; TEMP 36.2; O2SAT 100
[2024-09-07] MEDS: Docusate Sodium 100 MG CAPSULE PO ×3 (09:04→20:47)
[2024-09-07] MEDS: Escitalopram Oxalate 10 MG TABLET PO (09:04)
[2024-09-07] MEDS: gemfibroziL 600 MG TABLET PO ×2 (09:05→20:47)
[2024-09-07] MEDS: Sennosides 8.6 MG TABLET PO ×2 (09:05→20:46)
[2024-09-07] MEDS: clomiPRAMINE HCl 25 MG CAPSULE PO (09:05)
[2024-09-07] MEDS: Ezetimibe 10 MG TABLET PO (09:05)
[2024-09-07] MEDS: carBAMazepine ER 200 MG TAB.ER.12H 400 MG PO ×2 (09:05→20:46)
[2024-09-07] MEDS: atenoloL 25 MG TABLET PO (09:05)
[2024-09-07] MEDS: Loratadine 10 MG TABLET PO (09:06)
[2024-09-07] MEDS: Fluticasone Propionate Nasal 16 GM SPRAY 1 SPRAY NOSTRIL-B (09:33)
[2024-09-07] MEDS: Lurasidone HCl 40 MG TABLET PO (17:50)
--- NOTE | 2024-09-07 18:47 | HO.PSYCHPN ---
Subjective Subjective Date of Service: 09/07/24 Reason For Visit: Schioafective disorder bipolar type Interim History: Met with patient; discussed with team No change in presentation and patient remains calm, cooperative, friendly, attending to ADLs. Denies psych symptoms. Again asking about discharge and pleased to know it will be tomorrow. Mental Status Exam Mental Status Exam Narrative: Pt is alert and oriented; behavior is organized and cooperative, calm and friendly; attending to ADLs independently; patient is not in distress; dressed in casual shirt and hospital pants; adequate hygiene; mood is described as i feel a lot better and affect congruent, bright, calm; eye contact appropriate; Speech remains a little garbled which is baseline; normal rate, volume; uses few words; not pressured; no psychomotor agitation/retardation present; thought process is concrete, goal directed, asks for needs; Thought content is very concrete and remains on seeing his mother and father and returning to senior care. No SI/HI. Denies AH. Patients insight and judgment impaired but at baseline and adequate. Diagnostics Vital Signs (24Hr): Vital Signs - 24 hr 09/06/24 20:00 09/07/24 09:02 Temperature 98.3 F 97.2 F Pulse Rate 75 75 Respiratory Rate 15 16 Blood Pressure 105/75 119/65 Pulse Oximetry 98 100 Oxygen Delivery Method Room Air BMI result Body Mass Index 31.4 Labs 08/13/24 08:17 08/13/24 08:17 Imaging Radiology Impressions: ITS Impressions Head CT 09/01/24 14:51 IMPRESSION: Unremarkable unenhanced head CT. Electronically signed by: Davide Chen MD 09/01/2024 03:41 PM [facility] Medications Medications Current Medications Acetaminophen (Acetaminophen 325 Mg Tablet) 650 mg PO Q6H PRN PRN Reason: Headache/Pain Mild Scale (1-3) Last Admin: 09/05/24 12:13 Dose: 650 mg Al Hydroxide/Mg Hydroxide (Magnesium Hydrox/Alum Hydrox 30 Ml Oral.Susp) 30 ml PO Q6H PRN PRN Reason: Heartburn/Nausea Last Admin: 09/05/24 22:40 Dose: 30 ml Artificial Tears (Artificial Tears 15 Ml Drops) 1 drop EYE-BOTH Q4H PRN PRN Reason: Dry Eyes Last Admin: 08/02/24 16:09 Dose: 1 drop Atenolol (Atenolol 25 Mg Tablet) 25 mg PO DAILY [facility]; Protocol Last Admin: 09/07/24 09:05 Dose: 25 mg Atorvastatin Calcium (Atorvastatin Calcium 40 Mg Tablet) 40 mg PO BEDTIME [facility] Last Admin: 09/06/24 20:34 Dose: 40 mg Carbamazepine (Carbamazepine Er 200 Mg Tab.Er.12h) 400 mg PO BID [facility] Last Admin: 09/07/24 09:05 Dose: 400 mg Clomipramine HCl (Clomipramine Hcl 25 Mg Capsule) 100 mg PO BEDTIME [facility] Last Admin: 09/06/24 20:33 Dose: 100 mg Clomipramine HCl (Clomipramine Hcl 25 Mg Capsule) 25 mg PO DAILY [facility] Last Admin: 09/07/24 09:05 Dose: 25 mg Clonazepam (Clonazepam 0.5 Mg Tablet) 0.5 mg PO TID PRN PRN Reason: anxiety/restlessness Last Admin: 09/06/24 20:34 Dose: 0.5 mg Docusate Sodium (Docusate Sodium 100 Mg Capsule) 100 mg PO TID [facility] Last Admin: 09/07/24 15:11 Dose: 100 mg Ezetimibe (Ezetimibe 10 Mg Tablet) 10 mg PO DAILY [facility] Last Admin: 09/07/24 09:05 Dose: 10 mg Escitalopram Oxalate (Escitalopram Oxalate 10 Mg Tablet) 10 mg PO DAILY [facility] Last Admin: 09/07/24 09:04 Dose: 10 mg Fluticasone Propionate (Fluticasone Propionate Nasal 16 Gm [place]) 1 spray NOSTRIL-B DAILY [facility] Last Admin: 09/07/24 09:33 Dose: 1 spray Gemfibrozil (Gemfibrozil 600 Mg Tablet) 600 mg PO BID [facility] Last Admin: 09/07/24 09:05 Dose: 600 mg Hydroxyzine HCl (Hydroxyzine Hcl 25 Mg Tablet) 25 mg PO Q6H PRN PRN Reason: Anxiety Last Admin: 09/02/24 21:22 Dose: 25 mg Loratadine (Loratadine 10 Mg Tablet) 10 mg PO DAILY [facility] Last Admin: 09/07/24 09:06 Dose: 10 mg Lurasidone HCl (Lurasidone Hcl 40 Mg Tablet) 40 mg PO DAILY@1700 [facility] Last Admin: 09/07/24 17:50 Dose: 40 mg Magnesium Hydroxide (Milk Of Magnesia 30 Ml Oral.Susp) 30 ml PO DAILY PRN PRN Reason: Constipation Multi-Ingred Cream/Lotion/Oil/Oint (Mineral Oil/Petrolatum,White 106 Gm Tube) 1 appl TOPICAL TID PRN; Protocol PRN Reason: dry skin Nicotine Polacrilex (Nicotine Polacrilex 2 Mg Gum) 4 mg BUCCAL Q2H PRN PRN Reason: Nicotine Cravings Omeprazole (Omeprazole 40 Mg Capsule.Dr) 40 mg PO DAILY@0630 [facility] Last Admin: 09/07/24 06:52 Dose: 40 mg Risperidone (Risperidone 0.5 Mg Tablet) 0.5 mg PO TID PRN PRN Reason: Hallucinations Last Admin: 09/05/24 15:07 Dose: 0.5 mg Risperidone (Risperidone 3 Mg Tablet) 6 mg PO BEDTIME [facility] Last Admin: 09/06/24 20:34 Dose: 6 mg Senna (Sennosides 8.6 Mg Tablet) 8.6 mg PO BID [facility] Last Admin: 09/07/24 09:05 Dose: 8.6 mg Trazodone HCl (Trazodone Hcl 50 Mg Tablet) 50 mg PO BEDTIME MRX1 PRN PRN Reason: Insomnia Last Admin: 08/26/24 00:02 Dose: 50 mg Trazodone HCl (Trazodone Hcl 100 Mg Tablet) 100 mg PO BEDTIME [facility] Last Admin: 09/06/24 20:34 Dose: 100 mg Allergies Allergies Allergy/AdvReac Type Severity Reaction Status Date / Time ondansetron [From Zofran] Allergy Unknown Verified 07/28/24 22:30 Penicillins Allergy Unknown Verified 07/28/24 22:30 potassium Allergy Unknown Verified 07/28/24 22:30 prochlorperazine Allergy Unknown Verified 07/28/24 22:30 Assessment & Plan Assessment & Plan (1) Schizoaffective disorder, bipolar type: Status: Acute Code(s): F25.0 - Schizoaffective disorder, bipolar type (2) Autism spectrum disorder: Status: Acute Code(s): F84.0 - Autistic disorder (3) Intellectual disability: Status: Acute Code(s): F79 - Unspecified intellectual disabilities (4) Aarskog syndrome: Status: Acute Code(s): Q87.19 - Other congenital malformation syndromes predominantly associated with short stature Plan Patient is a 34-year-old male with severe ASD, intellectual disability, schizoaffective disorder with, history of behavioral outbursts, who resides at a S residential facility and who presents from external ED for what residency program coordinator reports is decompensation following discharge from [facility] admission about 4 weeks ago. teller manager reports patient has increased anxiety, paranoia and visual hallucinations as well as increased agitation related to AVH, which has resulted in the need for physical restraints. Patient with limited ability to participate in interview. Patient cooperative and calm. He says he misses his mother. He said I am feeling better... And then that he was going to lay down. He said he wanted to be in the hospital until he feels better... But could not discuss his feelings or what that would mean. Denies any SI or HI and says he is feeling safe. Patient does endorse auditory hallucinations which he he says bothers him, however when asked to discuss them further or what they say, he says I do not know and regarding medication that there is nothing to help... For the remainder of the day, patient sometimes in his room, sometimes in the hallway saying he wanted to call his mother or father, saying he misses them and wants to go home. Formulation/clinical reasoning: Patient has diagnosis of schizoaffective disorder, not sure if he actually has manic episodes and according to collateral, patient has not demonstrated psychotic symptoms until this fall. Still he has been on antipsychotics for years. -Guardian paperwork in chart; parents are guardians -No HCP - [place] Diagnosis: -Says diagnosis is schizoaffective, bipolar type however she has no knowledge of any discrete manic episodes; he has some history of depressive episodes -Does not blink: Supposed to be on Restasis/cyclosporine ophthalmic; not sure dose; discussed with pharmacist who reports typically this is 0.05% solution 1 drop b.i.d. (other places say 0.1%) -Aarkskog syndrome -ASD -OCD -has chronic extremely dry skin (eczema?) for which he has some medicated cream; mother not sure the name -Said there was a plan to get MRI of the brain since change seemed somewhat sudden Hospital course: 07/30 Patient remains fearful; can be friendly and cooperative but seems very anxious and cautious. Visual hallucinations patient saying he can see his mother in the room and talking to her Still not going into bathroom, with recent history of being afraid of bathroom; thus patient Incontinent of urine, sitting in wet clothes and refusing to change today, willing to sign CV reiterating he wants to be here for treatment ( to feel better ) -left VM for outpatient provider Nat Lee to discuss tx hx 07/31 patient remains cautious and intermittently fearful but is also warming up a bit to some staff, primarily female staff. He says he is feeling better but behaviors remain decompensated. Willing to change out of clothes today with staff encouragement and have them washed; also talked to his mother on the phone today which he said made him happy. Patient willing to use lotion for try facial skin Collateral:Rn Invasive discussed case with patient's mother who reports that behaviors decompensated this April after he returned from vacation with his father. At that time he started packing up his stuff, saying he wanted to move out of the senior care; was taking lots of showers, self dialogue Ng, saying he could see his mother in the room, saying he thought his mother was and refusing to talk to her on the phone. For those reasons This past May he went to [facility] where he was started on Vraylar (and refused to take Latuda). He returned to the senior care but remained confused, disorganized, paranoid. At 1 point he would not leave the living room at all, incontinent, afraid to go into the bathroom or to shower which resulted in this hospitalization. Some history of aggression for which he was hospitalized a year ago; only mild aggression in senior care this time around. -left another message with campus manager for Nat Lee 08/01 mostly same presentation, continued AH which are bothersome; more comfortable with staff and allowing them to help him attending ADLs including bathing. -sports writer did get a call back from Nat Lee; sports writer return call and left message 08/02 Patient continues to say I am feeling much better however this does not seem to correlate with any improvement in symptoms as he continues to have AH, is afraid of his room, incontinent of urine because afraid of going to the bathroom and continually saying that he sees his mother in his room. Patient does not respond much to reality testing. He does say he would like other medications to help make the voices go away. -given discussion below, will DC Vraylar since no clear indication of bipolar depression; already on 3 antipsychotics and does not seem effective. Instead will try Risperdal. -will start to try to eliminate pharmacy; need to find out what medication regimen patient was on this past summer during which time he was doing well Collateral: Again discussed case with patient's mother. -She reports he was doing great this past summer; not sure what his medication regimen was at that time -says was on Tegretol for years; for some reason [facility] took him off of it (was restarted at this hospitalization) -says was on clomipramine for OCD since 7 years old and did well on it; not sure why he was taken off a year ago -to her knowledge Latuda was supposed to be discontinued since he was never really taking it; Vraylar was also started at [facility] which has not seemed to help. -Has been on Zyprexa for a while; not sure efficacy --drools consistently at baseline; she said she has asked in the past for medication for this 08/03 Patient reports that he is feeling a lot better which is what he says to sports writer every day. He denies any AH. Also says he has not been seeing his mother. Difficult to tell if this is the case or not so will continue to monitor. Patient did ask for a stuffed animal or something about a stuffed animal but it was not clear. -briefly spoke with outpatient provider Huma who said she was 1 who started him on Vraylar -continue with Risperdal 08/04 No change in presentation; still disorganized, fearful, incontinent, hardly moving from room. Not sleeping at night but will tell sports writer I slept very good... . Continues to say the same refrain I feel a lot better... 08/05 meeting with outpt team stable on Tegretol and latuda for years until sudden decompensation this fall at which time pt presented with same symptoms he has currently. Prior to this stable and functional in many ways, all ADL's, organized and quite capable; no psychosis; read/write/send emails 08/06 no change in presentation and pt remains disorganized, sitting in own defecate; has AH. Hardly sleeping at night. sitting in one spot for most of the day. -intermittently refusing medications -pt refusing labs -feet are both swollen; hospitalist examined -infection on both side of bridge of nose where glasses sit on nose; pt allowed antibiotic ointment to be applied History that patient was stable on Tegretol and Latuda for at least a year; Latuda was lowered in the springtime to 40 mg, down from 60 since patient said was making him tired. He remained stable until this fall when he suddenly decompensated, unable to accept reality, incontinent, afraid of multiple things, thinking his mom's , forgetting people are Medication: pt was stable on Tegretol and Latuda for years until this fall -for now, will continue on Tegretol and Latuda -dc'd alexander -started risperdal and increased to 4mg, scheduled it at bedtime to help w/ sleep -consider CT scan brain given sudden onset of symptoms, though was several months ago at this point 08/10 Still no change in presentation; refusing eyedrops. Remains scared to go out of his room. Did allow for bacitracin and sores on bilateral bridge of his nose are better.08/10 Still no change in presentation; refusing eyedrops. Remains scared to go out of his room. Did allow for bacitracin and sores on bilateral bridge of his nose are better. 08/11 Again no change in presentation; refusing labs. Will continue to retry before forcing them. Will try to get head CT. Continues to refuse eyedrops. Will give a little longer on Risperdal 4 mg 08/12 increased Risperdal to 6 mg 08/13 day of actual improvement in that patient allowed lab work. That said, he also threw mattress/belongings into the hallway, talking about a 90 yo neighbor he wants to -labs WNL -refused head CT; since he allowed labs, still will try to see if he will comply with head CT hoping to avoid the trauma of forcing him 08/14 Patient out in the milieu today, 1st time in over a week. Furthermore Patient actually using the bathroom today on his own, with significant encouragement from staff and a verbal plan; throughout the day patient was able to get himself to the bathroom rather than remain incontinent and inside close, which he has continually done since admission. Patient also seems more cheerful. -Again refused head CT but since getting better, will hold off from this for now -continue with increased Risperdal dose of 6 mg 08/17 remains somewhat improved. Patient pleasant and out in the milieu. Throughout the weekend he has been using the bathroom and not been incontinent which christie consistent improvement since admission. Also allowing staff to help him brush his teeth. Patient is normally, when at baseline, able to do all these things on his own, maybe with some prompting but independently. -will continue with current regimen for now as patient continues to improve -will continue to keep in mind that patient has a history of OCD and that he may benefit and improve from restarting clomipramine; however as psychosis and disorganized behavior is the main concern will continue to focus treatment in this area now 08/18 continues current tx plan for now; will consider increasing Risperdal though already at 6mg. 08/21 Patient remains doing better. Still not dressing himself or taking a shower but seems to be doing more more ADLs. Denies any AH. -at this time, sports writer hesitates to make any changes as patient has been slowly but steadily improving. 08/22: Continue current regime and plan of care. Pt appears improved. 08/24 Overall remains doing better. Attending to most ADLs except for showering. He says he is afraid to shower here and that he will shower at his own house. Patient sleeping through the night. Still Refusing head CT saying that he is better now. Rn Invasive discussed with patient adding clomipramine back to his medication regimen with which he agrees and which was encouraged by his mother 08/25 same presentation and denies psychiatric symptoms. He did however put all of his belongings into the [place] again but with no explanation. Patient saying that he will be seeing his mother today who is coming to visit however this is not true; this remains improvement however from when he was saying he can see his mother in his bedroom 08/26/2024 same presentation; took clomipramine last night; will keep it same dose and only slowly titrate as patient has been doing better overall do not want to make any quick changes; patient not able to have informative discussion about OCD symptoms however per his mother, patient did much better on clomipramine 08/28 Patient intermittently talking about seeing his mother father or Mrs Pierre in his room which he has not done for over a week; however he continues to independently due number was ADLs. He asked about returning home. Lisseth came to see patient today and reports that he is definitely heading towards his baseline though not there yet, as he is not bathing himself and still has some psychotic symptoms. Rn Invasive spoke with his mother today about labs (elevated hemoglobin A1c; she says this happens to him with antipsychotics), head CT; she agreed with sports writer's reasoning for holding off on the head CT for now, not wanting to traumatize patient and risk regression from progress made, since he has been refusing it. However sports writer also agrees that that it is worthwhile to get and will do so -will increase clomipramine to 50 mg; his mother is adamant that this was very helpful to him and sports writer agrees it may help patient progress further as he may be struggling with OCD symptoms that he is not able to articulate 08/30/2024: Continue current treatment plan 08/31 patient had an Epiphany today. With staff's help, it was revealed that the dust on patient's window did have the shape of a person's head and face which patient was referring to as Mrs. Lawton, an old acquaintance. Staff cleaned this off and the outline of the face was removed and with this, patient very clearly said he no longer sees Mrs. Lawton in the room; this remained a consistent understanding. Patient remains very ambivalent and anxious about getting a head CT; he was afraid to leave the the unit; Ativan was given however patient ultimately refused to go down and sports writer agreed to try again tomorrow 09/01 Patient seems happier today and playfully bouncing around the milieu. Today he actually agreed to get his head CT which was completed! No mentioned of seeing Mrs. Lawton in his room. -increasing clomipramine to 75 mg; will continue to titrate -Head CT reviewed and Negative: -will consider switching Risperdal to long-acting 09/01 CT/CT head/brain wo IV con IMPRESSION: Unremarkable unenhanced head CT. 1/8 pt doing better; showered today!! And went to group sports writer Talked with mom and discussed tx plan; she feels he is doing better and getting close to discharge. Pt is not drooling very much any more. -during discussion sports writer and mother decided against starting patient on long-acting injectable at this time and will leave that to outpatient provider 09/04 continue treatment plan; patient remains much improved 09/05 Patient said that he has has allergies; took allergy medication which he said is a little helpful. Otherwise remains stable. Continues to attend to ADLs, social in the milieu, no psychotic symptoms expressed and says is looking forward to returning to senior care. -of note, patient consistently refused artificial tears which was thus eventually discontinued; however sports writer noticed that patient is blinking 09/07 No change in presentation and patient remains calm, cooperative, friendly, attending to ADLs. Denies psych symptoms. Again asking about discharge and pleased to know it will be tomorrow. PLAN: CV *guardians have authorized sports writer, staff to administer any/all medical treatments even if against patients will q15 min checks Added clomipramine 25 mg daily Continue clomipramine 100 mg qhs for OCD (on this at home: clomipramine 100 mg b.i.d Continue with Risperdal 6 mg qhs -Add Risperdal 0.5 mg t.i.d. p.r.n. for breakthrough AVH -for now, Continue Latuda 40 mg daily at dinnertime (used to be on 60mg) -Continue Tegretol 400mg BID (was stable on this in past) -DC Vraylar 3 mg; this was started by outpatient provider; does not seem to have helped much and no clear indication for bipolar depression (also patient already on 3 antipsychotics) -DC'd Zyprexa: has caused DM/elevated Cholesterol/wt gain -temporarily Start artificial tears; refusing -Will get prescription for Restasis/cyclosporin -consider restarting clomipramine for OCD ( clomipramine 100 mg b.i.d. for OCD in the past around 2014; for some reason it was dc'd at some point; restarted 2022 but not continued after that). -consider glycopyrrolate for excessive drooling -will consider getting MRI, however patient's symptoms are congruent with diagnosis Patient educated on: therapeutic strategies Informed Consent: understands Reason for continued inpatient stay Substantial Risk for: stable for discharge Time Spent With Patient Time: Total time managing care of this patient today ____ minutes.
[2024-09-07 19:59] VITALS: BP 127/84; PULSE 80; TEMP 36.6; O2SAT 99
[2024-09-07] MEDS: risperiDONE 3 MG TABLET 6 MG PO (20:46)
[2024-09-07] MEDS: clomiPRAMINE HCl 25 MG CAPSULE 100 MG PO (20:46)
[2024-09-07] MEDS: Atorvastatin Calcium 40 MG TABLET PO (20:46)
[2024-09-07] MEDS: traZODone HCL 100 MG TABLET PO (20:46)
[2024-09-08 08:00] VITALS: BP 108/55; PULSE 64; RESP 18; TEMP 36.6; O2SAT 98
[2024-09-08] MEDS: clomiPRAMINE HCl 25 MG CAPSULE PO (08:35)
[2024-09-08] MEDS: atenoloL 25 MG TABLET PO (08:35)
[2024-09-08] MEDS: carBAMazepine ER 200 MG TAB.ER.12H 400 MG PO (08:35)
[2024-09-08] MEDS: Sennosides 8.6 MG TABLET PO (08:35)
[2024-09-08] MEDS: gemfibroziL 600 MG TABLET PO (08:35)
[2024-09-08] MEDS: Escitalopram Oxalate 10 MG TABLET PO (08:35)
[2024-09-08] MEDS: Docusate Sodium 100 MG CAPSULE PO (08:35)
[2024-09-08] MEDS: Omeprazole 40 MG CAPSULE.DR PO (08:35)
[2024-09-08] MEDS: Ezetimibe 10 MG TABLET PO (08:35)
[2024-09-08] MEDS: Loratadine 10 MG TABLET PO (08:35)
[2024-09-08] MEDS: Fluticasone Propionate Nasal 16 GM SPRAY 1 SPRAY NOSTRIL-B (08:38)
--- NOTE | 2024-09-08 09:23 | P.DS_ITS ---
DS: Providers Provider Date of Service: 09/08/24 Date of admission: 07/28/24 18:49 Date of discharge: 09/08/24 Primary care physician: Unknown Physician Attending physician on admission: Mannie Vidal Consults: 07/28/24 19:40 Consult to Hospitalist Routine Comment: Consulting Provider: [facility] [place] [facility] Hospitalists Reason For Exam: OSH admission 08/06/24 14:37 Consult to Hospitalist Routine Comment: Consulting Provider: [facility] [place] Hospitalists Reason For Exam: b/l swollen feet Attending physician on discharge: Mannie Vidal DS: Diagnosis Discharge Diagnosis (1) Schizoaffective disorder, bipolar type: Status: Acute (2) Autism spectrum disorder: Status: Acute (3) Intellectual disability: Status: Acute (4) Aarskog syndrome: Status: Acute DS: Medications Discharge Medications Home Medications: Home Medications ?Medication ?Instructions ?Recorded ?Confirmed atenolol 25 mg tablet 25 mg PO DAILY 07/28/24 07/28/24 carbamazepine 400 mg 400 mg PO BID 07/28/24 07/28/24 tablet,extended release,12 hr cariprazine 3 mg capsule (Vraylar) 3 mg PO DAILY 07/28/24 07/28/24 citalopram 20 mg tablet 20 mg PO DAILY 07/28/24 07/28/24 clonazepam 0.5 mg tablet 0.5 mg PO TID PRN anxiety 07/28/24 07/28/24 docusate sodium 100 mg capsule 100 mg PO TID 07/28/24 07/28/24 (Colace) ezetimibe 10 mg tablet 10 mg PO DAILY 07/28/24 07/28/24 fluticasone propionate 50 1 spray intranasal DAILY 07/28/24 07/28/24 mcg/actuation nasal spray,suspension gemfibrozil 600 mg tablet 600 mg PO BID 07/28/24 07/28/24 loratadine 10 mg capsule 10 mg PO DAILY 07/28/24 07/28/24 lurasidone 40 mg tablet 40 mg PO DAILY 07/28/24 07/28/24 montelukast 10 mg tablet 10 mg PO DAILY 07/28/24 07/28/24 olanzapine 10 mg tablet 10 mg PO BEDTIME 07/28/24 07/28/24 omeprazole 40 mg capsule,delayed 40 mg PO DAILY 07/28/24 07/28/24 release rosuvastatin 10 mg tablet 10 mg PO BEDTIME 07/28/24 07/28/24 sennosides 8.6 mg capsule (senna) 8.6 mg PO BID 07/28/24 07/28/24 Mental Status Exam Mental Status Exam Narrative: Pt is alert and oriented; behavior is organized and cooperative, calm and friendly; attending to ADLs independently; patient is not in distress; adequate hygiene; mood is described as good and affect congruent, bright, calm; eye contact appropriate; Speech remains a little garbled which is baseline; normal rate, volume; uses few words; not pressured; no psychomotor agitation/retardation present; thought process is concrete, goal directed, asks for needs; Thought content is very concrete; focused on going home. No SI/HI/AVH. Patients insight and judgment impaired but at baseline and adequate. Data Imaging Diagnostic Imaging Impressions Head CT 09/01/24 14:51 IMPRESSION: Unremarkable unenhanced head CT. Electronically signed by: Davide Chen MD 09/01/2024 03:41 PM [facility] [place] DS: Summary Hospital Course Hospital Course: Patient is a 34-year-old male with severe ASD, intellectual disability, schizoaffective disorder with, history of behavioral outbursts, who resides at a [facility] residential facility and who presents from external ED for what cancer program director reports is decompensation following discharge from [facility] admission about 4 weeks ago. central supply manager reports patient has increased anxiety, paranoia and visual hallucinations as well as increased agitation related to AVH, which has resulted in the need for physical restraints. Patient with limited ability to participate in interview. Patient cooperative and calm. He says he misses his mother. He said I am feeling better... And then that he was going to lay down. He said he wanted to be in the hospital until he feels better... But could not discuss his feelings or what that would mean. Denies any SI or HI and says he is feeling safe. Patient does endorse auditory hallucinations which he he says bothers him, however when asked to discuss them further or what they say, he says I do not know and regarding medication that there is nothing to help... For the remainder of the day, patient sometimes in his room, sometimes in the hallway saying he wanted to call his mother or father, saying he misses them and wants to go home. Formulation/clinical reasoning: Patient has diagnosis of schizoaffective disorder, not sure if he actually has manic episodes and according to collateral, patient has not demonstrated psychotic symptoms until this fall. Still he has been on antipsychotics for years. -Guardian paperwork in chart; parents are guardians -No HCP - [place] Diagnosis: -Says diagnosis is schizoaffective, bipolar type however she has no knowledge of any discrete manic episodes; he has some history of depressive episodes -Does not blink: Supposed to be on Restasis/cyclosporine ophthalmic; not sure dose; discussed with pharmacist who reports typically this is 0.05% solution 1 drop b.i.d. (other places say 0.1%) -Aarkskog syndrome -ASD -OCD -has chronic extremely dry skin (eczema?) for which he has some medicated cream; mother not sure the name -Said there was a plan to get MRI of the brain since change seemed somewhat sudden Hospital course: 07/30 Patient remains fearful; can be friendly and cooperative but seems very anxious and cautious. Visual hallucinations patient saying he can see his mother in the room and talking to her Still not going into bathroom, with recent history of being afraid of bathroom; thus patient Incontinent of urine, sitting in wet clothes and refusing to change today, willing to sign CV reiterating he wants to be here for treatment ( to feel better ) -left VM for outpatient provider Nat Lee to discuss tx hx 07/31 patient remains cautious and intermittently fearful but is also warming up a bit to some staff, primarily female staff. He says he is feeling better but behaviors remain decompensated. Willing to change out of clothes today with staff encouragement and have them washed; also talked to his mother on the phone today which he said made him happy. Patient willing to use lotion for try facial skin Collateral:Head Of Measurement & Insights discussed case with patient's mother who reports that behaviors decompensated this April after he returned from vacation with his father. At that time he started packing up his stuff, saying he wanted to move out of the halfway; was taking lots of showers, self dialogue Ng, saying he could see his mother in the room, saying he thought his mother was and refusing to talk to her on the phone. For those reasons This past May he went to [facility] where he was started on Vraylar (and refused to take Latuda). He returned to the halfway but remained confused, disorganized, paranoid. At 1 point he would not leave the living room at all, incontinent, afraid to go into the bathroom or to shower which resulted in this hospitalization. Some history of aggression for which he was hospitalized a year ago; only mild aggression in halfway this time around. -left another message with church secretary for Nat Lee 08/01 mostly same presentation, continued AH which are bothersome; more comfortable with staff and allowing them to help him attending ADLs including bathing. -justowriter operator did get a call back from Nat Lee; justowriter operator return call and left message 08/02 Patient continues to say I am feeling much better however this does not seem to correlate with any improvement in symptoms as he continues to have AH, is afraid of his room, incontinent of urine because afraid of going to the bathroom and continually saying that he sees his mother in his room. Patient does not respond much to reality testing. He does say he would like other medications to help make the voices go away. -given discussion below, will DC Vraylar since no clear indication of bipolar depression; already on 3 antipsychotics and does not seem effective. Instead will try Risperdal. -will start to try to eliminate pharmacy; need to find out what medication regimen patient was on this past summer during which time he was doing well Collateral: Again discussed case with patient's mother. -She reports he was doing great this past summer; not sure what his medication regimen was at that time -says was on Tegretol for years; for some reason [facility] took him off of it (was restarted at this hospitalization) -says was on clomipramine for OCD since 7 years old and did well on it; not sure why he was taken off a year ago -to her knowledge Latuda was supposed to be discontinued since he was never really taking it; Vraylar was also started at [facility] which has not seemed to help. -Has been on Zyprexa for a while; not sure efficacy --drools consistently at baseline; she said she has asked in the past for medication for this 08/03 Patient reports that he is feeling a lot better which is what he says to justowriter operator every day. He denies any AH. Also says he has not been seeing his mother. Difficult to tell if this is the case or not so will continue to monitor. Patient did ask for a stuffed animal or something about a stuffed animal but it was not clear. -briefly spoke with outpatient provider Huma who said she was 1 who started him on Vraylar -continue with Risperdal 08/04 No change in presentation; still disorganized, fearful, incontinent, hardly moving from room. Not sleeping at night but will tell justowriter operator I slept very good... . Continues to say the same refrain I feel a lot better... 08/05 meeting with outpt team stable on Tegretol and latuda for years until sudden decompensation this fall at which time pt presented with same symptoms he has currently. Prior to this stable and functional in many ways, all ADL's, organized and quite capable; no psychosis; read/write/send emails 08/06 no change in presentation and pt remains disorganized, sitting in own defecate; has AH. Hardly sleeping at night. sitting in one spot for most of the day. -intermittently refusing medications -pt refusing labs -feet are both swollen; hospitalist examined -infection on both side of bridge of nose where glasses sit on nose; pt allowed antibiotic ointment to be applied History that patient was stable on Tegretol and Latuda for at least a year; Latuda was lowered in the springtime to 40 mg, down from 60 since patient said was making him tired. He remained stable until this fall when he suddenly decompensated, unable to accept reality, incontinent, afraid of multiple things, thinking his mom's , forgetting people are Medication: pt was stable on Tegretol and Latuda for years until this fall -for now, will continue on Tegretol and Latuda -dc'd vraylar -started risperdal and increased to 4mg, scheduled it at bedtime to help w/ sleep -consider CT scan brain given sudden onset of symptoms, though was several months ago at this point 08/10 Still no change in presentation; refusing eyedrops. Remains scared to go out of his room. Did allow for bacitracin and sores on bilateral bridge of his nose are better.08/10 Still no change in presentation; refusing eyedrops. Remains scared to go out of his room. Did allow for bacitracin and sores on bilateral bridge of his nose are better. 08/11 Again no change in presentation; refusing labs. Will continue to retry before forcing them. Will try to get head CT. Continues to refuse eyedrops. Will give a little longer on Risperdal 4 mg 08/12 increased Risperdal to 6 mg 08/13 1st day of actual improvement in that patient allowed lab work. That said, he also threw mattress/belongings into the hallway, talking about a 90 yo neighbor he wants to -labs WNL -refused head CT; since he allowed labs, still will try to see if he will comply with head CT hoping to avoid the trauma of forcing him 08/14 Patient out in the milieu today, 1st time in over a week. Furthermore Patient actually using the bathroom today on his own, with significant encouragement from staff and a verbal plan; throughout the day patient was able to get himself to the bathroom rather than remain incontinent and inside close, which he has continually done since admission. Patient also seems more cheerful. -Again refused head CT but since getting better, will hold off from this for now -continue with increased Risperdal dose of 6 mg 08/17 remains somewhat improved. Patient pleasant and out in the milieu. Throughout the weekend he has been using the bathroom and not been incontinent which christie consistent improvement since admission. Also allowing staff to help him brush his teeth. Patient is normally, when at baseline, able to do all these things on his own, maybe with some prompting but independently. -will continue with current regimen for now as patient continues to improve -will continue to keep in mind that patient has a history of OCD and that he may benefit and improve from restarting clomipramine; however as psychosis and disorganized behavior is the main concern will continue to focus treatment in this area now 08/18 continues current tx plan for now; will consider increasing Risperdal though already at 6mg. 08/21 Patient remains doing better. Still not dressing himself or taking a shower but seems to be doing more more ADLs. Denies any AH. -at this time, justowriter operator hesitates to make any changes as patient has been slowly but steadily improving. 08/22: Continue current regime and plan of care. Pt appears improved. 08/24 Overall remains doing better. Attending to most ADLs except for showering. He says he is afraid to shower here and that he will shower at his own house. Patient sleeping through the night. Still Refusing head CT saying that he is better now. Head Of Measurement & Insights discussed with patient adding clomipramine back to his medication regimen with which he agrees and which was encouraged by his mother 08/25 same presentation and denies psychiatric symptoms. He did however put all of his belongings into the [place] again but with no explanation. Patient saying that he will be seeing his mother today who is coming to visit however this is not true; this remains improvement however from when he was saying he can see his mother in his bedroom 08/26/2024 same presentation; took clomipramine last night; will keep it same dose and only slowly titrate as patient has been doing better overall do not want to make any quick changes; patient not able to have informative discussion about OCD symptoms however per his mother, patient did much better on clomipramine 08/28 Patient intermittently talking about seeing his mother father or Mrs Pierre in his room which he has not done for over a week; however he continues to independently due number was ADLs. He asked about returning home. Lisseth came to see patient today and reports that he is definitely heading towards his baseline though not there yet, as he is not bathing himself and still has some psychotic symptoms. Head Of Measurement & Insights spoke with his mother today about labs (elevated hemoglobin A1c; she says this happens to him with antipsychotics), head CT; she agreed with justowriter operator's reasoning for holding off on the head CT for now, not wanting to traumatize patient and risk regression from progress made, since he has been refusing it. However justowriter operator also agrees that that it is worthwhile to get and will do so -will increase clomipramine to 50 mg; his mother is adamant that this was very helpful to him and justowriter operator agrees it may help patient progress further as he may be struggling with OCD symptoms that he is not able to articulate 08/30/2024: Continue current treatment plan 08/31 patient had an Epiphany today. With staff's help, it was revealed that the dust on patient's window did have the shape of a person's head and face which patient was referring to as Mrs. Lawton, an old acquaintance. Staff cleaned this off and the outline of the face was removed and with this, patient very clearly said he no longer sees Mrs. Lawton in the room; this remained a consistent understanding. Patient remains very ambivalent and anxious about getting a head CT; he was afraid to leave the the unit; Ativan was given however patient ultimately refused to go down and justowriter operator agreed to try again tomorrow 09/01 Patient seems happier today and playfully bouncing around the milieu. Today he actually agreed to get his head CT which was completed! No mentioned of seeing Mrs. Lawton in his room. -increasing clomipramine to 75 mg; will continue to titrate -Head CT reviewed and Negative: -will consider switching Risperdal to long-acting 09/01 CT/CT head/brain wo IV con IMPRESSION: Unremarkable unenhanced head CT. 09/02 pt doing better; showered today!! And went to group justowriter operator Talked with mom and discussed tx plan; she feels he is doing better and getting close to discharge. Pt is not drooling very much any more. -during discussion justowriter operator and mother decided against starting patient on long- acting injectable at this time and will leave that to outpatient provider 09/04 continue treatment plan; patient remains much improved 09/05 Patient said that he has has allergies; took allergy medication which he said is a little helpful. Otherwise remains stable. Continues to attend to ADLs, social in the milieu, no psychotic symptoms expressed and says is looking forward to returning to halfway. -of note, patient consistently refused artificial tears which was thus eventually discontinued; however justowriter operator noticed that patient is blinking 09/07 No change in presentation and patient remains calm, cooperative, friendly, attending to ADLs. Denies psych symptoms. Again asking about discharge and pleased to know it will be tomorrow. PLAN: CV *guardians have authorized justowriter operator, staff to administer any/all medical treatments even if against patients will q15 min checks Added clomipramine 25 mg daily Continue clomipramine 100 mg qhs for OCD (on this at home: clomipramine 100 mg b.i.d Continue with Risperdal 6 mg qhs -Add Risperdal 0.5 mg t.i.d. p.r.n. for breakthrough AVH -for now, Continue Latuda 40 mg daily at dinnertime (used to be on 60mg) -Continue Tegretol 400mg BID (was stable on this in past) -DC Vraylar 3 mg; this was started by outpatient provider; does not seem to have helped much and no clear indication for bipolar depression (also patient already on 3 antipsychotics) -DC'd Zyprexa: has caused DM/elevated Cholesterol/wt gain Time Spent with Patient Time attestation: Total time managing care of this patient today ____ minutes. Discharge Plan Discharge Anticipated Discharge Date/Time: 09/08/24 14:00 Patient Disposition: Home, Self-Care Discharge Diagnosis: Schizoaffective disorder, unspecified Referrals: Psych Provider-Nat Lee [Other] - 09/09/24 9:15 am Rosalva King [Other] - 1 Week (Please schedule an appointment for Joel to be seen in 1 week. Let the office know he was just discharged from the [facility]) Discharge Medications: New escitalopram oxalate 10 mg Tablet 10 mg PO DAILY 30 Days Qty: 30 0RF clomipramine 25 mg Capsule 25 mg PO DAILY 30 Days Qty: 30 0RF clomipramine 50 mg capsule 100 mg PO BEDTIME 30 Days Qty: 60 0RF risperidone 3 mg Tablet 6 mg PO BEDTIME 30 Days Qty: 60 0RF trazodone 100 mg Tablet 100 mg PO BEDTIME 30 Days Qty: 30 0RF Artificial Tears([id number]) 1-0.2-0.2 % Drops 1 drp ophthalmic (eye) Q4H PRN (Reason: Dry Eyes) 30 Days Qty: 15 0RF Continued clonazepam 0.5 mg tablet 0.5 mg PO TID PRN (Reason: anxiety) 30 Days Qty: 90 0RF atenolol 25 mg tablet 25 mg PO DAILY 30 Days Qty: 30 0RF omeprazole 40 mg capsule,delayed release(DR/EC) 40 mg PO DAILY 30 Days Qty: 30 0RF carbamazepine 400 mg tablet extended release 12 hr 400 mg PO BID 30 Days Qty: 60 0RF gemfibrozil 600 mg tablet 600 mg PO BID 30 Days Qty: 60 0RF docusate sodium 100 mg Capsule 100 mg PO TID 30 Days Qty: 90 0RF Rx Instructions: hold for loose stool montelukast 10 mg tablet 10 mg PO DAILY 30 Days Qty: 30 0RF ezetimibe 10 mg tablet 10 mg PO DAILY 30 Days Qty: 30 0RF rosuvastatin 10 mg tablet 10 mg PO BEDTIME 30 Days Qty: 30 0RF senna 8.6 mg Capsule 8.6 mg PO BID 30 Days Qty: 60 0RF loratadine 10 mg Capsule 10 mg PO DAILY 30 Days Qty: 30 0RF Changed fluticasone propionate 50 mcg/actuation spray,suspension See Rx Instructions .ROUTE .COMPLEX 30 Days Qty: 16 0RF Rx Instructions: 1 spray in each nostril daily lurasidone 40 mg tablet 40 mg PO DAILY@1700 30 Days Qty: 30 0RF Rx Instructions: take with food (administration can be adjusted to coincide with dinner time) Discontinued olanzapine 10 mg tablet 10 mg PO BEDTIME citalopram 20 mg tablet 20 mg PO DAILY Vraylar 3 mg capsule 3 mg PO DAILY Discharge Orders: Discharge Order (Routine); Ordered 09/08/24 Ordered By: Mannie Vidal Diet: Regular diet Activity on Discharge: As tolerated Stand Alone Forms: Patient Portal Discharge page, Community Support Print Language: Vietnamese Care Plan Goals: Maintain mood and safe behaviors Take medications as prescribed Practice coping skills Continue with outpatient providers and reach out to them as needed Health Concerns: Mood stability and behaviors Asthma History of elevated cholesterol Seasonal Allergies GERD Plan of Treatment: Follow up with your PCP, psychiatric provider and other outpatient providers regarding above concerns Take medications as prescribed Assessment: Risk assessment at time of discharge:? Patient was interviewed prior to discharge and found to be fully oriented and without any SI or HI. Patient has improved insight and judgment and wants to continue treatment. Patient is not in imminent risk of harm to self or others and is returning to 24 hour staffed halfway.? Patient has been observed closely by nursing and unit staff throughout admission; patient has not engaged in any behaviors that suggest dangerousness to self or others and with treatment, has remained able to demonstrate appropriate behaviors and impulse control Discharge Date/Time: 09/08/24 14:54
[2024-09-08] MEDS: clonazePAM 0.5 MG TABLET PO (13:51)
== END 2024-09-08 14:54 | disposition home or self-care (01) | DRG 885 ==
PROVIDERS: Admitting Provider Psychiatry & Neurology Psychiatry; Visit Provider Psychiatry & Neurology Psychiatry
DX: F25.0 Schizoaffective disorder, bipolar type (principal); Q87.19 Other congenital malformation syndromes predominantly associated with short stature; F84.0 Autistic disorder; F79 Unspecified intellectual disabilities; Z79.899 Other long term (current) drug therapy
CPT/HCPCS: 36415; 70450; 80053; 80061; 83036; 85007; 85027

== ENCOUNTER 2024-07-28 18:49 | Outpatient (BNV) | payer MEDICARE, MEDICAID, SELFPAY | END 2024-09-01 14:51 | PROVIDERS: Admitting Provider Psychiatry & Neurology Psychiatry; Visit Provider Radiology Diagnostic Radiology | DX: R41.82 Altered mental status, unspecified (principal) | CPT/HCPCS: 70450 ==

== ENCOUNTER → 2024-07-28 18:49 | Outpatient (BNV) | payer MEDICARE, MEDICAID, SELFPAY | PROVIDERS: Admitting Provider Psychiatry & Neurology Psychiatry; Visit Provider Psychiatry & Neurology Psychiatry | DX: F25.0 Schizoaffective disorder, bipolar type (principal); F84.0 Autistic disorder; F79 Unspecified intellectual disabilities; Q87.19 Other congenital malformation syndromes predominantly associated with short stature | CPT/HCPCS: 90792; 99232 ==